=== PATIENT | female | born 1945 | race Caucasian/White ===

== ENCOUNTER 2019-07-20 12:18 | Outpatient (CLI) | payer MEDICARE, SELFPAY ==
--- NOTE | ~2019-07-20 | CT_ITS ---
EXAMINATION:CT lung screening DATE: 07/20/2019 12:49 INDICATION: Personal history of tobacco dependence. Smoker who quit 6 months ago with 45 pack year hi story. TECHNIQUE: Computed tomography (CT) of the chest was performed without intravenous contrast. Automate d exposure control and iterative reconstruction technique were employed. The dose-length product (DLP ) was 57.59 mGy-cm. COMPARISON: Chest CT 07/09/2018, 03/20/2018 FINDINGS: There is severe emphysema. There is mild scarring at the lung apices. There is mild atelect asis and scarring bilaterally. There is a 4 mm nodule in right upper lobe that is new. Again seen is a 3 mm nodule in right upper lobe. No pleural effusion. The heart size is normal. There are coronary artery calcifications. No pericardial effusion. There is a mildly enlarged right paratracheal lymph n ode, likely reactive. Partially visualized is a 2.2 cm cyst in left kidney. There is severe thoracic spondylosis. IMPRESSION: 1. Lung-RADS category 3: Probably benign. Further evaluation is recommended with noncontrast low-dose chest CT in 6 months. Reviewed, dictated and finalized at location A. ORATE LAW SPECIALIST IMPRESSION: 1. Lung-RADS category 3: Probably benign. Further evaluation is recommended wit h noncontrast low-dose chest CT in 6 months.
== END 2019-07-20 12:19 | disposition home or self-care (01) ==
LOC: ANHIMG 12:26
PROVIDERS: PCP Internal Medicine; Visit Provider Nurse Practitioner Family
DX: Z12.2 Encounter for screening for malignant neoplasm of respiratory organs (principal); Z87.891 Personal history of nicotine dependence; R91.8 Other nonspecific abnormal finding of lung field
CPT/HCPCS: G0297

== ENCOUNTER 2019-11-19 10:15 | Outpatient (CLI) | payer MEDICARE, SELFPAY ==
[2019-11-19 10:50] LABS: Blood Urea Nitrogen 22 mg/dL (7-17); Calcium 9.5 mg/dL (8.4-10.2); Carbon Dioxide 29 mmol/L (22-30); Chloride 105 mmol/L (98-107); Cholesterol 175 mg/dL (0-200); Estimated Glomerular Filt Rate 54; Glucose 104 mg/dL (65-105); HDL Direct 73 mg/dL; Potassium 4.1 mmol/L (3.4-5.0); Sodium 140 mmol/L (137-145); Triglycerides 102 mg/dL (<150)
[2019-11-19 11:01] LABS: LDL Cholesterol Direct 73 mg/dL
[2019-11-19 11:46] LABS: Free T4 Free Thyroxine 1.03 ng/mL (0.78-2.19)
== END 2019-11-19 10:16 | disposition home or self-care (01) ==
LOC: ANHLAB 10:18
PROVIDERS: PCP Internal Medicine; Visit Provider Internal Medicine
DX: E03.9 Hypothyroidism, unspecified (principal); E55.9 Vitamin D deficiency, unspecified; I10 Essential (primary) hypertension; Z79.899 Other long term (current) drug therapy
CPT/HCPCS: 36415; 80048; 80061; 84439; 84443

== ENCOUNTER 2020-01-20 13:34 | Outpatient (CLI) | payer MEDICARE, SELFPAY ==
--- NOTE | ~2020-01-20 | CT_ITS ---
EXAMINATION: CT chest wo con DATE: 01/20/2020 13:56 INDICATION: Follow-up pulmonary nodules TECHNIQUE: Computed tomography (CT) of the chest was performed without intravenous contrast. The dose -length product was 123.71 mGy-cm. Automated exposure control and iterative reconstruction technique were employed. COMPARISON: CT dated 07/20/2019 and 07/09/2019 FINDINGS: There is severe emphysema. No significant pleural or pericardial effusion. Enlarged precari nal lymph node measures 1 cm short axis, unchanged, likely reactive. No pleural or pericardial effusi on. There is atherosclerosis of the aorta and coronary arteries. Exophytic left renal cyst reidentifi ed without significant change. There is apical pleural thickening/scarring. 3.5 mm right upper lobe n odule slightly decreased in size compared with prior examination. 3 mm right upper lobe nodule unchan ged. Curvilinear 5 mm right upper lobe nodule, coronal image 38, unchanged. There is a new 1.3 x 0.9 cm mass left upper lobe, image 39. IMPRESSION: 1. New 1.3 cm left upper lobe nodule. Consider further evaluation with pet/CT and/or tissue sampling. Lung RADS 4B, very suspicious. Reviewed, dictated and finalized at location A. IMPRESSION: 1. New 1.3 cm left upper lobe nodule. Consider further evaluation with pet/CT a nd/or tissue sampling. Lung RADS 4B, very suspicious.
== END 2020-01-20 13:35 | disposition home or self-care (01) ==
PROVIDERS: PCP Internal Medicine; Visit Provider Nurse Practitioner Family
DX: R91.1 Solitary pulmonary nodule (principal)
CPT/HCPCS: 71250

== ENCOUNTER 2020-02-08 13:27 | Outpatient (CLI) | payer MEDICARE, SELFPAY ==
--- NOTE | ~2020-02-08 | PE_ITS ---
EXAMINATION: PET skull to mid thigh DATE: 02/08/2020 15:49 INDICATION: Solitary pulmonary nodule. TECHNIQUE: Blood glucose level was 101 mg/dL. 10.49 mCi of 18-fluorodeoxyglucose (18-FDG) was adminis tered i.v. Low dose computed tomography (CT) images were acquired from the base of the brain to the p roximal thighs for attenuation correction and anatomic localization. Automated exposure control was e mployed. Dose-length product (DLP) was 306 mGy-cm. Positron emission tomography (PET) images were acq uired in the same distribution. COMPARISON: Chest CT 01/20/2020, 07/20/2019, 07/09/2018 FINDINGS: Head/neck: There is increased activity in the oropharynx without CT correlate, likely physiologic. Th ere are no pathologically enlarged lymph nodes. Chest: There is severe emphysema. There are scattered areas of mild atelectasis and scarring in the l ungs. There is a 1.4 cm nodule in left lower lobe abutting the pleura with maximum SUV of 3.1, new fr om 01/20/20, likely infection. There is a 1.3 cm nodule in left upper lobe abutting the pleura with ma ximum SUV of 2.7, stable from 01/20/20 and new from 07/20/19. No pleural effusion. The heart size is no rmal. There are coronary artery calcifications. No pericardial effusion. There is a 12 x 11 mm right paratracheal lymph node without increased activity, stable from 07/09/18, likely benign. 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 There is kyphosis of thoracic spine with mild chronic anterior wed ging of multiple vertebral bodies and severe spondylosis. Abdomen/pelvis/proximal thighs: The liver, gallbladder, spleen, pancreas, adrenal glands, and right k idney are normal. There is a 2.2 cm cyst in left kidney. There is a calcified fibroid uterus. There a re no dilated loops of bowel. There is diverticulosis of the colon without evidence of diverticulitis . There are no pathologically enlarged lymph nodes. There is no free intraperitoneal fluid. There is moderate spondylosis of lumbar spine. IMPRESSION: 1. 1.3 cm left upper lobe pulmonary nodule with increased activity, new from 07/20/19, suspicious for primary bronchogenic carcinoma. CT-guided biopsy is recommended. 2. 1.4 cm left lower lobe nodule with increased activity, new from 01/20/2020, likely infection. 3. Severe emphysema. Reviewed, dictated and finalized at location A. IMPRESSION: 1. 1.3 cm left upper lobe pulmonary nodule with increased activity, new from , suspicious for primary bronchogenic carcinoma. CT-guided biopsy is jolie mmended. 2. 1.4 cm left lower lobe nodule with increased activity, new from 01/20/2020, l ikely infection. 3. Severe emphysema.
[2020-02-08 13:56] LABS: Glucose Point of Care 101 (65-105)
== END 2020-02-08 13:28 | disposition home or self-care (01) ==
PROVIDERS: PCP Internal Medicine; Visit Provider Nurse Practitioner Family
DX: R91.1 Solitary pulmonary nodule (principal); J43.9 Emphysema, unspecified
CPT/HCPCS: 78815; A9552

== ENCOUNTER 2020-03-20 11:29 | Outpatient (CLI) | payer MEDICARE, SELFPAY ==
[2020-03-20 11:57] LABS: Basophils Absolute Auto 0.1 K/mm3 (0.0-0.1); Eosinophils Absolute Auto 0.5 K/mm3 (0-0.3); Hematocrit 40.3 % (37.0-47.0); Hemoglobin 12.3 g/dL (12.0-15.0); Immature Granulocyte Absolute 0.04 K/mm3 (0.00-0.031); Immature Granulocyte Percent A 0.4 % (0-0.5); Lymphocytes Absolute Auto 1.62 K/mm3 (0.9-3.2); Lymphocytes Percent Auto 17.1 % (18.3-44.2); Mean Corpuscular HGB Conc 30.5 g/dl (32-36); Mean Corpuscular Hemoglobin 26.9 pg (26-34); Mean Platelet Volume 9.5 fl (7.4-10.4); Monocytes Percent Auto 10.1 % (2.6-8.5); Neutrophils Absolute Auto 6.3 K/mm3 (1.3-6.7); Neutrophils Percent Auto 66.4 % (45.5-73.1); Platelet Count Result 331 k/mm3 (150-375); Red Blood Count 4.58 M/mm3 (4.2-5.4); Red Cell Distribution Width 16.6 % (11.5-14.5); White Blood Count 9.5 K/mm3 (4.5-10.0)
[2020-03-20 12:20] LABS: Alanine Aminotransferase 18 U/L (4-35); Albumin Level 4.4 g/dL (3.5-5.1); Alkaline Phosphatase 67 U/L (38-126); Anion Gap 6 mmol/L (8-16); Aspartate Amino Transferase 28 U/L (14-36); Bilirubin,Total 0.3 mg/dL (0.2-1.3); Blood Urea Nitrogen 22 mg/dL (7-17); Calcium 9.7 mg/dL (8.4-10.2); Carbon Dioxide 32 mmol/L (22-30); Chloride 103 mmol/L (98-107); Estimated Glomerular Filt Rate 48; Glucose 111 mg/dL (65-105); Potassium 4.4 mmol/L (3.4-5.0); Sodium 141 mmol/L (137-145)
[2020-03-20 13:38] LABS: Folic Acid > 20.0 ng/mL (2.76->20); Vitamin B12 > 1000.0 pg/mL (239-931)
[2020-03-20 14:16] LABS: Hemoglobin A1C 5.7 % (<5.7)
[2020-03-23 09:55] LABS: Vitamin D 1,25 (OH)2 Total 50 pg/mL (18-72); Vitamin D2 1,25 (OH)2 <8 pg/mL; Vitamin D3 1,25 (OH)2 50 pg/mL
== END 2020-03-20 11:30 | disposition home or self-care (01) ==
PROVIDERS: PCP Internal Medicine; Visit Provider Internal Medicine
DX: E55.9 Vitamin D deficiency, unspecified (principal); Z79.899 Other long term (current) drug therapy; I10 Essential (primary) hypertension; D51.8 Other vitamin B12 deficiency anemias
CPT/HCPCS: 36415; 80053; 82607; 82652; 82746; 83036; 85025

== ENCOUNTER 2020-05-26 09:31 | Outpatient (CLI) | payer MEDICARE, SELFPAY ==
--- NOTE | ~2020-05-26 | CT_ITS ---
EXAMINATION: CT chest wo con DATE: 05/26/2020 10:00 INDICATION: Pulmonary nodule TECHNIQUE: Computed tomography (CT) of the chest was performed without intravenous contrast. The dose -length product was 54.06 mGy-cm. Automated exposure control and iterative reconstruction technique w ere employed. COMPARISON: Pet/CT dated 02/08/2020 FINDINGS: No significant pleural or pericardial effusion. No thoracic lymphadenopathy. Heart size nor mal. There is atherosclerosis of the aorta and coronary arteries. There is a 2.4 cm left renal cyst. Severe emphysema. Decreased size of left upper lobe nodule now measuring 6 x 6 mm compared with 13 x 9 mm on prior examination. Interval resolution of pleural-based soft tissue nodule in the left lower lobe. There is a new irregular shaped right lower lobe there is a an additional irregular shaped nodu le in the right lower lobe, image 52 measuring 11 mm. Moderate thoracic spondylosis. Subsolid nodule measuring 1.6 x 9 mm, image 66. IMPRESSION: 1. Significant interval decrease in size of left upper lobe nodule now measuring 6 x 6 mm axially, jim webster interval response to therapy. Interval resolution of left lower lobe pleural-based/inflammatory. 2: New spiculated subsolid nodules in the right lower lobe, most likely infectious/inflammatory, alth ough neoplasm is not excluded. 3: Severe emphysema. Reviewed, dictated and finalized at location B. NDER SUPERVISOR IMPRESSION: 1. Significant interval decrease in size of left upper lobe nodule now measurin g 6 x 6 mm axially, likely interval response to therapy. Interval resolution of left lower lobe pleural-based/inflammatory. 2: New spiculated subsolid nodules in the right lower lobe, most likely infecti ous/inflammatory, although neoplasm is not excluded. 3: Severe emphysema.
== END 2020-05-26 09:32 | disposition home or self-care (01) ==
PROVIDERS: PCP Internal Medicine; Visit Provider Nurse Practitioner Family
DX: R91.8 Other nonspecific abnormal finding of lung field (principal); I25.10 Atherosclerotic heart disease of native coronary artery without angina pectoris; J43.9 Emphysema, unspecified; N28.1 Cyst of kidney, acquired; M47.814 Spondylosis without myelopathy or radiculopathy, thoracic region
CPT/HCPCS: 71250

== ENCOUNTER 2020-06-13 15:09 | Outpatient (CLI) | payer MEDICARE, SELFPAY ==
[2020-06-13 16:19] LABS: Basophils Absolute Auto 0.1 K/mm3 (0.0-0.1); Basophils Percent Auto 0.7 % (0.2-1.2); Eosinophils Absolute Auto 0.6 K/mm3 (0-0.3); Eosinophils Percent Auto 8.1 % (0-4.4); Hematocrit 37.6 % (37.0-47.0); Hemoglobin 11.4 g/dL (12.0-15.0); Immature Granulocyte Absolute 0.01 K/mm3 (0.00-0.031); Immature Granulocyte Percent A 0.1 % (0-0.5); Lymphocytes Absolute Auto 1.87 K/mm3 (0.9-3.2); Lymphocytes Percent Auto 26.2 % (18.3-44.2); Mean Corpuscular HGB Conc 30.3 g/dl (32-36); Mean Corpuscular Hemoglobin 27.1 pg (26-34); Mean Corpuscular Volume 89.5 fl (80-100); Mean Platelet Volume 9.7 fl (7.4-10.4); Monocytes Absolute Auto 0.8 K/mm3 (0.1-0.6); Monocytes Percent Auto 11.2 % (2.6-8.5); Neutrophils Absolute Auto 3.8 K/mm3 (1.3-6.7); Neutrophils Percent Auto 53.7 % (45.5-73.1); Platelet Count Result 260 k/mm3 (150-375); Red Cell Distribution Width 14.8 % (11.5-14.5); White Blood Count 7.1 K/mm3 (4.5-10.0)
== END 2020-06-13 15:10 | disposition home or self-care (01) ==
LOC: ANHLAB 15:11
PROVIDERS: PCP Internal Medicine; Visit Provider Internal Medicine
DX: K92.1 Melena (principal)
CPT/HCPCS: 36415; 85025

== ENCOUNTER 2020-06-13 17:11 | Emergency (ER) | payer MEDICARE, SELFPAY ==
[2020-06-13 17:16] VITALS: BP 162/80; PULSE 95; RESP 24; TEMP 36.9; O2SAT 100
[2020-06-13 17:30] LABS: Basophils Absolute Auto 0.1 K/mm3 (0.0-0.1); Basophils Percent Auto 0.7 % (0.2-1.2); Eosinophils Absolute Auto 0.7 K/mm3 (0-0.3); Eosinophils Percent Auto 7.2 % (0-4.4); Hematocrit 39.2 % (37.0-47.0); Hemoglobin 11.6 g/dL (12.0-15.0); Immature Granulocyte Absolute 0.02 K/mm3 (0.00-0.031); Immature Granulocyte Percent A 0.2 % (0-0.5); Lymphocytes Absolute Auto 2.56 K/mm3 (0.9-3.2); Mean Corpuscular HGB Conc 29.6 g/dl (32-36); Mean Corpuscular Hemoglobin 26.9 pg (26-34); Mean Corpuscular Volume 90.7 fl (80-100); Mean Platelet Volume 9.5 fl (7.4-10.4); Monocytes Absolute Auto 1.1 K/mm3 (0.1-0.6); Monocytes Percent Auto 11.3 % (2.6-8.5); Neutrophils Absolute Auto 5.1 K/mm3 (1.3-6.7); Neutrophils Percent Auto 53.6 % (45.5-73.1); Platelet Count Result 279 k/mm3 (150-375); Red Blood Count 4.32 M/mm3 (4.2-5.4); Red Cell Distribution Width 14.7 % (11.5-14.5); White Blood Count 9.5 K/mm3 (4.5-10.0)
[2020-06-13 17:41] LABS: INR 1.1; Partial Thromboplastin Time 25.8 SECONDS (22.3-36.8); Prothrombin Time 15.1 Seconds (11.1-14.7)
[2020-06-13 17:43] LABS: Alanine Aminotransferase 24 U/L (4-35); Albumin Level 4.5 g/dL (3.5-5.1); Alkaline Phosphatase 77 U/L (38-126); Anion Gap 8 mmol/L (8-16); Aspartate Amino Transferase 39 U/L (14-36); Bilirubin,Total 0.3 mg/dL (0.2-1.3); Blood Urea Nitrogen 17 mg/dL (7-17); Calcium 9.4 mg/dL (8.4-10.2); Carbon Dioxide 30 mmol/L (22-30); Chloride 102 mmol/L (98-107); Estimated CRCL calculation 34 ml/min; Estimated Glomerular Filt Rate > 60; Glucose 112 mg/dL (65-105); Potassium 4.1 mmol/L (3.4-5.0); Sodium 140 mmol/L (137-145)
[2020-06-13 17:55] LABS: Hypochromasia 2+ (NORMAL); Ovalocytes 1+ (NORMAL); Platelet Estimate Adequate (Adequate)
[2020-06-13 18:01] VITALS: BP 139/106; PULSE 95; RESP 27; O2SAT 83
[2020-06-13 18:31] VITALS: BP 151/73; PULSE 88; RESP 18
[2020-06-13 19:01] VITALS: BP 170/94; PULSE 90; RESP 19; O2SAT 92
--- NOTE | 2020-06-13 19:04 | ED.GENADULT ---
HPI - General Adult General Chief complaint: GI Bleed Stated complaint: Abnormal Lab/Dark stools Time Seen by Provider: 06/13/20 17:18 Source: patient Mode of arrival: ambulatory Limitations: no limitations Related Data Allergies Allergy/AdvReac Type Severity Reaction Status Date / Time levalbuterol Allergy Unknown n/a Verified 06/13/20 17:22 methylprednisolone Allergy Unknown Jittery Verified 06/13/20 17:22 Review of Systems Review of Systems: Narrative: CONSTITUTIONAL: Denies fever, chills, or sweats. EYES: Denies visual changes, redness, or discharge. ENT: Denies rhinorrhea, congestion, sore throat, or otalgia. CARDIOVASCULAR: Denies chest pain, palpitations, or edema. RESPIRATORY: Denies cough or dyspnea. GASTROINTESTINAL: Reports dark stool Denies abdominal pain, nausea, vomiting, or diarrhea. GENITOURINARY: Denies dysuria or hematuria. SKIN: Denies rash or itching. MUSCULOSKELETAL: Denies back pain, joint pain, or myalgia. NEUROLOGIC: Denies headache, numbness, dizziness, or weakness. PSYCHIATRIC: Denies anxiety or depression. 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 HEAD: Normocephalic, atraumatic. EYES: PERRLA and EOMI. NECK: Supple. No adenopathy or masses. CHEST: Clear to auscultation. No respiratory distress. No wheezes rales or rhonchi HEART: Regular rate and rhythm. No murmur heard. Normal peripheral pulses. ABDOMEN: Soft, nontender in any quadrant, nondistended, normal active bowel sounds. RECTAL EXAM: No outward signs of trauma or hemmorhoids. No bloody output to rectum. No bloody discharge in underwear. digital exam not grossly bloody. minimal stool in rectal vault. Hemoccult was not positive. EXTREMITIES: Normal range of motion. No edema. SKIN: Warm, dry, no rash. NEURO: No focal deficits. Alert and oriented x3. PSYCH: Normal mood and affect. Course Vital Signs Vital signs: Vital Signs Temperature 98.5 F 06/13/20 17:16 Pulse Rate 95 06/13/20 17:16 Respiratory Rate 24 H 06/13/20 17:16 Blood Pressure 162/80 H 06/13/20 17:16 Pulse Oximetry 100 06/13/20 17:16 Temperature 98.5 F 06/13/20 17:16 Pulse Rate 95 06/13/20 17:16 Respiratory Rate 24 H 06/13/20 17:16 Blood Pressure 162/80 H 06/13/20 17:16 Pulse Oximetry 100 06/13/20 17:16 Medical Decision Making MDM Narrative Medical decision making narrative: Patient's hemoglobin hematocrit and white blood cell count are appropriate. Patient does not have dizziness, weakness, nausea, vomiting she has not had any stools while in the emergency department. She does not have any appreciated bleeding from her rectum. Patient does not have dizziness, weakness, abdominal pain, chest pain, shortness of breath from her baseline. Patient cannot pass any stools while in emergency department. Collection. Patient has instructed to follow-up with her primary care or GI specialist for further investigation into her stools. Patient states Dr Bowers already mentioned referral for colonoscopy. Patient not on any blood thinners. She still feels well and is ready to go home. Patient is to return to emergency department if any of the aforementioned concerning symptoms present. Vital Signs Vital Signs: Vital Signs
== END 2020-06-13 19:35 | disposition home or self-care (01) ==
PROVIDERS: Emergency Medicine; Emergency Provider Emergency Medicine; PCP Internal Medicine
DX: R19.5 Other fecal abnormalities (principal); J44.9 Chronic obstructive pulmonary disease, unspecified; N18.9 Chronic kidney disease, unspecified; R91.1 Solitary pulmonary nodule; Z87.891 Personal history of nicotine dependence
CPT/HCPCS: 36415; 80053; 85025; 85610; 85730; 86850; 86900; 86901; 99283

== ENCOUNTER 2020-06-19 16:59 | Outpatient (CLI) | payer MEDICARE, SELFPAY ==
--- NOTE | ~2020-06-19 | XR_ITS ---
EXAMINATION: XR abdomen/kub 1V INDICATION: Hematuria, history of kidney stones TECHNIQUE: Supine views of the abdomen were obtained on 2 radiographs. COMPARISON: 09/02/2018 FINDINGS: No urolithiasis is identified. A calcified uterine fibroid is noted. The bowel gas pattern is normal. The visualized lung bases are clear. There is mild osteoarthritis of the hips. Calcified a therosclerosis is noted. IMPRESSION: 1. No urolithiasis identified. Reviewed, dictated and finalized at location A. LE END SEWER
== END 2020-06-19 17:00 | disposition home or self-care (01) ==
PROVIDERS: PCP Internal Medicine; Visit Provider Internal Medicine
DX: R31.9 Hematuria, unspecified (principal); Z87.442 Personal history of urinary calculi; M16.0 Bilateral primary osteoarthritis of hip
CPT/HCPCS: 74018

== ENCOUNTER 2020-06-30 14:32 | Outpatient (CLI) | payer MEDICARE, SELFPAY ==
--- NOTE | ~2020-06-30 | XR_ITS ---
XR abdomen/kub 1V DATE: 06/30/2020 14:58 INDICATION: Gross hematuria TECHNIQUE: Supine AP view COMPARISON: 06/30/2020 CT abdomen and pelvis 06/19/2020 KUB 07/28/[address] abdomen pelvis FINDINGS: A calcified small uterine fibroid is again noted overlying the lower mid pelvis. No apparent urinary tract calcification is noted. The psoas shadows are intact. No visceromegaly is evident. No evidence of bowel obstruction. Degenerative changes of the thoracic and lumbar spine. Diffuse osteopenia. The lung bases are clear. Heart size appears normal. IMPRESSION: No apparent urinary tract calcification is noted Reviewed, dictated and finalized at Location A. Reviewed, dictated and finalized at location B. OPHTHALMOLOGIST
--- NOTE | ~2020-06-30 | CT_ITS ---
EXAMINATION: CT abdomen pelvis wo/w con DATE: 06/30/2020 15:48 INDICATION: Gross hematuria TECHNIQUE: Computed tomography (CT) of the abdomen and pelvis was performed without and subsequently with 130 cc Omnipaque 350 intravenous contrast. Automated exposure control and iterative reconstructi on technique were employed. Exam dose: 710.11 mGy-cm total exam DLP. COMPARISON: 06/30/2020 KUB 06/19/2020 KUB 07/28/[address] abdomen pelvis FINDINGS: Emphysematous changes are noted in the included lower lung zones. Normal heart size. No pericardial or pleural effusion. Right fat-containing foramen of Bochdalek hernia. Interval resolution of previous 5 mm nonobstructing calculus of the lower pole of right kidney since 07/28/2018. No urinary tract calculus or hydroureteronephrosis is evident on the current examination. T here are no bladder stones. No bladder wall thickening. Bilateral ureteral jets are demonstrated on t he postcontrast study. Bilateral renal cysts are again noted, the largest on the left measuring up to approximately 2.2 cm m aximal dimension. The liver, gallbladder, bile ducts, pancreas, pancreatic duct and spleen are unremarkable. Normal morphology of the adrenal glands. There is extensive calcification of the abdominal aorta and calcifications at the origins of the umesh ac and superior mesenteric and renal arteries. No abdominal aortic aneurysm. Prominent calcifications of the iliac and femoral arteries. No intraperitoneal or retroperitoneal or pelvic mass lesion or ad enopathy or ascites. Calcified uterine fibroid. No evidence of mass lesion of the urinary bladder or bladder wall thickeni ng. There are numerous diverticula of the sigmoid colon; no CT evidence of diverticulitis. No bowel obstr uction, bowel wall thickening, pneumatosis or intraperitoneal free air is evident. Degenerative changes of the thoracic and lumbar spine. Grade 1 anterolisthesis at L4-5 due to degener ative disks change at the apophyseal joints. No suspicious osteolytic or osteoblastic lesions are noted. IMPRESSION: No urinary tract calculus or hydroureteronephrosis or urinary tract solid mass lesion is detected Bilateral renal cysts Calcified uterine fibroid Diverticulosis of the colon; no CT evidence of diverticulitis Emphysema Reviewed, dictated and finalized at Location A. Reviewed, dictated and finalized at location B. AN TEACHER IMPRESSION: No urinary tract calculus or hydroureteronephrosis or urinary trac t solid mass lesion is detected Bilateral renal cysts Calcified uterine fibroid Diverticulosis of the colon; no CT evidence of diverticulitis Emphysema
== END 2020-06-30 14:33 | disposition home or self-care (01) ==
PROVIDERS: PCP Internal Medicine; Visit Provider Nurse Practitioner Adult Health
DX: R31.0 Gross hematuria (principal); N28.1 Cyst of kidney, acquired; D25.9 Leiomyoma of uterus, unspecified; J43.9 Emphysema, unspecified
CPT/HCPCS: 74018; 74178; Q9967

== ENCOUNTER 2020-07-18 02:32 | Outpatient (CLI) | payer MEDICARE, SELFPAY ==
[2020-07-18 18:12] LABS: SARS-CoV-2 RNA PCR Negative
== END 2020-07-18 02:33 | disposition home or self-care (01) ==
LOC: ANHCOVIDDT 02:33
PROVIDERS: PCP Internal Medicine; Visit Provider Internal Medicine Gastroenterology
DX: Z01.812 Encounter for preprocedural laboratory examination (principal); Z20.822 Contact with and (suspected) exposure to COVID-19
CPT/HCPCS: C9803; U0003; U0005

== ENCOUNTER → 2020-07-29 00:54 | Outpatient (CLI) | payer MEDICARE, SELFPAY ==
[2020-07-29 20:39] LABS: SARS-CoV-2 RNA PCR Negative
== END ==
PROVIDERS: PCP Internal Medicine; Visit Provider Internal Medicine Gastroenterology
DX: Z01.812 Encounter for preprocedural laboratory examination (principal); Z20.822 Contact with and (suspected) exposure to COVID-19
CPT/HCPCS: C9803; U0003; U0005

== ENCOUNTER 2020-08-02 00:37 | Day surgery (SDC) | payer MEDICARE, SELFPAY ==
[2020-07-14 13:43] VITALS: BMI 23.2
--- NOTE | 2020-07-19 13:36 | WPDANESEPPF ---
Anes - Initial Pre Proc Eval Procedure: Operation Date: 07/21/20 11:00 Proposed Procedures p Colonoscopy - Lev Gorman MD Date/Time: 07/19/20 13:36 Surgeon: Lev Gorman MD Pre Op Diagnosis: Blood in stool, Hx of Rectal Polyps Patient Data Age: 75 Gender: F Height: 1.52 m Weight: 54 kg Allergies Allergy/AdvReac Type Severity Reaction Status Date / Time levalbuterol Allergy Unknown n/a Verified 07/14/20 13:43 methylprednisolone Allergy Unknown Jittery Verified 07/14/20 13:43 Home Medications Medication Instructions Recorded Confirmed Type mecobalamin (vitamin B12) 1,000 1,000 mcg SUBLINGUAL DAILY #60 07/06/19 07/14/20 Rx mcg disintegrating tablet tablet,sublingual amlodipine 5 mg tablet 5 mg PO DAILY #90 tablet 08/27/19 07/14/20 Rx donepezil 10 mg tablet 10 mg PO ONCE #90 tablet 08/27/19 07/14/20 Rx levothyroxine 25 mcg tablet 25 mcg PO DAILY #90 tablet 08/27/19 07/14/20 Rx olmesartan 20 mg tablet 20 mg PO DAILY #90 tablet 08/27/19 07/14/20 Rx memantine 5 mg tablet See Rx Instructions .ROUTE 02/21/20 07/14/20 Rx .COMPLEX #60 tablet folic acid 1 mg tablet 1 mg PO DAILY #90 tablet 04/06/20 07/14/20 Rx lorazepam 1 mg tablet 1 mg PO BID #60 tablet 07/03/20 07/14/20 Rx sodium,potassium,mag sulfates See Rx Instructions .ROUTE 07/13/20 Rx [Suprep Bowel Prep Kit] .COMPLEX #1 ml albuterol sulfate 2.5 mg INHALATION BID 07/14/20 07/14/20 History oobtqlhefz-uartldui-khyhwnbvvm 2 inh INHALATION BID 07/14/20 07/14/20 History [Breztri Aerosphere] cyclobenzaprine 10 mg PO BID PRN 07/14/20 07/14/20 History fexofenadine [Marley Allergy] 180 mg PO DAILY PRN 07/14/20 History ipratropium bromide See Rx Instructions .ROUTE 07/14/20 History .COMPLEX PRN ycvtoytgepui-xcbkznsh-mfjssq 1 tablet PO DAILY 07/14/20 07/14/20 History [Centrum Silver] PMF Past Medical History Medical History (Updated 07/17/20 @ 16:55 by Jina Ferrell) Adult BMI 19-24 kg/sq m Black stools BMI (body mass index) 20.0-29.9 CKD (chronic kidney disease) COPD (chronic obstructive pulmonary disease) COPD exacerbation Cough Encounter for routine adult health examination without abnormal findings Follow up GERD (gastroesophageal reflux disease) Gingivitis Hematuria History of kidney stones Hx of colonic polyps Lung nodule 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 Sore mouth Tobacco abuse Trigger finger of all digits of right hand Social History Social History Years smoked: 50 Smoking status: Former smoker Tobacco type: cigarettes Second hand tobacco smoke exposure: No Alcohol intake: current Substance use type: does not use Anes - Eval Final PreProcedure Day of Procedure 07/19/20 13:36 Patient weight: normal Heart: regular rate and rhythm Lungs: clear to auscultation and normal air movement Airway: Mallampati scale class II Neurological: alert and oriented Last oral intake: >/= 8 hours ASA classification: III Emergent: no Anesthetic plan: proceed Anesthesia type and monitoring: general GIVS and standard monitoring Informed Consent: The patient's anesthetic plan and its attendant risks and benefits were discussed with the patient/family/POA. Questions were solicited and answers provided to the satisfaction of the patient/family/POA.
--- NOTE | 2020-07-20 08:36 | PC.NURSE ---
Patient states she has lung infection and had to reschedule her colonoscopy. New instructions given with COVID and procedure times. Denies any questions at this time.
[2020-08-02 11:26] VITALS: BP 136/93; PULSE 99; RESP 18; TEMP 36.2; O2SAT 95; BMI 22.1
[2020-08-02] MEDS: LACTATED RINGERS 1,000 ML 150 ML IV CONT (11:35)
--- NOTE | 2020-08-02 12:15 | WPDANESEPPF ---
Anes - Initial Pre Proc Eval Procedure: Operation Date: 08/02/20 12:00 Proposed Procedures p Colonoscopy - Lei Cano MD Date/Time: 08/02/20 12:15 Surgeon: Lei Cano MD Pre Op Diagnosis: Blood in stool, Hx of Rectal Polyps Patient Data Age: 75 Gender: F Height: 5 ft Weight: 51.4 kg Last Vital Signs Temp 36.2 C L 08/02/20 11:26 Pulse 99 08/02/20 11:26 Resp 18 08/02/20 11:26 BP 136/93 H 08/02/20 11:26 Pulse Ox 95 08/02/20 11:26 Allergies Allergy/AdvReac Type Severity Reaction Status Date / Time levalbuterol Allergy Unknown n/a Verified 08/02/20 11:23 methylprednisolone Allergy Unknown Jittery Verified 08/02/20 11:23 Home Medications Medication Instructions Recorded Confirmed Type mecobalamin (vitamin B12) 1,000 1,000 mcg SUBLINGUAL DAILY #60 07/06/19 07/14/20 Rx mcg disintegrating tablet tablet,sublingual amlodipine 5 mg tablet 5 mg PO DAILY #90 tablet 08/27/19 07/14/20 Rx donepezil 10 mg tablet 10 mg PO ONCE #90 tablet 08/27/19 07/14/20 Rx levothyroxine 25 mcg tablet 25 mcg PO DAILY #90 tablet 08/27/19 07/14/20 Rx memantine 5 mg tablet See Rx Instructions .ROUTE 02/21/20 07/14/20 Rx .COMPLEX #60 tablet folic acid 1 mg tablet 1 mg PO DAILY #90 tablet 04/06/20 07/14/20 Rx sodium,potassium,mag sulfates See Rx Instructions .ROUTE 07/13/20 Rx [Suprep Bowel Prep Kit] .COMPLEX #1 ml albuterol sulfate 2.5 mg INHALATION BID 07/14/20 07/14/20 History ckinhacpco-swxqxhhz-lnszuopzga 2 inh INHALATION BID 07/14/20 07/14/20 History [Breztri Aerosphere] cyclobenzaprine 10 mg PO BID PRN 07/14/20 07/14/20 History fexofenadine [Marley Allergy] 180 mg PO DAILY PRN 07/14/20 07/20/20 History ipratropium bromide See Rx Instructions .ROUTE 07/14/20 07/20/20 History .COMPLEX PRN iniyjjguzugi-ofdxkbci-ijrsjn 1 tablet PO DAILY 07/14/20 07/14/20 History [Centrum Silver] amoxicillin 500 mg-potassium 1 tablet PO Q12H #14 tablet 07/19/20 07/20/20 Rx clavulanate 125 mg tablet lorazepam 1 mg tablet 1 mg PO BID #60 tablet 08/01/20 Rx olmesartan 20 mg tablet 20 mg PO DAILY #90 tablet 08/01/20 Rx Patient hx anesthesia problems: none Family hx anesthesia problems: none PMFSH Past Medical History Medical History Adult BMI 19-24 kg/sq m Black stools BMI (body mass index) 20.0-29.9 CKD (chronic kidney disease) COPD (chronic obstructive pulmonary disease) COPD exacerbation Cough Encounter for routine adult health examination without abnormal findings Follow up GERD (gastroesophageal reflux disease) Gingivitis Hematuria History of kidney stones Hx of colonic polyps Lung nodule 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 Sore mouth Tobacco abuse Trigger finger of all digits of right hand Social History Social History Years smoked: 50 Smoking status: Former smoker Tobacco type: cigarettes Second hand tobacco smoke exposure: No Alcohol intake: current Substance use type: does not use Anes - Eval Final PreProcedure Day of Procedure 08/02/20 12:15 Patient weight: normal Heart: regular rate and rhythm Lungs: clear to auscultation Airway: Mallampati scale class II Neurological: alert and oriented Last oral intake: >/= 8 hours ASA classification: IV Emergent: no Anesthetic plan: proceed Anesthesia type and monitoring: general GIVS and standard monitoring Informed Consent: The patient's anesthetic plan and its attendant risks and benefits were discussed with the patient/family/POA. Questions were solicited and answers provided to the satisfaction of the patient/family/POA.
--- NOTE | 2020-08-02 12:58 | PM.HPGS ---
History of Present Illness History of Present Illness Consent: Risks, benefits, and alternatives have been discussed and questions answered. Patient agrees to proceed with procedure. Chief complaint: Blood in stool, Hx of Rectal Polyps Narrative: Jenny Lucas is a 75 year old female here for screening colonoscopy with last one about 10 years ago but also diarrhea using OTC anti-diarrheals. Also COPD and GERD. Review of Systems Constitutional: Constitutional: Denies headache(s) and Denies weakness Eyes: Eyes: Denies blurry vision ENT: Reports Normal hearing present, Denies headache(s) and Denies neck pain Cardiovascular: Cardiovascular: Denies chest pain and Denies dyspnea Respiratory: Respiratory: Denies dyspnea Gastrointestinal: Gastrointestinal: Reports no additional gastrointestinal complaints Genitourinary: Genitourinary: Denies dysuria Musculoskeletal: Musculoskeletal: Denies neck pain Integumentary/Breasts: Skin/Breast: Denies dry skin Neurologic: Reports Normal hearing present, Denies headache(s) and Denies weakness Psychiatric: Psychiatric: Denies anxiety Endocrine: Endocrine: Denies change in body appearance Hematologic/Lymphatic: Hematologic/Lymphatic: Denies easy bleeding Allergic/Immunologic: Allergic/Immunologic: Denies urticaria PMFSH Past Medical History Medical History Adult BMI 19-24 kg/sq m Black stools BMI (body mass index) 20.0-29.9 CKD (chronic kidney disease) COPD (chronic obstructive pulmonary disease) COPD exacerbation Cough Encounter for routine adult health examination without abnormal findings Follow up GERD (gastroesophageal reflux disease) Gingivitis Hematuria History of kidney stones Hx of colonic polyps Lung nodule On terminologist drug therapy Sore mouth Tobacco abuse Trigger finger of all digits of right hand Social History Social History Years smoked: 50 Smoking status: Former smoker Tobacco type: cigarettes Second hand tobacco smoke exposure: No Alcohol intake: current Substance use type: does not use Meds Home Medications and Allergies Home Medications Medication Instructions Recorded Confirmed Type mecobalamin (vitamin B12) 1,000 1,000 mcg SUBLINGUAL DAILY #60 07/06/19 07/14/20 Rx mcg disintegrating tablet tablet,sublingual amlodipine 5 mg tablet 5 mg PO DAILY #90 tablet 08/27/19 07/14/20 Rx donepezil 10 mg tablet 10 mg PO ONCE #90 tablet 08/27/19 07/14/20 Rx levothyroxine 25 mcg tablet 25 mcg PO DAILY #90 tablet 08/27/19 07/14/20 Rx memantine 5 mg tablet See Rx Instructions .ROUTE 02/21/20 07/14/20 Rx .COMPLEX #60 tablet folic acid 1 mg tablet 1 mg PO DAILY #90 tablet 04/06/20 07/14/20 Rx sodium,potassium,mag sulfates See Rx Instructions .ROUTE 07/13/20 Rx [Suprep Bowel Prep Kit] .COMPLEX #1 ml albuterol sulfate 2.5 mg INHALATION BID 07/14/20 07/14/20 History auxubrbdqq-aigqsdwy-zmaggczksx 2 inh INHALATION BID 07/14/20 07/14/20 History [Breztri Aerosphere] cyclobenzaprine 10 mg PO BID PRN 07/14/20 07/14/20 History fexofenadine [Marley Allergy] 180 mg PO DAILY PRN 07/14/20 07/20/20 History ipratropium bromide See Rx Instructions .ROUTE 07/14/20 07/20/20 History .COMPLEX PRN xufnmlizgkub-qjtevtkv-pxmnez 1 tablet PO DAILY 07/14/20 07/14/20 History [Centrum Silver] amoxicillin 500 mg-potassium 1 tablet PO Q12H #14 tablet 07/19/20 07/20/20 Rx clavulanate 125 mg tablet lorazepam 1 mg tablet 1 mg PO BID #60 tablet 08/01/20 Rx olmesartan 20 mg tablet 20 mg PO DAILY #90 tablet 08/01/20 Rx Allergies Allergy/AdvReac Type Severity Reaction Status Date / Time levalbuterol Allergy Unknown n/a Verified 08/02/20 11:23 methylprednisolone Allergy Unknown Jittery Verified 08/02/20 11:23 Vital Signs Vital Signs - 24 hr 08/02/20 11:26 Temperature 97.2 F L Pulse Rate 99 Respiratory Rate 18 Blood Pressure 136/93 H
[2020-08-02 13:27] VITALS: BP 107/51; PULSE 76; RESP 22; O2SAT 100
[2020-08-02 13:37] VITALS: BP 138/74; PULSE 84; RESP 23; O2SAT 100
[2020-08-02 13:47] VITALS: BP 139/66; PULSE 75; RESP 25; O2SAT 98
== END 2020-08-02 14:07 | disposition home or self-care (01) ==
PROVIDERS: PCP Internal Medicine; Visit Provider Internal Medicine Gastroenterology
PROC: 0DJD8ZZ Inspection of Lower Intestinal Tract, Via Natural or Artificial Opening Endoscopic (ICD-10-PCS; CPT 45378; principal; 2020-08-02 12:00)
DX: Z12.11 Encounter for screening for malignant neoplasm of colon (principal); D12.3 Benign neoplasm of transverse colon; D12.4 Benign neoplasm of descending colon; K57.30 Diverticulosis of large intestine without perforation or abscess without bleeding; R19.7 Diarrhea, unspecified; J44.9 Chronic obstructive pulmonary disease, unspecified; K21.9 Gastro-esophageal reflux disease without esophagitis; N18.9 Chronic kidney disease, unspecified; Z87.891 Personal history of nicotine dependence
CPT/HCPCS: 45385; 45380; 88305; C9803; J2704; J7120; U0003; U0005

== ENCOUNTER 2020-08-04 11:10 | Outpatient (CLI) | payer MEDICARE, SELFPAY ==
[2020-08-04 11:45] LABS: Add Urine Microscopic? NO; Appearance Urine Clear (Clear); Bilirubin Urine Negative (Negative); Blood Urine Negative (Negative); Color Urine Yellow (Yellow); Glucose Urine UA Negative (Negative); Ketones Urine Negative (Negative); Leukocyte Esterase Ur Negative LEU/UL (NEGATIVE); Nitrate Urine Negative (Negative); Protein Urine Negative (Negative); Specific Grav Ur 1.015 (1.001-1.035); Urobilinogen Urine Negative mg/dL (<2.0)
[2020-08-04 11:54] LABS: Anion Gap 7 mmol/L (8-16); Blood Urea Nitrogen 13 mg/dL (7-17); Calcium 9.2 mg/dL (8.4-10.2); Carbon Dioxide 32 mmol/L (22-30); Chloride 102 mmol/L (98-107); Cholesterol 173 mg/dL (0-200); Estimated Glomerular Filt Rate > 60; Glucose 93 mg/dL (65-105); HDL Direct 79 mg/dL; Potassium 3.8 mmol/L (3.4-5.0); Sodium 141 mmol/L (137-145); Triglycerides 106 mg/dL (<150)
[2020-08-04 12:04] LABS: LDL Cholesterol Direct 65 mg/dL
[2020-08-04 12:07] LABS: Hemoglobin A1C 5.4 % (<5.7)
[2020-08-04 12:35] LABS: Free T4 Free Thyroxine 1.28 ng/mL (0.78-2.19)
== END 2020-08-04 11:11 | disposition home or self-care (01) ==
PROVIDERS: PCP Internal Medicine; Visit Provider Internal Medicine
DX: E03.9 Hypothyroidism, unspecified (principal); Z51.81 Encounter for therapeutic drug level monitoring; Z79.899 Other long term (current) drug therapy
CPT/HCPCS: 36415; 80048; 80061; 81003; 83036; 84439; 84443

== ENCOUNTER → 2020-08-28 00:16 | Outpatient (CLI) | payer MEDICARE, SELFPAY ==
[2020-08-28 18:02] LABS: SARS-CoV-2 RNA PCR Negative
== END ==
PROVIDERS: PCP Internal Medicine; Visit Provider Internal Medicine Gastroenterology
DX: Z01.812 Encounter for preprocedural laboratory examination (principal); Z20.822 Contact with and (suspected) exposure to COVID-19
CPT/HCPCS: C9803; U0003; U0005

== ENCOUNTER 2020-08-30 14:48 | Outpatient (CLI) | payer MEDICARE, SELFPAY ==
--- NOTE | ~2020-08-30 | CT_ITS ---
EXAMINATION: CT diagnostic chest wo con DATE: 08/30/2020 15:26 INDICATION: Follow-up pulmonary nodule TECHNIQUE: Computed tomography (CT) of the chest was performed without intravenous contrast. The dose -length product was 55.26 mGy-cm. Automated exposure control and iterative reconstruction technique w ere employed. COMPARISON: CT dated 05/26/2020 FINDINGS: There is mildly enlarged left axillary lymph nodes, largest measuring 1.6 cm. There is athe rosclerosis of the aorta and coronary arteries. There is an enlarged precarinal lymph node measuring 12 mm, image 44. No significant pleural or pericardial effusion. There is emphysema. Stable irregular shaped nodule left upper lobe measuring 6 mm maximum dimension, image 41. The irregular shaped spicu lated density in the right lower lobe is less apparent with current study, most likely postinfectious /inflammatory. There are new right lower lobe subsolid nodules measuring up to 5 mm, image 88. There is decreased size of pleural-based left lower lobe soft tissue, image 83, likely infectious/inflammat ory. There is a new pleural-based soft tissue nodule right lower lobe, image 99, measures 1.4 x 0.7 c m. Cyst was not definitely seen on prior examination. There is moderate thoracic spondylosis. No foca l osteolytic or osteoblastic lesions. IMPRESSION: 1. New right lower lobe nodules, largest at the posterior costophrenic sulcus measuring 1.4 x 0.7 cm. Although these may be infectious/inflammatory, metastatic disease is not excluded. Recommend correla tion with pet/CT scan. 2: Mildly enlarged axillary and mediastinal lymph nodes. 3: Emphysema. Reviewed, dictated and finalized at location A. 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 New right lower lobe nodules, largest at the posterior costophrenic sulcus m easuring 1.4 x 0.7 cm. Although these may be infectious/inflammatory, metastati c disease is not excluded. Recommend correlation with pet/CT scan. 2: Mildly enlarged axillary and mediastinal lymph nodes. 3: Emphysema.
== END 2020-08-30 14:49 | disposition home or self-care (01) ==
PROVIDERS: PCP Internal Medicine; Visit Provider Nurse Practitioner Family
DX: R91.1 Solitary pulmonary nodule (principal); J43.9 Emphysema, unspecified; M47.814 Spondylosis without myelopathy or radiculopathy, thoracic region; R59.0 Localized enlarged lymph nodes
CPT/HCPCS: 71250

== ENCOUNTER 2020-08-31 00:33 | Day surgery (SDC) | payer MEDICARE, SELFPAY ==
[2020-08-18 13:36] VITALS: BMI 21.2
[2020-08-31 12:00] VITALS: BP 143/67; PULSE 95; RESP 16; TEMP 37.4; O2SAT 96
[2020-08-31] MEDS: LACTATED RINGERS 1,000 ML 150 ML IV CONT (12:08)
--- NOTE | 2020-08-31 12:18 | WPDANESEPPF ---
Anes - Initial Pre Proc Eval Procedure: Operation Date: 08/31/20 13:30 Proposed Procedures p Esophagogastroduodenoscopy - Lei Cano MD Date/Time: 08/31/20 12:18 Surgeon: Lei Cano MD Pre Op Diagnosis: GERD Patient Data Age: 75 Gender: F Height: 5 ft 1 in Weight: 51 kg Last Vital Signs Temp 99.3 F 08/31/20 12:00 Pulse 95 08/31/20 12:00 Resp 16 08/31/20 12:00 BP 143/67 H 08/31/20 12:00 Pulse Ox 96 08/31/20 12:00 Allergies Allergy/AdvReac Type Severity Reaction Status Date / Time levalbuterol Allergy Unknown n/a Verified 08/31/20 11:58 methylprednisolone Allergy Unknown Jittery Verified 08/31/20 11:58 Home Medications Medication Instructions Recorded Confirmed Type mecobalamin (vitamin B12) 1,000 1,000 mcg SUBLINGUAL DAILY #60 07/06/19 08/31/20 Rx mcg disintegrating tablet tablet,sublingual levothyroxine 25 mcg tablet 25 mcg PO DAILY #90 tablet 08/27/19 08/31/20 Rx memantine 5 mg tablet See Rx Instructions .ROUTE 02/21/20 08/31/20 Rx .COMPLEX #60 tablet folic acid 1 mg tablet 1 mg PO DAILY #90 tablet 04/06/20 08/31/20 Rx albuterol sulfate 2.5 mg INHALATION BID 07/14/20 08/31/20 History fexofenadine [Marley Allergy] 180 mg PO DAILY PRN 07/14/20 08/18/20 History ipratropium bromide See Rx Instructions .ROUTE 07/14/20 08/31/20 History .COMPLEX PRN drukzhowgkfl-wrdebxmk-giegsx 1 tablet PO DAILY 07/14/20 08/31/20 History [Centrum Silver] olmesartan 20 mg tablet 20 mg PO DAILY #90 tablet 08/01/20 08/31/20 Rx budesonide 160 mcg-glycopyr 9 2 inh INHALATION BID #10.7 g 08/09/20 08/31/20 Rx mcg-formot 4.8 mcg/actuation HFA inhaler amlodipine 5 mg tablet See Rx Instructions .ROUTE 03/08/21 Rx .COMPLEX #90 tablet cyclobenzaprine 10 mg tablet See Rx Instructions .ROUTE 08/28/20 Rx .COMPLEX #50 tablet lorazepam 1 mg tablet 1 mg PO BID #60 tablet 08/28/20 Rx donepezil 10 mg PO DAILY 08/31/20 08/31/20 History Patient hx anesthesia problems: none Family hx anesthesia problems: none PMFSH Past Medical History Medical History (Updated 08/02/20 @ 12:59 by Lei Cano MD) Adult BMI 19-24 kg/sq m Black stools BMI (body mass index) 20.0-29.9 CKD (chronic kidney disease) Colon cancer screening COPD (chronic obstructive pulmonary disease) COPD exacerbation Cough Diarrhea Encounter for routine adult health examination without abnormal findings Follow up GERD (gastroesophageal reflux disease) Gingivitis Hematuria History of kidney stones Hx of colonic polyps Lung nodule On residential drug therapy Sore mouth Tobacco abuse Trigger finger of all digits of right hand Social History Social History Years smoked: 50 Smoking status: Former smoker Tobacco type: cigarettes Second hand tobacco smoke exposure: No Alcohol intake: current Substance use type: does not use Gender identity (if verbalized by the patient): Female Anes - Eval Final PreProcedure Day of Procedure 08/31/20 12:18 Patient weight: normal Heart: regular rate and rhythm Lungs: clear to auscultation Airway: Mallampati scale class II Neurological: alert and oriented Last oral intake: >/= 8 hours ASA classification: III Emergent: no Anesthetic plan: proceed Anesthesia type and monitoring: general GIVS and standard monitoring Informed Consent: The patient's anesthetic plan and its attendant risks and benefits were discussed with the patient/family/POA. Questions were solicited and answers provided to the satisfaction of the patient/family/POA.
--- NOTE | 2020-08-31 13:55 | PM.HPGS ---
History of Present Illness History of Present Illness Consent: Risks, benefits, and alternatives have been discussed and questions answered. Patient agrees to proceed with procedure. Chief complaint: GERD Narrative: Jenny Lucas is a 75 year old female with symptomatic gerd on pepcid, prn. No recent egd. Colonoscopy last month with TA polyps, diverticulosis and normal random colon bx. Review of Systems Constitutional: Constitutional: Denies headache(s) and Denies weakness Eyes: Eyes: Denies blurry vision ENT: Reports Normal hearing present, Denies headache(s) and Denies neck pain Cardiovascular: Cardiovascular: Denies chest pain and Denies dyspnea Respiratory: Respiratory: Denies dyspnea Gastrointestinal: Gastrointestinal: Reports no additional gastrointestinal complaints Genitourinary: Genitourinary: Denies dysuria Musculoskeletal: Musculoskeletal: Denies neck pain Integumentary/Breasts: Skin/Breast: Denies dry skin Neurologic: Reports Normal hearing present, Denies headache(s) and Denies weakness Psychiatric: Psychiatric: Denies anxiety Endocrine: Endocrine: Denies change in body appearance Hematologic/Lymphatic: Hematologic/Lymphatic: Denies easy bleeding Allergic/Immunologic: Allergic/Immunologic: Denies urticaria PMFSH Past Medical History Medical History (Updated 08/02/20 @ 12:59 by Lei Cano MD) Adult BMI 19-24 kg/sq m Black stools BMI (body mass index) 20.0-29.9 CKD (chronic kidney disease) Colon cancer screening COPD (chronic obstructive pulmonary disease) COPD exacerbation Cough Diarrhea Encounter for routine adult health examination without abnormal findings Follow up GERD (gastroesophageal reflux disease) Gingivitis Hematuria History of kidney stones Hx of colonic polyps Lung nodule On mcc drug therapy Sore mouth Tobacco abuse Trigger finger of all digits of right hand Social History Social History Years smoked: 50 Smoking status: Former smoker Tobacco type: cigarettes Second hand tobacco smoke exposure: No Alcohol intake: current Substance use type: does not use Gender identity (if verbalized by the patient): Female Meds Home Medications and Allergies Home Medications Medication Instructions Recorded Confirmed Type mecobalamin (vitamin B12) 1,000 1,000 mcg SUBLINGUAL DAILY #60 07/06/19 08/31/20 Rx mcg disintegrating tablet tablet,sublingual levothyroxine 25 mcg tablet 25 mcg PO DAILY #90 tablet 08/27/19 08/31/20 Rx memantine 5 mg tablet See Rx Instructions .ROUTE 02/21/20 08/31/20 Rx .COMPLEX #60 tablet folic acid 1 mg tablet 1 mg PO DAILY #90 tablet 04/06/20 08/31/20 Rx albuterol sulfate 2.5 mg INHALATION BID 07/14/20 08/31/20 History fexofenadine [Marley Allergy] 180 mg PO DAILY PRN 07/14/20 08/18/20 History ipratropium bromide See Rx Instructions .ROUTE 07/14/20 08/31/20 History .COMPLEX PRN uqqfagfcigex-ptmumzsr-rmvzjy 1 tablet PO DAILY 07/14/20 08/31/20 History [Centrum Silver] olmesartan 20 mg tablet 20 mg PO DAILY #90 tablet 08/01/20 08/31/20 Rx budesonide 160 mcg-glycopyr 9 2 inh INHALATION BID #10.7 g 08/09/20 08/31/20 Rx mcg-formot 4.8 mcg/actuation HFA inhaler amlodipine 5 mg tablet See Rx Instructions .ROUTE 08/28/20 Rx .COMPLEX #90 tablet cyclobenzaprine 10 mg tablet See Rx Instructions .ROUTE 08/28/20 Rx .COMPLEX #50 tablet lorazepam 1 mg tablet 1 mg PO BID #60 tablet 08/28/20 Rx donepezil 10 mg PO DAILY 08/31/20 08/31/20 History Allergies Allergy/AdvReac Type Severity Reaction Status Date / Time levalbuterol Allergy Unknown n/a Verified 08/31/20 11:58 methylprednisolone Allergy Unknown Jittery Verified 08/31/20 11:58 Vital Signs Vital Signs - 24 hr 08/31/20 12:00 Temperature 99.3 F Pulse Rate 95 Respiratory Rate 16 Blood Pressure 143/67 H Pulse Oximetry 96 Exam Const: General: comfortable and no acute di
[2020-08-31 14:09] VITALS: BP 131/71; PULSE 89; RESP 27; O2SAT 100
[2020-08-31 14:19] VITALS: BP 132/68; PULSE 91; RESP 26; O2SAT 98
[2020-08-31 14:29] VITALS: BP 146/82; PULSE 90; RESP 24; O2SAT 96
== END 2020-08-31 14:35 | disposition home or self-care (01) ==
PROVIDERS: PCP Internal Medicine; Visit Provider Internal Medicine Gastroenterology
PROC: 0DJ08ZZ Inspection of Upper Intestinal Tract, Via Natural or Artificial Opening Endoscopic (ICD-10-PCS; CPT 43235; principal; 2020-08-31 13:30)
DX: K21.9 Gastro-esophageal reflux disease without esophagitis (principal); K29.50 Unspecified chronic gastritis without bleeding; E03.9 Hypothyroidism, unspecified; Z79.51 Long term (current) use of inhaled steroids; J44.9 Chronic obstructive pulmonary disease, unspecified; N18.9 Chronic kidney disease, unspecified; Z87.891 Personal history of nicotine dependence; Z86.010 Personal history of colon polyps; K57.30 Diverticulosis of large intestine without perforation or abscess without bleeding; Z87.442 Personal history of urinary calculi
CPT/HCPCS: 43239; 88305; C9803; J2704; J7120; U0003; U0005

== ENCOUNTER 2020-10-20 11:23 | Outpatient (CLI) | payer MEDICARE, SELFPAY ==
--- NOTE | ~2020-10-20 | XR_ITS ---
EXAMINATION: XR hip BI 2V w AP pelvis EXAM DATE: 10/20/2020 11:42 INDICATION: No known recent injury provided at this time. Pain of the hips. TECHNIQUE: Each hip imaged independently (separate right and also left hip) 'frog leg' and frontal p rojections for interpretation. Frontal projection pelvis. Comparison is made to left examination FINDINGS: No radiographic evidence of hip avascular necrosis. There is mild to moderate symmetric bi lateral hip primary osteoarthritis. Stool is obscuring the sacrum. There are no acute fractures or d islocations identified. There is no subcutaneous gas. Probable small calcified fibroid. Mild to mod erate scattered arteriosclerotic disease. There are no radiopaque foreign bodies. IMPRESSION: Mild to moderate symmetric bilateral hip osteoarthritis. Reviewed, dictated and finalized at location A.
== END 2020-10-20 11:24 | disposition home or self-care (01) ==
LOC: ANHIMG 11:26
PROVIDERS: PCP Internal Medicine; Visit Provider Internal Medicine
DX: M25.559 Pain in unspecified hip (principal); M16.0 Bilateral primary osteoarthritis of hip
CPT/HCPCS: 73521

== ENCOUNTER 2020-11-29 10:05 | Outpatient (CLI) | payer MEDICARE, SELFPAY ==
--- NOTE | ~2020-11-29 | CT_ITS ---
EXAMINATION:CT diagnostic chest wo con DATE: 11/29/2020 10:36 INDICATION: Solitary pulmonary nodule. TECHNIQUE: Computed tomography (CT) of the chest was performed without intravenous contrast. Automate d exposure control and iterative reconstruction technique were employed. The dose-length product (DLP ) was 67.16 mGy-cm. COMPARISON: Chest CT 08/30/2020, 01/20/2020 FINDINGS: There is severe emphysema. There is mild atelectasis bilaterally. There is a 6 mm nodule in left upper lobe, decreased from 11 mm on 01/20/2020, likely benign. The previously described right lo wer lobe nodules have resolved. No pleural effusion. The heart size is normal. There are coronary art khadijah calcifications. No pericardial effusion. There is a stable mildly enlarged right paratracheal lym ph node, likely reactive. Partially visualized is a cyst in left kidney. There is thoracic kyphosis a nd severe spondylosis. IMPRESSION: 1. Improved lung nodules, likely benign. 2. Severe emphysema. Reviewed, dictated and finalized at location A.
== END 2020-11-29 10:06 | disposition home or self-care (01) ==
PROVIDERS: PCP Internal Medicine; Visit Provider Nurse Practitioner Family
DX: R91.1 Solitary pulmonary nodule (principal); J43.9 Emphysema, unspecified
CPT/HCPCS: 71250

== ENCOUNTER 2021-01-03 09:22 | Outpatient (CLI) | payer MEDICARE, SELFPAY ==
[2021-01-03 09:50] LABS: Basophils Absolute Auto 0.1 K/mm3 (0.0-0.1); Basophils Percent Auto 0.6 % (0.2-1.2); Eosinophils Absolute Auto 0.1 K/mm3 (0-0.3); Eosinophils Percent Auto 0.9 % (0-4.4); Hematocrit 33.3 % (37.0-47.0); Hemoglobin 9.7 g/dL (12.0-15.0); Immature Granulocyte Absolute 0.08 K/mm3 (0.00-0.031); Immature Granulocyte Percent A 0.5 % (0-0.5); Lymphocytes Absolute Auto 1.56 K/mm3 (0.9-3.2); Lymphocytes Percent Auto 10.7 % (18.3-44.2); Mean Corpuscular HGB Conc 29.1 g/dl (32-36); Mean Corpuscular Hemoglobin 25.5 pg (26-34); Mean Corpuscular Volume 87.6 fl (80-100); Mean Platelet Volume 8.9 fl (7.4-10.4); Monocytes Absolute Auto 1.2 K/mm3 (0.1-0.6); Monocytes Percent Auto 8.4 % (2.6-8.5); Neutrophils Absolute Auto 11.5 K/mm3 (1.3-6.7); Neutrophils Percent Auto 78.9 % (45.5-73.1); Platelet Count Result 290 k/mm3 (150-375); Red Cell Distribution Width 15.9 % (11.5-14.5); White Blood Count 14.6 K/mm3 (4.5-10.0)
[2021-01-03 09:59] LABS: Hemoglobin A1C 5.5 % (<5.7)
[2021-01-03 10:01] LABS: Anion Gap 8 mmol/L (8-16); Blood Urea Nitrogen 16 mg/dL (7-17); Calcium 9.4 mg/dL (8.4-10.2); Carbon Dioxide 31 mmol/L (22-30); Chloride 101 mmol/L (98-107); Cholesterol 169 mg/dL (0-200); Estimated Glomerular Filt Rate 48; Glucose 87 mg/dL (65-105); HDL Direct 79 mg/dL; Potassium 3.3 mmol/L (3.4-5.0); Sodium 140 mmol/L (137-145); Triglycerides 104 mg/dL (<150)
[2021-01-03 10:11] LABS: LDL Cholesterol Direct 55 mg/dL
[2021-01-03 10:50] LABS: Free T4 Free Thyroxine 1.19 ng/mL (0.78-2.19)
[2021-01-03 18:29] LABS: Iron 39 ug/dL (37-170)
[2021-01-03 18:39] LABS: Percent Iron Saturation 9 % (20-50)
[2021-01-03 19:05] LABS: Ferritin 5.54 ng/mL (11.1-264)
[2021-01-07 10:13] LABS: Vitamin D 1,25 (OH)2 Total 65 pg/mL (18-72); Vitamin D2 1,25 (OH)2 <8 pg/mL; Vitamin D3 1,25 (OH)2 65 pg/mL
== END 2021-01-03 09:23 | disposition home or self-care (01) ==
LOC: ANHLAB 09:24
PROVIDERS: PCP Internal Medicine; Visit Provider Internal Medicine
DX: E55.9 Vitamin D deficiency, unspecified (principal); E03.9 Hypothyroidism, unspecified; D64.9 Anemia, unspecified; Z79.899 Other long term (current) drug therapy
CPT/HCPCS: 36415; 80048; 80061; 82652; 82728; 83036; 83540; 83550; 84439; 84443; 85025

== ENCOUNTER 2021-01-19 09:36 | Outpatient (CLI) | payer MEDICARE, SELFPAY ==
--- NOTE | ~2021-01-19 | XR_ITS ---
EXAMINATION: XR chest 2V DATE: 01/19/2021 09:55 INDICATION: Cough and shortness of breath TECHNIQUE: frontal and lateral views of the chest were obtained. COMPARISON: Chest radiograph dated 12/26/[address] dated 12/09/2020 FINDINGS: Emphysema with mild biapical pleural-parenchymal scarring. No focal airspace opacities, pulmonary niles ma, pleural effusion or pneumothorax. The cardiomediastinal silhouette is normal. Mild S-shaped curva ture of the thoracic spine with severe spondylosis. IMPRESSION: 1. Emphysema with mild biapical pleural-parenchymal scarring. Reviewed, dictated and finalized at location A.
== END 2021-01-19 09:37 | disposition home or self-care (01) ==
PROVIDERS: PCP Internal Medicine; Visit Provider Internal Medicine
DX: R05 Cough (principal); J43.9 Emphysema, unspecified
CPT/HCPCS: 71046

== ENCOUNTER → 2021-02-06 03:33 | Outpatient (CLI) | payer MEDICARE, SELFPAY ==
[2021-02-06 21:10] LABS: SARS-CoV-2 RNA PCR Positive
== END ==
PROVIDERS: PCP Internal Medicine; Visit Provider Internal Medicine
DX: U07.1 COVID-19 (principal); R05 Cough
CPT/HCPCS: C9803; U0003; U0005

== ENCOUNTER 2021-03-22 14:31 | Outpatient (CLI) | payer MEDICARE, SELFPAY ==
--- NOTE | ~2021-03-22 | XR_ITS ---
XR chest 2V DATE: 03/22/2021 15:12 INDICATION: Cough, shortness of breath for one week. History of COPD. TECHNIQUE: AP and lateral views COMPARISON: 01/19/2021 AP and lateral chest FINDINGS: Bilateral hyperinflation, consistent with COPD clinical diagnosis. Normal heart size. There is aortic calcification and mild unfolding. No hilar or mediastinal enlargem ent is evident. No pulmonary consolidation, pleural effusion, pulmonary vascular congestion or pneumothorax. Diffuse osteopenia. IMPRESSION: COPD; no active cardiopulmonary disease Reviewed, dictated and finalized at location B.
[2021-03-22 15:11] LABS: Basophils Absolute Auto 0.1 K/mm3 (0.0-0.1); Basophils Percent Auto 0.8 % (0.2-1.2); Eosinophils Absolute Auto 0.4 K/mm3 (0-0.3); Eosinophils Percent Auto 3.7 % (0-4.4); Hematocrit 34.5 % (37.0-47.0); Hemoglobin 9.9 g/dL (12.0-15.0); Immature Granulocyte Absolute 0.05 K/mm3 (0.00-0.031); Immature Granulocyte Percent A 0.5 % (0-0.5); Lymphocytes Absolute Auto 1.42 K/mm3 (0.9-3.2); Lymphocytes Percent Auto 13.7 % (18.3-44.2); Mean Corpuscular HGB Conc 28.7 g/dl (32-36); Mean Corpuscular Hemoglobin 24.6 pg (26-34); Mean Corpuscular Volume 85.6 fl (80-100); Mean Platelet Volume 9.3 fl (7.4-10.4); Monocytes Absolute Auto 0.9 K/mm3 (0.1-0.6); Monocytes Percent Auto 8.9 % (2.6-8.5); Neutrophils Absolute Auto 7.5 K/mm3 (1.3-6.7); Neutrophils Percent Auto 72.4 % (45.5-73.1); Platelet Count Result 272 k/mm3 (150-375); Red Blood Count 4.03 M/mm3 (4.2-5.4); Red Cell Distribution Width 16.7 % (11.5-14.5); White Blood Count 10.4 K/mm3 (4.5-10.0)
[2021-03-22 15:23] LABS: Anion Gap 11 mmol/L (8-16); Blood Urea Nitrogen 16 mg/dL (7-17); Calcium 9.2 mg/dL (8.4-10.2); Carbon Dioxide 29 mmol/L (22-30); Chloride 101 mmol/L (98-107); Estimated Glomerular Filt Rate > 60; Glucose 101 mg/dL (65-110); Sodium 141 mmol/L (137-145)
[2021-03-22 15:25] LABS: Hypochromasia 1+ (NORMAL); Ovalocytes 1+ (NORMAL); Platelet Estimate Adequate (Adequate)
== END 2021-03-22 14:32 | disposition home or self-care (01) ==
LOC: ANHLAB 14:35
PROVIDERS: PCP Internal Medicine; Visit Provider Internal Medicine
DX: J44.9 Chronic obstructive pulmonary disease, unspecified (principal); R05 Cough; R06.02 Shortness of breath; Z86.16 Personal history of COVID-19; Z79.899 Other long term (current) drug therapy
CPT/HCPCS: 36415; 71046; 80048; 85025

== ENCOUNTER 2021-05-10 09:08 | Outpatient (CLI) | payer MEDICARE, SELFPAY ==
--- NOTE | ~2021-05-10 | XR_ITS ---
EXAMINATION: XR chest 2V EXAM DATE: 05/10/2021 10:13 INDICATION: Shortness of breath on exertion. TECHNIQUE: Frontal and lateral projections of the chest obtained and reviewed. Comparison is made to prior examination from 03/22/2021. FINDINGS: The lungs are hyperinflated which can be seen with chronic obstructive pulmonary disease ( a clinical diagnosis of functional impairment), but is not diagnostic of it. Scattered linear regions of scarring, postinfectious residua. No confluent consolidation, pneumothorax or pleural effusion ruiz spected. Cardiomediastinal silhouette is normal. There is aortic arteriosclerosis. There are mild bon y degenerative changes. There is no significant interval change. IMPRESSION: 1. Hyperinflation. 2. Postinfectious residua. Reviewed, dictated and finalized at location B. 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
[2021-05-10 09:31] LABS: Basophils Absolute Auto 0.1 K/mm3 (0.0-0.1); Basophils Percent Auto 1.7 % (0.2-1.2); Eosinophils Absolute Auto 0.4 K/mm3 (0-0.3); Eosinophils Percent Auto 6.5 % (0-4.4); Hemoglobin 10.1 g/dL (12.0-15.0); Immature Granulocyte Absolute 0.02 K/mm3 (0.00-0.031); Immature Granulocyte Percent A 0.3 % (0-0.5); Lymphocytes Absolute Auto 1.23 K/mm3 (0.9-3.2); Lymphocytes Percent Auto 21.1 % (18.3-44.2); Mean Corpuscular HGB Conc 30.6 g/dl (32-36); Mean Corpuscular Hemoglobin 25.4 pg (26-34); Mean Corpuscular Volume 83.1 fl (80-100); Mean Platelet Volume 9.4 fl (7.4-10.4); Monocytes Absolute Auto 0.5 K/mm3 (0.1-0.6); Monocytes Percent Auto 8.7 % (2.6-8.5); Neutrophils Absolute Auto 3.6 K/mm3 (1.3-6.7); Neutrophils Percent Auto 61.7 % (45.5-73.1); Platelet Count Result 234 k/mm3 (150-375); Red Blood Count 3.97 M/mm3 (4.2-5.4); Red Cell Distribution Width 17.9 % (11.5-14.5); White Blood Count 5.8 K/mm3 (4.5-10.0)
[2021-05-10 09:42] LABS: CRP < 0.5 mg/dL (<1.0)
[2021-05-10 14:10] LABS: Erythrocyte Sedimentation Rate 17 mm/hr (0-20)
== END 2021-05-10 09:09 | disposition home or self-care (01) ==
PROVIDERS: PCP Internal Medicine; Visit Provider Internal Medicine
DX: R06.02 Shortness of breath (principal); R06.09 Other forms of dyspnea; R91.8 Other nonspecific abnormal finding of lung field
CPT/HCPCS: 36415; 71046; 85025; 85652; 86140

== ENCOUNTER 2021-05-22 07:53 | Outpatient (CLI) | payer MEDICARE, SELFPAY ==
[2021-05-22 08:17] LABS: Cholesterol 195 mg/dL (0-200); HDL Direct 88 mg/dL; Triglycerides 111 mg/dL (<150)
[2021-05-22 08:18] LABS: Alanine Aminotransferase 21 U/L (4-35); Albumin Level 4.5 g/dL (3.5-5.1); Alkaline Phosphatase 60 U/L (38-126); Anion Gap 12 mmol/L (8-16); Aspartate Amino Transferase 29 U/L (14-36); Bilirubin,Total 0.3 mg/dL (0.2-1.3); Blood Urea Nitrogen 21 mg/dL (7-17); Calcium 9.6 mg/dL (8.4-10.2); Carbon Dioxide 27 mmol/L (22-30); Chloride 103 mmol/L (98-107); Estimated Glomerular Filt Rate 54; Glucose 114 mg/dL (65-110); Potassium 3.9 mmol/L (3.4-5.0); Sodium 142 mmol/L (137-145)
[2021-05-22 08:18] LABS: Hemoglobin A1C 5.3 % (<5.7)
[2021-05-22 08:28] LABS: LDL Cholesterol Direct 71 mg/dL
[2021-05-22 08:51] LABS: Free T4 Free Thyroxine 0.91 ng/mL (0.78-2.19)
== END 2021-05-22 07:54 | disposition home or self-care (01) ==
PROVIDERS: PCP Internal Medicine; Visit Provider Internal Medicine
DX: Z13.1 Encounter for screening for diabetes mellitus (principal); Z79.899 Other long term (current) drug therapy; D51.8 Other vitamin B12 deficiency anemias; E55.9 Vitamin D deficiency, unspecified; F09 Unspecified mental disorder due to known physiological condition; J44.9 Chronic obstructive pulmonary disease, unspecified; N18.1 Chronic kidney disease, stage 1; Z86.16 Personal history of COVID-19; Z13.220 Encounter for screening for lipoid disorders; E03.9 Hypothyroidism, unspecified
CPT/HCPCS: 36415; 80053; 80061; 83036; 84439; 84443

== ENCOUNTER 2021-10-12 12:33 | Outpatient (CLI) | payer MEDICARE, SELFPAY ==
[2021-10-12 13:06] LABS: Basophils Absolute Auto 0.1 K/mm3 (0.0-0.1); Basophils Percent Auto 0.8 % (0.2-1.2); Eosinophils Absolute Auto 0.2 K/mm3 (0-0.3); Eosinophils Percent Auto 2.5 % (0-4.4); Hemoglobin 10.3 g/dL (12.0-15.0); Immature Granulocyte Absolute 0.04 K/mm3 (0.00-0.031); Immature Granulocyte Percent A 0.4 % (0-0.5); Lymphocytes Absolute Auto 1.25 K/mm3 (0.9-3.2); Lymphocytes Percent Auto 13.2 % (18.3-44.2); Mean Corpuscular HGB Conc 30.3 g/dl (32-36); Mean Corpuscular Hemoglobin 27.2 pg (26-34); Mean Corpuscular Volume 89.7 fl (80-100); Mean Platelet Volume 8.8 fl (7.4-10.4); Monocytes Absolute Auto 0.8 K/mm3 (0.1-0.6); Monocytes Percent Auto 8.8 % (2.6-8.5); Neutrophils Percent Auto 74.3 % (45.5-73.1); Platelet Count Result 236 k/mm3 (150-375); Red Blood Count 3.79 M/mm3 (4.2-5.4); Red Cell Distribution Width 16.6 % (11.5-14.5); White Blood Count 9.4 K/mm3 (4.5-10.0)
[2021-10-12 13:07] LABS: Alanine Aminotransferase 23 U/L (4-35); Albumin Level 4.5 g/dL (3.5-5.1); Alkaline Phosphatase 64 U/L (38-126); Anion Gap 6 mmol/L (8-16); Aspartate Amino Transferase 29 U/L (14-36); Bilirubin,Total 0.2 mg/dL (0.2-1.3); Blood Urea Nitrogen 26 mg/dL (7-17); Calcium 8.7 mg/dL (8.4-10.2); Carbon Dioxide 28 mmol/L (22-30); Chloride 104 mmol/L (98-107); Cholesterol 197 mg/dL (0-200); Estimated Glomerular Filt Rate 48; Glucose 101 mg/dL (65-110); HDL Direct 80 mg/dL; Potassium 4.3 mmol/L (3.4-5.0); Sodium 138 mmol/L (137-145); Triglycerides 120 mg/dL (<150)
[2021-10-12 13:08] LABS: Hemoglobin A1C 5.8 % (<5.7)
[2021-10-12 13:18] LABS: LDL Cholesterol Direct 65 mg/dL
[2021-10-12 13:40] LABS: Iron 73 ug/dL (37-170)
[2021-10-12 13:50] LABS: Percent Iron Saturation 15 % (20-50)
[2021-10-12 13:58] LABS: Free T4 Free Thyroxine 0.94 ng/mL (0.78-2.19)
[2021-10-12 14:16] LABS: Ferritin 6.62 ng/mL (11.1-264)
== END 2021-10-12 12:34 | disposition home or self-care (01) ==
LOC: ANHLAB 12:36
PROVIDERS: PCP Internal Medicine; Visit Provider Internal Medicine
DX: E03.9 Hypothyroidism, unspecified (principal); D50.9 Iron deficiency anemia, unspecified; R73.03 Prediabetes; Z79.899 Other long term (current) drug therapy
CPT/HCPCS: 36415; 80053; 80061; 82728; 83036; 83540; 83550; 84439; 84443; 85025

== ENCOUNTER 2021-10-29 05:56 | Outpatient (CLI) | payer MEDICARE, SELFPAY ==
[2021-10-29] MEDS: SIMETHICONE ORAL SUSPENSION 20 MG/0.3 ML 30 ML BOTTLE 0.6 ML IRRIGATION (06:45)
--- NOTE | 2021-10-29 06:45 | SUR.OPER ---
Patient accompanied by her son. Patient short of breath on arrival and wearing portable oxygen. Patient and son denied need for additional care relative to patient's breathing status and explained that the patient was frequently short of breath. Patient swallowed capsule camera with no problems. Patient expressed understanding of procedure instructions and post procedure instructions. Patient sent home with written instructions relative to liquid and food intake. All questions were answered with patient acknowledging understanding. Patient and son will return to the hospital at 3:00 p.m. today for equipment retrieval.
--- NOTE | 2021-10-29 15:11 | SUR.OPER ---
Patient returned to the GI Lab at 1500 for recorder box removal. Patient voiced no complaints. States they have understanding of instructions. Patient left ambulatory.
== END 2021-10-29 05:57 | disposition home or self-care (01) ==
PROVIDERS: PCP Internal Medicine; Visit Provider Internal Medicine Gastroenterology
PROC: 0DJ07ZZ Inspection of Upper Intestinal Tract, Via Natural or Artificial Opening (ICD-10-PCS; CPT 91110; principal; 2021-10-29 07:00)
DX: D50.9 Iron deficiency anemia, unspecified (principal)
CPT/HCPCS: 91110

== ENCOUNTER 2021-11-30 09:17 | Outpatient (CLI) | payer MEDICARE, SELFPAY ==
--- NOTE | ~2021-11-30 | CT_ITS ---
EXAMINATION: CT diagnostic chest wo con DATE: 11/30/2021 09:49 INDICATION: TECHNIQUE: Computed tomography (CT) of the chest was performed without intravenous contrast. Automate d exposure control and iterative reconstruction technique were employed. Exam dose: 64.27 mGy-cm tot al exam DLP. COMPARISON: None FINDINGS: There is some aortic valve calcification. There is prominent coronary artery calcification. Normal heart size. No pericardial effusion. There is extensive calcification of the thoracic and abdominal aorta. No thoracic aortic aneurysm. Gr eat vessel calcification is noted as well. No hilar or mediastinal mass lesion or lymphadenopathy. There are severe emphysematous changes of the lungs. Prominent band of discoid atelectasis or scarring at the posterior right lung base. No pulmonary infiltrate or consolidation or pulmonary mass lesion is evident. Normal morphology of the adrenal glands. 2 cm exophytic posterior left renal probable cyst. Osteopenia. Degenerative change of the thoracic spine. No suspicious osteolytic or osteoblastic lesio ns are noted. IMPRESSION: Severe emphysema Prominent atherosclerotic calcification of the thoracic and abdominal aorta, coronary arteries and gr eat vessels Reviewed, dictated and finalized at Location A. Reviewed, dictated and finalized at location A. IMPRESSION: Severe emphysema Prominent atherosclerotic calcification of the thoracic and abdominal aorta, co ronary arteries and great vessels
== END 2021-11-30 09:18 | disposition home or self-care (01) ==
PROVIDERS: PCP Internal Medicine; Visit Provider Nurse Practitioner Family
DX: R91.1 Solitary pulmonary nodule (principal); J43.9 Emphysema, unspecified; I70.0 Atherosclerosis of aorta; I25.10 Atherosclerotic heart disease of native coronary artery without angina pectoris
CPT/HCPCS: 71250

== ENCOUNTER 2022-02-26 10:47 | Outpatient (CLI) | payer MEDICARE, SELFPAY ==
[2022-02-26 11:24] LABS: Basophils Absolute Auto 0.1 K/mm3 (0.0-0.1); Basophils Percent Auto 0.7 % (0.2-1.2); Eosinophils Absolute Auto 0.2 K/mm3 (0-0.3); Eosinophils Percent Auto 2.6 % (0-4.4); Hematocrit 44.2 % (37.0-47.0); Immature Granulocyte Absolute 0.03 K/mm3 (0.00-0.031); Immature Granulocyte Percent A 0.4 % (0-0.5); Lymphocytes Absolute Auto 0.99 K/mm3 (0.9-3.2); Lymphocytes Percent Auto 12.3 % (18.3-44.2); Mean Corpuscular HGB Conc 31.7 g/dl (32-36); Mean Corpuscular Hemoglobin 32.9 pg (26-34); Mean Platelet Volume 9.4 fl (7.4-10.4); Monocytes Absolute Auto 0.6 K/mm3 (0.1-0.6); Monocytes Percent Auto 7.1 % (2.6-8.5); Neutrophils Absolute Auto 6.2 K/mm3 (1.3-6.7); Neutrophils Percent Auto 76.9 % (45.5-73.1); Platelet Count Result 162 k/mm3 (150-375); Red Blood Count 4.25 M/mm3 (4.2-5.4); Red Cell Distribution Width 13.2 % (11.5-14.5)
[2022-02-26 11:33] LABS: Cholesterol 194 mg/dL (0-200); HDL Direct 78 mg/dL; Triglycerides 98 mg/dL (<150)
[2022-02-26 11:44] LABS: LDL Cholesterol Direct 64 mg/dL
[2022-02-26 12:01] LABS: Iron 129 ug/dL (37-170); Percent Iron Saturation 42 % (20-50)
[2022-02-26 12:06] LABS: Free T4 Free Thyroxine 1.07 ng/mL (0.78-2.19); Vitamin D 25 Hydroxy 29.4 ng/mL
== END 2022-02-26 10:48 | disposition home or self-care (01) ==
PROVIDERS: PCP Internal Medicine; Visit Provider Internal Medicine
DX: N18.1 Chronic kidney disease, stage 1 (principal); J44.9 Chronic obstructive pulmonary disease, unspecified; E55.9 Vitamin D deficiency, unspecified; E03.9 Hypothyroidism, unspecified; D50.9 Iron deficiency anemia, unspecified; Z79.899 Other long term (current) drug therapy
CPT/HCPCS: 36415; 80061; 82306; 83540; 83550; 84439; 84443; 85025

== ENCOUNTER 2022-05-13 17:11 | Emergency (ER) | payer MEDICARE, SELFPAY ==
--- NOTE | ~2022-05-13 | XR_ITS ---
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 RESULT: Lines, tubes, and devices: None. Lungs and pleura: Senescent and emphysematous change. No focal consolidation. Cardiomediastinal silhouette: Stable. Other: No acute osseous or upper abdominal finding. IMPRESSION: No acute cardiopulmonary process. Reviewed, dictated and finalized at location K. ER ROOM WORKER
--- NOTE | 2022-05-13 17:31 | ECG_ITS ---
Measurements Intervals [place] Rate: 83 P: 65 MI: 156 QRS: 23 QRSD: 80 T: 52 QT: 369 QTc: 435 Interpretive Statements SINUS RHYTHM WITH SINUS ARRHYTHMIA DELAYED PRECORDIAL R/S TRANSITION BASELINE ARTIFACT- I, II, AVR BORDERLINE ECG COMPARED TO ECG 08/17/2018 12:17:42 SINUS ARRHYTHMIA NOW PRESENT Electronically Signed On 05-13-2022 20:11:49 BEEF TRIMMER by Kendrick Paula D.O.
[2022-05-13 17:44] VITALS: BP 141/51; PULSE 85; RESP 18; TEMP 36.4; O2SAT 93
[2022-05-13 17:58] LABS: Basophils Absolute Auto 0.1 K/mm3 (0.0-0.1); Basophils Percent Auto 0.9 % (0.2-1.2); Eosinophils Absolute Auto 0.3 K/mm3 (0-0.3); Eosinophils Percent Auto 4.9 % (0-4.4); Hematocrit 39.6 % (37.0-47.0); Hemoglobin 12.6 g/dL (12.0-15.0); Immature Granulocyte Absolute 0.01 K/mm3 (0.00-0.031); Immature Granulocyte Percent A 0.2 % (0-0.5); Lymphocytes Absolute Auto 1.39 K/mm3 (0.9-3.2); Lymphocytes Percent Auto 21.4 % (18.3-44.2); Mean Corpuscular HGB Conc 31.8 g/dl (32-36); Mean Corpuscular Hemoglobin 33.2 pg (26-34); Mean Corpuscular Volume 104.5 fl (80-100); Mean Platelet Volume 9.5 fl (7.4-10.4); Monocytes Absolute Auto 0.7 K/mm3 (0.1-0.6); Monocytes Percent Auto 10.4 % (2.6-8.5); Neutrophils Absolute Auto 4.1 K/mm3 (1.3-6.7); Neutrophils Percent Auto 62.2 % (45.5-73.1); Platelet Count Result 189 k/mm3 (150-375); Red Blood Count 3.79 M/mm3 (4.2-5.4); Red Cell Distribution Width 12.5 % (11.5-14.5); White Blood Count 6.5 K/mm3 (4.5-10.0)
[2022-05-13 18:11] LABS: Alanine Aminotransferase 27 U/L (6-35); Albumin Level 4.5 g/dL (3.5-5.1); Alkaline Phosphatase 57 U/L (38-126); Anion Gap 9 mmol/L (8-16); Aspartate Amino Transferase 35 U/L (14-36); Bilirubin,Total 0.2 mg/dL (0.2-1.3); Blood Urea Nitrogen 23 mg/dL (7-17); Carbon Dioxide 29 mmol/L (22-30); Chloride 101 mmol/L (98-107); Estimated CRCL calculation 37 ml/min; Estimated Glomerular Filt Rate > 60; Glucose 99 mg/dL (65-110); Potassium 3.9 mmol/L (3.4-5.0); Sodium 139 mmol/L (137-145)
[2022-05-13 20:15] VITALS: O2SAT 93
--- NOTE | 2022-05-13 21:02 | ED.SOB ---
HPI - SOB/Dyspnea General Chief Complaint: Shortness of Breath/Dyspnea Stated Complaint: SOB Time Seen by Provider: 05/13/22 19:55 History of Present Illness HPI Narrative: 77-year-old female presenting with shortness of breath, she has been having for shortness of breath steadily over the last few years, but this episode with increased shortness of breath and cough productive started about 2 weeks ago, she had already completed a Dosepak of steroids and she is currently on a few days of antibiotics prescribed by her primary care doctor. While at rest she has no issues on her home 2 L of oxygen, she just feels worse when she is walking from living room to the bathroom. Related Data Home Medications Medication Instructions Recorded Confirmed fexofenadine 180 mg tablet 180 mg PO DAILY PRN Allergies 07/14/20 02/28/22 (Marley Allergy) afbmklaceriz-usgvqhdd-bwsebr tablet 1 tablet PO DAILY 07/14/20 02/28/22 Lactobacills gasseri-Bifidobac cap PO 08/10/21 02/28/22 bifidum,longum 1.5 billion cell capsule ([place]) cholecalciferol (vitamin D3) 50 50 mcg PO DAILY 02/27/22 02/28/22 mcg (2,000 unit) capsule Allergies Allergy/AdvReac Type Severity Reaction Status Date / Time levalbuterol Allergy Unknown n/a Verified 05/13/22 20:21 methylprednisolone Allergy Unknown Jittery Verified 05/13/22 20:21 roflumilast [From Daliresp] AdvReac Severe Difficulty Verified 05/13/22 20:21 Swallowing albuterol [From ProAir HFA] AdvReac Mild Mouth and Verified 05/13/22 20:21 cheek irritation Review of Systems Review of Systems: CONST: No fever. HEENT: No sore throat C/V: No chest pain RESP: Cough, dyspnea on exertion GI: No nausea or vomiting : No dysuria. M/S: No joint pain. SKIN: No rash. NEURO: [No headache or focal numbness or weakness] PSYCH: [No depression] [facility] Past Medical History Medical History Adenomatous colon polyp Adult BMI 19-24 kg/sq m Black stools BMI (body mass index) 20.0-29.9 BMI 23.0-23.9, adult Bronchitis CKD (chronic kidney disease) Cognitive dysfunction Colon cancer screening COPD (chronic obstructive pulmonary disease) COPD exacerbation COPD exacerbation Cough Cough Diarrhea Encounter for routine adult health examination with abnormal findings Encounter for routine adult health examination without abnormal findings Follow up GERD (gastroesophageal reflux disease) Gingivitis Hematuria History of kidney stones Hx of colonic polyps Iron deficiency anemia Lung nodule On director long term care 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 therapy Pain and swelling of left wrist Personal history of COVID-19 Pre-diabetes SOB (shortness of breath) Sore mouth Tobacco abuse Trigger finger of all digits of right hand Weakness Social History Social History Smoking packs per day: 1 Smoking cigarettes per day: 20.0 Years smoked: 50 Smoking pack-years: 50.00 Smoking status: Former smoker Tobacco type: cigarettes Second hand tobacco smoke exposure: No Alcohol intake: never Substance use: never Substance use type: does not use Gender identity (if verbalized by the patient): Female Exam Narrative: EXAMINATION OF ORGAN SYSTEMS/BODY AREAS: Constitutional: Vital signs per nursing GENERAL:[No acute distress, non-toxic appearing.] HEAD: Normal with no signs of head trauma. EYES: EOMI, conjunctiva normal ENT: Hearing grossly intact LUNGS: Nonlabored breathing. Wheezing audibly all lung [place] HEART: [Regular rate and rhythm] ABD: [Soft], [nontender to palpation] EXT: Normal range of motion SKIN: [No rashes or lesions.] NEURO: [Alert and oriented x 3. No gross focal sensory or strength deficits.] PSYCH: Normal affect Course Vital Signs Vital signs: Vital Signs Temperature 97.5 F L 05/13/22 17:44 Pulse Rate 85 05/13/22 17:44 Respiratory Rate 18 05/13/22 17:44 Blood Pressure 141/5
[2022-05-13] MEDS: ALBUTEROL SULFATE NEB 2.5 MG/3 ML INH 15 MG INHALATION (21:26)
[2022-05-13 21:27] VITALS: PULSE 70; RESP 15
[2022-05-13] MEDS: IPRATROPIUM BR 0.02% INH SOLN 0.5 MG/2.5 ML VIAL 1 MG INHALATION (21:27)
[2022-05-13 21:28] VITALS: PULSE 75; RESP 15
[2022-05-13 21:31] VITALS: O2SAT 100
[2022-05-13 22:40] VITALS: BP 131/56; PULSE 90; RESP 16; O2SAT 97
== END 2022-05-13 22:40 | disposition home or self-care (01) ==
PROVIDERS: Emergency Medicine; Emergency Provider Emergency Medicine; PCP Internal Medicine
DX: J44.1 Chronic obstructive pulmonary disease with (acute) exacerbation (principal); N18.9 Chronic kidney disease, unspecified; K21.9 Gastro-esophageal reflux disease without esophagitis; R73.03 Prediabetes; Z86.16 Personal history of COVID-19; Z87.442 Personal history of urinary calculi; Z86.010 Personal history of colon polyps; Z87.891 Personal history of nicotine dependence; Z99.81 Dependence on supplemental oxygen; R94.31 Abnormal electrocardiogram [ECG] [EKG]
CPT/HCPCS: 36415; 71046; 80053; 85025; 93005; 94640; 99284

== ENCOUNTER 2022-05-22 10:36 | Outpatient (CLI) | payer MEDICARE, SELFPAY ==
--- NOTE | ~2022-05-22 | XR_ITS ---
XR chest 2V 05/22/2022 11:08 Indication: COPD. Dyspnea. Procedure: PA and lateral views of the chest Comparison: Comparison to multiple prior studies sequentially, with oldest reviewed study dated 01/19. Findings: Heart size normal. There is atherosclerosis of the aorta. There are emphysematous changes. No acute focal pneumonia, edema, effusion or pneumothorax. No acute osseous abnormality. Impression: 1: No acute cardiopulmonary disease. Reviewed, dictated and finalized at location A. COOKING OPERATOR Impression: 1: No acute cardiopulmonary disease.
== END 2022-05-22 10:37 | disposition home or self-care (01) ==
PROVIDERS: PCP Internal Medicine; Visit Provider Physician Assistant
DX: J44.1 Chronic obstructive pulmonary disease with (acute) exacerbation (principal)
CPT/HCPCS: 71046

== ENCOUNTER 2022-06-25 09:31 | Inpatient (IN) | payer MEDICARE, SELFPAY ==
[2022-06-25] VITALS (40 sets, daily range): BP systolic 93–149; BP diastolic 62–114; PULSE 112–154; RESP 16–33; TEMP 36.1–36.9; O2SAT 91–100; BMI 25.8
--- NOTE | ~2022-06-25 | XR_ITS ---
Portable chest x-ray Comparison: 05/22/2022 Clinical History: COPD, pneumonia Findings: There is mild diffuse interstitial prominence, especially at the lung bases. No pleural ef fusion or pneumothorax. Cardiomediastinal silhouette is stable. Bones and soft tissues are unremarka ble. Impression: Stable interstitial disease, which could reflect COPD or other chronic interstitial disease. Correlat e for any possibility of atypical infection or interstitial edema. Reviewed, dictated and finalized at location M. D SAW RUNNER Impression: Stable interstitial disease, which could reflect COPD or other chronic intersti tial disease. Correlate for any possibility of atypical infection or interstiti al edema.
--- NOTE | ~2022-06-25 | CT_ITS ---
Clinical Indication: Shortness of breath tachycardia CT Scan of the Chest with Contrast: Technique: Contiguous sections were acquired throughout the chest after intravenous administration of 100 cc of Omnipaque 350. Dose reduction technique was used on this scan by utilizing automated expos ure control and iterative reconstruction technique. The dose-length product (DLP) was 253.22 mGy-cm. COMPARISON: 11/30/2021 Findings: There is no evidence of any significant mediastinal, hilar or axillary lymphadenopathy. There is no f illing defect in the pulmonary arterial tree to suggest pulmonary embolus. There is no aortic aneurys m. There is no evidence of pleural or pericardial effusion. Severe emphysema is present. There is an increased focal opacity in the anteroinferior left lower lob e (axial image 84), nonspecific. There is minimal dependent atelectatic change. Images through the upper abdomen reveal no abnormalities. Impression: No pulmonary embolus. Severe emphysema. New focal airspace opacity left lower lobe, as detailed above. Diagnostic considerations include foca l atelectasis or pneumonia. Soft tissue nodule not completely excluded, though felt to be less likely . Short-term follow-up exam in 1-3 months recommended to reassess. Reviewed, dictated and finalized at location M. ICULUM ADVISORY TEACHER Impression: No pulmonary embolus. Severe emphysema. New focal airspace opacity left lower lobe, as detailed above. Diagnostic consi derations include focal atelectasis or pneumonia. Soft tissue nodule not comple tely excluded, though felt to be less likely. Short-term follow-up exam in 1-3 months recommended to reassess.
--- NOTE | 2022-06-25 09:49 | ECG_ITS ---
Measurements Intervals [place] Rate: 150 P: RI: 0 QRS: 49 QRSD: 87 T: 71 QT: 298 QTc: 471 Interpretive Statements ATRIAL FLUTTER/TACHYCARDIA WITH RAPID VENTRICULAR RESPONSE BORDERLINE R WAVE PROGRESSION, ANTERIOR LEADS BORDERLINE ST-T WAVE ABNORMALITY- INF/HIGH LAT LEADS BASELINE ARTIFACT- I, II, III, AVR, AVL, AVF, V1-V6 ABNORMAL ECG COMPARED TO ECG 05/13/2022 17:38:56 A[address] NOW PRESENT ST (T WAVE) DEVIATION NOW PRESENT Electronically Signed On 06-25-2022 10:18:48 WIPING CLOTH CUTTER by Kendrick Paula D.O.
--- NOTE | 2022-06-25 09:52 | ED.SOB ---
HPI - SOB/Dyspnea General Chief Complaint: Shortness of Breath/Dyspnea <Maggie Yancey PA-C - Last Filed: 06/25/22 16:52> Stated Complaint: SOB <Maggie Yancey PA-C - Last Filed: 06/25/22 16:52> Time Seen by Provider: 06/25/22 09:34 <Maggie Yancey PA-C - Last Filed: 06/25/22 16:52> History of Present Illness HPI Narrative: Patient is a 77-year-old female with a history of COPD, on 2L NC, here for evaluation of dyspnea for the past month and a half. Patient states that she has been seen in the ED and by her filler leaf cutter long for this and has been treated for COPD exacerbation with steroids, vibratory vest, antibiotics and duo nebs. Patient states that this is improved her symptoms transiently but they have always returned after completing steroid treatment. 3 days ago she began to have a cough productive of green sputum, shortness of breath, chest discomfort. Noted that her heart rate was in the 150s yesterday. She is increased her home O2 to 4 L. <Maggie Yancey PA-C - Last Filed: 06/25/22 16:52> Related Data Home Medications: Home Medications Medication Instructions Recorded Confirmed lcxrhlibegen-[id number]-[id number] tablet 1 tablet PO DAILY 07/14/20 06/25/22 cholecalciferol (vitamin D3) 50 100 mcg PO DAILY 02/27/22 06/25/22 mcg (2,000 unit) capsule amlodipine 5 mg tablet 5 mg PO DAILY 06/25/22 06/25/22 cyclobenzaprine 10 mg tablet 10 mg PO 4XW PRN Muscle Spasm 06/25/22 06/25/22 donepezil 10 mg tablet 10 mg PO DAILY 06/25/22 06/25/22 doxycycline hyclate 100 mg capsule 100 mg PO 3XW 06/25/22 06/25/22 folic acid 1 mg tablet 1 mg PO DAILY 06/25/22 06/25/22 levothyroxine 25 mcg tablet 25 mcg PO DAILY 06/25/22 06/25/22 memantine 5 mg tablet 5 mg PO BID 06/25/22 06/25/22 olmesartan 20 mg tablet 20 mg PO DAILY 06/25/22 06/25/22 omeprazole 40 mg capsule,delayed 40 mg PO BID 06/25/22 06/25/22 release paroxetine HCl 20 mg tablet 20 mg PO BID 06/25/22 06/25/22 <Maggie Yancey PA-C - Last Filed: 06/25/22 16:52> Allergies/Adverse Reactions: Allergies Allergy/AdvReac Type Severity Reaction Status Date / Time methylprednisolone Allergy Unknown Jittery Verified 06/25/22 09:44 roflumilast [From Dalires] AdvReac Severe Difficulty Verified 06/25/22 09:44 Swallowing <BRUCE Segovia Last Filed: 06/25/22 16:52> Review of Systems Review of Systems: Gen: Denies fevers or chills Eyes: Denies eye pain or visual change ENT: Denies congestion Respiratory: Denies shortness of breath or cough CV: Denies chest pain or palpitations GI: Denies abdominal pain nausea, emesis or diarrhea : denies burning, urgency, frequency or hematuria Musculoskeletal: Denies back pain or muscle pain Neuro: Denies numbness, tingling, weakness or focal weakness Skin: Denies rash Except as documented, all other systems reviewed and negative <Maggie Yancey PA-C - Last Filed: 06/25/22 16:52> [facility] Past Medical History Medical History: Medical History Adenomatous colon polyp Anxiety and depression Arthritis Chronic anemia Chronic kidney disease Chronic obstructive pulmonary disease Chronic respiratory failure with hypoxia, on home oxygen therapy 2 liters nasal cannula at night. Cognitive dysfunction Dyslipidemia Gastroesophageal reflux disease Hearing loss Hypertension Hypothyroidism Iron deficiency anemia Kidney stones Lung nodule Personal history of COVID-19 Pre-diabetes Tobacco abuse <Maggie Yancey PA-C - Last Filed: 06/25/22 16:52> Surgical History Surgical History: Surgical History History of bilateral cataract extraction History of cardiac catheterization History of colonoscopy with polypectomy History of cystoscopy History of lithotripsy History of lung biopsy (02/2020) Left lung nodule-fibrous tissue with commercial management accountant
[2022-06-25 10:06] LABS: Basophils Absolute Auto 0.1 K/mm3 (0.0-0.1); Basophils Percent Auto 0.6 % (0.2-1.2); Eosinophils Absolute Auto 0.2 K/mm3 (0-0.3); Eosinophils Percent Auto 1.8 % (0-4.4); Hematocrit 41.7 % (37.0-47.0); Hemoglobin 12.9 g/dL (12.0-15.0); Immature Granulocyte Absolute 0.05 K/mm3 (0.00-0.031); Immature Granulocyte Percent A 0.4 % (0-0.5); Lymphocytes Absolute Auto 1.68 K/mm3 (0.9-3.2); Lymphocytes Percent Auto 12.3 % (18.3-44.2); Mean Corpuscular HGB Conc 30.9 g/dl (32-36); Mean Corpuscular Hemoglobin 32.3 pg (26-34); Mean Corpuscular Volume 104.5 fl (80-100); Mean Platelet Volume 9.9 fl (7.4-10.4); Monocytes Absolute Auto 1.2 K/mm3 (0.1-0.6); Monocytes Percent Auto 8.5 % (2.6-8.5); Neutrophils Absolute Auto 10.5 K/mm3 (1.3-6.7); Neutrophils Percent Auto 76.4 % (45.5-73.1); Platelet Count Result 228 k/mm3 (150-375); Red Blood Count 3.99 M/mm3 (4.2-5.4); Red Cell Distribution Width 12.9 % (11.5-14.5); White Blood Count 13.7 K/mm3 (4.5-10.0)
[2022-06-25] MEDS: SODIUM CHLORIDE 0.9% IV 1,000 ML 999 ML IV CONT ×2 (10:06→11:33)
[2022-06-25] MEDS: METOPROLOL TARTRATE INJ 5 MG/5 ML VIAL IV PUSH (10:07)
[2022-06-25] MEDS: ALBUTEROL SULFATE NEB 2.5 MG/3 ML INH 5 MG INHALATION (10:09)
[2022-06-25 10:10] LABS: Alanine Aminotransferase 27 U/L (6-35); Albumin Level 4.8 g/dL (3.5-5.1); Alkaline Phosphatase 73 U/L (38-126); Anion Gap 8 mmol/L (8-16); Aspartate Amino Transferase 31 U/L (14-36); Bilirubin,Total 0.7 mg/dL (0.2-1.3); Blood Urea Nitrogen 18 mg/dL (7-17); Calcium 8.9 mg/dL (8.4-10.2); Carbon Dioxide 29 mmol/L (22-30); Chloride 103 mmol/L (98-107); Estimated CRCL calculation 33 ml/min; Estimated Glomerular Filt Rate > 60; Glucose 130 mg/dL (65-110); Potassium 4.5 mmol/L (3.4-5.0); Sodium 140 mmol/L (137-145)
[2022-06-25 10:13] LABS: Alveolar/Arterial O2 Gradient 111.6 mmHg; Base Excess ABG 3.6 mEq/l (+/-2.0); Fractional Inspired Oxygen 28 %; Oxygen Content ABG 6.6 %vol (16.0-22.0); PO2 FiO2 Ratio Arterial Blood 0.87 %; Total Hemoglobin 11.7 g/dL (12.0-18.0); pH ABG 7.363 (7.350-7.450)
[2022-06-25 10:15] LABS: PO2 ABG < 27.0 mmHg (80.0-100.0)
[2022-06-25 10:16] LABS: Oxygen Saturation ABG 40.3 % (95.0-100.0)
[2022-06-25 10:17] LABS: Device NASAL CANNULA; Modified Allen's Test Pass; Oxyhemoglobin 39.9 % THb (90.0-100.0); Site Drawn RIGHT RADIAL
[2022-06-25 10:22] LABS: Troponin I < 0.012 ng/mL (0.000-0.034)
[2022-06-25 10:25] LABS: INR 1.1; Prothrombin Time 13.7 Seconds (11.1-14.7)
[2022-06-25 10:26] LABS: Partial Thromboplastin Time 27.2 SECONDS (22.3-36.8)
[2022-06-25 10:39] LABS: NT Pro B Type Natriuretic Pept 3120 pg/mL (5-100)
[2022-06-25] MEDS: LEVALBUTEROL NEB 1.25 MG/3 ML 0.63 MG INHALATION ×2 (11:08→15:27)
[2022-06-25] MEDS: IPRATROPIUM BR 0.02% INH SOLN 0.5 MG/2.5 ML VIAL INHALATION ×3 (11:09→20:08)
[2022-06-25 11:14] LABS: Influenza A QL RT-PCR Negative (Negative); Influenza B QL RT-PCR Negative (Negative); SARS-CoV-2 RNA PCR Negative
[2022-06-25] MEDS: methylPREDNISolone SOD SUCC 125 MG VIAL IV PUSH (11:25)
[2022-06-25] MEDS: levoFLOXacin 500 MG/D5W 100 ML 500 MG/100 ML BAG 100 MG IVPB (11:26)
[2022-06-25 11:31] LABS: Lactic Acid Reflex 1.4 mmol/L (0.7-2.0)
[2022-06-25] MEDS: dilTIAZem HCl INJ 25 MG/5 ML VIAL 10 MG IV PUSH ×2 (12:00→12:34)
[2022-06-25] MEDS: dilTIAZem 100 MG/100 ML 100 MG/100 ML BAG IV CONT (12:35)
--- NOTE | 2022-06-25 12:45 | PM.IMHP ---
H&P: HPI History of Present Illness Date/Time: 06/25/22 12:45 Chief Complaint: Shortness of breath. Narrative: This is a 77-year-old female with severe emphysema and COPD by PFTs in 2017, chronic respiratory failure on 2 liters nasal cannula, hypertension, hypothyroidism, anemia, and other comorbidities who presented to the emergency department from home for evaluation of shortness of breath. She has not been feeling well for upwards of 1.5 months with cough and increasing shortness of breath from baseline (can get around the house and do light cooking with breaks). She has been under the care of her route driver and has thus far been treated with a combination of antibiotics, bronchodilators, steroids, and vibratory vest. Her symptoms seem to improve temporarily but worsen shortly after completion of steroids. The last 3 to 5 days she has once again started to feel worse with cough productive of green phlegm, increasing dyspnea on lesser and lesser exertion, wheezing, and chest discomfort due to coughing. She also has occasional barking cough which seems to occur with acute respiratory distress to the point where she becomes diaphoretic and is using accessory muscles. She has not had fever, chills, exertional chest pain, syncope, presyncope, nausea, or vomiting. She was tachycardic and tachypneic on arrival to the ED. EKG showed atrial flutter/tachycardia with rapid ventricular response of which she has no prior history and she has no sensations of racing heart or palpitations. CT of the chest showed no evidence of PE but did note an new focal airspace opacity in the left lower lobe with a differential diagnosis to include focal atelectasis, pneumonia, and less likely soft tissue nodule. ED provider discussed the patient's case with the excavating contractor and route driver on-call and they recommend continuing diltiazem drip and scheduled bronchodilators, steroids, and empiric antibiotics respectively pending official consultation. At the time my evaluation she was anxious, diaphoretic, visibly short of breath, and using accessory muscles. She was given a stat nebulizer treatment, magnesium, and lorazepam IV with improvement in all symptoms. Review of Systems Review of Systems: 12 systems were reviewed. No fever or chills. She has sweats when she is feeling exceptionally short of breath and using accessory muscles to breathe. No issues swallowing or concerns for dysphagia though on occasion after eating a meal and then taking a drink she feels as though she may vomit the food back up. She denies sore throat has not noticed any swelling in the throat or neck. No headache or neck ache. She has not had any chest pain or sensations of racing heart. Appetite has been pretty good. No nausea or vomiting. Weight has remained stable. Not unusual for her to have loose stools a couple of times a day but not always. Except as documented, all other systems were reviewed and are negative. [facility] Past Medical History Medical History (Updated 06/25/22 @ 21:00 by Katherine Alvarez PA-C) Adenomatous colon polyp Anxiety and depression Arthritis Chronic anemia Chronic kidney disease Chronic obstructive pulmonary disease 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 Chronic respiratory failure with hypoxia, on home oxygen therapy On 2 liters nasal cannula. Cognitive dysfunction Dyslipidemia Gastroesophageal reflux disease Hearing loss Hypertension Hypothyroidism Iron deficiency anemia Kidney stones Lung nodule Personal history of COVID-19 Pre-diabetes Tobacco abuse Surgical History Surgical History History of bilateral cataract extraction History of cardiac catheterization History of colonoscopy with polypectomy History of cystoscopy History of lithotripsy History of lung biopsy (02/2020) Left lung nodule-fibrous tissue with chronic inflammation and granulomatous. History of tubal ligation Family History
--- NOTE | 2022-06-25 14:20 | ADMGEN ---
This patient, Jenny Lucas, was admitted to IMU Room 207-01. Patient/family oriented to hospital policies and general routines including ID bracelet, bed and alarms, visiting hours, pain management, procedures, bathroom and other care routines, personal items, smoking policy, room service/diet, and visiting hours. Information on how to activate the Rapid Response Team has been discussed. Patient/Family are encouraged to report perceived risks to care and to ask questions if they do not understand what they are told or what they should do.
--- NOTE | 2022-06-25 14:36 | ECG_ITS ---
Measurements Intervals [place] Rate: 126 P: 257 TX: 181 QRS: 35 QRSD: 77 T: 120 QT: 218 QTc: 315 Interpretive Statements ATRIAL FLUTTER/TACHYCARDIA WITH RAPID VENTRICULAR RESPONSE DELAYED PRECORDIAL R/S TRANSITION NONSPECIFIC ST & T-WAVE ABNORMALITY- LAT/HIGH LAT LEADS BASELINE ARTIFACT- I, II, III, AVR, AVL, AVF ABNORMAL ECG COMPARED TO ECG 06/25/2022 09:37:49 NO SIGNIFICANT CHANGES Electronically Signed On 06-25-2022 16:22:21 SPA CONSULTANT by Kendrick Paula D.O.
--- NOTE | 2022-06-25 14:57 | PM.CNCAR ---
Assessment and Plan Assessment and plan (1) Atrial flutter with rapid ventricular response: Code(s): I48.92 - Unspecified atrial flutter Status: Acute Assessment and Plan: No history of atrial arrhythmias per patient. Probably secondary to her severe lung disease/acute respiratory failure. No clear symptomatology to determine when this arrhythmia may have started. She is currently on a diltiazem drip and has received multiple diltiazem boluses as well as lopressor and is maintaining a heart rate in the 130's-140's. I am going to stop her diltiazem and shift her to amiodarone. I discussed the potential side effects of amiodarone with her as well as the risk of thromboembolic stroke with atrial flutter and with chemical cardioversion. She verbalizes understanding of all this and accepts possible risks. Will initiate rivaroxaban for systemic anticoagulation. If she does not convert to sinus rhythm or achieve adequate rate control, we will have to consider PAVAN/DCCV tomorrow. (2) Chronic respiratory failure with hypoxia, on home oxygen therapy: Code(s): J96.11 - Chronic respiratory failure with hypoxia; Z99.81 - Dependence on supplemental oxygen Status: Acute Assessment and Plan: Severe COPD followed by Dr. Rush. Presented with hypercapnic and hypoxic respiratory failure secondary to COPD. On abx, steroids, and brochodilators. Management per pulmonoogy. (3) Hypertension: Code(s): I10 - Essential (primary) hypertension Status: Acute Assessment and Plan: At goal. History of Present Illness History of Present Illness Consult date/time: 06/25/22 14:57 Requesting physician: Maggie Yancey PA-C Consult reason: Other (atrial flutter ) Reason For Visit: ATRIAL FLUTTER WITH RAPID VENTRICULAR RESPONSE Narrative: Ms. Lucas is a 77-year-old female with history of severe COPD on home oxygen. She comes into the hospital with worsening shortness of breath. She has been experiencing a variety of respiratory symptoms for about a month and has been treated by her hand box coverer with antibiotics and steroids. She began to feel worse over the past couple of days which prompted presentation to the ED. When she entered the hospital her EKG demonstrated rapid atrial flutter with a rate of 150. She was given diltiazem boluses and started on a diltiazem drip but her rate remains rapid, typically in the 130's-140's. She is diaphoretic and looks uncomfortable when I am interviewing her but her blood pressure is stable and she denies feeling any palpitations or chest pain. Review of Systems Constitutional: Constitutional: Denies chills, Denies fever(s), Denies headache(s) and Denies malaise Eyes: Eyes: Denies change in vision ENT: Reports Normal hearing present, Denies dizziness, Denies headache(s) and Denies hearing loss Cardiovascular: Cardiovascular: Denies chest pain, Denies chest pain at rest, Denies syncope, Denies leg edema, Denies palpitations, Reports dyspnea and Reports dyspnea on exertion Respiratory: Respiratory: Reports cough, Reports dyspnea, Reports dyspnea on exertion and Reports wheezing Gastrointestinal: Gastrointestinal: Denies abdominal pain, Denies constipation and Denies diarrhea Genitourinary: Genitourinary: Denies hematuria and Denies dysuria Musculoskeletal: Musculoskeletal: Denies myalgias, Denies arthralgias and Denies muscle cramps Integumentary/Breasts: Skin/Breast: Denies wounds Neurologic: Reports Normal hearing present, Denies confusion, Denies dizziness, Denies syncope and Denies headache(s) Psychiatric: Psychiatric: Denies anxiety, Denies confusion and Denies depression Endocrine: Endocrine: Denies cold intolerance, Denies flushing, Denies heat intolerance and Denies palpitations Hematologic/Lymphatic: Hematologic/Lymphatic: Denies easy bleeding and Denies easy bruising Allergic/Immunologic: Allergic/Immunologic: Reports wheezing PMFSH
[2022-06-25] MEDS: AMIODARONE 150 MG/D5W 100 ML 150 MG/100 ML BAG 600 MG IV CONT (15:10)
[2022-06-25 15:13] LABS: Alveolar/Arterial O2 Gradient 140.3 mmHg; Base Excess ABG -5.2 mEq/l (+/-2.0); Carboxyhemoglobin 0.3 % THb (0-2.0); HCO3 ABG 19.6 mEq/l (22.0-26.0); Methemoglobin ABG 0.1 %THb (0-1.5); Oxygen Content ABG 16.8 %vol (16.0-22.0); Oxygen Saturation ABG 97.6 % (95.0-100.0); Oxyhemoglobin 96.3 % THb (90.0-100.0); PCO2 ABG 35.5 mmHg (35.0-45.0); PO2 ABG 104.1 mmHg (80.0-100.0); Reduced Hemoglobin 3.3 %THb (0-5.0); Total Hemoglobin 12.3 g/dL (12.0-18.0); pH ABG 7.359 (7.350-7.450)
[2022-06-25 15:14] LABS: Device NASAL CANNULA; Fractional Inspired Oxygen 36 %; Modified Allen's Test Pass; Site Drawn RIGHT RADIAL
[2022-06-25] MEDS: MAGNESIUM SULF 2 GM/WATER 50ML 2 GM/50 ML BAG IVPB (15:17)
[2022-06-25] MEDS: AMIODARONE 360 MG/D5W 200 ML 360 MG/200 ML BAG 33.33 MG IV CONT (15:20)
[2022-06-25 15:25] LABS: Troponin I < 0.012 ng/mL (0.000-0.034)
[2022-06-25] MEDS: LORazepam INJ (*CRX) 2 MG/ML VIAL 0.5 MG IV PUSH (15:39)
[2022-06-25 15:53] LABS: CRP 2.4 mg/dL (<1.0)
--- NOTE | 2022-06-25 17:27 | PM.CNPUL ---
Assessment and Plan Assessment and plan (1) COPD with acute exacerbation: Code(s): J44.1 - Chronic obstructive pulmonary disease with (acute) exacerbation Status: Acute Assessment and Plan: GOLD grade 3 group D COPD, (57 PY quit 2019), last PFTs on 11/15/2016 with an FEV1 of 37% predicted, chronic hypoxemic respiratory failure on 2 L nasal cannula with rest, ambulation and sleep, dyspnea on exertion at 20 ft, CAT score 24 on 06/18/2022. patient now with acute worsening shortness of breath, wheezing, cough, increased phlegm production and phlegm color changed from clear to medium green starting on 06/21/2022. Patient has a COPD exacerbation. Patient is COVID and influenza swab are negative. Her CT angiogram is negative for pulmonary embolism. Patient does have a focal infiltrate in the left lower lobe and may have pneumonia. At this time will continue Solu-Medrol 60 mg IV q.6 hours, levalbuterol 1.25 mg nebulized q.6 hours, ipratropium bromide 0.5 mg nebulized Q 6 hours, cefepime and levofloxacin. Patient's 1st mixed venous blood gas was 7.36/54/ less than 27 on 2 L nasal cannula and her admission serum bicarb was 29. patient had a repeat blood gas on 4 L nasal cannula the pH of 7.36/36/104. Patient had increased work of breathing when I saw her and I placed her on BiPAP but she could not tolerate the pressures and I placed her on noninvasive ventilator with an APAP mode and adjusted the settings to comfort which resulted in a rate of 20, tidal volume 500, EPAP 4, minimal inspiratory pressure 5, maximal inspiratory pressure 25, inspiratory time 1.0 seconds, rise of 1 which is the fastest and 35% FiO2. patient tolerated the settings and said that she may be able to wear this overnight. I spoke with the patient and her son and the patient does not wish to be intubated in the future. I spoke with the son regarding CPR, defibrillation and at this time he wants to check the previous living will to see if they have discussed this in the past. I spoke with Katherine Alvarez and she will change the code status. Will follow with you. (2) Atrial flutter with rapid ventricular response: Code(s): I48.92 - Unspecified atrial flutter Status: Acute Assessment and Plan: Patient with new onset atrial flutter treated with diltiazem and metoprolol but she remained on controlled with a rate 130 to 140s and now IV amiodarone. Given the patient's lung disease amiodarone may not be an optimal drug for her. Hopefully once we treat her COPD exacerbation and pneumonia her heart rate will be more easily controlled with diltiazem and or metoprolol. Rivaroxaban started. If she does not convert to sinus consideration for PAVAN-DCCV per Cardiology. History of Present Illness History of Present Illness Consult date: 06/25/22 Chief complaint: ATRIAL FLUTTER WITH RAPID VENTRICULAR RESPONSE Narrative: 06/25/2022: This is a new pulmonary consult for COPD exacerbation. 77-year-old woman with a history of GOLD grade 3 group D COPD, (57 PY quit 2018), last PFTs on 11/15/2016 with an FEV1 of 37% predicted, chronic hypoxemic respiratory failure on 2 L nasal cannula with rest, ambulation and sleep, dyspnea on exertion at 20 ft, hypertension, hypothyroidism, and anemia. Patient is followed in the pulmonary clinic and was last seen on 06/18/2022. At that time she was on 2 L nasal cannula 24-7, she was maintained on trilogy inhaler, had failed Daliresp in the past, was using nebulized albuterol 3 times a day, was using a vibratory vest and echo [place] flutter valve for mucus clearing and was taking doxycycline Friday and Friday prescribed by her PCP in December of 2021. Patient has had multiple exacerbations over the last year approximately every 6 weeks requiring prednisone and antibiotics. Last prednisone burst was approximately 2 weeks ago. When patient has difficulty breathing she also notices that she makes by grunting
[2022-06-25] MEDS: RIVAROXABAN 20 MG TABLET PO (17:31)
[2022-06-25] MEDS: methylPREDNISolone SOD SUCC 125 MG VIAL 60 MG IV PUSH (17:32)
[2022-06-25] MEDS: ACETAMINOPHEN 325 MG TABLET 650 MG PO (19:19)
[2022-06-25] MEDS: LEVALBUTEROL NEB 1.25 MG/3 ML INHALATION (20:08)
[2022-06-25] MEDS: AMIODARONE 360 MG/D5W 200 ML 360 MG/200 ML BAG 16.67 MG IV CONT (21:35)
[2022-06-25] MEDS: MEMANTINE 5 MG TABLET PO (21:50)
[2022-06-25] MEDS: LORazepam (*CRX) 1 MG TABLET PO (21:50)
[2022-06-25] MEDS: PANTOPRAZOLE 40 MG TABLET PO (21:50)
[2022-06-26] VITALS (27 sets, daily range): BP systolic 116–159; BP diastolic 54–114; PULSE 87–133; RESP 18–28; TEMP 36–36.8; O2SAT 92–98
[2022-06-26] MEDS: methylPREDNISolone SOD SUCC 125 MG VIAL 60 MG IV PUSH ×3 (00:54→11:47)
[2022-06-26] MEDS: LEVALBUTEROL NEB 1.25 MG/3 ML INHALATION ×4 (02:20→20:41)
[2022-06-26] MEDS: IPRATROPIUM BR 0.02% INH SOLN 0.5 MG/2.5 ML VIAL INHALATION ×4 (02:20→20:40)
[2022-06-26] MEDS: ACETAMINOPHEN 325 MG TABLET 650 MG PO ×3 (04:42→18:13)
[2022-06-26] MEDS: METOPROLOL TARTRATE INJ 5 MG/5 ML VIAL IV PUSH (05:57)
[2022-06-26] MEDS: LEVOTHYROXINE SODIUM 25 MCG TABLET PO (06:00)
[2022-06-26] MEDS: AMIODARONE 360 MG/D5W 200 ML 360 MG/200 ML BAG 33.33 MG IV CONT ×2 (06:00→07:28)
--- NOTE | 2022-06-26 08:00 | ECHO_ITS ---
Patient Info Name: Jenny Lucas Age: 77 years : 1945 Gender: Female Ht: 60 in Wt: 132 lbs BSA: 1.61 m2 HR: 115 bpm BP: 142 / 65 mmHg Heart Rhythm: Sinus Rhythm, Tachycardia Exam Date: 06/26/2022 12:26 PM Exam Location: [facility]monary Patient Status: Inpatient Admit Date: 06/25/2022 Staff Ordering Physician: Katherine Alvarez PA-C Family Services Assistant: Quinn Albarado RDCS, RT Attending Provider: Lola Landry PA-C Referring Physician: Kim CHRISTENSEN; Exam Type: CA echo doppler color flow Study Info Indications J96.91 - Respiratory failure, unspecified with hypoxia R06.02 - Shortness of breath Complete two-dimensional, color flow and Doppler transthoracic echocardiogram is performed. Strain analysis performed. Summary 1. Complete two-dimensional, color flow and Doppler transthoracic echocardiogram is performed. 2. Left ventricular systolic function is normal, estimated at 60-65%. 3. There is mildly increased left ventricular wall thickness. 4. Right ventricular chamber dimension is normal. 5. Right ventricular systolic function is normal. 6. There is moderate aortic valve calcification. 7. There is mild aortic valve stenosis with a peak velocity of 185 cm/s, mean gradient of 7 mmHg, and aortic valve area of 1.5 cm2. 8. There is moderate aortic valve regurgitation. 9. The mitral valve has thickened leaflets. 10. There is moderate mitral valve regurgitation. 11. There is moderate tricuspid valve regurgitation. 12. Dilated inferior vena cava with <50% collapse upon inspiration consistent with elevated right atrial pressure, 15 mmHg. Left Ventricle Left ventricular chamber dimension is normal. Left ventricular systolic function is normal, estimated at 60-65%. There is mildly increased left ventricular wall thickness. Global longitudinal strain is abnormal at -14 %. Right Ventricle Right ventricular chamber dimension is normal. Right ventricular systolic function is normal. Left Atria Left atrial chamber dimension is normal. Right Atria Right atrial chamber dimension is normal. Atrial Septum Intact interatrial septum visualized by color flow imaging. Aortic Valve The aortic valve is probable trileaflet. There is mild aortic valve stenosis with a peak velocity of 185 cm/s, mean gradient of 7 mmHg, and aortic valve area of 1.5 cm2. There is moderate aortic valve regurgitation. There is moderate aortic valve calcification. Pulmonic Valve The pulmonic valve is not well visualized. Mitral Valve The mitral valve has thickened leaflets. There is moderate mitral valve regurgitation. Tricuspid Valve There is moderate tricuspid valve regurgitation. Pericardium/Pleural There is no pericardial effusion. Inferior Vena Cava Dilated inferior vena cava with <50% collapse upon inspiration consistent with elevated right atrial pressure, 15 mmHg. Aorta The aortic root size at the sinus of Valsalva is normal. Left Ventricular Outflow Tract Name Value Normal LVOT 2D LVOT Diameter 2.0 cm LVOT Doppler LVOT Peak Gradient 3 mmHg LVOT Mean Gradient
--- NOTE | 2022-06-26 09:51 | PM.PNCARD ---
Progress Note: A&P Assessment and Plan (1) Atrial flutter with rapid ventricular response: Code(s): I48.92 - Unspecified atrial flutter Status: Acute (2) Chronic respiratory failure with hypoxia: Code(s): J96.11 - Chronic respiratory failure with hypoxia Status: Acute Plan No history of atrial arrhythmias per patient.? Probably secondary to her severe lung disease/acute respiratory failure. As patient remains in atrial flutter with RVR, will plan for TTE-guided DCCV today. Given her severe COPD and chronic hypoxic respiratory failure, will schedule procedure with Anesthesia team. Continue Amiodarone drip. Will plan to transition to oral after the cardioversion. Given her severe COPD, it would be ideal to not keep her on Amio for long-term management. Continue Xarelto for anticoagulation. Of note, patient is listed to have modified code status with no intubation. Discussed code status with patient regarding procedure. She is okay for intubation if needed during the procedure. Patient is FULL CODE for the procedure. Subjective Date/time seen: 06/26/22 09:51 Interval history: Reason for visit: Atrial flutter with RVR HPI: Ms. Lucas is a 77-year-old female with history of severe COPD on home oxygen.? She comes into the hospital with worsening shortness of breath.? She has been experiencing a variety of respiratory symptoms for about a month and has been treated by her cooker loader with antibiotics and steroids.? She began to feel worse over the past couple of days which prompted presentation to the ED.? When she entered the hospital her EKG demonstrated rapid atrial flutter with a rate of 150.? She was given diltiazem boluses and started on a diltiazem drip but her rate remains rapid, typically in the 130's-140's.? She is diaphoretic and looks uncomfortable when I am interviewing her but her blood pressure is stable and she denies feeling any palpitations or chest pain.? Date of service 06/26/2021: No acute events overnight. On Amiodarone drip. Remains in atrial flutter with RVR. Review of Systems Review of Systems: 8-point ROS obtained. Negative, unless stated in HPI. Exam Const: General: no acute distress HENMT: Mouth: Yes moist mucous membranes Eyes: General: appearance normal, both eyes and all related structures Sclera: sclerae normal Neck: Neck: supple Resp: Auscultation: diminished lung sounds Other: On supplemental oxygen via nasal cannula Cardio: Rate: regular rate and tachycardic Other: Atrial flutter Skin: General skin exam: normal color Neuro: Speech: normal speech Extrem: General: no edema Psych: Mental Status: mental status grossly normal Affect: normal affect Objective Data Vital Signs Vital Signs: Vital Signs - 24 hr 06/25/22 10:07 06/25/22 10:05 06/25/22 10:22 Temperature Pulse Rate 152 H 152 H 144 H Respiratory Rate 25 H 21 H Blood Pressure Pulse Oximetry Oxygen Delivery Oxygen Flow Rate Fraction of Inspired Oxygen 06/25/22 11:05 06/25/22 10:01 06/25/22 10:16 Temperature Pulse Rate 144 H 154 H 146 H Respiratory Rate 22 H 23 H 21 H Blood Pressure 120/81 104/77 Pulse Oximetry 100 Oxygen Delivery Oxygen Flow Rate Fraction of Inspired Oxygen 06/25/22 10:53 06/25/22 11:21 06/25/22 11:31 Temperature Pulse Rate 145 H 144 H 141 H Respiratory Rate 23 H 16 18 Blood Pressure 114/85 114/82 138/80 Pulse Oximetry 91 100 100 Oxygen Delivery Oxygen Flow Rate Fraction of Inspired Oxygen 06/25/22 12:09 06/25/22 12:35 06/25/22 11:46 Temperature Pulse Rate 118 H 143 H 143 H Respiratory Rate 21 H 20 Blood Pressure 107/94 H 117/94 H Pulse Oximetry 100 Oxygen Delivery Oxygen Flow Rate Fraction of Inspired Oxygen 06/25/22 12:01 06/25/22 12:33 06/25/22 12:46 Temperature Pulse Rate 133 H 142 H 123 H Respiratory Rate 33 H 22 H 18 Blood Pressure 135/114 H 107/94 H 93/62 L Puls
--- NOTE | 2022-06-26 09:54 | WPDANESEPPF ---
Anes - Initial Pre Proc Eval Procedure: Operation Date: 06/26/22 13:00 Proposed Procedures p Trans Esophageal Echo - Tamanna Adames MD s Possible Electrical Cardioversion - Tamanna Adames MD Date/Time: 06/26/22 09:54 Surgeon: Lola Landry PA-C Pre Op Diagnosis: ATRIAL FLUTTER WITH RAPID VENTRICULAR RESPONSE Patient Data Age: 77 Gender: F Height: 1.52 m Weight: 60.1 kg Last Vital Signs Temp 36.1 C L 06/26/22 08:00 Pulse 114 H 06/26/22 08:30 Resp 28 H 06/26/22 08:30 BP 159/59 H 06/26/22 08:00 Pulse Ox 95 06/26/22 08:30 O2 Del Method Nasal Cannula 06/26/22 08:30 O2 Flow Rate 5 06/26/22 08:30 FiO2 35 06/26/22 04:00 Allergies Allergy/AdvReac Type Severity Reaction Status Date / Time methylprednisolone Allergy Unknown Jittery Verified 06/25/22 09:44 roflumilast [From [facility]] AdvReac Severe Difficulty Verified 06/25/22 09:44 Swallowing Home Medications Medication Instructions Recorded Confirmed Type [id number]-lfnmoyhs-wxucdh tablet 1 tablet PO DAILY 07/14/20 06/25/22 History nebulizer accessories #1 ea 11/30/20 06/25/22 Rx cholecalciferol (vitamin D3) 50 100 mcg PO DAILY 02/27/22 06/25/22 History mcg (2,000 unit) capsule albuterol sulfate 2.5 mg/3 mL See Rx Instructions .Route 05/13/22 06/25/22 Rx (0.083 %) solution for nebulization .COMPLEX #180 mL lorazepam 1 mg tablet 1 mg PO BID #60 tabs 05/13/22 06/25/22 Rx albuterol sulfate 90 mcg/actuation 1 - 2 inh inhalation Q4-6H PRN 05/28/22 06/25/22 Rx aerosol inhaler shortness of breath or wheezing #8.5 grams fluticasone fur. 100 mcg-umeclid 1 inh inhalation Q24H #60 ea 06/04/22 06/25/22 Rx 62.5 mcg-vilant 25 mcg inhalat.powder (Trelegy Ellipta) amlodipine 5 mg tablet 5 mg PO DAILY 06/25/22 06/25/22 History cyclobenzaprine 10 mg tablet 10 mg PO 4XW PRN Muscle Spasm 06/25/22 06/25/22 History donepezil 10 mg tablet 10 mg PO DAILY 06/25/22 06/25/22 History doxycycline hyclate 100 mg capsule 100 mg PO 3XW 06/25/22 06/25/22 History folic acid 1 mg tablet 1 mg PO DAILY 06/25/22 06/25/22 History levothyroxine 25 mcg tablet 25 mcg PO DAILY 06/25/22 06/25/22 History memantine 5 mg tablet 5 mg PO BID 06/25/22 06/25/22 History olmesartan 20 mg tablet 20 mg PO DAILY 06/25/22 06/25/22 History omeprazole 40 mg capsule,delayed 40 mg PO BID 06/25/22 06/25/22 History release paroxetine HCl 20 mg tablet 20 mg PO BID 06/25/22 06/25/22 History Laboratory Tests 06/25/22 06/25/22 06/25/22 09:55 09:55 09:55 WBC 13.7 K/mm3 H K/mm3 (4.5-10.0) RBC 3.99 M/mm3 L M/mm3 (4.2-5.4) Hgb 12.9 g/dL g/dL (12.0-15.0) Hct 41.7 % % (37.0-47.0) MCV 104.5 fl H fl (80-100) MCH 32.3 pg pg (26-34) MCHC 30.9 g/dl L g/dl (32-36) RDW 12.9 % % (11.5-14.5) Plt Count 228 k/mm3 k/mm3 (150-375) MPV 9.9 fl fl (7.4-10.4) Immature Gran % (Auto) 0.4 % % (0-0.5) Neut % (Auto) 76.4 % H % (45.5-73.1) Lymph % (Auto) 12.3 % L % (18.3-44.2) [place] % (Auto) 8.5 % % (2.6-8.5) Eos % (Auto) 1.8 % % (0-4.4) Baso % (Auto) 0.6 % % (0.2-1.2) Lymph # (Auto) 1.68 K/mm3 K/mm3 (0.9-3.2) [place] # (Auto) 1.2 K/mm3 H K/mm3 (0.1-0.6) Eos # (Auto) 0.2 K/mm3 K/mm3 (0-0.3) Baso # (Auto) 0.1 K/mm3 K/mm3 (0.0-0.1) Abs Immat Gran (auto) 0.05 K/mm3 H K/mm3 (0.00-0.031) Absolute Neuts (auto) 10.5 K/mm3 H K/mm3 (1.3-6.7) Absolute Nucleated RBC 0.0 K/mm3 K/mm3 (0.0-0.012) Nucleated RBC % 0.0 % % (0.0-0.2) PT 13.7 Seconds Seconds (11.1-14.7) INR 1.1 APTT 27.2 SECONDS SECONDS (22.3-36.8) Puncture Site ABG pH ABG pCO2 ABG pO2 ABG PO2/FiO2 Ratio ABG HCO3 ABG O2 Saturation ABG O2 Co
[2022-06-26 10:05] LABS: Anion Gap 9 mmol/L (8-16); Blood Urea Nitrogen 23 mg/dL (7-17); Carbon Dioxide 27 mmol/L (22-30); Chloride 101 mmol/L (98-107); Estimated CRCL calculation 31 ml/min; Estimated Glomerular Filt Rate 48; Glucose 153 mg/dL (65-110); Potassium 5.2 mmol/L (3.4-5.0); Sodium 137 mmol/L (137-145)
--- NOTE | 2022-06-26 10:13 | WPDANESEPPF ---
Anes - Initial Pre Proc Eval Procedure: Operation Date: 06/26/22 10:15 Proposed Procedures p Trans Esophageal Echo - Tamanna Adames MD s Possible Electrical Cardioversion - Tamanna Adames MD Date/Time: 06/26/22 10:13 Surgeon: Lola Landry PA-C Pre Op Diagnosis: ATRIAL FLUTTER WITH RAPID VENTRICULAR RESPONSE Patient Data Age: 77 Gender: F Height: 1.52 m Weight: 60.1 kg Last Vital Signs Temp 97 F L 06/26/22 08:00 Pulse 114 H 06/26/22 08:30 Resp 28 H 06/26/22 08:30 BP 159/59 H 06/26/22 08:00 Pulse Ox 95 06/26/22 08:30 O2 Del Method Nasal Cannula 06/26/22 08:30 O2 Flow Rate 5 06/26/22 08:30 FiO2 35 06/26/22 04:00 Allergies Allergy/AdvReac Type Severity Reaction Status Date / Time methylprednisolone Allergy Unknown Jittery Verified 06/25/22 09:44 roflumilast [From [facility]] AdvReac Severe Difficulty Verified 06/25/22 09:44 Swallowing Home Medications Medication Instructions Recorded Confirmed Type [id number]-xqsbiiyi-kunlqs tablet 1 tablet PO DAILY 07/14/20 06/25/22 History nebulizer accessories #1 ea 11/30/20 06/25/22 Rx cholecalciferol (vitamin D3) 50 100 mcg PO DAILY 02/27/22 06/25/22 History mcg (2,000 unit) capsule albuterol sulfate 2.5 mg/3 mL See Rx Instructions .Route 05/13/22 06/25/22 Rx (0.083 %) solution for nebulization .COMPLEX #180 mL lorazepam 1 mg tablet 1 mg PO BID #60 tabs 05/13/22 06/25/22 Rx albuterol sulfate 90 mcg/actuation 1 - 2 inh inhalation Q4-6H PRN 05/28/22 06/25/22 Rx aerosol inhaler shortness of breath or wheezing #8.5 grams fluticasone fur. 100 mcg-umeclid 1 inh inhalation Q24H #60 ea 06/04/22 06/25/22 Rx 62.5 mcg-vilant 25 mcg inhalat.powder (Trelegy Ellipta) amlodipine 5 mg tablet 5 mg PO DAILY 06/25/22 06/25/22 History cyclobenzaprine 10 mg tablet 10 mg PO 4XW PRN Muscle Spasm 06/25/22 06/25/22 History donepezil 10 mg tablet 10 mg PO DAILY 06/25/22 06/25/22 History doxycycline hyclate 100 mg capsule 100 mg PO 3XW 06/25/22 06/25/22 History folic acid 1 mg tablet 1 mg PO DAILY 06/25/22 06/25/22 History levothyroxine 25 mcg tablet 25 mcg PO DAILY 06/25/22 06/25/22 History memantine 5 mg tablet 5 mg PO BID 06/25/22 06/25/22 History olmesartan 20 mg tablet 20 mg PO DAILY 06/25/22 06/25/22 History omeprazole 40 mg capsule,delayed 40 mg PO BID 06/25/22 06/25/22 History release paroxetine HCl 20 mg tablet 20 mg PO BID 06/25/22 06/25/22 History Laboratory Tests 06/25/22 06/25/22 06/25/22 09:55 09:55 10:10 WBC RBC Hgb Hct MCV MCH MCHC RDW Plt Count MPV Immature Gran % (Auto) Neut % (Auto) Lymph % (Auto) [place] % (Auto) Eos % (Auto) Baso % (Auto) Lymph # (Auto) [place] # (Auto) Eos # (Auto) Baso # (Auto) Abs Immat Gran (auto) Absolute Neuts (auto) Absolute Nucleated RBC Nucleated RBC % PT 13.7 Seconds Seconds (11.1-14.7) INR 1.1 APTT 27.2 SECONDS SECONDS (22.3-36.8) Puncture Site Right radial ABG pH 7.363 (7.350-7.450) ABG pCO2 54.0 mmHg H mmHg (35.0-45.0) ABG pO2 < 27.0 mmHg L* mmHg (80.0-100.0) ABG PO2/FiO2 Ratio 0.87 % % ABG HCO3 30.0 mEq/l H mEq/l (22.0-26.0) ABG O2 Saturation 40.3 % L* % (95.0-100.0) ABG O2 Content 6.6 %vol L %vol (16.0-22.0) ABG Base Excess 3.6 mEq/l mEq/l (+/-2.0) A-a Gradient 111.6 mmHg mmHg Oxyhemoglobin 39.9 % THb L* % THb (90.0-100.0) Carboxyhemoglobin Methemoglobin Reduced Hemoglobin Total Hemoglobin 11.7 g/dL L g/dL (12.0-18.0) O2 Delivery Device Nasal cannula O2 Liters/Min
[2022-06-26 10:15] LABS: Basophils Percent Auto 0.1 % (0.2-1.2); Hematocrit 37.2 % (37.0-47.0); Hemoglobin 11.9 g/dL (12.0-15.0); Immature Granulocyte Absolute 0.18 K/mm3 (0.00-0.031); Immature Granulocyte Percent A 0.9 % (0-0.5); Lymphocytes Absolute Auto 0.48 K/mm3 (0.9-3.2); Lymphocytes Percent Auto 2.5 % (18.3-44.2); Mean Corpuscular Hemoglobin 32.7 pg (26-34); Mean Corpuscular Volume 102.2 fl (80-100); Mean Platelet Volume 9.9 fl (7.4-10.4); Monocytes Absolute Auto 0.4 K/mm3 (0.1-0.6); Monocytes Percent Auto 2.2 % (2.6-8.5); Neutrophils Absolute Auto 18.2 K/mm3 (1.3-6.7); Neutrophils Percent Auto 94.3 % (45.5-73.1); Platelet Count Result 237 k/mm3 (150-375); Red Blood Count 3.64 M/mm3 (4.2-5.4); White Blood Count 19.3 K/mm3 (4.5-10.0)
--- NOTE | 2022-06-26 10:46 | WPDTECDV ---
PAVAN with Cardioversion Date of procedure: 06/26/22 Procedure Type: Date of Procedure: 06/26/2022 Brief History Of Present Illness: Patient is a 77-year-old female who is referred for PAVAN-guided DCCV for atrial flutter with RVR. Procedure In Detail: After verbal and written informed consent was obtained, the patient risks, benefits, and alternatives explained in detail. The patient agreed to proceed with the plan of care as outlined above.?The patient was evaluated at bedside.?The posterior oropharynx, neck, and jaw angle all within normal limits on examination. Sedation was done by the Anesthesia team. The patient was then placed in the appropriate 30 to 45 degree angle supine position at a slight left lateral decubitus position.?Patient was monitored throughout the study with telemetry, oxygen saturation, end-tidal CO2 monitoring, blood pressure, heart rate, and respirations.? After local anesthetic of the posterior hypopharynx was achieved and the oral bite block placed, sedation was administered by the Anesthesia team.? After confirmation of adequate moderate sedation, the transesophageal echocardiogram probe was advanced through the oral bite block into the posterior hypopharynx and into the esophagus easily and without complication.? Multiple, multiplanar echocardiographic images were obtained in multiple standard re- projections.? Pulsed wave, continuous-wave, and color-flow Doppler were utilized in conjunction with this study.? At the conclusion of the study, the transesophageal echocardiogram probe was removed easily and without complication.? The patient tolerated the procedure well without difficulty. Patient was in atrial flutter with RVR during the study. After the PAVAN probe was removed, patient was again checked to make sure she was adequately sedation. After confirmation, DCCV was peformed with 1 shock at 200 joules with alevism of sinus rhythm. Post-cardioversion EKG was obtained which confirmed sinus rhythm. Moderate Sedation/Anesthesia administration: Sedation was administered by the Anesthesia team. Dr. Velasco was the anesthesiologist present during the procedure. Case start time: 10:32 Case end time: 10:42 FINDINGS: LEFT VENTRICLE: LV size normal. EF was not well assessed during this study. RIGHT VENTRICLE:? The RV was not well assessed during this study. LEFT ATRIUM: Mildly enlarged. No left atrial thrombus. RIGHT ATRIUM: Normal size. INTERATRIAL SEPTUM: ? Interatrial septum is anatomically normal. MITRAL VALVE: ? Mitral valve is anatomically normal with preserved leaflet excursion. AORTIC VALVE: The aortic valve was an anatomically normal 3 leaflet structure. TRICUSPID VALVE: The tricuspid valve is anatomically normal. PULMONIC VALVE: Pulmonic valve was not well visualized. LEFT ATRIAL APPENDAGE: Anatomically normal structure with prominent pectinate muscles without thrombus or vegetation identified. PERICARDIUM: The pericardium was anatomically normal without significant pericardial effusion. ? AORTA: Deep transgastric views were not obtained. Mid esophageal views of the aorta showed mild atherosclerotic plaque. CARDIOVERSION: Patient was in atrial flutter with RVR during the study. After PAVAN probe removed, DCCV was performed with the pads in the anterior-posterior position. 1 shock was administered at 200 joules with successful alevism of sinus rhythm. Complications: None This dictation may have been done utilizing a voice recognition system.? Attempts have been made to correct errors. However, there may be uncorrected grammatical, spelling, and recognition errors present.
[2022-06-26] MEDS: amLODIPine BESYLATE 5 MG TABLET PO (11:42)
[2022-06-26] MEDS: MEMANTINE 5 MG TABLET PO ×2 (11:42→17:44)
[2022-06-26] MEDS: PARoxetine 20 MG TABLET 40 MG PO (11:42)
[2022-06-26] MEDS: FOLIC ACID 1 MG TABLET PO (11:43)
[2022-06-26] MEDS: OLMESARTAN MEDOXOMIL 20 MG TABLET PO (11:43)
[2022-06-26] MEDS: CHOLECALCIFEROL 1,000 UNITS TABLET 4000 UNITS PO (11:44)
[2022-06-26] MEDS: OPTI-GEN TAB 1 TABLET PO (11:44)
[2022-06-26] MEDS: PANTOPRAZOLE 40 MG TABLET PO ×2 (11:44→17:44)
[2022-06-26] MEDS: LORazepam (*CRX) 1 MG TABLET PO ×2 (11:44→17:43)
[2022-06-26] MEDS: AMIODARONE HCL 200 MG TABLET PO (11:46)
--- NOTE | 2022-06-26 11:50 | PM.PNPUL ---
Progress Note: A&P Assessment and Plan (1) COPD with acute exacerbation: Code(s): J44.1 - Chronic obstructive pulmonary disease with (acute) exacerbation Status: Acute Assessment and Plan: GOLD grade 3 group D COPD, (57 PY quit 2019), last PFTs on 11/15/2016 with an FEV1 of 37% predicted, chronic hypoxemic respiratory failure on 2 L nasal cannula with rest, ambulation and sleep, dyspnea on exertion at 20 ft, CAT score 24 on 06/18/2022. patient now with acute worsening shortness of breath, wheezing, cough, increased phlegm production and phlegm color changed from clear to medium green starting on 06/21/2022. Patient has a COPD exacerbation. Patient is COVID and influenza swab are negative. Her CT angiogram is negative for pulmonary embolism. Patient does have a focal infiltrate in the left lower lobe and may have pneumonia. At this time will continue Solu-Medrol 60 mg IV q.6 hours, levalbuterol 1.25 mg nebulized q.6 hours, ipratropium bromide 0.5 mg nebulized Q 6 hours, cefepime and levofloxacin. Patient's 1st mixed venous blood gas was 7.36/54/ less than 27 on 2 L nasal cannula and her admission serum bicarb was 29. patient had a repeat blood gas on 4 L nasal cannula the pH of 7.36/36/104. Patient had increased work of breathing when I saw her and I placed her on BiPAP but she could not tolerate the pressures and I placed her on noninvasive ventilator with an APAP mode and adjusted the settings to comfort which resulted in a rate of 20, tidal volume 500, EPAP 4, minimal inspiratory pressure 5, maximal inspiratory pressure 25, inspiratory time 1.0 seconds, rise of 1 which is the fastest and 35% FiO2. patient tolerated the settings and said that she may be able to wear this overnight. I spoke with the patient and her son and the patient does not wish to be intubated in the future. I spoke with the son regarding CPR, defibrillation and at this time he wants to check the previous living will to see if they have discussed this in the past. I spoke with Katherine Alvarez and she will change the code status. 06/26/2022 patient wore the hospital noninvasive ventilator with the AVAPS mode last night and did well. She was able to sleep with the machine on. Overall she says she is breathing better, she has less cough and is no longer producing phlegm. She has less upper airway squeaking and less difficulty with her voice. She still has dyspnea on exertion when she moves around her bed. Currently she is on 6 L nasal cannula saturations 100% and I decreased her to 4 L nasal cannula her saturations were 96%. Continue cefepime and levofloxacin, both started 06/25/2022, I would decrease her Solu-Medrol from 60 Q 6 to 20 Q 6 (day 2 steroids). Continue leave albuterol and ipratropium nebulizers Q 6 hours. Continue noninvasive ventilator with the AVAPS mode at night. goal saturation 90-94%. Will follow with you. (2) Atrial flutter with rapid ventricular response: Code(s): I48.92 - Unspecified atrial flutter Status: Acute Assessment and Plan: 06/25/22 Patient with new onset atrial flutter treated with diltiazem and metoprolol but she remained on controlled with a rate 130 to 140s and now IV amiodarone. Given the patient's lung disease amiodarone may not be an optimal drug for her. Hopefully once we treat her COPD exacerbation and pneumonia her heart rate will be more easily controlled with diltiazem and or metoprolol. Rivaroxaban started. If she does not convert to sinus consideration for PAVAN-DCCV per Cardiology. 06/26/22 remained in a flutter at a rate of 130 despite amiodarone drip and underwent successful PAVAN guided cardioversion with by Cardiology. Subjective Date/time seen: 06/26/22 11:50 Interval history: ?06/25/2022:? This is a new pulmonary consult for COPD exacerbation.? 77-year-old woman with a history of GOLD grade 3 group D COPD, (57 PY quit 2019),? last PFTs on 11/15/2016 with an FEV1 o
--- NOTE | 2022-06-26 14:00 | ECG_ITS ---
Measurements Intervals [place] Rate: 85 P: 65 AK: 167 QRS: 45 QRSD: 88 T: 60 QT: 372 QTc: 444 Interpretive Statements SINUS RHYTHM WITH SINUS ARRHYTHMIA BORDERLINE ST-T WAVE ABNORMALITY- ANT/HIGH LAT LEADS BORDERLINE ECG COMPARED TO ECG 06/25/2022 14:40:57 SINUS RHYTHM NOW PRESENT Electronically Signed On 06-26-2022 11:06:34 GROUP PROGRAM MANAGER by Kendrick Paula D.O.
--- NOTE | 2022-06-26 16:04 | PM.IMPN ---
Progress Note: A&P Assessment and Plan (1) Shortness of breath: Code(s): R06.02 - Shortness of breath Status: Acute Assessment and Plan: She has severe emphysema/COPD by PFTs in 2017 and she has been dependent on 2 liters nasal cannula for the last year or so. At baseline she can get around the home and prepare light meals though she frequently has to rest. More recently she can only walk 5 to 6 feet without getting winded. No PE or significant or large infiltrates noted on CT of the chest. May be progression of her emphysema in addition to acute exacerbation of COPD. She has a barking cough and a lot of upper airway noise near the base of the neck however she has no sore throat or difficulty swallowing. Oropharynx is unremarkable on exam though epiglottis could be a possibility though seems less likely as this is expiratory and not during inspiratory phase. Her anxiety seems to be playing a part as well as her breathing improved tremendously with 0.5 mg of IV Ativan. Currently on 5 liters nasal cannula, wean as tolerated. Empiric steroids and antibiotics ordered as detailed below. Direct laryngoscopy or possible bronchoscopy may shed some light on the expiratory wheezing and barking. Check respiratory panel. Will monitor for improvement now that she has converted to sinus rhythm as noted below (2) COPD exacerbation: Code(s): J44.1 - Chronic obstructive pulmonary disease with (acute) exacerbation Status: Acute Assessment and Plan: Under the care for manufacturers agent she has been on antibiotics, steroids, nebs, and vibratory vest off and on the last 1.5 months with temporary improvement. Symptoms worse again the last 3 days following completion of steroids with cough, shortness of breath, chest discomfort. Pulmonology consulted Continue scheduled bronchodilators, methylprednisolone, and antibiotics. Sputum to be attempted for culture. (3) Atrial flutter with rapid ventricular response: Code(s): I48.92 - Unspecified atrial flutter Status: Acute Assessment and Plan: A new diagnosis for the patient. May very well be precipitated by lung disease. It is possible that her shortness of breath is related to atrial flutter with RVR and hopefully her symptoms will improve with rate control/pentecostal of sinus rhythm. Cardiology consulted Failed to convert to sinus rhythm with amio, underwent successful PAVAN cardioversion today Continue amiodarone and xaralto upon discharge per cardiology (4) Opacity of lung on imaging study: Code(s): R91.8 - Other nonspecific abnormal finding of lung field Status: Acute Assessment and Plan: Focal opacity in the anteroinferior left lower lobe on C. Differential includes focal atelectasis, pneumonia, nodule not excluded. Empiric antibiotics for possible pneumonia given elevated WBC. Attempt sputum for culture, check urinary antigens procalcitonin negative Short-term follow-up exam in 1 to 3 months recommended to reassess. Further recommendations per pulm (5) Chronic respiratory failure with hypoxia, on home oxygen therapy: Code(s): J96.11 - Chronic respiratory failure with hypoxia; Z99.81 - Dependence on supplemental oxygen Status: Acute Assessment and Plan: She has been on 2 liters nasal cannula for the past year or so. Currently requiring 5 liters to maintain SpO2 in the low to mid 90s, wean as tolerated. Pulmonology consulted for recommendations. (6) Hypertension: Code(s): I10 - Essential (primary) hypertension Status: Acute Assessment and Plan: Blood pressures were reviewed and they have been stable. Antihypertensives will be reviewed and resumed as appropriate. (7) Hypothyroidism: Qualifiers: Hypothyroidism type: unspecified Qualified Code(s): E03.9 - Hypothyroidism, unspecified Code(s): E03.9 - Hypothyroidism, unspecified Status: Acute
[2022-06-26] MEDS: methylPREDNISolone SOD SUCC 40 MG VIAL 20 MG IV PUSH (17:44)
[2022-06-26] MEDS: RIVAROXABAN 20 MG TABLET PO (17:45)
[2022-06-27] VITALS (26 sets, daily range): BP systolic 116–178; BP diastolic 80–108; PULSE 87–116; RESP 20–28; TEMP 36.2–36.7; O2SAT 91–99
[2022-06-27] MEDS: methylPREDNISolone SOD SUCC 40 MG VIAL 20 MG IV PUSH ×5 (00:35→23:38)
[2022-06-27] MEDS: IPRATROPIUM BR 0.02% INH SOLN 0.5 MG/2.5 ML VIAL INHALATION ×4 (01:51→20:46)
[2022-06-27] MEDS: LEVALBUTEROL NEB 1.25 MG/3 ML INHALATION ×4 (01:52→20:46)
[2022-06-27] MEDS: ACETAMINOPHEN 325 MG TABLET 650 MG PO ×3 (04:31→17:54)
[2022-06-27 05:10] LABS: Basophils Percent Auto 0.2 % (0.2-1.2); Hematocrit 34.7 % (37.0-47.0); Hemoglobin 10.9 g/dL (12.0-15.0); Immature Granulocyte Absolute 0.28 K/mm3 (0.00-0.031); Immature Granulocyte Percent A 1.3 % (0-0.5); Lymphocytes Percent Auto 1.8 % (18.3-44.2); Mean Corpuscular HGB Conc 31.4 g/dl (32-36); Mean Corpuscular Hemoglobin 32.9 pg (26-34); Mean Corpuscular Volume 104.8 fl (80-100); Mean Platelet Volume 9.7 fl (7.4-10.4); Monocytes Percent Auto 4.3 % (2.6-8.5); Neutrophils Absolute Auto 20.7 K/mm3 (1.3-6.7); Neutrophils Percent Auto 92.4 % (45.5-73.1); Platelet Count Result 196 k/mm3 (150-375); Red Blood Count 3.31 M/mm3 (4.2-5.4); Red Cell Distribution Width 13.1 % (11.5-14.5); White Blood Count 22.3 K/mm3 (4.5-10.0)
[2022-06-27 05:19] LABS: Anion Gap 5 mmol/L (8-16); Blood Urea Nitrogen 30 mg/dL (7-17); Calcium 8.7 mg/dL (8.4-10.2); Carbon Dioxide 29 mmol/L (22-30); Chloride 103 mmol/L (98-107); Estimated CRCL calculation 31 ml/min; Estimated Glomerular Filt Rate 48; Glucose 124 mg/dL (65-110); Potassium 5.1 mmol/L (3.4-5.0); Sodium 137 mmol/L (137-145)
[2022-06-27] MEDS: LEVOTHYROXINE SODIUM 25 MCG TABLET PO (06:24)
--- NOTE | 2022-06-27 07:55 | PCOTNOTE ---
Attempted to see patient for OT evaluation this AM. Per nursing, patient was just cleaned up in bed and desaturated into the 70s-80s and took a long time for her to return to 90s. She recommends that therapy attempt to get her up later.
--- NOTE | 2022-06-27 08:25 | PM.IMPN ---
Progress Note: A&P Assessment and Plan (1) Shortness of breath: Code(s): R06.02 - Shortness of breath Status: Acute Assessment and Plan: She has severe emphysema/COPD by PFTs in 2017 and she has been dependent on 2 liters nasal cannula for the last year or so. At baseline she can get around the home and prepare light meals though she frequently has to rest. More recently she can only walk 5 to 6 feet without getting winded. No PE or significant or large infiltrates noted on CT of the chest. May be progression of her emphysema in addition to acute exacerbation of COPD. She has a barking cough and a lot of upper airway noise near the base of the neck however she has no sore throat or difficulty swallowing. Oropharynx is unremarkable on exam though epiglottis could be a possibility though seems less likely as this is expiratory and not during inspiratory phase. Her anxiety seems to be playing a part as well as her breathing improved tremendously with 0.5 mg of IV Ativan. Currently on 5 liters nasal cannula, wean as tolerated. Empiric steroids and antibiotics ordered as detailed below.oncefpime and levofloxain. Direct laryngoscopy or possible bronchoscopy may shed some light on the expiratory wheezing and barking. Check respiratory panel. Will monitor for improvement now that she has converted to sinus rhythm as noted below mild hemoptysis noted, will continue to monitor. if worsnes, need to hold xarelto. (2) COPD exacerbation: Code(s): J44.1 - Chronic obstructive pulmonary disease with (acute) exacerbation Status: Acute Assessment and Plan: Under the care for shot tube machine tender she has been on antibiotics, steroids, nebs, and vibratory vest off and on the last 1.5 months with temporary improvement. Symptoms worse again the last 3 days following completion of steroids with cough, shortness of breath, chest discomfort. Pulmonology consulted Continue scheduled bronchodilators, methylprednisolone, and antibiotics. Sputum to be attempted for culture. (3) Atrial flutter with rapid ventricular response: Code(s): I48.92 - Unspecified atrial flutter Status: Acute Assessment and Plan: A new diagnosis for the patient. May very well be precipitated by lung disease. It is possible that her shortness of breath is related to atrial flutter with RVR and hopefully her symptoms will improve with rate control/christian of sinus rhythm. Cardiology consulted Failed to convert to sinus rhythm with amio, underwent successful PAVAN cardioversion 06/26/2022 Continue amiodarone and xaralto upon discharge per cardiology (4) Opacity of lung on imaging study: Code(s): R91.8 - Other nonspecific abnormal finding of lung field Status: Acute Assessment and Plan: Focal opacity in the anteroinferior left lower lobe on C. Differential includes focal atelectasis, pneumonia, nodule not excluded. Empiric antibiotics for possible pneumonia given elevated WBC. Attempt sputum for culture, check urinary antigens procalcitonin negative Short-term follow-up exam in 1 to 3 months recommended to reassess. Further recommendations per pulm (5) Chronic respiratory failure with hypoxia, on home oxygen therapy: Code(s): J96.11 - Chronic respiratory failure with hypoxia; Z99.81 - Dependence on supplemental oxygen Status: Acute Assessment and Plan: She has been on 2 liters nasal cannula for the past year or so. Currently requiring 5 liters to maintain SpO2 in the low to mid 90s, wean as tolerated. Pulmonology consulted for recommendations. (6) Hypertension: Code(s): I10 - Essential (primary) hypertension Status: Acute Assessment and Plan: Blood pressures were reviewed and they have been stable. Antihypertensives will be reviewed and resumed as appropriate. (7) Hypothyroidism: Qualifiers: Hypothyroidism type: unspecified Qualified Code(s):
--- NOTE | 2022-06-27 09:18 | PCPTNOTE ---
Attempted to see patient for PT evaluation this AM. Per nursing, She recommends that therapy attempt to get her up later. Will Follow.
[2022-06-27] MEDS: PARoxetine 20 MG TABLET 40 MG PO (10:02)
[2022-06-27] MEDS: OLMESARTAN MEDOXOMIL 20 MG TABLET PO (10:02)
[2022-06-27] MEDS: CHOLECALCIFEROL 1,000 UNITS TABLET 4000 UNITS PO (10:02)
[2022-06-27] MEDS: MEMANTINE 5 MG TABLET PO ×2 (10:03→17:56)
[2022-06-27] MEDS: PANTOPRAZOLE 40 MG TABLET PO ×2 (10:03→17:55)
[2022-06-27] MEDS: FOLIC ACID 1 MG TABLET PO (10:03)
[2022-06-27] MEDS: AMIODARONE HCL 200 MG TABLET PO (10:03)
[2022-06-27] MEDS: LORazepam (*CRX) 1 MG TABLET PO ×2 (10:04→17:54)
[2022-06-27] MEDS: OPTI-GEN TAB 1 TABLET PO (10:04)
[2022-06-27] MEDS: amLODIPine BESYLATE 5 MG TABLET PO ×2 (10:04→17:54)
--- NOTE | 2022-06-27 10:23 | P.PNPL_ITS ---
Progress Note: A&P Assessment and Plan (1) COPD with acute exacerbation: Code(s): J44.1 - Chronic obstructive pulmonary disease with (acute) exacerbation Status: Acute Assessment and Plan: GOLD grade 3 group D COPD, (57 PY quit 2019), last PFTs on 11/15/2016 with an FEV1 of 37% predicted, chronic hypoxemic respiratory failure on 2 L nasal cannula with rest, ambulation and sleep, dyspnea on exertion at 20 ft, CAT score 24 on 06/18/2022. patient now with acute worsening shortness of breath, wheezing, cough, increased phlegm production and phlegm color changed from clear to medium green starting on 06/21/2022. Patient has a COPD exacerbation. Patient is COVID and influenza swab are negative. Her CT angiogram is negative for pulmonary embolism. Patient does have a focal infiltrate in the left lower lobe and may have pneumonia. At this time will continue Solu-Medrol 60 mg IV q.6 hours, levalbuterol 1.25 mg nebulized q.6 hours, ipratropium bromide 0.5 mg nebulized Q 6 hours, cefepime and levofloxacin. Patient's 1st mixed venous blood gas was 7.36/54/ less than 27 on 2 L nasal cannula and her admission serum bicarb was 29. patient had a repeat blood gas on 4 L nasal cannula the pH of 7.36/36/104. Patient had increased work of breathing when I saw her and I placed her on BiPAP but she could not tolerate the pressures and I placed her on noninvasive ventilator with an APAP mode and adjusted the settings to comfort which resulted in a rate of 20, tidal volume 500, EPAP 4, minimal inspiratory pressure 5, maximal inspiratory pressure 25, inspiratory time 1.0 seconds, rise of 1 which is the fastest and 35% FiO2. patient tolerated the settings and said that she may be able to wear this overnight. I spoke with the patient and her son and the patient does not wish to be intub ated in the future. I spoke with the son regarding CPR, defibrillation and at this time he wants to check the previous living will to see if they have discussed this in the past. I spoke with Katherine Alvarez and she will change the code status. 06/26/2022 patient wore the hospital noninvasive ventilator with the AVAPS mode last night and did well. She was able to sleep with the machine on. Overall she says she is breathing better, she has less cough and is no longer producing phlegm. She has less upper airway squeaking and less difficulty with her voice. She still has dyspnea on exertion when she moves around her bed. Currently she is on 6 L nasal cannula saturations 100% and I decreased her to 4 L nasal cannula her saturations were 96%. Continue cefepime and levofloxacin, both started 06/25/2022, I would decrease her Solu-Medrol from 60 Q 6 to 20 Q 6 (day 2 steroids). Continue levalbuterol and ipratropium nebulizers Q 6 hours. Continue noninvasive ventilator with the AVAPS mode at night. goal saturation 90-94%. 06/27/2022 The patient states that her shortness of breath did not remarkably improve after she was cardioverted. Patient had difficulty wearing the BiPAP last night and was only able to wear it for 2-3 hours and had very hard time trying to rest or sleep with it on. Currently the patient states she has continued shortness of breath. She has a dry cough with no 1 episode of blood- tinged and streaked phlegm. This was not a blood clot. She has wheezes right greater than left. Her white blood cell count is 22.3, creatinine is 1.10. Heart rate is 98-106 and sinus it appears the BiPAP is making the patient more uncomfortable and I have told her to try to not wear the BiPAP tonight and see how she does. Continue cefepime and levofloxacin, both started 06/25/2022, day 3. I would continue her Solu- Medrol at 20 Q 6 (day 3 steroids
[2022-06-27] MEDS: RIVAROXABAN 20 MG TABLET PO (17:56)
[2022-06-28] VITALS (23 sets, daily range): BP systolic 120–185; BP diastolic 68–84; PULSE 89–116; RESP 18–30; TEMP 36.1–36.6; O2SAT 94–99
[2022-06-28] MEDS: IPRATROPIUM BR 0.02% INH SOLN 0.5 MG/2.5 ML VIAL INHALATION ×4 (02:36→20:29)
[2022-06-28] MEDS: LEVALBUTEROL NEB 1.25 MG/3 ML INHALATION ×4 (02:36→20:29)
[2022-06-28 05:14] LABS: Basophils Percent Auto 0.1 % (0.2-1.2); Hemoglobin 11.2 g/dL (12.0-15.0); Immature Granulocyte Absolute 0.26 K/mm3 (0.00-0.031); Immature Granulocyte Percent A 1.3 % (0-0.5); Lymphocytes Absolute Auto 0.33 K/mm3 (0.9-3.2); Lymphocytes Percent Auto 1.6 % (18.3-44.2); Mean Corpuscular Volume 103.2 fl (80-100); Mean Platelet Volume 9.6 fl (7.4-10.4); Monocytes Absolute Auto 0.6 K/mm3 (0.1-0.6); Neutrophils Absolute Auto 19.1 K/mm3 (1.3-6.7); Platelet Count Result 201 k/mm3 (150-375); Red Blood Count 3.39 M/mm3 (4.2-5.4); Red Cell Distribution Width 13.3 % (11.5-14.5); White Blood Count 20.4 K/mm3 (4.5-10.0)
[2022-06-28 05:32] LABS: Alanine Aminotransferase 65 U/L (6-35); Albumin Level 3.9 g/dL (3.5-5.1); Alkaline Phosphatase 64 U/L (38-126); Anion Gap 3 mmol/L (8-16); Aspartate Amino Transferase 55 U/L (14-36); Bilirubin,Total 0.6 mg/dL (0.2-1.3); Blood Urea Nitrogen 27 mg/dL (7-17); Calcium 8.8 mg/dL (8.4-10.2); Carbon Dioxide 32 mmol/L (22-30); Chloride 103 mmol/L (98-107); Estimated CRCL calculation 34 ml/min; Estimated Glomerular Filt Rate 54; Glucose 116 mg/dL (65-110); Magnesium 2.5 mg/dL (1.6-2.3); Potassium 4.5 mmol/L (3.4-5.0); Sodium 138 mmol/L (137-145)
[2022-06-28] MEDS: LEVOTHYROXINE SODIUM 25 MCG TABLET PO (05:34)
[2022-06-28] MEDS: methylPREDNISolone SOD SUCC 40 MG VIAL 20 MG IV PUSH ×4 (05:34→23:58)
[2022-06-28] MEDS: ACETAMINOPHEN 325 MG TABLET 650 MG PO ×3 (05:52→20:11)
[2022-06-28] MEDS: OPTI-GEN TAB 1 TABLET PO (08:53)
[2022-06-28] MEDS: AMIODARONE HCL 200 MG TABLET PO (08:53)
[2022-06-28] MEDS: MEMANTINE 5 MG TABLET PO ×2 (08:53→17:28)
[2022-06-28] MEDS: PANTOPRAZOLE 40 MG TABLET PO ×2 (08:53→17:29)
[2022-06-28] MEDS: FOLIC ACID 1 MG TABLET PO (08:53)
[2022-06-28] MEDS: OLMESARTAN MEDOXOMIL 20 MG TABLET PO (08:53)
[2022-06-28] MEDS: CHOLECALCIFEROL 1,000 UNITS TABLET 4000 UNITS PO (08:54)
[2022-06-28] MEDS: PARoxetine 20 MG TABLET 40 MG PO (08:54)
[2022-06-28] MEDS: amLODIPine BESYLATE 5 MG TABLET PO ×2 (08:55→17:28)
[2022-06-28] MEDS: LORazepam (*CRX) 1 MG TABLET PO ×2 (09:04→17:27)
--- NOTE | 2022-06-28 09:50 | PM.IMPN ---
Progress Note: A&P Assessment and Plan (1) Shortness of breath: Code(s): R06.02 - Shortness of breath Status: Acute Assessment and Plan: She has severe emphysema/COPD by PFTs in 2017 and she has been dependent on 2 liters nasal cannula for the last year or so. At baseline she can get around the home and prepare light meals though she frequently has to rest. More recently she can only walk 5 to 6 feet without getting winded. No PE or significant or large infiltrates noted on CT of the chest. May be progression of her emphysema in addition to acute exacerbation of COPD. She has a barking cough and a lot of upper airway noise near the base of the neck however she has no sore throat or difficulty swallowing. Oropharynx is unremarkable on exam though epiglottis could be a possibility though seems less likely as this is expiratory and not during inspiratory phase. Her anxiety seems to be playing a part as well as her breathing improved tremendously with 0.5 mg of IV Ativan. Currently on 5 liters nasal cannula, wean as tolerated. Empiric steroids and antibiotics ordered as detailed below.oncefpime and levofloxain. Direct laryngoscopy or possible bronchoscopy may shed some light on the expiratory wheezing and barking. Check respiratory panel. Will monitor for improvement now that she has converted to sinus rhythm as noted below mild hemoptysis noted, will continue to monitor. if worsnes, need to hold xarelto. (2) COPD exacerbation: Code(s): J44.1 - Chronic obstructive pulmonary disease with (acute) exacerbation Status: Acute Assessment and Plan: Appreciate input of deputy clerk of superior court she has been on antibiotics, steroids, nebs, and vibratory vest off and on the last 1.5 months with temporary improvement. Symptoms are not improving following completion of steroids with cough, shortness of breath, chest discomfort. Pulmonology consulted Continue scheduled bronchodilators, methylprednisolone, and antibiotics. Sputum to be attempted for culture. Follow pulmonary's recommendation (3) Atrial flutter with rapid ventricular response: Code(s): I48.92 - Unspecified atrial flutter Status: Acute Assessment and Plan: A new diagnosis for the patient. May very well be precipitated by lung disease. It is possible that her shortness of breath is related to atrial flutter with RVR and hopefully her symptoms will improve with rate control/mormon of sinus rhythm. Cardiology consulted Failed to convert to sinus rhythm with amio, underwent successful PAVAN cardioversion 06/26/2022 Continue amiodarone and xaralto upon discharge per cardiology patient still has AFib (4) Opacity of lung on imaging study: Code(s): R91.8 - Other nonspecific abnormal finding of lung field Status: Acute Assessment and Plan: Focal opacity in the anteroinferior left lower lobe on C. Differential includes focal atelectasis, pneumonia, nodule not excluded. Empiric antibiotics for possible pneumonia given elevated WBC. Attempt sputum for culture, check urinary antigens procalcitonin negative Short-term follow-up exam in 1 to 3 months recommended to reassess. Further recommendations per pulm (5) Chronic respiratory failure with hypoxia, on home oxygen therapy: Code(s): J96.11 - Chronic respiratory failure with hypoxia; Z99.81 - Dependence on supplemental oxygen Status: Acute Assessment and Plan: She has been on 2 liters nasal cannula for the past year or so. Currently requiring 5 liters to maintain SpO2 in the low to mid 90s, wean as tolerated. Pulmonology consulted for recommendations. BiPAP during the night (6) Hypertension: Code(s): I10 - Essential (primary) hypertension Status: Acute Assessment and Plan: Blood pressures were reviewed and they have been stable. Antihypertensives will be reviewed and resumed as appropriate. (7) Hypothyroidism: Qu
--- NOTE | 2022-06-28 15:23 | PM.PNPUL ---
Progress Note: A&P Assessment and Plan (1) COPD with acute exacerbation: Code(s): J44.1 - Chronic obstructive pulmonary disease with (acute) exacerbation Status: Acute Assessment and Plan: GOLD grade 3 group D COPD, (57 PY quit 2019), last PFTs on 11/15/2016 with an FEV1 of 37% predicted, chronic hypoxemic respiratory failure on 2 L nasal cannula with rest, ambulation and sleep, dyspnea on exertion at 20 ft, CAT score 24 on 06/18/2022. patient now with acute worsening shortness of breath, wheezing, cough, increased phlegm production and phlegm color changed from clear to medium green starting on 06/21/2022. Patient has a COPD exacerbation. Patient is COVID and influenza swab are negative. Her CT angiogram is negative for pulmonary embolism. Patient does have a focal infiltrate in the left lower lobe and may have pneumonia. At this time will continue Solu-Medrol 60 mg IV q.6 hours, levalbuterol 1.25 mg nebulized q.6 hours, ipratropium bromide 0.5 mg nebulized Q 6 hours, cefepime and levofloxacin. Patient's 1st mixed venous blood gas was 7.36/54/ less than 27 on 2 L nasal cannula and her admission serum bicarb was 29. patient had a repeat blood gas on 4 L nasal cannula the pH of 7.36/36/104. Patient had increased work of breathing when I saw her and I placed her on BiPAP but she could not tolerate the pressures and I placed her on noninvasive ventilator with an APAP mode and adjusted the settings to comfort which resulted in a rate of 20, tidal volume 500, EPAP 4, minimal inspiratory pressure 5, maximal inspiratory pressure 25, inspiratory time 1.0 seconds, rise of 1 which is the fastest and 35% FiO2. patient tolerated the settings and said that she may be able to wear this overnight. I spoke with the patient and her son and the patient does not wish to be intubated in the future. I spoke with the son regarding CPR, defibrillation and at this time he wants to check the previous living will to see if they have discussed this in the past. I spoke with Katherine Alvarez and she will change the code status. 06/26/2022 patient wore the hospital noninvasive ventilator with the AVAPS mode last night and did well. She was able to sleep with the machine on. Overall she says she is breathing better, she has less cough and is no longer producing phlegm. She has less upper airway squeaking and less difficulty with her voice. She still has dyspnea on exertion when she moves around her bed. Currently she is on 6 L nasal cannula saturations 100% and I decreased her to 4 L nasal cannula her saturations were 96%. Continue cefepime and levofloxacin, both started 06/25/2022, I would decrease her Solu-Medrol from 60 Q 6 to 20 Q 6 (day 2 steroids). Continue levalbuterol and ipratropium nebulizers Q 6 hours. Continue noninvasive ventilator with the AVAPS mode at night. goal saturation 90-94%. 06/27/2022 The patient states that her shortness of breath did not remarkably improve after she was cardioverted. Patient had difficulty wearing the BiPAP last night and was only able to wear it for 2-3 hours and had very hard time trying to rest or sleep with it on. Currently the patient states she has continued shortness of breath. She has a dry cough with no 1 episode of blood-tinged and streaked phlegm. This was not a blood clot. She has wheezes right greater than left. Her white blood cell count is 22.3, creatinine is 1.10. Heart rate is 98-106 and sinus it appears the BiPAP is making the patient more uncomfortable and I have told her to try to not wear the BiPAP tonight and see how she does. Continue cefepime and levofloxacin, both started 06/25/2022, day 3. I would continue her Solu-Medrol at 20 Q 6 (day 3 steroids). Continue levalbuterol and ipratropium nebulizers Q 6 hours. goal saturation 90-94%. 06/28/2022 Last night the patient tried to sleep without her noninvasive ventilation and she lasted 3-4 hours but then had desaturations
[2022-06-28] MEDS: CYCLOBENZAPRINE HCL 10 MG TABLET PO (20:20)
[2022-06-28] MEDS: hydrALAZINE HCL 20 MG/ML VIAL 10 MG IV PUSH (21:22)
[2022-06-29] VITALS (21 sets, daily range): BP systolic 120–150; BP diastolic 58–71; PULSE 77–116; RESP 17–20; TEMP 36–37.7; O2SAT 93–100
[2022-06-29] MEDS: IPRATROPIUM BR 0.02% INH SOLN 0.5 MG/2.5 ML VIAL INHALATION ×4 (02:18→22:04)
[2022-06-29] MEDS: LEVALBUTEROL NEB 1.25 MG/3 ML INHALATION ×4 (02:18→22:04)
[2022-06-29] MEDS: ACETAMINOPHEN 325 MG TABLET 650 MG PO ×2 (03:44→13:13)
[2022-06-29] MEDS: LEVOTHYROXINE SODIUM 25 MCG TABLET PO (06:33)
--- NOTE | 2022-06-29 09:05 | PM.IMPN ---
Progress Note: A&P Assessment and Plan (1) Shortness of breath: Code(s): R06.02 - Shortness of breath Status: Acute Assessment and Plan: She has severe emphysema/COPD by PFTs in 2017 and she has been dependent on 2 liters nasal cannula for the last year or so. At baseline she can get around the home and prepare light meals though she frequently has to rest. More recently she can only walk 5 to 6 feet without getting winded. No PE or significant or large infiltrates noted on CT of the chest. May be progression of her emphysema in addition to acute exacerbation of COPD. She has a barking cough and a lot of upper airway noise near the base of the neck however she has no sore throat or difficulty swallowing. Oropharynx is unremarkable on exam though epiglottis could be a possibility though seems less likely as this is expiratory and not during inspiratory phase. Her anxiety seems to be playing a part as well as her breathing improved tremendously with 0.5 mg of IV Ativan. Currently on 5 liters nasal cannula, wean as tolerated. Empiric steroids and antibiotics ordered as detailed below.on cefpime and levofloxain. Direct laryngoscopy or possible bronchoscopy may shed some light on the expiratory wheezing and barking. Check respiratory panel. Will monitor for improvement now that she has converted to sinus rhythm as noted below mild hemoptysis noted, hold xarelto. (2) COPD exacerbation: Code(s): J44.1 - Chronic obstructive pulmonary disease with (acute) exacerbation Status: Acute Assessment and Plan: Appreciate input of food preparer she has been on antibiotics, steroids, nebs, and vibratory vest off and on the last 1.5 months with temporary improvement. Symptoms are not improving following completion of steroids with cough, shortness of breath, chest discomfort. Pulmonology consulted Continue scheduled bronchodilators, methylprednisolone, and antibiotics. Sputum to be attempted for culture. Follow pulmonary's recommendation (3) Atrial flutter with rapid ventricular response: Code(s): I48.92 - Unspecified atrial flutter Status: Acute Assessment and Plan: A new diagnosis for the patient. May very well be precipitated by lung disease. It is possible that her shortness of breath is related to atrial flutter with RVR and hopefully her symptoms will improve with rate control/episcopalian of sinus rhythm. Cardiology consulted Failed to convert to sinus rhythm with amio, underwent successful PAVAN cardioversion 06/26/2022 Continue amiodarone patient still has AFib Patient with continued hemoptysis discontinue the rivaroxaban per food preparer (4) Opacity of lung on imaging study: Code(s): R91.8 - Other nonspecific abnormal finding of lung field Status: Acute Assessment and Plan: Focal opacity in the anteroinferior left lower lobe on C. Differential includes focal atelectasis, pneumonia, nodule not excluded. Empiric antibiotics for possible pneumonia given elevated WBC. Attempt sputum for culture, check urinary antigens procalcitonin negative Short-term follow-up exam in 1 to 3 months recommended to reassess. Further recommendations per pulm (5) Chronic respiratory failure with hypoxia, on home oxygen therapy: Code(s): J96.11 - Chronic respiratory failure with hypoxia; Z99.81 - Dependence on supplemental oxygen Status: Acute Assessment and Plan: She has been on 2 liters nasal cannula for the past year or so. Currently requiring 5 liters to maintain SpO2 in the low to mid 90s, wean as tolerated. Pulmonology consulted for recommendations. BiPAP during the night (6) Hypertension: Code(s): I10 - Essential (primary) hypertension Status: Acute Assessment and Plan: Blood pressures were reviewed and they have been stable. Antihypertensives will be reviewed and resumed as appropriate. (7) Hypothyroidism:
[2022-06-29] MEDS: FOLIC ACID 1 MG TABLET PO (10:06)
[2022-06-29] MEDS: AMIODARONE HCL 200 MG TABLET PO (10:06)
[2022-06-29] MEDS: PARoxetine 20 MG TABLET 40 MG PO (10:06)
[2022-06-29] MEDS: MEMANTINE 5 MG TABLET PO ×2 (10:06→16:24)
[2022-06-29] MEDS: predniSONE 20 MG TABLET 40 MG PO (10:07)
[2022-06-29] MEDS: OPTI-GEN TAB 1 TABLET PO (10:07)
[2022-06-29] MEDS: PANTOPRAZOLE 40 MG TABLET PO ×2 (10:07→16:24)
[2022-06-29] MEDS: OLMESARTAN MEDOXOMIL 20 MG TABLET PO (10:07)
[2022-06-29] MEDS: amLODIPine BESYLATE 5 MG TABLET PO ×2 (10:07→16:24)
[2022-06-29] MEDS: LORazepam (*CRX) 1 MG TABLET PO ×2 (10:15→16:24)
[2022-06-29] MEDS: CHOLECALCIFEROL 1,000 UNITS TABLET 4000 UNITS PO (13:57)
--- NOTE | 2022-06-29 15:40 | PC.NURSE ---
This patient, Jenny Lucas, was transferred to [facility] on 06/29/22 at 1540. Personal belongings sent with patient. Report given to Radha RIVERA. Appropriate documentation sent with patient.
--- NOTE | 2022-06-29 16:16 | PC.NURSE ---
This patient, Jenny Lucas, was received from [[facility] ] on 06/29/22 at 1610. Patient/family oriented to unit policies and routines
[2022-06-30] VITALS (18 sets, daily range): BP systolic 127–148; BP diastolic 63–72; PULSE 82–101; RESP 16–20; TEMP 36.2–36.6; O2SAT 94–100
[2022-06-30] MEDS: LEVALBUTEROL NEB 1.25 MG/3 ML INHALATION ×4 (03:12→20:31)
[2022-06-30] MEDS: IPRATROPIUM BR 0.02% INH SOLN 0.5 MG/2.5 ML VIAL INHALATION ×4 (03:12→20:31)
[2022-06-30] MEDS: LEVOTHYROXINE SODIUM 25 MCG TABLET PO (06:04)
--- NOTE | 2022-06-30 08:20 | PM.IMPN ---
Progress Note: A&P Assessment and Plan (1) Shortness of breath: Code(s): R06.02 - Shortness of breath Status: Acute Assessment and Plan: Acute on chronic respiratory failure History of severe emphysema/COPD by PFTs in 2017 and she has been dependent on 2 liters nasal cannula for the last year or so. At baseline she can get around the home and prepare light meals though she frequently has to rest. More recently she can only walk 5 to 6 feet without getting winded. No PE or significant or large infiltrates noted on CT of the chest. May be progression of her emphysema in addition to acute exacerbation of COPD. Currently on 4 liters nasal cannula, Empiric steroids and antibiotics ordered as detailed below.on cefpime and levofloxain. mild hemoptysis noted, hold xarelto. (2) COPD exacerbation: Code(s): J44.1 - Chronic obstructive pulmonary disease with (acute) exacerbation Status: Acute Assessment and Plan: Appreciate input of robotic welder she has been on antibiotics, steroids, nebs, and vibratory vest off and on the last 1.5 months with temporary improvement. Symptoms are not improving following completion of steroids with cough, shortness of breath, chest discomfort. Pulmonology consulted Continue scheduled bronchodilators, methylprednisolone, and antibiotics. Sputum to be attempted for culture. Follow pulmonary's recommendation (3) Atrial flutter with rapid ventricular response: Code(s): I48.92 - Unspecified atrial flutter Status: Acute Assessment and Plan: A new diagnosis for the patient. May very well be precipitated by lung disease. It is possible that her shortness of breath is related to atrial flutter with RVR and hopefully her symptoms will improve with rate control/samaritan of sinus rhythm. Cardiology consulted Failed to convert to sinus rhythm with amio, underwent successful PAVAN cardioversion 06/26/2022 Continue amiodarone patient still has AFib Patient with continued hemoptysis discontinue the rivaroxaban per robotic welder (4) Opacity of lung on imaging study: Code(s): R91.8 - Other nonspecific abnormal finding of lung field Status: Acute Assessment and Plan: Focal opacity in the anteroinferior left lower lobe on C. Differential includes focal atelectasis, pneumonia, nodule not excluded. Empiric antibiotics for possible pneumonia given elevated WBC. Attempt sputum for culture, check urinary antigens procalcitonin negative Short-term follow-up exam in 1 to 3 months recommended to reassess. Further recommendations per pulm (5) Chronic respiratory failure with hypoxia, on home oxygen therapy: Code(s): J96.11 - Chronic respiratory failure with hypoxia; Z99.81 - Dependence on supplemental oxygen Status: Acute Assessment and Plan: She has been on 2 liters nasal cannula for the past year or so. Currently requiring 5 liters to maintain SpO2 in the low to mid 90s, wean as tolerated. Pulmonology consulted for recommendations. BiPAP during the night (6) Hypertension: Code(s): I10 - Essential (primary) hypertension Status: Acute Assessment and Plan: Blood pressures were reviewed and they have been stable. Antihypertensives will be reviewed and resumed as appropriate. (7) Hypothyroidism: Qualifiers: Hypothyroidism type: unspecified Qualified Code(s): E03.9 - Hypothyroidism, unspecified Code(s): E03.9 - Hypothyroidism, unspecified Status: Acute Assessment and Plan: -Continue levothyroxine -TSH WNL (8) Gastroesophageal reflux disease: Code(s): K21.9 - Gastro-esophageal reflux disease without esophagitis Status: Acute Assessment and Plan: -No acute issues. -Continue PPI. (9) Cognitive dysfunction: Code(s): F09 - Unspecified mental disorder due to known physiological condition Status: Acute As
[2022-06-30] MEDS: AMIODARONE HCL 200 MG TABLET PO (09:08)
[2022-06-30] MEDS: predniSONE 20 MG TABLET 40 MG PO (09:08)
[2022-06-30] MEDS: amLODIPine BESYLATE 5 MG TABLET PO ×2 (09:08→17:59)
[2022-06-30] MEDS: LORazepam (*CRX) 1 MG TABLET PO ×2 (09:09→17:59)
[2022-06-30] MEDS: CHOLECALCIFEROL 1,000 UNITS TABLET 4000 UNITS PO (09:09)
[2022-06-30] MEDS: MEMANTINE 5 MG TABLET PO ×2 (09:09→17:59)
[2022-06-30] MEDS: OLMESARTAN MEDOXOMIL 20 MG TABLET PO (09:09)
[2022-06-30] MEDS: OPTI-GEN TAB 1 TABLET PO (09:09)
[2022-06-30] MEDS: PARoxetine 20 MG TABLET 40 MG PO (09:09)
[2022-06-30] MEDS: FOLIC ACID 1 MG TABLET PO (09:09)
[2022-06-30] MEDS: PANTOPRAZOLE 40 MG TABLET PO ×2 (09:09→17:59)
[2022-06-30] MEDS: ACETAMINOPHEN 325 MG TABLET 650 MG PO ×2 (09:28→20:34)
[2022-07-01] VITALS (14 sets, daily range): BP systolic 136–152; BP diastolic 66–78; PULSE 85–112; RESP 18–20; TEMP 36.2–36.8; O2SAT 90–96
[2022-07-01] MEDS: IPRATROPIUM BR 0.02% INH SOLN 0.5 MG/2.5 ML VIAL INHALATION ×2 (02:10→10:26)
[2022-07-01] MEDS: LEVALBUTEROL NEB 1.25 MG/3 ML INHALATION ×2 (02:10→10:26)
[2022-07-01] MEDS: LEVOTHYROXINE SODIUM 25 MCG TABLET PO (06:35)
[2022-07-01] MEDS: ACETAMINOPHEN 325 MG TABLET 650 MG PO ×2 (09:00→14:34)
[2022-07-01] MEDS: PARoxetine 20 MG TABLET 40 MG PO (09:01)
[2022-07-01] MEDS: OPTI-GEN TAB 1 TABLET PO (09:01)
[2022-07-01] MEDS: PANTOPRAZOLE 40 MG TABLET PO (09:01)
[2022-07-01] MEDS: LORazepam (*CRX) 1 MG TABLET PO (09:01)
[2022-07-01] MEDS: FOLIC ACID 1 MG TABLET PO (09:01)
[2022-07-01] MEDS: CHOLECALCIFEROL 1,000 UNITS TABLET 4000 UNITS PO (09:01)
[2022-07-01] MEDS: MEMANTINE 5 MG TABLET PO (09:01)
[2022-07-01] MEDS: amLODIPine BESYLATE 5 MG TABLET PO (09:01)
[2022-07-01] MEDS: predniSONE 20 MG TABLET 40 MG PO (09:01)
[2022-07-01] MEDS: OLMESARTAN MEDOXOMIL 20 MG TABLET PO (09:02)
[2022-07-01] MEDS: AMIODARONE HCL 200 MG TABLET PO (09:02)
--- NOTE | 2022-07-01 11:41 | PCRCNOTE ---
Home O2 2 L rest and with activity, no change from current home o2 settings. Son with bring in her O2 upon discharge
--- NOTE | 2022-07-01 11:58 | PCOTNOTE ---
Attempted to see patient this pm. Pt reported taking shower this date with assist from nursing. Pt reported being on bedpan at this time stating, I should have gone while I was in there, but I was so flustered. Pt reported going home with home health this date.
--- NOTE | 2022-07-01 12:44 | PM.DS ---
DS: Admitting Diagnosis Discharge Date 07/01/22 Admitting Diagnosis sob DS: Discharge Diagnosis Discharge Diagnosis (1) Shortness of breath: Code(s): R06.02 - Shortness of breath Status: Acute Assessment and Plan: Acute on chronic respiratory failure History of severe emphysema/COPD by PFTs in 2017 and she has been dependent on 2 liters nasal cannula for the last year or so. At baseline she can get around the home and prepare light meals though she frequently has to rest. More recently she can only walk 5 to 6 feet without getting winded. No PE or significant or large infiltrates noted on CT of the chest. May be progression of her emphysema in addition to acute exacerbation of COPD. Currently on 4 liters nasal cannula, Empiric steroids and antibiotics ordered as detailed below.on cefpime and levofloxain. mild hemoptysis noted, hold xarelto. (2) COPD exacerbation: Code(s): J44.1 - Chronic obstructive pulmonary disease with (acute) exacerbation Status: Acute Assessment and Plan: Appreciate input of chemist physical she has been on antibiotics, steroids, nebs, and vibratory vest off and on the last 1.5 months with temporary improvement. Symptoms are not improving following completion of steroids with cough, shortness of breath, chest discomfort. Pulmonology consulted Continue scheduled bronchodilators, methylprednisolone, and antibiotics. Sputum to be attempted for culture. Follow pulmonary's recommendation (3) Atrial flutter with rapid ventricular response: Code(s): I48.92 - Unspecified atrial flutter Status: Acute Assessment and Plan: A new diagnosis for the patient. May very well be precipitated by lung disease. It is possible that her shortness of breath is related to atrial flutter with RVR and hopefully her symptoms will improve with rate control/episcopalian of sinus rhythm. Cardiology consulted Failed to convert to sinus rhythm with amio, underwent successful PAVAN cardioversion 06/26/2022 Continue amiodarone patient still has AFib Patient with continued hemoptysis discontinue the rivaroxaban per chemist physical (4) Opacity of lung on imaging study: Code(s): R91.8 - Other nonspecific abnormal finding of lung field Status: Acute Assessment and Plan: Focal opacity in the anteroinferior left lower lobe on C. Differential includes focal atelectasis, pneumonia, nodule not excluded. Empiric antibiotics for possible pneumonia given elevated WBC. Attempt sputum for culture, check urinary antigens procalcitonin negative Short-term follow-up exam in 1 to 3 months recommended to reassess. Further recommendations per pulm (5) Chronic respiratory failure with hypoxia, on home oxygen therapy: Code(s): J96.11 - Chronic respiratory failure with hypoxia; Z99.81 - Dependence on supplemental oxygen Status: Acute Assessment and Plan: She has been on 2 liters nasal cannula for the past year or so. Currently requiring 5 liters to maintain SpO2 in the low to mid 90s, wean as tolerated. Pulmonology consulted for recommendations. BiPAP during the night (6) Hypertension: Code(s): I10 - Essential (primary) hypertension Status: Acute Assessment and Plan: Blood pressures were reviewed and they have been stable. Antihypertensives will be reviewed and resumed as appropriate. (7) Hypothyroidism: Qualifiers: Hypothyroidism type: unspecified Qualified Code(s): E03.9 - Hypothyroidism, unspecified Code(s): E03.9 - Hypothyroidism, unspecified Status: Acute Assessment and Plan: -Continue levothyroxine -TSH WNL (8) Gastroesophageal reflux disease: Code(s): K21.9 - Gastro-esophageal reflux disease without esophagitis Status: Acute Assessment and Plan: -No acute issues. -Continue PPI. (9) Cognitive dysfunction: Code(s): F09 - Unspecified m
--- NOTE | 2022-07-01 14:30 | PCPTNOTE ---
Attempted to see patient for PT, however patient declined due to anticipated discharge.
== END 2022-07-01 15:03 | disposition home health service (06) | DRG 194 ==
LOC: ANHED 12:20 → ANHIMU 14:16 → ANH2MED 06-29 16:14
PROVIDERS: Internal Medicine; Nurse Practitioner; Physician Assistant; Admitting Provider Student in an Organized Health Care Education/Training Program; Emergency Provider Emergency Medicine; PCP Internal Medicine; Visit Provider Physician Assistant
PROC: 5A2204Z Restoration of Cardiac Rhythm, Single (ICD-10-PCS; CPT 93312; principal; 2022-06-26 10:15)
PROC: 5A2204Z Restoration of Cardiac Rhythm, Single (ICD-10-PCS; 2022-06-26 10:15)
DX: J18.9 Pneumonia, unspecified organism (principal); I48.92 Unspecified atrial flutter; J96.11 Chronic respiratory failure with hypoxia; J43.9 Emphysema, unspecified; Z99.81 Dependence on supplemental oxygen; D50.9 Iron deficiency anemia, unspecified; N18.9 Chronic kidney disease, unspecified; Z86.16 Personal history of COVID-19; K21.9 Gastro-esophageal reflux disease without esophagitis; F41.9 Anxiety disorder, unspecified; F32.A Depression, unspecified; E03.9 Hypothyroidism, unspecified; Z87.891 Personal history of nicotine dependence; Z20.822 Contact with and (suspected) exposure to COVID-19; Z79.51 Long term (current) use of inhaled steroids; Z79.899 Other long term (current) drug therapy
CPT/HCPCS: 36415; 36600; 71045; 71275; 80048; 80053; 82375; 82805; 83050; 83605; 83735; 83880; 84145; 84443; 84484; 85025; 85610; 85730; 86140; 87040; 87070; 87106; 87205; 87254; 87636; 92960; 93005; 93306; 93312; 93320; 93325; 94002; 94618; 94640; 96361; 96365; 96367; 96375; 97161; 97165; 99285; A9270; J0282; J0360; J0692; J1956; J2060; J2704; J2920; J2930; J3475; J7030; J7040; J7512; Q9967

== ENCOUNTER 2022-07-04 11:43 | Observation (INO) | payer MEDICARE, SELFPAY ==
[2022-07-04] VITALS (28 sets, daily range): BP systolic 102–143; BP diastolic 60–93; PULSE 68–142; RESP 16–24; TEMP 36.1–36.9; O2SAT 89–100; BMI 23.5
--- NOTE | ~2022-07-04 | XR_ITS ---
EXAMINATION: XR chest 2V DATE: 07/04/2022 12:22 INDICATION: Palpitations. Tachycardia. TECHNIQUE: Frontal and lateral views of the chest were obtained. COMPARISON: Chest single view 06/28/2022, chest CT 06/25/2022 FINDINGS: There are lucencies and coarse interstitial opacities in the lungs, consistent with severe emphysema. There are mild airspace opacities in the lower lung zones. No pleural effusion or pneumoth orax. The heart size is normal. IMPRESSION: 1. Mild airspace opacities in the lower lung zones, consistent with atelectasis/scarring versus pneum onia. 2. Severe emphysema. Reviewed, dictated and finalized at location A. ER SELECTOR IMPRESSION: 1. Mild airspace opacities in the lower lung zones, consistent with atelectasis /scarring versus pneumonia. 2. Severe emphysema.
--- NOTE | 2022-07-04 11:58 | ECG_ITS ---
Measurements Intervals Ethel Rate: 142 P: MD: 0 QRS: -1 QRSD: 86 T: 26 QT: 207 QTc: 318 Interpretive Statements ATRIAL FLUTTER/TACHYCARDIA WITH RAPID VENTRICULAR RESPONSE DELAYED PRECORDIAL R/S TRANSITION NONSPECIFIC ST & T-WAVE ABNORMALITY- DIFFUSE LEADS ABNORMAL ECG COMPARED TO ECG 06/26/2022 10:46:21 ATRIAL FLUTTER NOW PRESENT Electronically Signed On 07-04-2022 12:54:16 WIDE AREA NETWORK ENGINEER by Kendrick Paula D.O.
--- NOTE | 2022-07-04 12:09 | ED.ARRPALP ---
HPI - Arrhythmia/Palpitations General Chief Complaint: Arrhythmia/Palpitations Stated Complaint: rapid HR Time Seen by Provider: 07/04/22 11:59 History of Present Illness HPI narrative: Pt presents with rapid irregular heart beat again this morning. Pt denies CP or SOB. Pt had recent week long hospital stay for new onset afib with RVR and old charts reviewed show she had a PAVAN cardioversion on 06/26. Per son pt has been in NSR since until this morning. Pt was discharged on amiodarone and asa. Pt took these and all her meds this morning. Related Data Home Medications Medication Instructions Recorded Confirmed [id number]-[id number] tablet 1 tablet PO DAILY 07/14/20 06/25/22 cholecalciferol (vitamin D3) 50 100 mcg PO DAILY 02/27/22 06/25/22 mcg (2,000 unit) capsule amlodipine 5 mg tablet 5 mg PO DAILY 06/25/22 06/25/22 cyclobenzaprine 10 mg tablet 10 mg PO 4XW PRN Muscle Spasm 06/25/22 06/25/22 donepezil 10 mg tablet 10 mg PO DAILY 06/25/22 06/25/22 doxycycline hyclate 100 mg capsule 100 mg PO 3XW 06/25/22 06/25/22 folic acid 1 mg tablet 1 mg PO DAILY 06/25/22 06/25/22 levothyroxine 25 mcg tablet 25 mcg PO DAILY 06/25/22 06/25/22 memantine 5 mg tablet 5 mg PO BID 06/25/22 06/25/22 olmesartan 20 mg tablet 20 mg PO DAILY 06/25/22 06/25/22 omeprazole 40 mg capsule,delayed 40 mg PO BID 06/25/22 06/25/22 release paroxetine HCl 20 mg tablet 20 mg PO BID 06/25/22 06/25/22 Allergies Allergy/AdvReac Type Severity Reaction Status Date / Time methylprednisolone Allergy Unknown Jittery Verified 07/04/22 12:49 roflumilast [From Daliresp] AdvReac Severe Difficulty Verified 07/04/22 12:49 Swallowing Review of Systems Review of Systems: All systems reviewed & are unremarkable except as noted in HPI and below PMFSH Past Medical History Medical History (Updated 07/04/22 @ 14:01 by Holly Reynoso III, ) Adenomatous colon polyp Anxiety and depression Arthritis Atrial flutter with rapid ventricular response Chronic anemia Chronic kidney disease Chronic obstructive pulmonary disease 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 Chronic respiratory failure with hypoxia Chronic respiratory failure with hypoxia, on home oxygen therapy On 2 liters nasal cannula. CKD (chronic kidney disease) Cognitive dysfunction COPD (chronic obstructive pulmonary disease) Dyslipidemia Gastroesophageal reflux disease Hearing loss Hypertension Hypothyroidism Iron deficiency anemia Kidney stones Lung nodule Multiple pulmonary nodules determined by computed tomography of lung Personal history of COVID-19 Pre-diabetes Tobacco abuse Surgical History Surgical History History of bilateral cataract extraction History of cardiac catheterization History of colonoscopy with polypectomy History of cystoscopy History of lithotripsy History of lung biopsy (02/2020) Left lung nodule-fibrous tissue with chronic inflammation and granulomatous. History of tubal ligation Family History Family History Other Breast cancer Social History Social History (Updated 06/25/22 @ 21:01 by Katherine Alvarez PA-C) Social History: Surrogate medical decision maker: Jevon Lucas, son. Code status: Modified code, do not intubate. Okay with meds and CPR for now. Smoking packs per day: 1 Smoking cigarettes per day: 20.0 Years smoked: 50 Smoking pack-years: 50.00 Smoking status: Former smoker Tobacco type: cigarettes Second hand tobacco smoke exposure: No Alcohol intake: never Substance use: never Substance use type: does not use Lack of Transportation: No Lack of Food: Never True Current Housing: I Have Housing Concerned About Future Housing: No Difficulty Paying Gas/Electric Bills: No Difficulty Paying for Meds: No Currently Unemployed: No Education: Decline to Answer Difficulty w/ Childcare
[2022-07-04 12:12] LABS: Basophils Absolute Auto 0.1 K/mm3 (0.0-0.1); Basophils Percent Auto 0.4 % (0.2-1.2); Eosinophils Absolute Auto 0.4 K/mm3 (0-0.3); Eosinophils Percent Auto 2.8 % (0-4.4); Hematocrit 46.2 % (37.0-47.0); Hemoglobin 14.6 g/dL (12.0-15.0); Immature Granulocyte Absolute 0.28 K/mm3 (0.00-0.031); Immature Granulocyte Percent A 2.2 % (0-0.5); Lymphocytes Absolute Auto 1.74 K/mm3 (0.9-3.2); Lymphocytes Percent Auto 13.7 % (18.3-44.2); Mean Corpuscular HGB Conc 31.6 g/dl (32-36); Mean Corpuscular Hemoglobin 32.7 pg (26-34); Mean Corpuscular Volume 103.4 fl (80-100); Mean Platelet Volume 9.3 fl (7.4-10.4); Monocytes Absolute Auto 1.3 K/mm3 (0.1-0.6); Monocytes Percent Auto 10.6 % (2.6-8.5); Neutrophils Absolute Auto 8.9 K/mm3 (1.3-6.7); Neutrophils Percent Auto 70.3 % (45.5-73.1); Platelet Count Result 281 k/mm3 (150-375); Red Blood Count 4.47 M/mm3 (4.2-5.4); Red Cell Distribution Width 13.1 % (11.5-14.5); White Blood Count 12.7 K/mm3 (4.5-10.0)
[2022-07-04 12:23] LABS: INR 1.1; Prothrombin Time 13.7 Seconds (11.1-14.7)
[2022-07-04 12:24] LABS: Alanine Aminotransferase 55 U/L (6-35); Albumin Level 4.2 g/dL (3.5-5.1); Alkaline Phosphatase 55 U/L (38-126); Anion Gap 4 mmol/L (8-16); Aspartate Amino Transferase 29 U/L (14-36); Bilirubin,Total 0.6 mg/dL (0.2-1.3); Blood Urea Nitrogen 23 mg/dL (7-17); Calcium 9.1 mg/dL (8.4-10.2); Carbon Dioxide 37 mmol/L (22-30); Chloride 97 mmol/L (98-107); Estimated Glomerular Filt Rate 54; Glucose 118 mg/dL (65-110); Lipase 99 U/L (23-300); Partial Thromboplastin Time 24.1 SECONDS (22.3-36.8); Potassium 3.6 mmol/L (3.4-5.0); Sodium 138 mmol/L (137-145)
[2022-07-04 12:36] LABS: Troponin I < 0.012 ng/mL (0.000-0.034)
[2022-07-04] MEDS: dilTIAZem HCl INJ 25 MG/5 ML VIAL 20 MG IV PUSH (12:40)
[2022-07-04] MEDS: dilTIAZem 100 MG/100 ML 100 MG/100 ML BAG IV CONT (12:42)
[2022-07-04 13:09] LABS: NT Pro B Type Natriuretic Pept 1990 pg/mL (19.9-100)
[2022-07-04 13:59] LABS: Influenza A QL RT-PCR Negative (Negative); Influenza B QL RT-PCR Negative (Negative); SARS-CoV-2 RNA PCR Negative
--- NOTE | 2022-07-04 15:00 | PM.IMHP ---
H&P: HPI History of Present Illness Date/Time: 07/04/22 15:00 Chief Complaint: Rapid heart rate. Narrative: This is a pleasant 77-year-old female with a severe emphysema and COPD by PFTs in 2017, chronic respiratory failure on 2 liters nasal cannula, hypertension, hypothyroidism, anemia, and other comorbidities who presented to the emergency department from home for evaluation of a rapid heart rate. She is known to myself and the hospitalist service from a recent admission in which she was treated for new onset atrial flutter with rapid ventricular response (successful PAVAN cardioversion on 06/26/2022 maintained on amiodarone of which she reports compliance) and COPD exacerbation. She was discharged a few days ago and she has been doing okay, seems to be back at her baseline. She monitors her pulse oximeter several times a day and reports that everything seems normal this morning however not long after eating some breakfast she developed an anxious feeling in her chest and her heart rate was reportedly 147 on her pulse oximeter. The rapid heart rate persisted and she was once again found to be in atrial flutter with rapid ventricular response on arrival to the ED. She was started on a diltiazem drip in the ED and she has subsequently converted back into a normal sinus rhythm. She is being admitted in this setting for closer observation overnight. She has no current complaints and she specifically denies fever, chills, sweats, cold and flu symptoms, chest pain, pleuritic pain, nausea, vomiting, and sweats. Review of Systems Review of Systems: Twelve systems were reviewed and are negative except for as per HPI. [facility] Past Medical History Medical History (Updated 07/04/22 @ 19:56 by Katherine Alvarez PA-C) Adenomatous colon polyp Anxiety and depression Arthritis Atrial flutter with rapid ventricular response Chronic anemia Chronic kidney disease Chronic obstructive pulmonary disease 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 Chronic respiratory failure with hypoxia, on home oxygen therapy On 2 liters nasal cannula. Cognitive dysfunction Dyslipidemia Gastroesophageal reflux disease Hearing loss Hypertension Hypothyroidism Iron deficiency anemia Kidney stones Lung nodule Multiple pulmonary nodules determined by computed tomography of lung Paroxysmal atrial flutter Personal history of COVID-19 Pre-diabetes Tobacco abuse Surgical History Surgical History History of bilateral cataract extraction History of cardiac catheterization History of colonoscopy with polypectomy History of cystoscopy History of lithotripsy History of lung biopsy (02/2020) Left lung nodule-fibrous tissue with chronic inflammation and granulomatous. History of tubal ligation Family History Family History Other Breast cancer Social History Social History Social History: Surrogate medical decision maker: Jevon Lucas, son. Code status: Modified code, do not intubate. Okay with meds and CPR for now. Smoking packs per day: 1 Smoking cigarettes per day: 20.0 Years smoked: 50 Smoking pack-years: 50.00 Smoking status: Former smoker Tobacco type: cigarettes Second hand tobacco smoke exposure: No Alcohol intake: former Drinks per week: 3 Substance use: never Substance use type: does not use Lack of Transportation: No Lack of Food: Never True Current Housing: I Have Housing Concerned About Future Housing: No Difficulty Paying Gas/Electric Bills: No Difficulty Paying for Meds: No Currently Unemployed: No Education: High School Diploma/GED Difficulty w/ Childcare or Family Care: No Spiritual care concerns: No Meds Home Medications and Allergies Home Medications Medication Instructions Recorded Confirmed Type multivitamin-mine
[2022-07-04 16:01] LABS: Troponin I < 0.012 ng/mL (0.000-0.034)
--- NOTE | 2022-07-04 17:14 | ECG_ITS ---
Measurements Intervals [place] Rate: 68 P: 63 NV: 150 QRS: -3 QRSD: 81 T: 7 QT: 395 QTc: 420 Interpretive Statements SINUS RHYTHM POSSIBLE LEFT ATRIAL ENLARGEMENT T WAVE ABNORMALITY IN ANTERIOR LEADS- CONSIDER ISCHEMIA BASELINE ARTIFACT- I, II III ,AVR, AVL, AVF ABNORMAL ECG COMPARED TO ECG 07/04/2022 11:54:01 SINUS RHYTHM NOW PRESENT T WAVE ABNORMALITY NOW PRESENT Electronically Signed On 07-05-2022 8:31:27 CONGRESSIONAL ASSISTANT by Kendrick Paula D.O.
--- NOTE | 2022-07-04 18:47 | ADMGEN ---
This patient, Jenny Lucas, was admitted to IMU Room 206-02 at 1840. Patient/family oriented to hospital policies and general routines including ID bracelet, bed and alarms, visiting hours, pain management, procedures, bathroom and other care routines, personal items, smoking policy, room service/diet, and visiting hours. Information on how to activate the Rapid Response Team has been discussed. Patient/Family are encouraged to report perceived risks to care and to ask questions if they do not understand what they are told or what they should do.
[2022-07-04 19:59] LABS: Troponin I < 0.012 ng/mL (0.000-0.034)
[2022-07-04] MEDS: MEMANTINE 5 MG TABLET PO (20:38)
[2022-07-04] MEDS: PARoxetine 20 MG TABLET PO (20:39)
[2022-07-04] MEDS: PANTOPRAZOLE 40 MG TABLET PO (20:39)
[2022-07-04] MEDS: MONTELUKAST SODIUM 10 MG TABLET PO (20:40)
[2022-07-04] MEDS: DONEPEZIL HCL 10 MG TABLET PO (20:40)
[2022-07-04] MEDS: guaiFENesin 12 HR 600 MG TABCR 1200 MG PO (20:40)
[2022-07-04] MEDS: LORazepam (*CRX) 1 MG TABLET PO (20:43)
[2022-07-04] MEDS: LEVALBUTEROL NEB 1.25 MG/3 ML INHALATION (21:39)
[2022-07-05] VITALS (24 sets, daily range): BP systolic 121–147; BP diastolic 51–69; PULSE 69–90; RESP 18–24; TEMP 36.2–36.6; O2SAT 96–100
[2022-07-05] MEDS: LEVOTHYROXINE SODIUM 25 MCG TABLET PO (06:17)
--- NOTE | 2022-07-05 06:22 | PCRCNOTE ---
Window of time for administration has passed. See next scheduled administration.
--- NOTE | 2022-07-05 08:59 | PM.IMPN ---
Progress Note: A&P Assessment and Plan (1) Atrial flutter with rapid ventricular response: Code(s): I48.92 - Unspecified atrial flutter Status: Acute Assessment and Plan: Converted on diltiazem drip, restarted on home amiodarone, rate controlled, added metoprolol 6.25 mg q12h [id number] = 4, would recommend anticoagulation at this point, started on eliquis Consult cardio (2) Chronic respiratory failure with hypoxia, on home oxygen therapy: Code(s): J96.11 - Chronic respiratory failure with hypoxia; Z99.81 - Dependence on supplemental oxygen Status: Acute Assessment and Plan: 97% on 2 L nasal cannula (3) Chronic obstructive pulmonary disease: Code(s): J44.9 - Chronic obstructive pulmonary disease, unspecified Status: Acute Assessment and Plan: No evidence of acute exacerbation. Continue current respiratory regimen. Continue Trelegy (4) Hypertension: Code(s): I10 - Essential (primary) hypertension Status: Acute Assessment and Plan: Blood pressures were reviewed and they are stable. Continue antihypertensives and monitor. Norvasc 5 mg daily, olmesartan 20 mg daily (5) Hypothyroidism: Qualifiers: Hypothyroidism type: unspecified Qualified Code(s): E03.9 - Hypothyroidism, unspecified Code(s): E03.9 - Hypothyroidism, unspecified Status: Acute Assessment and Plan: Continue levothyroxine 25 mcg daily. TSH within normal limits Plan DVT prophylaxis with eliquis GI prophylaxis not indicated Code status full code Subjective Date/time seen: 07/05/22 08:59 Interval history: No overnight events noted. No chest pain or shortness of breath. No nausea, vomiting or diarrhea. No fevers or chills. Review of Systems Review of Systems: 12 point review of systems was assessed and was negative except as noted in the HPI Exam Narrative: General: No acute distress, alert and oriented per baseline HEENT: Atraumatic, normocephalic, mucous membranes moist CV: Irregularly irregular, S1, S2 Lungs: Clear to auscultation bilaterally, no rales or crackles noted, no wheezes, good air entry Abdomen: Soft, nontender, nondistended Extremities: Normal to inspection Skin: No rashes noted, no lesions or wounds seen Psych: Euthymic, normal affect Objective Data Vital Signs Vital Signs: Vital Signs - 24 hr 01/12/23 11:46 07/04/22 12:04 07/04/22 12:42 Temperature 98.4 F Pulse Rate 139 H 141 H Respiratory Rate 20 Blood Pressure 102/60 121/81 Pulse Oximetry 89 L 97 Oxygen Delivery Nasal Cannula Nasal Cannula Oxygen Flow Rate 2 2 07/04/22 12:45 07/04/22 13:14 07/04/22 12:05 Temperature Pulse Rate 103 H 84 142 H Respiratory Rate 18 17 24 H Blood Pressure 121/81 127/93 H 133/79 Pulse Oximetry 96 97 97 Oxygen Delivery Oxygen Flow Rate 07/04/22 12:27 07/04/22 12:30 07/04/22 12:31 Temperature Pulse Rate 141 H 141 H 141 H Respiratory Rate 22 H 20 20 Blood Pressure 121/81 Pulse Oximetry 100 98 98 Oxygen Delivery Oxygen Flow Rate 07/04/22 12:46 07/04/22 13:00 07/04/22 13:01 Temperature Pulse Rate 112 H 86 103 H Respiratory Rate 17 20 19 Blood Pressure 127/93 H Pulse Oximetry 97 96 98 Oxygen Delivery Oxygen Flow Rate 07/04/22 13:15 07/04/22 13:30 07/04/22 13:33 Temperature Pulse Rate 80 106 H 101 H Respiratory Rate 19 20 Blood Pressure 143/73 H Pulse Oximetry 97 96 Oxygen Delivery Oxygen Flow Rate 07/04/22 16:44 07/04/22 16:48 07/04/22 16:49 Temperature Pulse Rate 73 110 H 115 H Respiratory Rate 16 18 Blood Pressure 137/69 137/69 137/69 Pulse Oximetry 97 95 Oxygen Delivery Oxygen Flow Rate 07/04/22 17:20 07/04/22 17:21 07/04/22 18:42 Temperature 96.9 F L Pulse Rate 68 68 72 Respiratory Rate 18 18 Blood Pressure 134/68 132/62 Pulse Oximetry 98 98 Oxygen Delivery Oxygen Flow Rate
[2022-07-05] MEDS: AMIODARONE HCL 200 MG TABLET PO (09:27)
[2022-07-05] MEDS: ACIDOPHILUS/BULGARICUS CHEWABLE TABLET 1 TABLET PO (09:28)
[2022-07-05] MEDS: amLODIPine BESYLATE 5 MG TABLET PO (09:28)
[2022-07-05] MEDS: ASPIRIN 325 MG TABLET PO (09:28)
[2022-07-05] MEDS: FOLIC ACID 1 MG TABLET PO (09:29)
[2022-07-05] MEDS: DOXYCYCLINE HYCLATE 100 MG TABLET PO (09:29)
[2022-07-05] MEDS: guaiFENesin 12 HR 600 MG TABCR 1200 MG PO ×2 (09:29→20:50)
[2022-07-05] MEDS: CHOLECALCIFEROL 1,000 UNITS TABLET 4000 UNITS PO (09:29)
[2022-07-05] MEDS: MEMANTINE 5 MG TABLET PO ×2 (09:29→17:28)
[2022-07-05] MEDS: LORazepam (*CRX) 1 MG TABLET PO ×2 (09:29→17:27)
[2022-07-05] MEDS: OLMESARTAN MEDOXOMIL 20 MG TABLET PO (09:30)
[2022-07-05] MEDS: PANTOPRAZOLE 40 MG TABLET PO ×2 (09:30→17:28)
[2022-07-05] MEDS: OPTI-GEN TAB 1 TABLET PO (09:30)
[2022-07-05] MEDS: PARoxetine 20 MG TABLET PO ×2 (09:30→17:29)
[2022-07-05] MEDS: LEVALBUTEROL NEB 1.25 MG/3 ML INHALATION ×3 (09:43→21:31)
[2022-07-05] MEDS: METOPROLOL TARTRATE 6.25 MG TABLET PO (10:19)
[2022-07-05] MEDS: APIXABAN 5 MG TABLET PO ×2 (10:22→20:51)
--- NOTE | 2022-07-05 15:39 | PM.CNCAR ---
Assessment and Plan Assessment and plan (1) Atrial flutter with rapid ventricular response: Code(s): I48.92 - Unspecified atrial flutter Status: Acute Plan This is a 77-year-old lady who has problematic atrial flutter with rapid ventricular response. Her arrhythmia appears to be atypical/left atrial flutter rather than typical right atrial flutter. She is currently in sinus rhythm and is asymptomatic. Last time she was here she was discharged on a modest dose of amiodarone and obviously had a recurrence despite this. One option would be to increase the dose of amiodarone in hopes of more effective maintenance of sinus rhythm the 2nd option would be to transition to alternative antiarrhythmic agent and the 3rd option would be to have her see an column precaster to consider ablation. I would not like to raise the dose of amiodarone given her severe COPD. Electrophysiology is not available here at [facility]. I am going to therefore start her on flecainide which many times will be a very effective drug for atrial flutter which is driven by COPD. She does not have any history of coronary disease or ischemic wall motion abnormalities so she should tolerate the flecainide relatively well. Manuelito Watson MD [facility] History of Present Illness History of Present Illness Consult date/time: 07/05/22 15:39 Reason For Visit: weakness,yessy Narrative: This is a 77-year-old woman who is apparently known to my partner, Dr. Adames who I am seeing at the request of the hospitalist this evening because of an episode of atrial flutter with which she was symptomatic and admitted to the hospital yesterday afternoon. She came to the emergency room when she was at home and suddenly noticed the sense of tachycardia. She measured her pulse and it was over 140 beats per minute and so she came to the hospital. She describes being in no other distress such as having chest pain shortness of breath diaphoresis or any other distress. She did not feel lightheaded or presyncopal. Her electrocardiogram showed atypical atrial flutter with 2-1 conduction. She was put on some IV diltiazem in a short time later converted back to sinus rhythm. She is in sinus rhythm now is talking with her family on the phone when I came in to see her he does not have any other complaints. The patient was here very recently with the same arrhythmia and was seen in consultation by my partner. She was started on a low dose of amiodarone and anticoagulated with apixaban and underwent PAVAN cardioversion restoring sinus rhythm. She was found to have left ventricular hypertrophy with vigorous systolic function ejection fraction of over 70% mild aortic valve stenosis and mild mitral regurgitation. She is not known to have coronary artery disease and has not had a previous myocardial infarction a. There were no ischemic wall motion abnormalities noted on her echo. Review of Systems Constitutional: Constitutional: Reports no additional constitutional complaints Eyes: Eyes: Reports no additional eye complaints ENT: Reports system reviewed and no additional complaints, except as documented Cardiovascular: Cardiovascular: Reports palpitations Respiratory: Respiratory: Reports dyspnea Gastrointestinal: Gastrointestinal: Reports no additional gastrointestinal complaints Musculoskeletal: Musculoskeletal: Reports no additional musculoskeletal complaints Integumentary/Breasts: Skin/Breast: Reports system reviewed and no additional complaints, except as docu Neurologic: Reports system reviewed and no additional complaints, except as documented Endocrine: Endocrine: Reports no additional endocrine complaints Hematologic/Lymphatic: Hematologic/Lymphatic: Reports no additional hematologic/lymphatic complaints Allergic/Immunologic: Allergic/Immunologic: Reports no additional allergic/immunologic complaints [facility] Past Medical History Medical History (Updated 07/04/22 @ 19:5
[2022-07-05] MEDS: ACETAMINOPHEN 325 MG TABLET 650 MG PO ×2 (17:26→22:08)
[2022-07-05] MEDS: FLECAINIDE ACETATE 100 MG TABLET PO (20:50)
[2022-07-05] MEDS: MONTELUKAST SODIUM 10 MG TABLET PO (20:51)
[2022-07-05] MEDS: DONEPEZIL HCL 10 MG TABLET PO (20:51)
[2022-07-06] VITALS (12 sets, daily range): BP systolic 106–162; BP diastolic 71–88; PULSE 64–84; RESP 16–20; TEMP 36.4–36.8; O2SAT 98–100
[2022-07-06] MEDS: LEVALBUTEROL NEB 1.25 MG/3 ML INHALATION ×2 (02:17→08:19)
[2022-07-06] MEDS: LEVOTHYROXINE SODIUM 25 MCG TABLET PO (06:40)
[2022-07-06] MEDS: ACETAMINOPHEN 325 MG TABLET 650 MG PO (06:40)
--- NOTE | 2022-07-06 08:25 | PM.DS ---
DS: Admitting Diagnosis Discharge Date 07/06/22 Admitting Diagnosis palpitations DS: Discharge Diagnosis Discharge Diagnosis (1) Atrial flutter with rapid ventricular response: Code(s): I48.92 - Unspecified atrial flutter Status: Acute Assessment and Plan: Converted on diltiazem drip, restarted on home amiodarone, rate controlled, added metoprolol 6.25 mg q12h [id number] = 4, would recommend anticoagulation at this point, started on eliquis Consult cardio Cardio started flecainide, amio + metoprolol d/c (2) Chronic respiratory failure with hypoxia, on home oxygen therapy: Code(s): J96.11 - Chronic respiratory failure with hypoxia; Z99.81 - Dependence on supplemental oxygen Status: Acute Assessment and Plan: 97% on 2 L nasal cannula (3) Chronic obstructive pulmonary disease: Code(s): J44.9 - Chronic obstructive pulmonary disease, unspecified Status: Acute Assessment and Plan: No evidence of acute exacerbation. Continue current respiratory regimen. Continue Trelegy (4) Hypertension: Code(s): I10 - Essential (primary) hypertension Status: Acute Assessment and Plan: Blood pressures were reviewed and they are stable. Continue antihypertensives and monitor. Norvasc 5 mg daily, olmesartan 20 mg daily (5) Hypothyroidism: Qualifiers: Hypothyroidism type: unspecified Qualified Code(s): E03.9 - Hypothyroidism, unspecified Code(s): E03.9 - Hypothyroidism, unspecified Status: Acute Assessment and Plan: Continue levothyroxine 25 mcg daily. TSH within normal limits Plan DVT prophylaxis with eliquis GI prophylaxis not indicated Code status full code DS: Summary Hospital Course Hospital Course: 77-year-old female with past medical history significant for severe COPD with chronic respiratory failure on 2 L oxygen at baseline, hypothyroidism and anemia is presenting with AFib with RVR after recently diagnosed with atrial flutter status post successful PAVAN cardioversion on June 26 and then discharged on amiodarone. At this time, she states she feels the way she did before her cardioversion and has been compliant with her amiodarone. She was placed on a diltiazem drip and converted to normal sinus rhythm. Cardiology was consulted and recommended starting flecainide instead of continuing the amiodarone. She was also started on Eliquis. She will be discharged in stable condition with close outpatient follow-up by Cardiology and referral to electrophysiology. Time Spent with Patient Time attestation: Total time spent providing and/or coordinating discharge services: Exam Narrative: General: No acute distress, alert and oriented per baseline HEENT: Atraumatic, normocephalic, mucous membranes moist CV: Irregularly irregular, S1, S2 Lungs: Clear to auscultation bilaterally, no rales or crackles noted, no wheezes, good air entry Abdomen: Soft, nontender, nondistended Extremities: Normal to inspection Skin: No rashes noted, no lesions or wounds seen Psych: Euthymic, normal affect Discharge Plan Discharge Attending physician on discharge: Liss Jones Consulting providers: Marci Glover Discharging Clinician: Liss Jones Patient Disposition: Home Health Service Activity: as tolerated Diet: as tolerated and heart healthy Discharge Instructions: Per Care Coordination Patient to have [facility] at discharge for RN, PT, [phone] RN please fax completed discharge instructions to [phone] Patient Instructions: Antibiotic Form Stand Alone Forms: General Discharge Information Follow-up/Referrals: Jf Wade MD [Primary Care Provider] - Tamanna Adames MD [Physician] - Discharge Medications: New Eliquis 5 mg Tablet 5 mg PO Q12HR 30 Days Qty: 60 0RF aspirin 81 mg capsule 81 mg PO DAILY 30 Days Qty: 30 0RF flecainide 100 mg Tab
--- NOTE | 2022-07-06 08:58 | PM.PNCARD ---
Progress Note: A&P Assessment and Plan (1) Atrial flutter with rapid ventricular response: Code(s): I48.92 - Unspecified atrial flutter Status: Acute Plan Started on Flecainide yesterday by Dr. Watson. Remains in sinus rhythm overnight. Will stop Amiodarone as patient is now on Flecainide. Patient on Eliquis 5mg BID. I will decrease her ASA dose from 325mg to 81mg daily. No further cardiac needs at this time. Will have patient follow-up with us in clinic. Cardiology will sign off at this time. Subjective Date/time seen: 07/06/22 08:58 Interval history: Reason for visit: Atrial flutter No acute events overnight. Patient remains in sinus rhythm. No chest pain, palpitations. Review of Systems Review of Systems: 8-point ROS obtained. Negative, unless stated in HPI. Exam Const: General: comfortable Other: Pleasant thin elderly lady appears to be somewhat chronically ill who cooperative no distress of any kind at this time HENMT: Mouth: Yes moist mucous membranes Eyes: Sclera: sclerae normal Neck: Neck: supple and no JVD Resp: Effort & Inspection: normal respiratory effort Other: Breath sounds are diminished symmetrically in both lung whitehead no active wheezing rales or rhonchi Cardio: Rate: regular rate Rhythm: regular rhythm Other: Patient has grade 2/6 crescendo decrescendo murmur audible at the base without radiation Skin: General skin exam: normal color Neuro: Other: Alert and oriented x3, normal cognition Extrem: Other: Adequate perfusion, no edema Psych: Mental Status: mental status grossly normal Affect: normal affect Objective Data Vital Signs Vital Signs: Vital Signs - 24 hr 07/05/22 09:27 07/05/22 09:45 07/05/22 09:45 Temperature Pulse Rate 84 80 80 Respiratory Rate 18 Blood Pressure Pulse Oximetry 97 Oxygen Delivery Nasal Cannula Oxygen Flow Rate 2 07/05/22 10:19 07/05/22 10:04 07/05/22 10:00 Temperature Pulse Rate 84 80 77 Respiratory Rate 18 Blood Pressure Pulse Oximetry Oxygen Delivery Oxygen Flow Rate 07/05/22 12:00 07/05/22 12:00 07/05/22 14:00 Temperature 36.5 C Pulse Rate 76 82 77 Respiratory Rate 20 Blood Pressure 126/64 Pulse Oximetry 98 Oxygen Delivery Oxygen Flow Rate 07/05/22 12:00 07/05/22 14:45 07/05/22 15:01 Temperature Pulse Rate 77 79 Respiratory Rate 18 18 Blood Pressure Pulse Oximetry 98 Oxygen Delivery Nasal Cannula Oxygen Flow Rate 2 07/05/22 16:00 07/05/22 16:00 07/05/22 16:00 Temperature 36.4 C L Pulse Rate 79 79 Respiratory Rate 18 Blood Pressure 121/51 L Pulse Oximetry 98 97 Oxygen Delivery Nasal Cannula Oxygen Flow Rate 2 07/05/22 18:00 07/05/22 20:00 07/05/22 20:50 Temperature 36.2 C L Pulse Rate 75 73 71 Respiratory Rate 18 Blood Pressure 141/65 H Pulse Oximetry 98 Oxygen Delivery Oxygen Flow Rate 07/05/22 21:32 07/05/22 21:32 07/05/22 21:42 Temperature Pulse Rate 77 79 Respiratory Rate 18 18 Blood Pressure Pulse Oximetry 96 Oxygen Delivery Nasal Cannula Oxygen Flow Rate 2 07/05/22 20:00 07/05/22 20:00 07/05/22 22:00 Temperature Pulse Rate 75 70 Respiratory Rate Blood Pressure Pulse Oximetry 98 Oxygen Delivery Nasal Cannula Oxygen Flow Rate 2 07/05/22 23:43 07/05/22 23:45 07/06/22 00:00 Temperature 36.4 C Pulse Rate 69 64 Respiratory Rate 20 Blood Pressure 135/62 Pulse Oximetry 98 98 Oxygen Delivery Nasal Cannula Oxygen Flow Rate 2 07/06/22 02:00 07/06/22 02:17 07/06/22 02:25 Temperature Pulse Rate 67 73 77 Respiratory Rate 18 18 Blood Pressure Pulse Oximetry Oxygen Delivery Oxygen Flow Rate 07/06/22 04:00 07/06/22 04:00 07/06/22 04:00 Temperature 36.4 C Pulse Rate 77 72 Respiratory Rate 18 Blood Pressure 106/88 Pulse Oximetry 98 98 Oxygen Delivery Nasal Cannula Oxygen Flow Rate 2
[2022-07-06] MEDS: FOLIC ACID 1 MG TABLET PO (09:47)
[2022-07-06] MEDS: OLMESARTAN MEDOXOMIL 20 MG TABLET PO (09:47)
[2022-07-06] MEDS: OPTI-GEN TAB 1 TABLET PO (09:47)
[2022-07-06] MEDS: MEMANTINE 5 MG TABLET PO (09:47)
[2022-07-06] MEDS: LORazepam (*CRX) 1 MG TABLET PO (09:48)
[2022-07-06] MEDS: PARoxetine 20 MG TABLET PO (09:48)
[2022-07-06] MEDS: guaiFENesin 12 HR 600 MG TABCR 1200 MG PO (09:48)
[2022-07-06] MEDS: PANTOPRAZOLE 40 MG TABLET PO (09:49)
[2022-07-06] MEDS: ACIDOPHILUS/BULGARICUS CHEWABLE TABLET 1 TABLET PO (09:49)
[2022-07-06] MEDS: amLODIPine BESYLATE 5 MG TABLET PO (09:49)
[2022-07-06] MEDS: APIXABAN 5 MG TABLET PO (09:49)
[2022-07-06] MEDS: CHOLECALCIFEROL 1,000 UNITS TABLET 4000 UNITS PO (09:49)
[2022-07-06] MEDS: FLECAINIDE ACETATE 100 MG TABLET PO (09:51)
--- NOTE | 2022-07-06 11:08 | PC.NURSE ---
Patient returned to OR with pacu staff. Oriented x3, room air, no pain at this time. Patient temperature noted to be 95 degrees rectally, patient placed on justin hugger. Will continue to monitor closely.
== END 2022-07-06 13:57 | disposition home health service (06) ==
LOC: ANHED 14:01 → ANHIMU 16:45
PROVIDERS: Emergency Medicine; Admitting Provider Student in an Organized Health Care Education/Training Program; Emergency Provider Emergency Medicine; PCP Internal Medicine; Visit Provider Student in an Organized Health Care Education/Training Program
DX: I48.92 Unspecified atrial flutter (principal); J96.11 Chronic respiratory failure with hypoxia; J44.9 Chronic obstructive pulmonary disease, unspecified; I12.9 Hypertensive chronic kidney disease with stage 1 through stage 4 chronic kidney disease, or unspecified chronic kidney disease; N18.9 Chronic kidney disease, unspecified; E03.9 Hypothyroidism, unspecified; R94.31 Abnormal electrocardiogram [ECG] [EKG]; Z98.890 Other specified postprocedural states; R00.0 Tachycardia, unspecified; F41.9 Anxiety disorder, unspecified; F32.A Depression, unspecified; D64.9 Anemia, unspecified; Z20.822 Contact with and (suspected) exposure to COVID-19; R91.8 Other nonspecific abnormal finding of lung field; R41.89 Other symptoms and signs involving cognitive functions and awareness; Z99.81 Dependence on supplemental oxygen; E78.5 Hyperlipidemia, unspecified; K21.9 Gastro-esophageal reflux disease without esophagitis; D50.0 Iron deficiency anemia secondary to blood loss (chronic); Z86.16 Personal history of COVID-19; R73.03 Prediabetes; Z87.891 Personal history of nicotine dependence; Z79.51 Long term (current) use of inhaled steroids; Z79.82 Long term (current) use of aspirin; Z79.899 Other long term (current) drug therapy
CPT/HCPCS: 36415; 71046; 80053; 83690; 83880; 84484; 85025; 85610; 85730; 87636; 93005; 94640; 96365; 96366; 97163; 97165; 99285; A9270; G0378

== ENCOUNTER 2022-07-10 11:27 | Inpatient (IN) | payer MEDICARE, SELFPAY ==
[2022-07-10] VITALS (51 sets, daily range): BP systolic 91–157; BP diastolic 45–105; PULSE 79–98; RESP 14–30; TEMP 36.1–36.2; O2SAT 69–100; BMI 24.0; BMI 24.5
--- NOTE | ~2022-07-10 | XR_ITS ---
Portable chest x-ray Comparison: 07/04/2022 Clinical History: Shortness of breath Findings: COPD and/or chronic interstitial disease is probably present. No focal consolidation or pl eural effusion. Cardiomediastinal silhouette is stable. Bones and soft tissues are unremarkable. Impression: COPD and/or chronic interstitial disease. Reviewed, dictated and finalized at location . PS OR COINS SALESPERSON Impression: COPD and/or chronic interstitial disease.
--- NOTE | ~2022-07-10 | US_ITS ---
EXAMINATION: US venous doppler [facility] DATE: 07/15/2022 16:08 INDICATION: Worsening hypoxia TECHNIQUE: Grayscale ultrasound images without and with compression and Doppler ultrasound images of the bilateral lower extremity veins were obtained. COMPARISON: None. FINDINGS: The visualized portions of right common femoral vein, profunda (deep) femoral vein, femoral vein, pop liteal vein, posterior tibial veins, peroneal veins, gastrocnemius vein and greater saphenous vein ou tflow are patent. The visualized portions of left common femoral vein, profunda femoral vein, femoral vein, popliteal v ein, posterior tibial veins, peroneal veins, gastrocnemius vein and greater saphenous vein outflow ar e patent. IMPRESSION: 1. No deep venous thrombosis in either lower limb. Reviewed, dictated and finalized at location B. [facility] CENTER DIRECTOR
--- NOTE | ~2022-07-10 | XR_ITS ---
EXAMINATION: XR chest 1V portable DATE: 07/13/2022 10:25 INDICATION: Pneumonia. TECHNIQUE: A single frontal view of the chest was obtained. COMPARISON: Chest single view 07/10/2022, chest CT 06/25/2022 FINDINGS: There are lucencies and interstitial opacities in the lungs, consistent with emphysema. The re are mild airspace opacities in right mid and lower lung zone and the lower lung zones. No pleural effusion or pneumothorax. The heart size is normal. IMPRESSION: 1. Severe emphysema. 2. Stable mild airspace opacities in right mid and lower lung zones and left lower lung zone, consist ent with atelectasis/scarring versus pneumonia. Reviewed, dictated and finalized at location A. DRILLER IMPRESSION: 1. Severe emphysema. 2. Stable mild airspace opacities in right mid and lower lung zones and left lo wer lung zone, consistent with atelectasis/scarring versus pneumonia.
--- NOTE | ~2022-07-10 | XR_ITS ---
Portable chest x-ray Comparison: 07/13/2022 Clinical History: Pneumonia Findings: Extensive interstitial disease is similar to prior exam. No acute consolidation or pleural effusion evident. Cardiomediastinal silhouette is stable. Bones and soft tissues are unremarkable. Impression: Stable diffuse chronic interstitial disease. Reviewed, dictated and finalized at [facility]. OGLYCERIN SUPERVISOR Impression: Stable diffuse chronic interstitial disease.
--- NOTE | ~2022-07-10 | CT_ITS ---
EXAMINATION:CT diagnostic chest wo con DATE: 07/14/2022 11:23 INDICATION: Cough and shortness of breath. TECHNIQUE: Computed tomography (CT) of the chest was performed without intravenous contrast. Automate d exposure control and iterative reconstruction technique were employed. The dose-length product (DLP ) was 178.23 mGy-cm. COMPARISON: Chest CT 06/25/2022 FINDINGS: There is severe emphysema. There are scattered groundglass and airspace opacities in the elijah ngs with a peripheral and lower lung predominance. There is septal thickening in the lungs. No pleura l effusion. The heart size is normal. There are coronary artery calcifications. No pericardial effusi on. There is mild mediastinal lymphadenopathy, likely reactive. There is a lipoma in left subscapular is muscle. There is a 2.2 cm cyst in left kidney. There is severe thoracic spondylosis. IMPRESSION: 1. Diffuse lung disease, consistent with pulmonary edema versus pneumonia superimposed on severe emph ysema. Reviewed, dictated and finalized at location A. SOAKER IMPRESSION: 1. Diffuse lung disease, consistent with pulmonary edema versus pneumonia super imposed on severe emphysema.
--- NOTE | 2022-07-10 11:39 | ECG_ITS ---
Measurements Intervals Alexander Rate: 96 P: 57 AK: 154 QRS: 16 QRSD: 122 T: 62 QT: 363 QTc: 460 Interpretive Statements SINUS RHYTHM POSSIBLE LEFT ATRIAL ENLARGEMENT INTRAVENTRICULAR CONDUCTION DELAY CANNOT RULE OUT SEPTAL INFARCT, AGE INDETERMINATE BORDERLINE ST-T WAVE ABNORMALITY- INF/HIGH LAT LEADS BASELINE ARTIFACT- I, II, III, AVR, AVL, AVF, V3 ABNORMAL ECG COMPARED TO ECG 07/04/2022 17:14:16 NO SIGNIFICANT CHANGES Electronically Signed On 07-10-2022 11:46:03 RIG SITE ENGINEER by Kendrick Paula D.O.
[2022-07-10] MEDS: methylPREDNISolone SOD SUCC 125 MG VIAL IV PUSH (11:53)
[2022-07-10 11:57] LABS: Basophils Absolute Auto 0.1 K/mm3 (0.0-0.1); Basophils Percent Auto 0.6 % (0.2-1.2); Eosinophils Absolute Auto 0.4 K/mm3 (0-0.3); Eosinophils Percent Auto 2.1 % (0-4.4); Hematocrit 36.4 % (37.0-47.0); Hemoglobin 11.3 g/dL (12.0-15.0); Immature Granulocyte Absolute 0.13 K/mm3 (0.00-0.031); Immature Granulocyte Percent A 0.7 % (0-0.5); Lymphocytes Absolute Auto 1.48 K/mm3 (0.9-3.2); Lymphocytes Percent Auto 8.3 % (18.3-44.2); Mean Corpuscular Hemoglobin 32.1 pg (26-34); Mean Corpuscular Volume 103.4 fl (80-100); Mean Platelet Volume 9.8 fl (7.4-10.4); Monocytes Absolute Auto 1.5 K/mm3 (0.1-0.6); Monocytes Percent Auto 8.3 % (2.6-8.5); Neutrophils Absolute Auto 14.3 K/mm3 (1.3-6.7); Platelet Count Result 243 k/mm3 (150-375); Red Blood Count 3.52 M/mm3 (4.2-5.4); Red Cell Distribution Width 13.2 % (11.5-14.5); White Blood Count 17.9 K/mm3 (4.5-10.0)
[2022-07-10 12:07] LABS: INR 1.8; Prothrombin Time 20.4 Seconds (11.1-14.7)
[2022-07-10 12:09] LABS: Alveolar/Arterial O2 Gradient 526.2 mmHg; Base Excess ABG 2.8 mEq/l (+/-2.0); Fractional Inspired Oxygen 100 %; HCO3 ABG 28.9 mEq/l (22.0-26.0); Oxygen Content ABG 16.2 %vol (16.0-22.0); Oxygen Saturation ABG 98.6 % (95.0-100.0); Oxyhemoglobin 96.7 % THb (90.0-100.0); PCO2 ABG 51.5 mmHg (35.0-45.0); PO2 ABG 135.3 mmHg (80.0-100.0); PO2 FiO2 Ratio Arterial Blood 1.35 %; Total Hemoglobin 11.7 g/dL (12.0-18.0); pH ABG 7.367 (7.350-7.450)
[2022-07-10 12:10] LABS: Device NON-REBREATHER MASK; Site Drawn LEFT BRACHIAL
[2022-07-10 12:13] LABS: Alanine Aminotransferase 30 U/L (6-35); Albumin Level 4.7 g/dL (3.5-5.1); Alkaline Phosphatase 57 U/L (38-126); Anion Gap 7 mmol/L (8-16); Aspartate Amino Transferase 38 U/L (14-36); Bilirubin,Total 0.7 mg/dL (0.2-1.3); Blood Urea Nitrogen 17 mg/dL (7-17); Calcium 8.9 mg/dL (8.4-10.2); Carbon Dioxide 30 mmol/L (22-30); Chloride 98 mmol/L (98-107); Estimated CRCL calculation 37 ml/min; Estimated Glomerular Filt Rate > 60; Glucose 126 mg/dL (65-110); Potassium 4.2 mmol/L (3.4-5.0); Sodium 135 mmol/L (137-145)
--- NOTE | 2022-07-10 12:15 | PC.NURSE ---
pt states is feeling much better. is able to converse in full sentences. son at bedside. respiratory speaking with pt about getting home concentrator.
[2022-07-10 12:19] LABS: NT Pro B Type Natriuretic Pept 611 pg/mL (19.9-100); Troponin I < 0.012 ng/mL (0.000-0.034)
[2022-07-10 13:03] LABS: Influenza A QL RT-PCR Negative (Negative); Influenza B QL RT-PCR Negative (Negative); SARS-CoV-2 RNA PCR Negative
--- NOTE | 2022-07-10 14:55 | ED.SOB ---
HPI - SOB/Dyspnea General Chief Complaint: Shortness of Breath/Dyspnea Stated Complaint: low O2 Time Seen by Provider: 07/10/22 11:39 Source: family Mode of arrival: wheelchair Limitations: clinical condition History of Present Illness HPI Narrative: 77-year-old with a history of COPD on home oxygen was brought in by son with complaints of severe shortness of breath since this morning. Son states that she is been on home oxygen for past 40 years she has a 40 feet oxygen tubing at home which he switched over to 25 feet last night and this morning she woke up with a low SPO2, her symptoms progressively got worse and brought in with severe shortness of breath upon arrival patient was a grayish in color tachycardic and tachypneic. Patient however denies any chest pain, fever or unusual cough. MD elicited complaint: shortness of breath Pertinent past history: COPD Onset (ago): day(s) (1) Timing: constant Severity: severe Exacerbating factors: nothing Relieving factors: oxygen and bronchodilators Known history of: COPD Associated symptoms: denies other symptoms Related Data Home Medications Medication Instructions Recorded Confirmed [id number]-kqmkhroi-mvymyn tablet 1 tablet PO DAILY 07/14/20 07/04/22 cholecalciferol (vitamin D3) 50 100 mcg PO DAILY 02/27/22 07/04/22 mcg (2,000 unit) capsule amlodipine 5 mg tablet 5 mg PO DAILY 06/25/22 07/04/22 cyclobenzaprine 10 mg tablet 10 mg PO 4XW PRN Muscle Spasm 06/25/22 07/04/22 donepezil 10 mg tablet 10 mg PO DAILY 06/25/22 07/04/22 doxycycline hyclate 100 mg capsule 100 mg PO 3XW 06/25/22 07/04/22 folic acid 1 mg tablet 1 mg PO DAILY 06/25/22 07/04/22 levothyroxine 25 mcg tablet 25 mcg PO DAILY 06/25/22 07/04/22 memantine 5 mg tablet 5 mg PO BID 06/25/22 07/04/22 olmesartan 20 mg tablet 20 mg PO DAILY 06/25/22 07/04/22 paroxetine HCl 20 mg tablet 20 mg PO BID 06/25/22 07/04/22 acidophilus 100 million 1 cap PO DAILY 07/04/22 07/04/22 cell-pectin, citrus 10 mg capsule guaifenesin 1,200 mg tablet, 1,200 mg PO BID 07/04/22 07/04/22 extended release 12 hr (Mucinex) Allergies Allergy/AdvReac Type Severity Reaction Status Date / Time methylprednisolone Allergy Unknown Jittery Verified 07/04/22 12:49 roflumilast [From Daliresp] AdvReac Severe Difficulty Verified 07/04/22 12:49 Swallowing Review of Systems Review of Systems: All systems reviewed & are unremarkable except as noted in HPI and below Constitutional: Constitutional: Reports no additional constitutional complaints Eyes: Eyes: Reports no additional eye complaints ENT: Reports system reviewed and no additional complaints, except as documented Cardiovascular: Cardiovascular: Reports no additional cardiovascular complaints Respiratory: Respiratory: Reports as per HPI Gastrointestinal: Gastrointestinal: Reports no additional gastrointestinal complaints Musculoskeletal: Musculoskeletal: Reports no additional musculoskeletal complaints Neurologic: Reports system reviewed and no additional complaints, except as documented PMF Past Medical History Medical History Adenomatous colon polyp Anxiety and depression Arthritis Atrial flutter with rapid ventricular response Chronic anemia Chronic kidney disease Chronic obstructive pulmonary disease 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 Chronic respiratory failure with hypoxia, on home oxygen therapy On 2 liters nasal cannula. Cognitive dysfunction Dyslipidemia Gastroesophageal reflux disease Hearing loss Hypertension Hypothyroidism Iron deficiency anemia Kidney stones Lung nodule Multiple pulmonary nodules determined by computed tomography of lung Paroxysmal atrial flutter Personal history of COVID-19 Pre-diabetes Tobacco abuse Surgical History Surgical History History of bilateral cataract extraction History of cardiac catheterization History
--- NOTE | 2022-07-10 17:36 | ADMGEN ---
This patient, Jenny Lucas, was admitted to 3 [facility] Surg Room 309-01. Patient/family oriented to hospital policies and general routines including ID bracelet, bed and alarms, visiting hours, pain management, procedures, bathroom and other care routines, personal items, smoking policy, room service/diet, and visiting hours. Information on how to activate the Rapid Response Team has been discussed. Patient/Family are encouraged to report perceived risks to care and to ask questions if they do not understand what they are told or what they should do.
[2022-07-10] MEDS: SODIUM CHLORIDE 0.9% IV 1,000 ML 75 ML IV CONT (18:06)
--- NOTE | 2022-07-10 19:07 | PM.IMHP ---
H&P: HPI History of Present Illness Date/Time: 07/10/22 19:07 Chief Complaint: Shortness of breath Narrative: This is a 77-year-old female patient who has a history of COPD. Her son lives with her. The patient stated that her son extended her O2 tubing. The patient stated that she extended her tubing so she could go all over the house. The patient was on her way to see her primary care doctor and her son decided to drive her to the emergency room instead. Upon arrival to the emergency room the patient was a grayish color and her O2 saturation was low. When she woke up this morning her O2 saturation was low. Progressively got worse until she came to the emergency room. Her white count is 17.9. Her H&H is 11.3 and 36.4. Influenza A/B and COVID are all negative. ABGs pH 7.367 and CO2 was 51.5. Chest x-ray was read as COPD or chronic interstitial lung disease. The patient was given Solu-Medrol the emergency room. The patient's current currently on for 4.5 L. her H&H is 11.3 and 36.4 the patient is being admitted to observation status on the date of service of 07/10/2022. Review of Systems Review of Systems: See HPI All systems reviewed & are unremarkable except as noted in HPI and below Constitutional: Constitutional: Reports as per HPI and Reports no additional constitutional complaints Eyes: Eyes: Reports as per HPI and Reports no additional eye complaints ENT: Reports system reviewed and no additional complaints, except as documented and Reports Normal hearing present Cardiovascular: Cardiovascular: Reports no additional cardiovascular complaints Respiratory: Respiratory: Reports no additional respiratory complaints and Reports no additional respiratory complaints Gastrointestinal: Gastrointestinal: Reports as per HPI and Reports no additional gastrointestinal complaints Musculoskeletal: Musculoskeletal: Reports no additional musculoskeletal complaints Integumentary/Breasts: Skin/Breast: Reports system reviewed and no additional complaints, except as docu and Reports as per HPI Neurologic: Reports system reviewed and no additional complaints, except as documented, Reports as per HPI and Reports Normal hearing present Psychiatric: Psychiatric: Reports no additional psychiatric complaints and Reports as per HPI Endocrine: Endocrine: Reports no additional endocrine complaints Hematologic/Lymphatic: Hematologic/Lymphatic: Reports no additional hematologic/lymphatic complaints Allergic/Immunologic: Allergic/Immunologic: Reports no additional allergic/immunologic complaints [facility] Past Medical History Medical History (Updated 07/10/22 @ 21:28 by Sherri Cardona NP) Adenomatous colon polyp Anxiety and depression Arthritis Atrial flutter Atrial flutter with rapid ventricular response Chronic anemia Chronic kidney disease Chronic obstructive pulmonary disease 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 Chronic respiratory failure with hypoxia, on home oxygen therapy On 2 liters nasal cannula. Cognitive dysfunction Dyslipidemia Gastroesophageal reflux disease Hearing loss Hypertension Hypothyroidism Iron deficiency anemia Kidney stones Lung nodule Memory deficit Multiple pulmonary nodules determined by computed tomography of lung Paroxysmal atrial flutter Personal history of COVID-19 Pre-diabetes Tobacco abuse Surgical History Surgical History History of bilateral cataract extraction History of cardiac catheterization History of colonoscopy with polypectomy History of cystoscopy History of lithotripsy History of lung biopsy (02/2020) Left lung nodule-fibrous tissue with chronic inflammation and granulomatous. History of tubal ligation Family History Family History Other Breast cancer Social History Social History (Updated 07/10/22 @ 21:08 by Sherri Cardona NP) Social History: The p
[2022-07-10] MEDS: ALBUTEROL SULFATE NEB 2.5 MG/3 ML INH 5 MG INHALATION (21:00)
[2022-07-10] MEDS: IPRATROPIUM BR 0.02% INH SOLN 0.5 MG/2.5 ML VIAL INHALATION (21:00)
[2022-07-10] MEDS: APIXABAN 5 MG TABLET PO (23:03)
[2022-07-10] MEDS: CEFDINIR 300 MG CAPSULE PO (23:03)
[2022-07-10] MEDS: FLECAINIDE ACETATE 100 MG TABLET PO (23:03)
[2022-07-10] MEDS: PARoxetine 20 MG TABLET PO (23:04)
[2022-07-10] MEDS: MEMANTINE 5 MG TABLET PO (23:04)
[2022-07-10] MEDS: MONTELUKAST SODIUM 10 MG TABLET PO (23:04)
[2022-07-10] MEDS: guaiFENesin 12 HR 600 MG TABCR 1200 MG PO (23:04)
[2022-07-10] MEDS: LORazepam (*CRX) 1 MG TABLET PO (23:05)
[2022-07-10] MEDS: methylPREDNISolone SOD SUCC 125 MG VIAL 60 MG IV PUSH (23:05)
[2022-07-11] VITALS (18 sets, daily range): BP systolic 137–152; BP diastolic 64–79; PULSE 80–109; RESP 14–24; TEMP 36.2–37; O2SAT 90–96
[2022-07-11] MEDS: IPRATROPIUM BR 0.02% INH SOLN 0.5 MG/2.5 ML VIAL INHALATION ×4 (02:23→19:43)
[2022-07-11] MEDS: LEVALBUTEROL NEB 1.25 MG/3 ML INHALATION ×4 (02:24→19:44)
[2022-07-11] MEDS: methylPREDNISolone SOD SUCC 125 MG VIAL 60 MG IV PUSH ×3 (05:47→17:23)
[2022-07-11] MEDS: LEVOTHYROXINE SODIUM 25 MCG TABLET PO (05:47)
[2022-07-11] MEDS: SODIUM CHLORIDE 0.9% IV 1,000 ML 75 ML IV CONT (05:52)
[2022-07-11 06:15] LABS: Basophils Percent Auto 0.1 % (0.2-1.2); Hematocrit 34.6 % (37.0-47.0); Hemoglobin 10.7 g/dL (12.0-15.0); Immature Granulocyte Absolute 0.17 K/mm3 (0.00-0.031); Immature Granulocyte Percent A 1.2 % (0-0.5); Lymphocytes Absolute Auto 0.37 K/mm3 (0.9-3.2); Lymphocytes Percent Auto 2.6 % (18.3-44.2); Mean Corpuscular HGB Conc 30.9 g/dl (32-36); Mean Corpuscular Volume 103.6 fl (80-100); Mean Platelet Volume 9.8 fl (7.4-10.4); Monocytes Absolute Auto 0.2 K/mm3 (0.1-0.6); Monocytes Percent Auto 1.5 % (2.6-8.5); Neutrophils Absolute Auto 13.6 K/mm3 (1.3-6.7); Neutrophils Percent Auto 94.6 % (45.5-73.1); Platelet Count Result 213 k/mm3 (150-375); Red Blood Count 3.34 M/mm3 (4.2-5.4); Red Cell Distribution Width 13.2 % (11.5-14.5); White Blood Count 14.4 K/mm3 (4.5-10.0)
[2022-07-11 06:35] LABS: Lactic Acid Reflex 2.5 mmol/L (0.7-2.0)
[2022-07-11 06:46] LABS: Anion Gap 7 mmol/L (8-16); Blood Urea Nitrogen 18 mg/dL (7-17); Calcium 8.6 mg/dL (8.4-10.2); Carbon Dioxide 30 mmol/L (22-30); Chloride 102 mmol/L (98-107); Estimated CRCL calculation 37 ml/min; Estimated Glomerular Filt Rate > 60; Glucose 119 mg/dL (65-110); Magnesium 2.2 mg/dL (1.6-2.3); Sodium 139 mmol/L (137-145)
[2022-07-11] MEDS: LORazepam (*CRX) 1 MG TABLET PO ×2 (08:03→17:23)
[2022-07-11] MEDS: ASPIRIN 81 MG CHEWABLE TABLET PO (08:03)
[2022-07-11] MEDS: guaiFENesin 12 HR 600 MG TABCR 1200 MG PO ×2 (08:03→20:03)
[2022-07-11] MEDS: MEMANTINE 5 MG TABLET PO ×2 (08:03→17:23)
[2022-07-11] MEDS: OPTI-GEN TAB 1 TABLET PO (08:03)
[2022-07-11] MEDS: FLECAINIDE ACETATE 100 MG TABLET PO ×2 (08:03→20:03)
[2022-07-11] MEDS: DONEPEZIL HCL 10 MG TABLET PO (08:03)
[2022-07-11] MEDS: PARoxetine 20 MG TABLET PO ×2 (08:03→17:23)
[2022-07-11] MEDS: OLMESARTAN MEDOXOMIL 20 MG TABLET PO (08:03)
[2022-07-11] MEDS: CHOLECALCIFEROL 1,000 UNITS TABLET 2000 UNITS PO (08:03)
[2022-07-11] MEDS: FOLIC ACID 1 MG TABLET PO (08:04)
[2022-07-11] MEDS: CEFDINIR 300 MG CAPSULE PO ×2 (08:04→20:03)
[2022-07-11] MEDS: APIXABAN 5 MG TABLET PO ×2 (08:04→20:03)
[2022-07-11] MEDS: amLODIPine BESYLATE 5 MG TABLET PO (08:04)
[2022-07-11] MEDS: ACETAMINOPHEN 325 MG TABLET 650 MG PO ×2 (08:07→20:02)
[2022-07-11] MEDS: FLUTICASONE/UMECLIDIN/VILANTER 100-62.5-25 MCG ELLIPTA 1 PUFF INHALATION (09:00)
[2022-07-11 09:10] LABS: Reflex Lactic Acid Yes or No Add Lactic
[2022-07-11 09:46] LABS: Lactic Acid 1.8 mmol/L (0.7-2.0)
--- NOTE | 2022-07-11 10:31 | PM.IMPN ---
Progress Note: A&P Assessment and Plan (1) Acute exacerbation of chronic obstructive pulmonary disease: Code(s): J44.1 - Chronic obstructive pulmonary disease with (acute) exacerbation <Lola Landry PA-C - Last Filed: 07/11/22 10:43> Status: Acute <Lola Landry PA-C - Last Filed: 07/11/22 10:43> Assessment and Plan: -continue Solu-Medrol 60 q 6 hrs -continue neb treatments -I believe that the patient was having some problems with her concentrator at home. The patient tells me that she has had the same concentrator for over 5 years. Her son went and purchased her a new oxygen concentrator. May need portable oxygen tank at home or multiple tanks in different rooms to avoid extending her tubing. -continue Omnicef -continue Singulair -continue guaifenesin -pulmonology consulted due to her severe COPD, appreciate any additional recommendations <Lola Landry PA-C - Last Filed: 07/11/22 10:43> -continue Solu-Medrol 60 q 6 hrs -continue neb treatments -I believe that the patient was having some problems with her concentrator at home. The patient tells me that she has had the same concentrator for over 5 years. Her son went and purchased her a new oxygen concentrator. May need portable oxygen tank at home or multiple tanks in different rooms to avoid extending her tubing. 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 <Soto Cruz MD - Last Filed: 07/12/22 17:25> (2) Anemia: Qualifiers: Anemia type: iron deficiency Iron deficiency anemia type: unspecified iron deficiency Qualified Code(s): D50.9 - Iron deficiency anemia, unspecified <Lola Landry PA-C - Last Filed: 07/11/22 10:43> Code(s): D64.9 - Anemia, unspecified <Lola L. BRUCE Landry - Last Filed: 07/11/22 10:43> Status: Acute <Lola L. EN LandryC - Last Filed: 07/11/22 10:43> Assessment and Plan: -appears to be at her baseline -continue to monitor <Lola L. BRUCE Landry - Last Filed: 07/11/22 10:43> (3) Anxiety and depression: Code(s): F41.9 - Anxiety disorder, unspecified; F32.A - Depression, unspecified <Lola L. BRUCE Landry - Last Filed: 07/11/22 10:43> Status: Acute <Lola L. EN LandryC - Last Filed: 07/11/22 10:43> Assessment and Plan: -continue Paxil and Ativan <Lola L. EN LandryC - Last Filed: 07/11/22 10:43> (4) Chronic kidney disease: Code(s): N18.9 - Chronic kidney disease, unspecified <Lola L. BRUCE Landry - Last Filed: 07/11/22 10:43> Status: Acute <Lola L. EN LandryC - Last Filed: 07/11/22 10:43> Assessment and Plan: -stable <Lola L. BRUCE Landry - Last Filed: 07/11/22 10:43> (5) Dyslipidemia: Code(s): E78.5 - Hyperlipidemia, unspecified <Lola L. EN LandryC - Last Filed: 07/11/22 10:43> Status: Acute <Lola L. EN LandryC - Last Filed: 07/11/22 10:43> Assessment and Plan: -heart healthy diet <Lola L. EN LandryC - Last Filed: 07/11/22 10:43> (6) Hypertension: Code(s): I10 - Essential (primary) hypertension <Lola L. EN LandryC - Last Filed: 07/11/22 10:43> Status: Acute <Lola Landry PA-C - Last Filed: 07/11/22 10:43> Assessment and Plan: -continue Benicar and Norvasc <Lola Landry PA-C - Last Filed: 07/11/22 10:43> (7) Hypot
[2022-07-11 11:59] LABS: Appearance Urine Cloudy (Clear); Bilirubin Urine Negative (Negative); Blood Urine 3+ (Negative); Color Urine Yellow (Yellow); Glucose Urine UA Negative (Negative); Ketones Urine Negative (Negative); Leukocyte Esterase Ur 1+ LEU/UL (NEGATIVE); Nitrate Urine Negative (Negative); Protein Urine Negative (Negative); Specific Grav Ur <= 1.005 (1.001-1.035); Urobilinogen Urine 0.2 mg/dL (<2.0)
[2022-07-11 12:06] LABS: Bacteria Urine 1+ /hpf; Mucus Urine Rare /lpf; RBC Urine 21-50 /hpf (0-2); Squamous Epithelial Cell Urine Many /hpf (Few); Transitional Epi Cells Urine Rare /hpf (None Seen); WBC Urine 31-50 /hpf (0-3)
[2022-07-11 12:08] LABS: Add Urine Microscopic? YES
--- NOTE | 2022-07-11 18:22 | PM.CNPUL ---
Assessment and Plan Assessment and plan (1) Acute exacerbation of chronic obstructive pulmonary disease: Code(s): J44.1 - Chronic obstructive pulmonary disease with (acute) exacerbation Status: Acute Assessment and Plan: this 77-year-old female has severe COPD with FEV1 in the range of 0.7 L or 35% predicted on PFTs done approximately 4 years ago has had multiple hospitalizations for COPD exacerbations. Prior to hospitalization the patient had had increased sputum production of a dark color. She has been on IV steroids and nebulized short-acting bronchodilators with her shortness of breath slowly improving. She was recently treated for atrial flutter/ atrial fibrillation and has been on a direct anticoagulant. On chest x-ray there is no evidence of new infiltrates. Plan: Continue with current regimen of IV Solu-Medrol; have decreased the dose to 60 BID. Continue with nebulized short-acting bronchodilators. Screening for MRSA, given history of frequent hospitalizations over the last month. Continue with current antibiotic for now while waiting sputum culture. (2) Chronic obstructive pulmonary disease: Code(s): J44.9 - Chronic obstructive pulmonary disease, unspecified Status: Acute (3) Chronic respiratory failure with hypoxia: Code(s): J96.11 - Chronic respiratory failure with hypoxia Status: Acute (4) Anxiety and depression: Code(s): F41.9 - Anxiety disorder, unspecified; F32.A - Depression, unspecified Status: Acute History of Present Illness History of Present Illness Consult date: 07/11/22 Chief complaint: copd exacerbation Narrative: this 77-year-old female with history of COPD pre presented with 1 day history of worsening shortness of breath. The patient has severe centrilobular emphysema with large air spaces on chest CT, FEV1 in the range of 37% predicted, history of frequent COPD exacerbations, with 3 hospitalizations for COPD exacerbation over the last month. The patient was discharged from the hospital approximately 5 days prior to this admission. Few days prior to this admission she noticed increased sputum production and call her primary care provider for antibiotic. While she was in route to see her primary care provider she developed shortness of breath and was brought to the emergency room. The patient has been treated with IV steroids and antibiotics for another COPD exacerbation. She continues to have sputum production of dark color. She thinks her shortness of breath is back at baseline. During recent hospitalization she was treated cardioversion for atrial fibrillation and has been on it direct anticoagulant. Patient has history of anxiety for which she has been on tranquilizers. She is claustrophobic not tolerating BiPAP support. Chest imaging studies during this hospitalization showed COPD changes but no new infiltrates. On ABGs she had hypercapnic respiratory failure well compensated. BNP was moderately elevated. Lactic acid was elevated. Currently she is doing better but not at baseline yet. Review of Systems Review of Systems: All systems reviewed & are unremarkable except as noted in HPI and below ( in HPI and below) [facility] Past Medical History Medical History (Updated 07/11/22 @ 10:42 by Lola Landry PA-C) Adenomatous colon polyp Anxiety and depression Arthritis Atrial flutter Atrial flutter with rapid ventricular response Chronic anemia Chronic kidney disease Chronic obstructive pulmonary disease 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 Chronic respiratory failure with hypoxia, on home oxygen therapy On 2 liters nasal cannula. Cognitive dysfunction Dyslipidemia Gastroesophageal reflux disease Hearing loss Hypertension Hypothyroidism Iron deficiency anemia Kidney stones Lung nodule Memory deficit Multiple pulmonary nodules determined by computed tomography of lung Paroxysmal atrial flutter Personal history of COVID-19 Pre-d
[2022-07-11] MEDS: MONTELUKAST SODIUM 10 MG TABLET PO (20:03)
[2022-07-12] VITALS (24 sets, daily range): BP systolic 138–149; BP diastolic 57–84; PULSE 60–101; RESP 14–22; TEMP 36.1–36.8; O2SAT 90–100
[2022-07-12] MEDS: LEVALBUTEROL NEB 1.25 MG/3 ML INHALATION ×4 (01:29→20:23)
[2022-07-12] MEDS: IPRATROPIUM BR 0.02% INH SOLN 0.5 MG/2.5 ML VIAL INHALATION ×5 (01:29→20:23)
[2022-07-12] MEDS: ACETAMINOPHEN 325 MG TABLET 650 MG PO ×2 (03:04→11:39)
--- NOTE | 2022-07-12 04:28 | PC.NURSE ---
she desats with any type of slight activity into the 70's, but rebounds quickly
[2022-07-12] MEDS: LEVOTHYROXINE SODIUM 25 MCG TABLET PO (05:59)
[2022-07-12 06:45] LABS: Basophils Percent Auto 0.1 % (0.2-1.2); Hematocrit 33.5 % (37.0-47.0); Hemoglobin 10.1 g/dL (12.0-15.0); Immature Granulocyte Absolute 0.33 K/mm3 (0.00-0.031); Immature Granulocyte Percent A 1.3 % (0-0.5); Lymphocytes Absolute Auto 0.53 K/mm3 (0.9-3.2); Lymphocytes Percent Auto 2.1 % (18.3-44.2); Mean Corpuscular HGB Conc 30.1 g/dl (32-36); Mean Corpuscular Hemoglobin 33.4 pg (26-34); Mean Corpuscular Volume 110.9 fl (80-100); Mean Platelet Volume 9.6 fl (7.4-10.4); Monocytes Percent Auto 4.2 % (2.6-8.5); Neutrophils Absolute Auto 22.9 K/mm3 (1.3-6.7); Neutrophils Percent Auto 92.3 % (45.5-73.1); Platelet Count Result 206 k/mm3 (150-375); Red Blood Count 3.02 M/mm3 (4.2-5.4); Red Cell Distribution Width 13.7 % (11.5-14.5); White Blood Count 24.8 K/mm3 (4.5-10.0)
[2022-07-12 06:58] LABS: Anion Gap 3 mmol/L (8-16); Blood Urea Nitrogen 23 mg/dL (7-17); Calcium 8.9 mg/dL (8.4-10.2); Carbon Dioxide 31 mmol/L (22-30); Chloride 102 mmol/L (98-107); Estimated CRCL calculation 37 ml/min; Estimated Glomerular Filt Rate > 60; Glucose 107 mg/dL (65-110); Potassium 4.6 mmol/L (3.4-5.0); Sodium 136 mmol/L (137-145)
[2022-07-12] MEDS: FOLIC ACID 1 MG TABLET PO (08:55)
[2022-07-12] MEDS: CHOLECALCIFEROL 1,000 UNITS TABLET 2000 UNITS PO (08:55)
[2022-07-12] MEDS: CEFDINIR 300 MG CAPSULE PO ×2 (08:55→20:15)
[2022-07-12] MEDS: amLODIPine BESYLATE 5 MG TABLET PO (08:55)
[2022-07-12] MEDS: DONEPEZIL HCL 10 MG TABLET PO (08:55)
[2022-07-12] MEDS: FLECAINIDE ACETATE 100 MG TABLET PO ×2 (08:55→20:15)
[2022-07-12] MEDS: ASPIRIN 81 MG CHEWABLE TABLET PO (08:55)
[2022-07-12] MEDS: APIXABAN 5 MG TABLET PO ×2 (08:55→20:16)
[2022-07-12] MEDS: guaiFENesin 12 HR 600 MG TABCR 1200 MG PO ×2 (08:56→20:14)
[2022-07-12] MEDS: PARoxetine 20 MG TABLET PO ×2 (08:56→16:55)
[2022-07-12] MEDS: OLMESARTAN MEDOXOMIL 20 MG TABLET PO (08:56)
[2022-07-12] MEDS: LORazepam (*CRX) 1 MG TABLET PO ×2 (08:56→16:54)
[2022-07-12] MEDS: methylPREDNISolone SOD SUCC 125 MG VIAL 60 MG IV PUSH (08:56)
[2022-07-12] MEDS: OPTI-GEN TAB 1 TABLET PO (08:56)
[2022-07-12] MEDS: MEMANTINE 5 MG TABLET PO ×2 (08:56→16:54)
--- NOTE | 2022-07-12 09:00 | PM.PNPUL ---
Progress Note: A&P Assessment and Plan (1) Acute exacerbation of chronic obstructive pulmonary disease: Code(s): J44.1 - Chronic obstructive pulmonary disease with (acute) exacerbation Status: Acute Assessment and Plan: 77-year-old female with advanced emphysema, frequent hospitalizations for COPD exacerbation presented with increasing shortness of breath. The patient has been treated for another COPD exacerbation with IV steroids, or antibiotics and nebulized short-acting bronchodilators. Respiratory status seems to be improving slowly. Plan: Continue with oral prednisone 40 mg p.o. daily nebulized short-acting bronchodilators. Out of bed to chair. MRSA screening pending. (2) Chronic obstructive pulmonary disease: Code(s): J44.9 - Chronic obstructive pulmonary disease, unspecified Status: Acute (3) Chronic respiratory failure with hypoxia: Code(s): J96.11 - Chronic respiratory failure with hypoxia Status: Acute (4) Anxiety and depression: Code(s): F41.9 - Anxiety disorder, unspecified; F32.A - Depression, unspecified Status: Acute Subjective Date/time seen: 07/12/22 09:00 Interval history: Patient doing better. She has less cough and less sputum production. Shortness of breath also less than yesterday. She slept well last night. Review of Systems Review of Systems: All systems reviewed & are unremarkable except as noted in HPI and below ( In HPI and below) Exam Narrative: GENERAL APPEARANCE: Well developed, well nourished, alert and cooperative, and appears to be in moderate respiratory distress while sitting up in bed and breathing supplemental oxygen via nasal cannula SKIN: Inspection of the skin reveals no rashes, ulcerations or petechiae. HEENT: Sclerae anicteric and conjunctivae pink and moist. Extraocular movements were intact and pupils were equal, round. The oral mucosa, hard and soft palate, tongue and posterior pharynx were normal. NECK: Supple. There was no thyroid enlargement, and no tenderness, or masses were felt. CHEST: Normal AP diameter and normal contour without any kyphoscoliosis. LUNGS: distant breath sounds bilaterally, minimal expiratory wheezing CARDIAC: tachycardia regular rhythm normal heart sounds no murmurs ABDOMEN: Soft and nontender with normal bowel sounds. There was no organomegaly. LYMPH NODES: No lymphadenopathy was appreciated in the neck. EXTREMITIES: No cyanosis, clubbing or edema. NEUROLOGIC: Alert and oriented x 3. Normal affect. Objective Data Vital Signs Vital Signs: Vital Signs - 24 hr 07/11/22 12:00 07/11/22 14:45 07/11/22 14:00 Temperature 37.0 C Pulse Rate 99 103 H 109 H Respiratory Rate 24 H 24 H Blood Pressure 138/79 Pulse Oximetry 90 Oxygen Delivery Oxygen Flow Rate 07/11/22 16:00 07/11/22 19:44 07/11/22 19:58 Temperature Pulse Rate 97 99 103 H Respiratory Rate 22 H 22 H Blood Pressure Pulse Oximetry Oxygen Delivery Oxygen Flow Rate 07/11/22 20:03 07/11/22 20:03 07/11/22 20:00 Temperature Pulse Rate 96 Respiratory Rate Blood Pressure Pulse Oximetry 95 96 Oxygen Delivery Nasal Cannula Nasal Cannula Oxygen Flow Rate 4 4 07/11/22 21:42 07/12/22 01:30 07/12/22 01:44 Temperature 36.2 C L Pulse Rate 95 96 99 Respiratory Rate 14 22 H 22 H Blood Pressure 152/64 H Pulse Oximetry 96 Oxygen Delivery Oxygen Flow Rate 07/11/22 20:00 07/12/22 00:00 07/12/22 03:15 Temperature Pulse Rate 95 76 96 Respiratory Rate 22 H Blood Pressure Pulse Oximetry Oxygen Delivery Oxygen Flow Rate 07/12/22 03:30 07/12/22 04:22 07/12/22 04:00 Temperature Pulse Rate 73 91 Respiratory Rate 22 H Blood Pressure Pulse Oximetry 93 Oxygen Delivery Nasal Cannula Oxygen Flow Rate 4 07/12/22 05:26 07/12/22 08:24 07/12/22 08:24 Temperature 36.8 C Pulse Rate 91 100 Respiratory Rate 14 20 Blood Pressure
[2022-07-12] MEDS: MONTELUKAST SODIUM 10 MG TABLET PO (20:16)
[2022-07-12] MEDS: FLUTICASONE/UMECLIDIN/VILANTER 100-62.5-25 MCG ELLIPTA 1 PUFF INHALATION (20:27)
[2022-07-13] VITALS (17 sets, daily range): BP systolic 144–151; BP diastolic 58–73; PULSE 76–97; RESP 16–18; TEMP 35.9–36.6; O2SAT 92–100
[2022-07-13] MEDS: LEVALBUTEROL NEB 1.25 MG/3 ML INHALATION ×4 (02:18→20:20)
[2022-07-13] MEDS: IPRATROPIUM BR 0.02% INH SOLN 0.5 MG/2.5 ML VIAL INHALATION ×4 (02:18→20:20)
[2022-07-13] MEDS: LEVOTHYROXINE SODIUM 25 MCG TABLET PO (06:16)
[2022-07-13] MEDS: ACETAMINOPHEN 325 MG TABLET 650 MG PO ×2 (06:51→17:03)
[2022-07-13 08:56] LABS: Hematocrit 32.8 % (37.0-47.0); Hemoglobin 10.2 g/dL (12.0-15.0); Mean Corpuscular HGB Conc 31.1 g/dl (32-36); Mean Corpuscular Hemoglobin 32.2 pg (26-34); Mean Corpuscular Volume 103.5 fl (80-100); Mean Platelet Volume 9.8 fl (7.4-10.4); Platelet Count Result 220 k/mm3 (150-375); Red Blood Count 3.17 M/mm3 (4.2-5.4); Red Cell Distribution Width 13.7 % (11.5-14.5); White Blood Count 19.9 K/mm3 (4.5-10.0)
[2022-07-13 09:12] LABS: Chloride 97 mmol/L (98-107)
[2022-07-13 09:18] LABS: Anion Gap 1 mmol/L (8-16); Blood Urea Nitrogen 24 mg/dL (7-17); Calcium 8.6 mg/dL (8.4-10.2); Carbon Dioxide 36 mmol/L (22-30); Estimated CRCL calculation 33 ml/min; Estimated Glomerular Filt Rate > 60; Glucose 76 mg/dL (65-110); Magnesium 2.4 mg/dL (1.6-2.3); Potassium 3.8 mmol/L (3.4-5.0); Sodium 134 mmol/L (137-145)
[2022-07-13] MEDS: FOLIC ACID 1 MG TABLET PO (09:26)
[2022-07-13] MEDS: amLODIPine BESYLATE 5 MG TABLET PO (09:26)
[2022-07-13] MEDS: LORazepam (*CRX) 1 MG TABLET PO ×2 (09:26→16:52)
[2022-07-13] MEDS: CEFDINIR 300 MG CAPSULE PO ×2 (09:26→20:48)
[2022-07-13] MEDS: DONEPEZIL HCL 10 MG TABLET PO (09:26)
[2022-07-13] MEDS: predniSONE 20 MG TABLET 40 MG PO (09:26)
[2022-07-13] MEDS: ASPIRIN 81 MG CHEWABLE TABLET PO (09:26)
[2022-07-13] MEDS: CHOLECALCIFEROL 1,000 UNITS TABLET 2000 UNITS PO (09:26)
[2022-07-13] MEDS: FLECAINIDE ACETATE 100 MG TABLET PO ×2 (09:26→20:49)
[2022-07-13] MEDS: APIXABAN 5 MG TABLET PO ×2 (09:26→20:49)
[2022-07-13] MEDS: guaiFENesin 12 HR 600 MG TABCR 1200 MG PO ×2 (09:26→20:49)
[2022-07-13] MEDS: OPTI-GEN TAB 1 TABLET PO (09:27)
[2022-07-13] MEDS: MEMANTINE 5 MG TABLET PO ×2 (09:27→16:52)
[2022-07-13] MEDS: OLMESARTAN MEDOXOMIL 20 MG TABLET PO (09:27)
[2022-07-13] MEDS: PARoxetine 20 MG TABLET PO ×2 (09:27→16:52)
--- NOTE | 2022-07-13 10:15 | PM.PNPUL ---
Progress Note: A&P Assessment and Plan (1) Acute exacerbation of chronic obstructive pulmonary disease: Code(s): J44.1 - Chronic obstructive pulmonary disease with (acute) exacerbation Status: Acute Assessment and Plan: 77-year-old female with advanced emphysema, frequent hospitalizations for COPD exacerbation presented with increasing shortness of breath. The patient has been treated for another COPD exacerbation with IV steroids, or antibiotics and nebulized short-acting bronchodilators. Respiratory status seems to be improving slowly. on physical exam today she clearly had less wheezing. She remains however on relatively high FiO2. Plan: Continue with oral prednisone 40 mg p.o. daily nebulized short-acting bronchodilators. repeat chest x-ray today. Out of bed to chair while monitoring for oxyhemoglobin desaturation. MRSA screening pending. (2) Chronic obstructive pulmonary disease: Code(s): J44.9 - Chronic obstructive pulmonary disease, unspecified Status: Acute (3) Chronic respiratory failure with hypoxia: Code(s): J96.11 - Chronic respiratory failure with hypoxia Status: Acute (4) Anxiety and depression: Code(s): F41.9 - Anxiety disorder, unspecified; F32.A - Depression, unspecified Status: Acute Subjective Date/time seen: 07/13/22 10:15 Interval history: Patient stated she is doing better. She has less shortness of breath, afebrile. Coughed up some dark looking phlegm yesterday question old blood. no coughing today. Remains on supplemental oxygen at 5 liters/minute which is higher than her baseline at home. Has not been out of bed yet. Reportedly she developed oxyhemoglobin desaturation when she tried to get out of bed couple days ago. Review of Systems Review of Systems: All systems reviewed & are unremarkable except as noted in HPI and below ( HPI and below) Exam Narrative: GENERAL APPEARANCE: Well developed, well nourished, alert and cooperative, and appears to be in moderate respiratory distress while sitting up in bed and breathing supplemental oxygen via nasal cannula SKIN: Inspection of the skin reveals no rashes, ulcerations or petechiae. HEENT: Sclerae anicteric and conjunctivae pink and moist. Extraocular movements were intact and pupils were equal, round. The oral mucosa, hard and soft palate, tongue and posterior pharynx were normal. NECK: Supple. There was no thyroid enlargement, and no tenderness, or masses were felt. CHEST: Normal AP diameter and normal contour without any kyphoscoliosis. LUNGS: distant breath sounds bilaterally, minimal expiratory wheezing CARDIAC: tachycardia regular rhythm normal heart sounds no murmurs ABDOMEN: Soft and nontender with normal bowel sounds. There was no organomegaly. LYMPH NODES: No lymphadenopathy was appreciated in the neck. EXTREMITIES: No cyanosis, clubbing or edema. NEUROLOGIC: Alert and oriented x 3. Normal affect. Objective Data Vital Signs Vital Signs: Vital Signs - 24 hr 07/12/22 12:00 07/12/22 13:26 07/12/22 13:27 Temperature Pulse Rate 94 100 Respiratory Rate 20 Blood Pressure Pulse Oximetry 90 Oxygen Delivery Nasal Cannula Oxygen Flow Rate 5 07/12/22 13:40 07/12/22 14:00 07/12/22 16:00 Temperature 36.6 C Pulse Rate 101 H 101 H 90 Respiratory Rate 20 22 H Blood Pressure 149/84 H Pulse Oximetry 91 Oxygen Delivery Oxygen Flow Rate 07/12/22 20:15 07/12/22 20:20 07/12/22 20:20 Temperature Pulse Rate 87 60 87 Respiratory Rate 20 Blood Pressure Pulse Oximetry 94 Oxygen Delivery Nasal Cannula Oxygen Flow Rate 07/12/22 20:33 07/12/22 20:10 07/12/22 20:10 Temperature Pulse Rate 86 82 84 Respiratory Rate 20 16 Blood Pressure Pulse Oximetry 97 Oxygen Delivery Nasal Cannula Oxygen Flow Rate 07/12/22 22:00 07/13/22 00:00 07/13/22 02:10 Temperature 36.1 C L Pulse Rate 86 77 85 Respiratory Rate 16 18
--- NOTE | 2022-07-13 11:50 | PM.IMPN ---
Progress Note: A&P Assessment and Plan (1) Acute exacerbation of chronic obstructive pulmonary disease: Code(s): J44.1 - Chronic obstructive pulmonary disease with (acute) exacerbation Status: Acute Assessment and Plan: -continue Solu-Medrol 60 q 6 hrs -continue neb treatments -I believe that the patient was having some problems with her concentrator at home. The patient tells me that she has had the same concentrator for over 5 years. Her son went and purchased her a new oxygen concentrator. May need portable oxygen tank at home or multiple tanks in different rooms to avoid extending her tubing. 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 (2) Anemia: Qualifiers: Anemia type: iron deficiency Iron deficiency anemia type: unspecified iron deficiency Qualified Code(s): D50.9 - Iron deficiency anemia, unspecified Code(s): D64.9 - Anemia, unspecified Status: Acute Assessment and Plan: -appears to be at her baseline -continue to monitor (3) Anxiety and depression: Code(s): F41.9 - Anxiety disorder, unspecified; F32.A - Depression, unspecified Status: Acute Assessment and Plan: -continue Paxil and Ativan (4) Chronic kidney disease: Code(s): N18.9 - Chronic kidney disease, unspecified Status: Acute Assessment and Plan: -stable (5) Dyslipidemia: Code(s): E78.5 - Hyperlipidemia, unspecified Status: Acute Assessment and Plan: -heart healthy diet (6) Hypertension: Code(s): I10 - Essential (primary) hypertension Status: Acute Assessment and Plan: -continue Benicar and Norvasc (7) Hypothyroidism: Qualifiers: Hypothyroidism type: unspecified Qualified Code(s): E03.9 - Hypothyroidism, unspecified Code(s): E03.9 - Hypothyroidism, unspecified Status: Acute Assessment and Plan: -continue levothyroxine -check TSH (8) Memory deficit: Code(s): R41.3 - Other amnesia Status: Acute Assessment and Plan: -Possible early dementia -continue Namenda and Aricept (9) Atrial flutter: Code(s): I48.92 - Unspecified atrial flutter Status: Acute Assessment and Plan: -Continue flecainide and Eliquis (10) Urinary frequency: Code(s): R35.0 - Frequency of micturition Status: Acute Assessment and Plan: -reported today, check UA Subjective Date/time seen: 07/13/22 11:50 07/13/2022 interval history: patient with severe advanced emphysema and recurrent exacerbation of COPD 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 Review of Systems Review of Systems: All systems reviewed & are unremarkable except as noted in HPI and below Exam Narrative: elderly frail chronically ill Patient is comfortable, NAD HEENT: eyes are clear and none icteric LUNGS: bilateral fair entry with rhonchi and wheezing HEART: RR S1S2 ABD: BS+, Soft and nontender Lower extremities: no edema
[2022-07-13] MEDS: FLUTICASONE/UMECLIDIN/VILANTER 100-62.5-25 MCG ELLIPTA 1 PUFF INHALATION (20:21)
[2022-07-13] MEDS: MONTELUKAST SODIUM 10 MG TABLET PO (20:49)
[2022-07-13] MEDS: BENZOCAINE/MENTHOL (*BKC) 18 EA LOZENGE 1 LOZENGE PO (22:40)
[2022-07-14] VITALS (20 sets, daily range): BP systolic 149–151; BP diastolic 63–74; PULSE 78–92; RESP 14–20; TEMP 35.7–36.4; O2SAT 87–96
[2022-07-14] MEDS: LEVOTHYROXINE SODIUM 25 MCG TABLET PO (06:07)
[2022-07-14 06:37] LABS: Hematocrit 32.5 % (37.0-47.0); Mean Corpuscular HGB Conc 30.8 g/dl (32-36); Mean Corpuscular Hemoglobin 31.9 pg (26-34); Mean Corpuscular Volume 103.8 fl (80-100); Mean Platelet Volume 9.6 fl (7.4-10.4); Platelet Count Result 209 k/mm3 (150-375); Red Blood Count 3.13 M/mm3 (4.2-5.4); Red Cell Distribution Width 13.5 % (11.5-14.5)
[2022-07-14 06:45] LABS: Anion Gap 3 mmol/L (8-16); Blood Urea Nitrogen 22 mg/dL (7-17); Calcium 8.2 mg/dL (8.4-10.2); Carbon Dioxide 38 mmol/L (22-30); Chloride 99 mmol/L (98-107); Estimated CRCL calculation 37 ml/min; Estimated Glomerular Filt Rate > 60; Glucose 81 mg/dL (65-110); Magnesium 2.2 mg/dL (1.6-2.3); Potassium 3.4 mmol/L (3.4-5.0); Sodium 140 mmol/L (137-145)
[2022-07-14] MEDS: IPRATROPIUM BR 0.02% INH SOLN 0.5 MG/2.5 ML VIAL INHALATION ×3 (08:04→22:09)
[2022-07-14] MEDS: LEVALBUTEROL NEB 1.25 MG/3 ML INHALATION ×3 (08:04→22:08)
[2022-07-14] MEDS: amLODIPine BESYLATE 5 MG TABLET PO (09:51)
[2022-07-14] MEDS: DONEPEZIL HCL 10 MG TABLET PO (09:51)
[2022-07-14] MEDS: CEFDINIR 300 MG CAPSULE PO ×2 (09:51→20:40)
[2022-07-14] MEDS: FLECAINIDE ACETATE 100 MG TABLET PO ×2 (09:51→20:40)
[2022-07-14] MEDS: APIXABAN 5 MG TABLET PO ×2 (09:51→20:40)
[2022-07-14] MEDS: POTASSIUM CHLORIDE 20 MEQ TABLET 40 MEQ PO (09:51)
[2022-07-14] MEDS: CHOLECALCIFEROL 1,000 UNITS TABLET 2000 UNITS PO (09:51)
[2022-07-14] MEDS: predniSONE 20 MG TABLET 40 MG PO (09:51)
[2022-07-14] MEDS: ASPIRIN 81 MG CHEWABLE TABLET PO (09:51)
[2022-07-14] MEDS: FOLIC ACID 1 MG TABLET PO (09:52)
[2022-07-14] MEDS: ACETAMINOPHEN 325 MG TABLET 650 MG PO (09:53)
[2022-07-14] MEDS: OPTI-GEN TAB 1 TABLET PO (09:53)
[2022-07-14] MEDS: guaiFENesin 12 HR 600 MG TABCR 1200 MG PO (09:53)
[2022-07-14] MEDS: OLMESARTAN MEDOXOMIL 20 MG TABLET PO (09:53)
[2022-07-14] MEDS: PARoxetine 20 MG TABLET PO ×2 (09:53→16:38)
[2022-07-14] MEDS: LORazepam (*CRX) 1 MG TABLET PO ×2 (09:53→16:38)
[2022-07-14] MEDS: MEMANTINE 5 MG TABLET PO ×2 (09:53→16:38)
--- NOTE | 2022-07-14 10:31 | PM.IMPN ---
Progress Note: A&P Assessment and Plan (1) Acute exacerbation of chronic obstructive pulmonary disease: Code(s): J44.1 - Chronic obstructive pulmonary disease with (acute) exacerbation Status: Acute Assessment and Plan: -continue Solu-Medrol 60 q 6 hrs -continue neb treatments -I believe that the patient was having some problems with her concentrator at home. The patient tells me that she has had the same concentrator for over 5 years. Her son went and purchased her a new oxygen concentrator. May need portable oxygen tank at home or multiple tanks in different rooms to avoid extending her tubing. 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 (2) Anemia: Qualifiers: Anemia type: iron deficiency Iron deficiency anemia type: unspecified iron deficiency Qualified Code(s): D50.9 - Iron deficiency anemia, unspecified Code(s): D64.9 - Anemia, unspecified Status: Acute Assessment and Plan: -appears to be at her baseline -continue to monitor (3) Anxiety and depression: Code(s): F41.9 - Anxiety disorder, unspecified; F32.A - Depression, unspecified Status: Acute Assessment and Plan: -continue Paxil and Ativan (4) Chronic kidney disease: Code(s): N18.9 - Chronic kidney disease, unspecified Status: Acute Assessment and Plan: -stable (5) Dyslipidemia: Code(s): E78.5 - Hyperlipidemia, unspecified Status: Acute Assessment and Plan: -heart healthy diet (6) Hypertension: Code(s): I10 - Essential (primary) hypertension Status: Acute Assessment and Plan: -continue Benicar and Norvasc (7) Hypothyroidism: Qualifiers: Hypothyroidism type: unspecified Qualified Code(s): E03.9 - Hypothyroidism, unspecified Code(s): E03.9 - Hypothyroidism, unspecified Status: Acute Assessment and Plan: -continue levothyroxine -check TSH (8) Memory deficit: Code(s): R41.3 - Other amnesia Status: Acute Assessment and Plan: -Possible early dementia -continue Namenda and Aricept (9) Atrial flutter: Code(s): I48.92 - Unspecified atrial flutter Status: Acute Assessment and Plan: -Continue flecainide and Eliquis (10) Urinary frequency: Code(s): R35.0 - Frequency of micturition Status: Acute Assessment and Plan: -reported today, check UA Subjective Date/time seen: 07/14/22 10:31 07/14/2022 interval history: patient with severe advanced emphysema and recurrent exacerbation of COPD 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 Review of Systems Review of Systems: All systems reviewed & are unremarkable except as noted in HP
--- NOTE | 2022-07-14 10:48 | PM.PNPUL ---
Progress Note: A&P Assessment and Plan (1) Acute exacerbation of chronic obstructive pulmonary disease: Code(s): J44.1 - Chronic obstructive pulmonary disease with (acute) exacerbation Status: Acute Assessment and Plan: 77-year-old female with advanced emphysema, frequent hospitalizations for COPD exacerbation presented with increasing shortness of breath. The patient has been treated for another COPD exacerbation with IV steroids, or antibiotics and nebulized short-acting bronchodilators. Respiratory status seems to be improving slowly. on physical exam there is less wheezing. She remains however on relatively high FiO2. she continues to have a blood tinged sputum. Plan: Continue with oral prednisone 40 mg p.o. daily nebulized short-acting bronchodilators. Chest CT today.\. Out of bed to chair while monitoring for oxyhemoglobin desaturation. MRSA screening negative. (2) Chronic obstructive pulmonary disease: Code(s): J44.9 - Chronic obstructive pulmonary disease, unspecified Status: Acute (3) Chronic respiratory failure with hypoxia: Code(s): J96.11 - Chronic respiratory failure with hypoxia Status: Acute (4) Anxiety and depression: Code(s): F41.9 - Anxiety disorder, unspecified; F32.A - Depression, unspecified Status: Acute Subjective Date/time seen: 07/14/22 10:48 Interval history: patient continues to have a blood tinged sputum. Shortness of breath unchanged over the last 24 hours. She did not sleep well last night. She is requesting antianxiety medication. Exam Narrative: GENERAL APPEARANCE: Well developed, well nourished, alert and cooperative, and appears to be in moderate respiratory distress while sitting up in bed and breathing supplemental oxygen via nasal cannula SKIN: Inspection of the skin reveals no rashes, ulcerations or petechiae. HEENT: Sclerae anicteric and conjunctivae pink and moist. Extraocular movements were intact and pupils were equal, round. The oral mucosa, hard and soft palate, tongue and posterior pharynx were normal. NECK: Supple. There was no thyroid enlargement, and no tenderness, or masses were felt. CHEST: Normal AP diameter and normal contour without any kyphoscoliosis. LUNGS: distant breath sounds bilaterally, minimal expiratory wheezing CARDIAC: tachycardia regular rhythm normal heart sounds no murmurs ABDOMEN: Soft and nontender with normal bowel sounds. There was no organomegaly. LYMPH NODES: No lymphadenopathy was appreciated in the neck. EXTREMITIES: No cyanosis, clubbing or edema. NEUROLOGIC: Alert and oriented x 3. Normal affect. Objective Data Vital Signs Vital Signs: Vital Signs - 24 hr 07/13/22 13:21 07/13/22 13:31 07/13/22 12:00 Temperature Pulse Rate 94 97 94 Respiratory Rate 18 18 Blood Pressure Pulse Oximetry Oxygen Delivery Oxygen Flow Rate 07/13/22 14:00 07/13/22 16:00 07/13/22 20:49 Temperature 36.3 C L Pulse Rate 92 93 85 Respiratory Rate 18 Blood Pressure 145/73 H Pulse Oximetry 96 Oxygen Delivery Oxygen Flow Rate 07/13/22 20:20 07/14/22 00:00 07/13/22 22:00 Temperature 36.6 C Pulse Rate 93 78 78 Respiratory Rate 16 16 Blood Pressure 144/58 H Pulse Oximetry 100 Oxygen Delivery Oxygen Flow Rate 07/14/22 04:00 07/14/22 08:04 07/14/22 08:04 Temperature Pulse Rate 78 86 Respiratory Rate 16 Blood Pressure Pulse Oximetry 96 Oxygen Delivery Nasal Cannula Oxygen Flow Rate 5 07/14/22 08:23 07/14/22 06:00 07/14/22 09:03 Temperature 36.4 C Pulse Rate 92 90 Respiratory Rate 18 20 Blood Pressure 151/63 H Pulse Oximetry 90 87 L Oxygen Delivery Nasal Cannula Oxygen Flow Rate 3 07/14/22 09:11 07/14/22 09:51 07/14/22 09:53 Temperature Pulse Rate 88 Respiratory Rate Blood Pressure Pulse Oximetry 91 91 Oxygen Delivery Nasal Cannula Nasal Cannula Oxygen Flow Rate 4 4 Intake/Output
--- NOTE | 2022-07-14 11:18 | PC.NURSE ---
Patient off of unit to CT scan.
--- NOTE | 2022-07-14 11:49 | PC.NURSE ---
Patient back on unit from CT.
[2022-07-14] MEDS: BENZOCAINE/MENTHOL (*BKC) 18 EA LOZENGE 1 LOZENGE PO (14:28)
[2022-07-14] MEDS: MONTELUKAST SODIUM 10 MG TABLET PO (20:40)
[2022-07-14] MEDS: guaiFENesin 200 MG/10 ML UDC PO (20:40)
[2022-07-15] VITALS (22 sets, daily range): BP systolic 113–168; BP diastolic 59–81; PULSE 75–91; RESP 14–20; TEMP 36–36.4; O2SAT 90–97
[2022-07-15] MEDS: LEVOTHYROXINE SODIUM 25 MCG TABLET PO (05:16)
[2022-07-15] MEDS: ACETAMINOPHEN 325 MG TABLET 650 MG PO ×2 (06:26→15:54)
[2022-07-15] MEDS: LORazepam (*CRX) 1 MG TABLET PO ×2 (06:27→16:59)
[2022-07-15 06:49] LABS: Hematocrit 36.8 % (37.0-47.0); Hemoglobin 11.5 g/dL (12.0-15.0); Mean Corpuscular HGB Conc 31.3 g/dl (32-36); Mean Corpuscular Hemoglobin 32.7 pg (26-34); Mean Corpuscular Volume 104.5 fl (80-100); Mean Platelet Volume 9.4 fl (7.4-10.4); Platelet Count Result 229 k/mm3 (150-375); Red Blood Count 3.52 M/mm3 (4.2-5.4); Red Cell Distribution Width 13.4 % (11.5-14.5); White Blood Count 15.7 K/mm3 (4.5-10.0)
[2022-07-15 06:59] LABS: Anion Gap 2 mmol/L (8-16); Blood Urea Nitrogen 20 mg/dL (7-17); Calcium 8.5 mg/dL (8.4-10.2); Carbon Dioxide 36 mmol/L (22-30); Chloride 96 mmol/L (98-107); Estimated CRCL calculation 42 ml/min; Estimated Glomerular Filt Rate > 60; Glucose 84 mg/dL (65-110); Magnesium 2.4 mg/dL (1.6-2.3); Potassium 3.9 mmol/L (3.4-5.0); Sodium 134 mmol/L (137-145)
[2022-07-15 07:07] LABS: NT Pro B Type Natriuretic Pept 609 pg/mL (19.9-100)
[2022-07-15] MEDS: IPRATROPIUM BR 0.02% INH SOLN 0.5 MG/2.5 ML VIAL INHALATION ×3 (07:58→20:51)
[2022-07-15] MEDS: LEVALBUTEROL NEB 1.25 MG/3 ML INHALATION ×3 (07:59→20:51)
[2022-07-15] MEDS: FLUTICASONE/UMECLIDIN/VILANTER 100-62.5-25 MCG ELLIPTA 1 PUFF INHALATION (07:59)
[2022-07-15] MEDS: FOLIC ACID 1 MG TABLET PO (08:08)
[2022-07-15] MEDS: APIXABAN 5 MG TABLET PO (08:08)
[2022-07-15] MEDS: DONEPEZIL HCL 10 MG TABLET PO (08:08)
[2022-07-15] MEDS: OPTI-GEN TAB 1 TABLET PO (08:09)
[2022-07-15] MEDS: CHOLECALCIFEROL 1,000 UNITS TABLET 2000 UNITS PO (08:09)
[2022-07-15] MEDS: ASPIRIN 81 MG CHEWABLE TABLET PO (08:09)
[2022-07-15] MEDS: CEFDINIR 300 MG CAPSULE PO (08:09)
[2022-07-15] MEDS: FLECAINIDE ACETATE 100 MG TABLET PO ×2 (08:09→21:06)
[2022-07-15] MEDS: amLODIPine BESYLATE 5 MG TABLET PO (08:09)
[2022-07-15] MEDS: OLMESARTAN MEDOXOMIL 20 MG TABLET PO (08:09)
[2022-07-15] MEDS: predniSONE 20 MG TABLET 40 MG PO (08:09)
[2022-07-15] MEDS: MEMANTINE 5 MG TABLET PO ×2 (08:09→16:59)
[2022-07-15] MEDS: PARoxetine 20 MG TABLET PO ×2 (08:09→16:59)
--- NOTE | 2022-07-15 10:13 | PM.PNPUL ---
Progress Note: A&P Assessment and Plan (1) Acute exacerbation of chronic obstructive pulmonary disease: Code(s): J44.1 - Chronic obstructive pulmonary disease with (acute) exacerbation Status: Acute Assessment and Plan: 77-year-old female with advanced emphysema, frequent hospitalizations for COPD exacerbation presented with increasing shortness of breath. The patient has been treated for another COPD exacerbation with IV steroids, or antibiotics and nebulized short-acting bronchodilators. there has been no further improvement of respiratory status over the last 48 hours. The patient continues to require high FiO2 for her COPD and the new chest CT showed new infiltrates in left upper lobe and right lower lobe which could be due to lower respiratory tract infection. She has severe emphysema but these infiltrates were not present during previous hospitalization in early June. The patient continues to have blood tinged sputum. BNP not too elevated. The patient has been on a direct anticoagulant for atrial fibrillation. Currently she is in normal sinus rhythm. In view of severe COPD, frequent hospitalizations with previous use of steroids and antibiotics the patient is at high risk for lung infections related to Gram-negative organisms like Pseudomonas. Sputum culture nondiagnostic. MRSA screening negative. Alternatively these infiltrates could be due to alveolar hemorrhage as patient is on direct anticoagulant. I doubt this is due to congestive heart failure. Plan: Will switch patient to another antibiotic to cover Pseudomonas; imipenem preferred over levofloxacin due to drug interactions with patient's other medications. Will check PT INR. If prolonged, will consider discontinuing direct anticoagulant. (2) Chronic obstructive pulmonary disease: Code(s): J44.9 - Chronic obstructive pulmonary disease, unspecified Status: Acute (3) Chronic respiratory failure with hypoxia: Code(s): J96.11 - Chronic respiratory failure with hypoxia Status: Acute (4) Anxiety and depression: Code(s): F41.9 - Anxiety disorder, unspecified; F32.A - Depression, unspecified Status: Acute Subjective Date/time seen: 07/15/22 10:13 Interval history: Has been no change in patient's respiratory status. She continues to have a blood tinged sputum but less than yesterday. Afebrile. Still on relatively high FiO2 via nasal cannula. She did not sleep well last night. She underwent chest CT that showed new infiltrates left upper lobe and right lower lobe. Review of Systems Review of Systems: All systems reviewed & are unremarkable except as noted in HPI and below ( In HPI and below) Exam Narrative: GENERAL APPEARANCE: Well developed, well nourished, alert and cooperative, and appears to be in moderate respiratory distress while sitting up in bed and breathing supplemental oxygen via nasal cannula SKIN: Inspection of the skin reveals no rashes, ulcerations or petechiae. HEENT: Sclerae anicteric and conjunctivae pink and moist. Extraocular movements were intact and pupils were equal, round. The oral mucosa, hard and soft palate, tongue and posterior pharynx were normal. NECK: Supple. There was no thyroid enlargement, and no tenderness, or masses were felt. CHEST: Normal AP diameter and normal contour without any kyphoscoliosis. LUNGS: distant breath sounds bilaterally, minimal expiratory wheezing CARDIAC: tachycardia regular rhythm normal heart sounds no murmurs ABDOMEN: Soft and nontender with normal bowel sounds. There was no organomegaly. LYMPH NODES: No lymphadenopathy was appreciated in the neck. EXTREMITIES: No cyanosis, clubbing or edema. NEUROLOGIC: Alert and oriented x 3. Normal affect. Objective Data Vital Signs Vital Signs: Vital Signs - 24 hr 07/14/22 13:45 07/14/22 14:00 07/14/22 14:00 Temperature 35.7 C L Pulse Rate 88 92 92 Respiratory Rate 16 16 16 Blood Pressure
--- NOTE | 2022-07-15 10:26 | ECG_ITS ---
Measurements Intervals [place] Rate: 88 P: 68 MI: 169 QRS: -7 QRSD: 114 T: 54 QT: 366 QTc: 443 Interpretive Statements SINUS RHYTHM INTRAVENTRICULAR CONDUCTION DELAY BORDERLINE R WAVE PROGRESSION, ANTERIOR LEADS BASELINE ARTIFACT- II, III, AVR, AVL, AVF BORDERLINE ECG COMPARED TO ECG 07/10/2022 11:36:16 NO SIGNIFICANT CHANGES Electronically Signed On 07-15-2022 11:05:10 RECREATION FACILITY ATTENDANT by Kendrick Paula D.O.
[2022-07-15 10:58] LABS: INR 1.5; Prothrombin Time 17.4 Seconds (11.1-14.7)
--- NOTE | 2022-07-15 14:00 | PM.IMPN ---
Progress Note: A&P Assessment and Plan (1) Acute exacerbation of chronic obstructive pulmonary disease: Code(s): J44.1 - Chronic obstructive pulmonary disease with (acute) exacerbation Status: Acute Assessment and Plan: -continue Solu-Medrol 60 q 6 hrs -continue neb treatments -I believe that the patient was having some problems with her concentrator at home. The patient tells me that she has had the same concentrator for over 5 years. Her son went and purchased her a new oxygen concentrator. May need portable oxygen tank at home or multiple tanks in different rooms to avoid extending her tubing. -continue Omnicef -continue Singulair -continue guaifenesin -pulmonology consulted due to her severe COPD, appreciate any additional recommendations 07/15/2022 interval history: patient with severe advanced emphysema and recurrent exacerbation of COPD on 07/13 seen rn spine and taper methylprednisone to prednisone 40 mg q.day, today taper it down to 30mg daily, and continue bronchodilator, sputum culture is growing mixed brayden, blood culture and MRSA are pending, patient clinical symptoms are stable at rest, patient gets hypoxic with any exertion, on 07/14 an attempted to reduce oxygen from 5L to 3L, patient was desaturating below 88% incrased to 4L, maintains, satruation above 88%, today again patient is requring 5L again seen by her rn spine stopped cefdinir and started her on Imipenem, will continue present management and monitor, will have a PT OT evaluate the patient. (2) Anemia: Qualifiers: Anemia type: iron deficiency Iron deficiency anemia type: unspecified iron deficiency Qualified Code(s): D50.9 - Iron deficiency anemia, unspecified Code(s): D64.9 - Anemia, unspecified Status: Acute Assessment and Plan: -appears to be at her baseline -continue to monitor (3) Anxiety and depression: Code(s): F41.9 - Anxiety disorder, unspecified; F32.A - Depression, unspecified Status: Acute Assessment and Plan: -continue Paxil and Ativan (4) Chronic kidney disease: Code(s): N18.9 - Chronic kidney disease, unspecified Status: Acute Assessment and Plan: -stable (5) Dyslipidemia: Code(s): E78.5 - Hyperlipidemia, unspecified Status: Acute Assessment and Plan: -heart healthy diet (6) Hypertension: Code(s): I10 - Essential (primary) hypertension Status: Acute Assessment and Plan: -continue Benicar and Norvasc (7) Hypothyroidism: Qualifiers: Hypothyroidism type: unspecified Qualified Code(s): E03.9 - Hypothyroidism, unspecified Code(s): E03.9 - Hypothyroidism, unspecified Status: Acute Assessment and Plan: -continue levothyroxine -check TSH (8) Memory deficit: Code(s): R41.3 - Other amnesia Status: Acute Assessment and Plan: -Possible early dementia -continue Namenda and Aricept (9) Atrial flutter: Code(s): I48.92 - Unspecified atrial flutter Status: Acute Assessment and Plan: -Continue flecainide and Eliquis (10) Urinary frequency: Code(s): R35.0 - Frequency of micturition Status: Acute Assessment and Plan: -reported today, check UA Subjective Date/time seen: 07/15/22 14:01 07/15/2022 interval history: patient with severe advanced emphysema and recurrent exacerbation of COPD on 07/13 seen rn spine and taper methylprednisone to prednisone 40 mg q.day, today taper it down to 30mg daily, and continue bronchodilator, sputum culture is growing mixed brayden, blood culture and MRSA are pending, patient clinical symptoms are stable at rest, patient gets hypoxic with any exertion, on 07/14 an attempted to reduce oxygen from 5L to 3L, patient was desaturating below 88% incrased to 4L, maintains, satruation above 88%, today again patient is requring 5L again seen
[2022-07-15] MEDS: guaiFENesin 200 MG/10 ML UDC PO (16:58)
[2022-07-15] MEDS: MONTELUKAST SODIUM 10 MG TABLET PO (21:07)
[2022-07-16] VITALS (19 sets, daily range): BP systolic 131–159; BP diastolic 54–63; PULSE 76–93; RESP 14–20; TEMP 36.1–36.3; O2SAT 93–96
[2022-07-16] MEDS: guaiFENesin 200 MG/10 ML UDC PO (00:19)
[2022-07-16] MEDS: IPRATROPIUM BR 0.02% INH SOLN 0.5 MG/2.5 ML VIAL INHALATION ×4 (02:48→20:36)
[2022-07-16] MEDS: LEVALBUTEROL NEB 1.25 MG/3 ML INHALATION ×4 (02:49→20:36)
[2022-07-16] MEDS: ACETAMINOPHEN 325 MG TABLET 650 MG PO ×2 (03:49→16:02)
[2022-07-16] MEDS: LEVOTHYROXINE SODIUM 25 MCG TABLET PO (05:38)
[2022-07-16 06:39] LABS: Hematocrit 32.4 % (37.0-47.0); Hemoglobin 10.3 g/dL (12.0-15.0); Mean Corpuscular HGB Conc 31.8 g/dl (32-36); Mean Corpuscular Hemoglobin 32.3 pg (26-34); Mean Corpuscular Volume 101.6 fl (80-100); Mean Platelet Volume 9.7 fl (7.4-10.4); Platelet Count Result 237 k/mm3 (150-375); Red Blood Count 3.19 M/mm3 (4.2-5.4); Red Cell Distribution Width 13.3 % (11.5-14.5); White Blood Count 13.4 K/mm3 (4.5-10.0)
[2022-07-16 06:46] LABS: Anion Gap 3 mmol/L (8-16); Blood Urea Nitrogen 21 mg/dL (7-17); Calcium 8.1 mg/dL (8.4-10.2); Carbon Dioxide 36 mmol/L (22-30); Chloride 99 mmol/L (98-107); Estimated CRCL calculation 37 ml/min; Estimated Glomerular Filt Rate > 60; Glucose 80 mg/dL (65-110); Magnesium 2.3 mg/dL (1.6-2.3); Potassium 3.9 mmol/L (3.4-5.0); Sodium 138 mmol/L (137-145)
[2022-07-16] MEDS: LORazepam (*CRX) 1 MG TABLET PO ×2 (08:43→17:02)
[2022-07-16] MEDS: CHOLECALCIFEROL 1,000 UNITS TABLET 2000 UNITS PO (08:43)
[2022-07-16] MEDS: amLODIPine BESYLATE 5 MG TABLET PO (08:44)
[2022-07-16] MEDS: PARoxetine 20 MG TABLET PO ×2 (08:44→17:03)
[2022-07-16] MEDS: FLECAINIDE ACETATE 100 MG TABLET PO ×2 (08:44→20:12)
[2022-07-16] MEDS: predniSONE 20 MG, predniSONE 10 MG 30 MG PO (08:44)
[2022-07-16] MEDS: OLMESARTAN MEDOXOMIL 20 MG TABLET PO (08:44)
[2022-07-16] MEDS: OPTI-GEN TAB 1 TABLET PO (08:44)
[2022-07-16] MEDS: FOLIC ACID 1 MG TABLET PO (08:44)
[2022-07-16] MEDS: MEMANTINE 5 MG TABLET PO ×2 (08:44→17:03)
[2022-07-16] MEDS: FLUTICASONE/UMECLIDIN/VILANTER 100-62.5-25 MCG ELLIPTA 1 PUFF INHALATION (09:43)
--- NOTE | 2022-07-16 09:43 | PM.PNPUL ---
Progress Note: A&P Assessment and Plan (1) Acute exacerbation of chronic obstructive pulmonary disease: Code(s): J44.1 - Chronic obstructive pulmonary disease with (acute) exacerbation Status: Acute Assessment and Plan: 77-year-old female with advanced emphysema, frequent hospitalizations for COPD exacerbation presented with increasing shortness of breath. The patient has been treated for another COPD exacerbation with IV steroids, or antibiotics and nebulized short-acting bronchodilators. there has been no further improvement of respiratory status over the last 48 hours. The patient continues to require high FiO2 for her COPD and the new chest CT showed new infiltrates in left upper lobe and right lower lobe which could be due to lower respiratory tract infection. She has severe emphysema but these infiltrates were not present during previous hospitalization in early June. The patient continues to have blood tinged sputum. BNP not too elevated. The patient has been on a direct anticoagulant for atrial fibrillation. Currently she is in normal sinus rhythm. In view of severe COPD, frequent hospitalizations with previous use of steroids and antibiotics the patient is at high risk for lung infections related to Gram-negative organisms like Pseudomonas. Sputum culture nondiagnostic. MRSA screening negative. Alternatively these infiltrates could be due to alveolar hemorrhage as patient is on direct anticoagulant. I doubt this is due to congestive heart failure. Plan: continue with current regimen IV antibiotics nebulized short-acting bronchodilators and oral steroids. (2) Chronic obstructive pulmonary disease: Code(s): J44.9 - Chronic obstructive pulmonary disease, unspecified Status: Acute (3) Chronic respiratory failure with hypoxia: Code(s): J96.11 - Chronic respiratory failure with hypoxia Status: Acute (4) Anxiety and depression: Code(s): F41.9 - Anxiety disorder, unspecified; F32.A - Depression, unspecified Status: Acute Subjective Date/time seen: 07/16/22 09:43 Interval history: patient doing little better today. No hemoptysis this a.m.. Less shortness of breath afebrile, out of bed in chair. Review of Systems Review of Systems: All systems reviewed & are unremarkable except as noted in HPI and below ( HPI and below) Exam Narrative: GENERAL APPEARANCE: Well developed, well nourished, alert and cooperative, and appears to be in moderate respiratory distress while breathing supplemental oxygen via nasal cannula SKIN: Inspection of the skin reveals no rashes, ulcerations or petechiae. HEENT: Sclerae anicteric and conjunctivae pink and moist. Extraocular movements were intact and pupils were equal, round. The oral mucosa, hard and soft palate, tongue and posterior pharynx were normal. NECK: Supple. There was no thyroid enlargement, and no tenderness, or masses were felt. CHEST: Normal AP diameter and normal contour without any kyphoscoliosis. LUNGS: distant breath sounds bilaterally. CARDIAC: tachycardia regular rhythm normal heart sounds no murmurs ABDOMEN: Soft and nontender with normal bowel sounds. There was no organomegaly. LYMPH NODES: No lymphadenopathy was appreciated in the neck. EXTREMITIES: No cyanosis, clubbing or edema. NEUROLOGIC: Alert and oriented x 3. Normal affect. Objective Data Vital Signs Vital Signs: Vital Signs - 24 hr 07/15/22 12:01 07/15/22 14:20 07/15/22 14:31 Temperature Pulse Rate 85 91 88 Respiratory Rate 18 18 Blood Pressure Pulse Oximetry Oxygen Delivery Oxygen Flow Rate 07/15/22 14:00 07/15/22 16:03 07/15/22 20:57 Temperature 36.0 C L Pulse Rate 86 89 83 Respiratory Rate 20 20 Blood Pressure 136/59 L Pulse Oximetry 94 Oxygen Delivery Oxygen Flow Rate 07/15/22 20:58 07/15/22 21:08 07/15/22 21:06 Temperature Pulse Rate 85 83 Respiratory Rate 20 Blood Pressure
--- NOTE | 2022-07-16 13:29 | PM.IMPN ---
Progress Note: A&P Assessment and Plan (1) Acute exacerbation of chronic obstructive pulmonary disease: Code(s): J44.1 - Chronic obstructive pulmonary disease with (acute) exacerbation Status: Acute Assessment and Plan: -continue Solu-Medrol 60 q 6 hrs -continue neb treatments -I believe that the patient was having some problems with her concentrator at home. The patient tells me that she has had the same concentrator for over 5 years. Her son went and purchased her a new oxygen concentrator. May need portable oxygen tank at home or multiple tanks in different rooms to avoid extending her tubing. -continue Omnicef -continue Singulair -continue guaifenesin -pulmonology consulted due to her severe COPD, appreciate any additional recommendations 07/16/2022 interval history: patient with severe advanced emphysema and recurrent exacerbation of COPD on 07/13 seen marketing development manager and taper methylprednisone to prednisone 40 mg q.day, today taper it down to 30mg daily, and continue bronchodilator, sputum culture is growing mixed brayden, blood culture no growth so far and MRSA is negative, marketing development manager started the patient on imipenem suspect patient may have Pseudomonas pneumonia due to severe COPD, patient clinical symptoms are stable at rest, patient gets hypoxic with any exertion, on 07/14 an attempted to reduce oxygen from 5L to 3L, patient was desaturating below 88% incrased to 4L, maintains, satruation above 88%, today again patient is requring 5L again seen by her marketing development manager, will continue present management and monitor, will have a PT OT evaluate the patient. (2) Anemia: Qualifiers: Anemia type: iron deficiency Iron deficiency anemia type: unspecified iron deficiency Qualified Code(s): D50.9 - Iron deficiency anemia, unspecified Code(s): D64.9 - Anemia, unspecified Status: Acute Assessment and Plan: -appears to be at her baseline -continue to monitor (3) Anxiety and depression: Code(s): F41.9 - Anxiety disorder, unspecified; F32.A - Depression, unspecified Status: Acute Assessment and Plan: -continue Paxil and Ativan (4) Chronic kidney disease: Code(s): N18.9 - Chronic kidney disease, unspecified Status: Acute Assessment and Plan: -stable (5) Dyslipidemia: Code(s): E78.5 - Hyperlipidemia, unspecified Status: Acute Assessment and Plan: -heart healthy diet (6) Hypertension: Code(s): I10 - Essential (primary) hypertension Status: Acute Assessment and Plan: -continue Benicar and Norvasc (7) Hypothyroidism: Qualifiers: Hypothyroidism type: unspecified Qualified Code(s): E03.9 - Hypothyroidism, unspecified Code(s): E03.9 - Hypothyroidism, unspecified Status: Acute Assessment and Plan: -continue levothyroxine -check TSH (8) Memory deficit: Code(s): R41.3 - Other amnesia Status: Acute Assessment and Plan: -Possible early dementia -continue Namenda and Aricept (9) Atrial flutter: Code(s): I48.92 - Unspecified atrial flutter Status: Acute Assessment and Plan: -Continue flecainide and Eliquis (10) Urinary frequency: Code(s): R35.0 - Frequency of micturition Status: Acute Assessment and Plan: -reported today, check UA Subjective Date/time seen: 07/16/22 13:29 07/16/2022 interval history: patient with severe advanced emphysema and recurrent exacerbation of COPD on 07/13 seen marketing development manager and taper methylprednisone to prednisone 40 mg q.day, today taper it down to 30mg daily, and continue bronchodilator, sputum culture is growing mixed brayden, blood culture no growth so far and MRSA is negative, marketing development manager started the patient on imipenem suspect patient may have Pseudomonas pneumonia due to severe COPD, patient clinical symptoms are stable at rest,
[2022-07-16] MEDS: MONTELUKAST SODIUM 10 MG TABLET PO (20:13)
[2022-07-17] VITALS (19 sets, daily range): BP systolic 118–178; BP diastolic 51–72; PULSE 2–91; RESP 14–22; TEMP 35.9–36.1; O2SAT 91–99
[2022-07-17] MEDS: LEVALBUTEROL NEB 1.25 MG/3 ML INHALATION ×3 (02:36→14:12)
[2022-07-17] MEDS: IPRATROPIUM BR 0.02% INH SOLN 0.5 MG/2.5 ML VIAL INHALATION ×3 (02:37→14:12)
[2022-07-17] MEDS: ACETAMINOPHEN 325 MG TABLET 650 MG PO ×2 (04:43→16:09)
[2022-07-17] MEDS: CYCLOBENZAPRINE HCL 10 MG TABLET PO (04:53)
[2022-07-17 06:26] LABS: Hemoglobin 9.8 g/dL (12.0-15.0); Mean Corpuscular HGB Conc 30.6 g/dl (32-36); Mean Corpuscular Hemoglobin 31.6 pg (26-34); Mean Corpuscular Volume 103.2 fl (80-100); Mean Platelet Volume 9.6 fl (7.4-10.4); Platelet Count Result 272 k/mm3 (150-375); Red Cell Distribution Width 13.5 % (11.5-14.5); White Blood Count 12.4 K/mm3 (4.5-10.0)
[2022-07-17 06:34] LABS: Anion Gap 5 mmol/L (8-16); Blood Urea Nitrogen 19 mg/dL (7-17); Calcium 8.3 mg/dL (8.4-10.2); Carbon Dioxide 36 mmol/L (22-30); Chloride 98 mmol/L (98-107); Estimated CRCL calculation 37 ml/min; Estimated Glomerular Filt Rate > 60; Glucose 81 mg/dL (65-110); Magnesium 2.3 mg/dL (1.6-2.3); Potassium 3.6 mmol/L (3.4-5.0); Sodium 139 mmol/L (137-145)
[2022-07-17] MEDS: CHOLECALCIFEROL 1,000 UNITS TABLET 2000 UNITS PO (09:15)
[2022-07-17] MEDS: LORazepam (*CRX) 1 MG TABLET PO ×2 (09:15→21:12)
[2022-07-17] MEDS: LEVOTHYROXINE SODIUM 25 MCG TABLET PO (09:15)
[2022-07-17] MEDS: OPTI-GEN TAB 1 TABLET PO (09:16)
[2022-07-17] MEDS: FLECAINIDE ACETATE 100 MG TABLET PO ×2 (09:16→21:09)
[2022-07-17] MEDS: amLODIPine BESYLATE 5 MG TABLET PO (09:16)
[2022-07-17] MEDS: FOLIC ACID 1 MG TABLET PO (09:16)
[2022-07-17] MEDS: MEMANTINE 5 MG TABLET PO ×2 (09:16→17:36)
[2022-07-17] MEDS: OLMESARTAN MEDOXOMIL 20 MG TABLET PO (09:16)
[2022-07-17] MEDS: predniSONE 20 MG, predniSONE 10 MG 30 MG PO (09:16)
[2022-07-17] MEDS: PARoxetine 20 MG TABLET PO ×2 (09:16→17:37)
--- NOTE | 2022-07-17 11:10 | PM.PNPUL ---
Progress Note: A&P Assessment and Plan (1) Acute exacerbation of chronic obstructive pulmonary disease: Code(s): J44.1 - Chronic obstructive pulmonary disease with (acute) exacerbation Status: Acute Assessment and Plan: 77-year-old female with advanced emphysema, frequent hospitalizations for COPD exacerbation presented with increasing shortness of breath. The patient has been treated for another COPD exacerbation with IV steroids, or antibiotics and nebulized short-acting bronchodilators. patient seems to be improving slowly. Sputum now of supervisor prep color, non bloody. patient has less shortness of breath. Plan: will decrease oral prednisone starting in a.m. otherwise continue with same treatment out of bed to chair. (2) Chronic obstructive pulmonary disease: Code(s): J44.9 - Chronic obstructive pulmonary disease, unspecified Status: Acute (3) Chronic respiratory failure with hypoxia: Code(s): J96.11 - Chronic respiratory failure with hypoxia Status: Acute (4) Anxiety and depression: Code(s): F41.9 - Anxiety disorder, unspecified; F32.A - Depression, unspecified Status: Acute Subjective Date/time seen: 07/17/22 11:10 Interval history: patient doing better. She has less coughing phlegm now becoming clear. Less shortness of breath. Still on 4 L per minute oxygen. Review of Systems Review of Systems: All systems reviewed & are unremarkable except as noted in HPI and below ( HPI and below) Exam Narrative: GENERAL APPEARANCE: Well developed, well nourished, alert and cooperative, and appears to be in moderate respiratory distress while breathing supplemental oxygen via nasal cannula SKIN: Inspection of the skin reveals no rashes, ulcerations or petechiae. HEENT: Sclerae anicteric and conjunctivae pink and moist. Extraocular movements were intact and pupils were equal, round. The oral mucosa, hard and soft palate, tongue and posterior pharynx were normal. NECK: Supple. There was no thyroid enlargement, and no tenderness, or masses were felt. CHEST: Normal AP diameter and normal contour without any kyphoscoliosis. LUNGS: distant breath sounds bilaterally. CARDIAC: tachycardia regular rhythm normal heart sounds no murmurs ABDOMEN: Soft and nontender with normal bowel sounds. There was no organomegaly. LYMPH NODES: No lymphadenopathy was appreciated in the neck. EXTREMITIES: No cyanosis, clubbing or edema. NEUROLOGIC: Alert and oriented x 3. Normal affect. Objective Data Vital Signs Vital Signs: Vital Signs - 24 hr 07/16/22 14:30 07/16/22 14:41 07/16/22 12:00 Temperature Pulse Rate 82 76 87 Respiratory Rate 18 18 Blood Pressure Pulse Oximetry Oxygen Delivery Oxygen Flow Rate 07/16/22 16:00 07/16/22 17:50 07/16/22 20:12 Temperature 36.3 C L Pulse Rate 92 87 80 Respiratory Rate 18 Blood Pressure 131/54 L Pulse Oximetry 96 Oxygen Delivery Oxygen Flow Rate 07/16/22 20:37 07/16/22 20:52 07/16/22 20:52 Temperature Pulse Rate 77 82 92 Respiratory Rate 18 18 Blood Pressure Pulse Oximetry 93 Oxygen Delivery Nasal Cannula Oxygen Flow Rate 4 07/16/22 23:14 07/16/22 22:00 07/17/22 02:30 Temperature 36.1 C L Pulse Rate 80 83 86 Respiratory Rate 16 18 Blood Pressure 153/56 H Pulse Oximetry 96 Oxygen Delivery Oxygen Flow Rate 07/17/22 02:45 07/17/22 04:00 07/16/22 20:00 Temperature Pulse Rate 88 75 82 Respiratory Rate 18 Blood Pressure Pulse Oximetry Oxygen Delivery Oxygen Flow Rate 07/17/22 06:37 07/17/22 08:44 07/17/22 04:15 Temperature 36.1 C L Pulse Rate 86 Respiratory Rate 20 Blood Pressure 145/54 H 178/72 H Pulse Oximetry 97 Oxygen Delivery Nasal Cannula Oxygen Flow Rate 4 07/17/22 05:15 07/17/22 09:03 07/17/22 09:03 Temperature Pulse Rate 83 Respiratory Rate 20 Blood Pressure 152/56 H Pulse Oximetry 91 Oxygen De
--- NOTE | 2022-07-17 11:26 | PM.IMPN ---
Progress Note: A&P Assessment and Plan (1) Acute exacerbation of chronic obstructive pulmonary disease: Code(s): J44.1 - Chronic obstructive pulmonary disease with (acute) exacerbation Status: Acute Assessment and Plan: -continue Solu-Medrol 60 q 6 hrs -continue neb treatments -I believe that the patient was having some problems with her concentrator at home. The patient tells me that she has had the same concentrator for over 5 years. Her son went and purchased her a new oxygen concentrator. May need portable oxygen tank at home or multiple tanks in different rooms to avoid extending her tubing. -continue Omnicef -continue Singulair -continue guaifenesin -pulmonology consulted due to her severe COPD, appreciate any additional recommendations 07/17/2022 interval history: patient with severe advanced emphysema and recurrent exacerbation of COPD on 07/13 seen paper wood cutter and taper methylprednisone to prednisone 40 mg q.day, today taper it down to 30mg daily, and continue bronchodilator, sputum culture is growing mixed brayden, blood culture no growth so far and MRSA is negative, paper wood cutter started the patient on imipenem suspect patient may have Pseudomonas pneumonia due to severe COPD, patient clinical symptoms are stable at rest, patient gets hypoxic with any exertion, on 07/14 an attempted to reduce oxygen from 5L to 3L, patient was desaturating below 88% incrased to 4L, maintains, satruation above 88%, today again patient is requring 5L again seen by her paper wood cutter, seem there is some improvement, patient is slowly improving, will continue present management and monitor, will have a PT OT evaluate the patient. (2) Anemia: Qualifiers: Anemia type: iron deficiency Iron deficiency anemia type: unspecified iron deficiency Qualified Code(s): D50.9 - Iron deficiency anemia, unspecified Code(s): D64.9 - Anemia, unspecified Status: Acute Assessment and Plan: -appears to be at her baseline -continue to monitor (3) Anxiety and depression: Code(s): F41.9 - Anxiety disorder, unspecified; F32.A - Depression, unspecified Status: Acute Assessment and Plan: -continue Paxil and Ativan (4) Chronic kidney disease: Code(s): N18.9 - Chronic kidney disease, unspecified Status: Acute Assessment and Plan: -stable (5) Dyslipidemia: Code(s): E78.5 - Hyperlipidemia, unspecified Status: Acute Assessment and Plan: -heart healthy diet (6) Hypertension: Code(s): I10 - Essential (primary) hypertension Status: Acute Assessment and Plan: -continue Benicar and Norvasc (7) Hypothyroidism: Qualifiers: Hypothyroidism type: unspecified Qualified Code(s): E03.9 - Hypothyroidism, unspecified Code(s): E03.9 - Hypothyroidism, unspecified Status: Acute Assessment and Plan: -continue levothyroxine -check TSH (8) Memory deficit: Code(s): R41.3 - Other amnesia Status: Acute Assessment and Plan: -Possible early dementia -continue Namenda and Aricept (9) Atrial flutter: Code(s): I48.92 - Unspecified atrial flutter Status: Acute Assessment and Plan: -Continue flecainide and Eliquis (10) Urinary frequency: Code(s): R35.0 - Frequency of micturition Status: Acute Assessment and Plan: -reported today, check UA Subjective Date/time seen: 07/17/22 11:26 07/17/2022 interval history: patient with severe advanced emphysema and recurrent exacerbation of COPD on 07/13 seen paper wood cutter and taper methylprednisone to prednisone 40 mg q.day, today taper it down to 30mg daily, and continue bronchodilator, sputum culture is growing mixed brayden, blood culture no growth so far and MRSA is negative, paper wood cutter started the patient on imipenem suspect patient may have Pseudomonas pneumonia due to
[2022-07-17] MEDS: FLUTICASONE/UMECLIDIN/VILANTER 100-62.5-25 MCG ELLIPTA 1 PUFF INHALATION (11:44)
[2022-07-17] MEDS: MONTELUKAST SODIUM 10 MG TABLET PO (21:09)
[2022-07-18] VITALS (20 sets, daily range): BP systolic 132–159; BP diastolic 56–62; PULSE 73–92; RESP 16–22; TEMP 35.9–36.9; O2SAT 90–99
[2022-07-18] MEDS: LEVALBUTEROL NEB 1.25 MG/3 ML INHALATION ×4 (02:05→22:18)
[2022-07-18] MEDS: IPRATROPIUM BR 0.02% INH SOLN 0.5 MG/2.5 ML VIAL INHALATION ×4 (02:06→22:17)
[2022-07-18] MEDS: ACETAMINOPHEN 325 MG TABLET 650 MG PO ×2 (04:49→17:53)
[2022-07-18] MEDS: LEVOTHYROXINE SODIUM 25 MCG TABLET PO (05:37)
[2022-07-18 06:11] LABS: Hematocrit 33.4 % (37.0-47.0); Hemoglobin 10.1 g/dL (12.0-15.0); Mean Corpuscular HGB Conc 30.2 g/dl (32-36); Mean Corpuscular Hemoglobin 31.9 pg (26-34); Mean Corpuscular Volume 105.4 fl (80-100); Mean Platelet Volume 9.3 fl (7.4-10.4); Platelet Count Result 294 k/mm3 (150-375); Red Blood Count 3.17 M/mm3 (4.2-5.4); Red Cell Distribution Width 13.2 % (11.5-14.5)
[2022-07-18 06:26] LABS: Anion Gap 2 mmol/L (8-16); Blood Urea Nitrogen 16 mg/dL (7-17); Calcium 8.2 mg/dL (8.4-10.2); Carbon Dioxide 36 mmol/L (22-30); Chloride 101 mmol/L (98-107); Estimated CRCL calculation 33 ml/min; Estimated Glomerular Filt Rate > 60; Glucose 81 mg/dL (65-110); Magnesium 2.3 mg/dL (1.6-2.3); Potassium 3.6 mmol/L (3.4-5.0); Sodium 139 mmol/L (137-145)
--- NOTE | 2022-07-18 07:35 | WPDURCON ---
Assessment and Plan Assessment and plan (1) Overactive bladder: Code(s): N32.81 - Overactive bladder Status: Acute Assessment and Plan: Clinical presentation c/w overactive bladder. Will empirically trial anticholinergic (ie. Oxybutynin). Urology Consult Note HPI Date Seen: 07/18/22 Requesting Physician: Lola Landry PA-C Primary Care Provider: Jf Wade MD Consult Narrative Narrative: Jenny Lucas is a 77 year old female who is known to me with prior kidney stones and intermittent hematuria. She has undergone cystoscopy and CT imaging in the past. Just recently she has developed urinary frequency and urgency with episodes of near urge incontinence and actual urge incontinence. She denies obstructive symptoms dysuria or hematuria. She is admitted with exacerbation of COPD. Review of Systems Cardiovascular: Cardiovascular: Denies chest pain, Denies lightheadedness, Denies palpitations and Denies dyspnea Respiratory: Respiratory: Denies dyspnea Gastrointestinal: Gastrointestinal: Denies diarrhea, Denies nausea and Denies vomiting Genitourinary: Genitourinary: Denies hematuria and Denies dysuria Endocrine: Endocrine: Denies palpitations [facility] Past Medical History Medical History (Updated 07/18/22 @ 07:36 by Karlo Edwards MD) Adenomatous colon polyp Anxiety and depression Arthritis Atrial flutter Atrial flutter with rapid ventricular response Chronic anemia Chronic kidney disease Chronic obstructive pulmonary disease 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 Chronic respiratory failure with hypoxia, on home oxygen therapy On 2 liters nasal cannula. Cognitive dysfunction Dyslipidemia Gastroesophageal reflux disease Hearing loss Hypertension Hypothyroidism Iron deficiency anemia Kidney stones Lung nodule Memory deficit Multiple pulmonary nodules determined by computed tomography of lung Paroxysmal atrial flutter Personal history of COVID-19 Pre-diabetes Tobacco abuse Surgical History Surgical History History of bilateral cataract extraction History of cardiac catheterization History of colonoscopy with polypectomy History of cystoscopy History of lithotripsy History of lung biopsy (02/2020) Left lung nodule-fibrous tissue with chronic inflammation and granulomatous. History of tubal ligation Family History Family History Other Breast cancer Social History Social History (Updated 07/10/22 @ 21:08 by Sherri Cardona NP) Social History: The patient is and has 1 son. She is a former smoker. She retired from [employer]. Her son Jevon lives with her. Surrogate medical decision maker: Jevon Lucas, son. Code status: Full code Smoking packs per day: 1 Smoking cigarettes per day: 20.0 Years smoked: 50 Smoking pack-years: 50.00 Smoking status: Former smoker Tobacco type: cigarettes Second hand tobacco smoke exposure: No Alcohol intake: former Drinks per week: 3 Substance use: never Substance use type: does not use Lack of Transportation: No Lack of Food: Never True Current Housing: I Have Housing Concerned About Future Housing: No Difficulty Paying Gas/Electric Bills: No Difficulty Paying for Meds: No Currently Unemployed: No Education: High School Diploma/GED Difficulty w/ Childcare or Family Care: No Living arrangements: with family Spiritual care concerns: No Meds Home Medications and Allergies Home Medications Medication Instructions Recorded Confirmed Type tlbnubxrbyoe-cuyhnexf-flhmkm tablet 1 tablet PO DAILY 07/14/20 07/10/22 History cholecalciferol (vitamin D3) 50 100 mcg PO DAILY 02/27/22 07/10/22 History mcg (2,000 unit) capsule lorazepam 1 mg tablet 1 mg PO BID #60 tabs 05/13/22 07/10/22 Rx fluticasone fur. 100 mcg-umeclid 1 inh inhalation Q24H #60 ea 06/04/22
[2022-07-18] MEDS: CHOLECALCIFEROL 1,000 UNITS TABLET 2000 UNITS PO (09:03)
[2022-07-18] MEDS: MEMANTINE 5 MG TABLET PO ×2 (09:03→17:42)
[2022-07-18] MEDS: OLMESARTAN MEDOXOMIL 20 MG TABLET PO (09:03)
[2022-07-18] MEDS: OPTI-GEN TAB 1 TABLET PO (09:03)
[2022-07-18] MEDS: amLODIPine BESYLATE 5 MG TABLET PO (09:04)
[2022-07-18] MEDS: FOLIC ACID 1 MG TABLET PO (09:04)
[2022-07-18] MEDS: predniSONE 20 MG TABLET PO (09:04)
[2022-07-18] MEDS: LORazepam (*CRX) 1 MG TABLET PO ×2 (09:15→17:41)
--- NOTE | 2022-07-18 09:31 | PC.NURSE ---
called pharmacy twice regarding missing medications. pharmacy still has not sent meds up to floor.
[2022-07-18] MEDS: PARoxetine 20 MG TABLET PO ×2 (09:43→17:42)
[2022-07-18] MEDS: FLECAINIDE ACETATE 100 MG TABLET PO ×2 (09:44→20:59)
[2022-07-18] MEDS: FLUTICASONE/UMECLIDIN/VILANTER 100-62.5-25 MCG ELLIPTA 1 PUFF INHALATION (10:12)
--- NOTE | 2022-07-18 10:46 | PM.PNPUL ---
Progress Note: A&P Assessment and Plan (1) Acute exacerbation of chronic obstructive pulmonary disease: Code(s): J44.1 - Chronic obstructive pulmonary disease with (acute) exacerbation Status: Acute Assessment and Plan: 77-year-old female with advanced emphysema, frequent hospitalizations for COPD exacerbation presented with increasing shortness of breath. The patient has been treated for another COPD exacerbation with IV steroids, or antibiotics and nebulized short-acting bronchodilators. patient seems to be improving slowly. Sputum now of wet end helper color, non bloody. patient has less shortness of breath. Plan: continue with same regimen for today. Will repeat chest x-ray in a.m.. Out of bed to chair. (2) Chronic obstructive pulmonary disease: Code(s): J44.9 - Chronic obstructive pulmonary disease, unspecified Status: Acute (3) Chronic respiratory failure with hypoxia: Code(s): J96.11 - Chronic respiratory failure with hypoxia Status: Acute (4) Anxiety and depression: Code(s): F41.9 - Anxiety disorder, unspecified; F32.A - Depression, unspecified Status: Acute Subjective Date/time seen: 07/18/22 10:46 Interval history: Patient doing better. No longer coughing up dark sputum. Shortness of breath less than before. Able to get out of bed with no worsening of shortness of breath. Review of Systems Review of Systems: All systems reviewed & are unremarkable except as noted in HPI and below ( HPI and below) Exam Narrative: GENERAL APPEARANCE: Well developed, well nourished, alert and cooperative, and appears to be in moderate respiratory distress while breathing supplemental oxygen via nasal cannula SKIN: Inspection of the skin reveals no rashes, ulcerations or petechiae. HEENT: Sclerae anicteric and conjunctivae pink and moist. Extraocular movements were intact and pupils were equal, round. The oral mucosa, hard and soft palate, tongue and posterior pharynx were normal. NECK: Supple. There was no thyroid enlargement, and no tenderness, or masses were felt. CHEST: Normal AP diameter and normal contour without any kyphoscoliosis. LUNGS: distant breath sounds bilaterally. CARDIAC: tachycardia regular rhythm normal heart sounds no murmurs ABDOMEN: Soft and nontender with normal bowel sounds. There was no organomegaly. LYMPH NODES: No lymphadenopathy was appreciated in the neck. EXTREMITIES: No cyanosis, clubbing or edema. NEUROLOGIC: Alert and oriented x 3. Normal affect. Objective Data Vital Signs Vital Signs: Vital Signs - 24 hr 07/17/22 12:00 07/17/22 14:12 07/17/22 14:24 Temperature Pulse Rate 87 87 91 Respiratory Rate 20 20 Blood Pressure Pulse Oximetry Oxygen Delivery Oxygen Flow Rate 07/17/22 14:00 07/17/22 16:00 07/17/22 19:37 Temperature 35.9 C L Pulse Rate 86 85 Respiratory Rate 14 Blood Pressure 118/51 L Pulse Oximetry 97 94 Oxygen Delivery Nasal Cannula Oxygen Flow Rate 4 07/17/22 21:09 07/17/22 20:00 07/17/22 22:12 Temperature 36.1 C L Pulse Rate 75 72 75 Respiratory Rate 22 H Blood Pressure 127/54 L Pulse Oximetry 99 Oxygen Delivery Oxygen Flow Rate 07/18/22 00:00 07/18/22 02:07 07/18/22 02:08 Temperature Pulse Rate 75 86 Respiratory Rate 20 Blood Pressure Pulse Oximetry 91 Oxygen Delivery Nasal Cannula Oxygen Flow Rate 4 07/18/22 04:00 07/18/22 02:20 07/18/22 06:15 Temperature 36.5 C Pulse Rate 88 89 85 Respiratory Rate 20 16 Blood Pressure 159/56 H Pulse Oximetry 96 Oxygen Delivery Oxygen Flow Rate 07/18/22 09:44 07/18/22 10:15 Temperature Pulse Rate 85 85 Respiratory Rate 20 Blood Pressure Pulse Oximetry Oxygen Delivery Oxygen Flow Rate Intake/Output Intake/Output: Intake & Output 07/15/22 07/16/22 07/17/22 07/18/22 23:59 23:59 23:59 23:59 Intake Total 2530 1865 1939 200 Output Total 9478 1999 850 B
[2022-07-18] MEDS: ENOXAPARIN 40 MG/0.4 ML SYRINGE SUB-Q (12:40)
--- NOTE | 2022-07-18 14:10 | PM.IMPN ---
Progress Note: A&P Assessment and Plan (1) Acute exacerbation of chronic obstructive pulmonary disease: Code(s): J44.1 - Chronic obstructive pulmonary disease with (acute) exacerbation Status: Acute Assessment and Plan: -continue Solu-Medrol 60 q 6 hrs -continue neb treatments -I believe that the patient was having some problems with her concentrator at home. The patient tells me that she has had the same concentrator for over 5 years. Her son went and purchased her a new oxygen concentrator. May need portable oxygen tank at home or multiple tanks in different rooms to avoid extending her tubing. -continue Omnicef -continue Singulair -continue guaifenesin -pulmonology consulted due to her severe COPD, appreciate any additional recommendations 07/18/2022 interval history: patient with severe advanced emphysema and recurrent exacerbation of COPD on 07/13 seen evp marketing and taper methylprednisone to prednisone 40 mg q.day, today taper it down to 30mg daily, and continue bronchodilator, sputum culture is growing mixed brayden, blood culture no growth so far and MRSA is negative, evp marketing started the patient on imipenem suspect patient may have Pseudomonas pneumonia due to severe COPD, patient clinical symptoms are stable at rest, patient gets hypoxic with any exertion, on 07/14 an attempted to reduce oxygen from 5L to 3L, patient was desaturating below 88% incrased to 4L, maintains, satruation above 88%, today patient is requring 4L again seen by her evp marketing, seem there is some improvement, her sputum is more clear now possibly after starting imipenem, patient is slowly improving, patient with a complaint of urinary incontinence seen by her urologist suspect patient over reactive bladder has started the patient on oxybutynin, today patient participating in PT, will continue present management and monitor. 0n 07/17 spoke with the patient's son and give updates. (2) Anemia: Qualifiers: Anemia type: iron deficiency Iron deficiency anemia type: unspecified iron deficiency Qualified Code(s): D50.9 - Iron deficiency anemia, unspecified Code(s): D64.9 - Anemia, unspecified Status: Acute Assessment and Plan: -appears to be at her baseline -continue to monitor (3) Anxiety and depression: Code(s): F41.9 - Anxiety disorder, unspecified; F32.A - Depression, unspecified Status: Acute Assessment and Plan: -continue Paxil and Ativan (4) Chronic kidney disease: Code(s): N18.9 - Chronic kidney disease, unspecified Status: Acute Assessment and Plan: -stable (5) Dyslipidemia: Code(s): E78.5 - Hyperlipidemia, unspecified Status: Acute Assessment and Plan: -heart healthy diet (6) Hypertension: Code(s): I10 - Essential (primary) hypertension Status: Acute Assessment and Plan: -continue Benicar and Norvasc (7) Hypothyroidism: Qualifiers: Hypothyroidism type: unspecified Qualified Code(s): E03.9 - Hypothyroidism, unspecified Code(s): E03.9 - Hypothyroidism, unspecified Status: Acute Assessment and Plan: -continue levothyroxine -check TSH (8) Memory deficit: Code(s): R41.3 - Other amnesia Status: Acute Assessment and Plan: -Possible early dementia -continue Namenda and Aricept (9) Atrial flutter: Code(s): I48.92 - Unspecified atrial flutter Status: Acute Assessment and Plan: -Continue flecainide and Eliquis (10) Urinary frequency: Code(s): R35.0 - Frequency of micturition Status: Acute Assessment and Plan: -reported today, check UA Subjective Date/time seen: 07/18/22 14:10 07/18/2022 interval history: patient with severe advanced emphysema and recurrent exacerbation of COPD on 07/13 seen evp marketing and taper methylprednisone to prednisone 40 mg q.day, to
[2022-07-18] MEDS: MONTELUKAST SODIUM 10 MG TABLET PO (20:59)
[2022-07-19] VITALS (20 sets, daily range): BP systolic 128–149; BP diastolic 45–60; PULSE 72–99; RESP 18–24; TEMP 35.6–36.2; O2SAT 90–98
[2022-07-19] MEDS: IPRATROPIUM BR 0.02% INH SOLN 0.5 MG/2.5 ML VIAL INHALATION ×4 (02:15→19:44)
[2022-07-19] MEDS: LEVALBUTEROL NEB 1.25 MG/3 ML INHALATION ×4 (02:15→19:44)
[2022-07-19] MEDS: LEVOTHYROXINE SODIUM 25 MCG TABLET PO (05:59)
[2022-07-19 06:42] LABS: Hemoglobin 10.3 g/dL (12.0-15.0); Mean Corpuscular HGB Conc 30.3 g/dl (32-36); Mean Corpuscular Hemoglobin 31.9 pg (26-34); Mean Corpuscular Volume 105.3 fl (80-100); Mean Platelet Volume 9.5 fl (7.4-10.4); Platelet Count Result 305 k/mm3 (150-375); Red Blood Count 3.23 M/mm3 (4.2-5.4); Red Cell Distribution Width 13.2 % (11.5-14.5); White Blood Count 10.9 K/mm3 (4.5-10.0)
[2022-07-19 06:55] LABS: Anion Gap 0 mmol/L (8-16); Blood Urea Nitrogen 14 mg/dL (7-17); Calcium 8.6 mg/dL (8.4-10.2); Carbon Dioxide 36 mmol/L (22-30); Chloride 98 mmol/L (98-107); Estimated CRCL calculation 37 ml/min; Estimated Glomerular Filt Rate > 60; Glucose 76 mg/dL (65-110); Magnesium 2.3 mg/dL (1.6-2.3); Potassium 3.6 mmol/L (3.4-5.0); Sodium 134 mmol/L (137-145)
[2022-07-19] MEDS: FLUTICASONE/UMECLIDIN/VILANTER 100-62.5-25 MCG ELLIPTA 1 PUFF INHALATION (07:33)
--- NOTE | 2022-07-19 07:57 | WPDUROPN2 ---
Progress Note: A&P Assessment and Plan (1) Urinary frequency: Code(s): R35.0 - Frequency of micturition Status: Acute (2) Overactive bladder: Code(s): N32.81 - Overactive bladder Status: Acute Assessment and Plan: Catheter placed for skin breakdown. Pt. willing to keep in place for a few days. Continue Oxybutynin with plans for voiding trial early next week. Subjective Subjective Date/Time Seen: 07/19/22 07:57 Unhappy about [place] catheter but willing to continue for a few days Review of Systems Cardiovascular: Cardiovascular: Denies chest pain, Denies lightheadedness, Denies palpitations and Denies dyspnea Respiratory: Respiratory: Denies dyspnea Gastrointestinal: Gastrointestinal: Denies diarrhea, Denies nausea and Denies vomiting Genitourinary: Genitourinary: Denies hematuria and Denies dysuria Endocrine: Endocrine: Denies palpitations Exam Const: General: no acute distress Resp: Effort & Inspection: normal respiratory effort GI: Inspection: non-distended GI Palp: No abdominal tenderness and No Guarding due to palpation present (GI) Auscultation: normal bowel sounds Objective Data Vital Signs Vital Signs: Vital Signs - 24 hr 07/18/22 09:44 07/18/22 10:15 07/18/22 08:19 Temperature Pulse Rate 85 85 Respiratory Rate 20 Blood Pressure Pulse Oximetry 96 Oxygen Delivery Nasal Cannula Oxygen Flow Rate 4 Fraction of Inspired Oxygen 07/18/22 08:00 07/18/22 12:49 07/18/22 10:25 Temperature Pulse Rate 83 85 88 Respiratory Rate 20 20 Blood Pressure Pulse Oximetry 95 Oxygen Delivery Nasal Cannula Oxygen Flow Rate 4 Fraction of Inspired Oxygen 36 07/18/22 14:00 07/18/22 14:06 07/18/22 12:02 Temperature 98.5 F Pulse Rate 92 91 90 Respiratory Rate 16 22 H Blood Pressure 132/57 L Pulse Oximetry 90 Oxygen Delivery Oxygen Flow Rate Fraction of Inspired Oxygen 07/18/22 16:00 07/18/22 20:59 07/18/22 22:00 Temperature 96.6 F L Pulse Rate 91 79 75 Respiratory Rate 20 Blood Pressure 143/62 H Pulse Oximetry 99 Oxygen Delivery Oxygen Flow Rate Fraction of Inspired Oxygen 07/18/22 23:01 07/18/22 20:00 07/19/22 02:15 Temperature Pulse Rate 73 94 Respiratory Rate 24 H Blood Pressure Pulse Oximetry 98 Oxygen Delivery Nasal Cannula Oxygen Flow Rate 4 Fraction of Inspired Oxygen 07/19/22 02:28 07/19/22 00:00 07/19/22 04:00 Temperature Pulse Rate 88 72 73 Respiratory Rate 24 H Blood Pressure Pulse Oximetry Oxygen Delivery Oxygen Flow Rate Fraction of Inspired Oxygen 07/19/22 06:00 07/19/22 07:33 07/19/22 07:33 Temperature 96.7 F L Pulse Rate 76 83 Respiratory Rate 20 Blood Pressure 141/60 H Pulse Oximetry 96 93 Oxygen Delivery Nasal Cannula Oxygen Flow Rate 3 Fraction of Inspired Oxygen 07/19/22 07:47 Temperature Pulse Rate 86 Respiratory Rate 22 H Blood Pressure Pulse Oximetry Oxygen Delivery Oxygen Flow Rate Fraction of Inspired Oxygen Intake/Output Intake/Output: Intake & Output 07/16/22 07/17/22 07/18/22 07/19/22 23:59 23:59 23:59 23:59 Intake Total 1865 1939 1660 100 Output Total 1999 850 800 Balance -135 1089 1660 -700 Meds/Results Medications: Active Medications Generic Name Dose Route Start Last Admin Trade Name Freq PRN Reason Stop Dose Admin Acetaminophen 650 mg 07/10/22 15:33 07/18/22 17:53 Acetaminophen 325 Mg Tablet PO 650 mg Q4H PRN Administration Mild Pain (1-3) or Fever Amlodipine Besylate 5 mg 07/11/22 09:00 07/18/22 09:04 Amlodipine Besylate 5 Mg Tablet PO 5 mg DAILY CHAUNCEY Administration Aspirin 81 mg 07/11/22 09:00 07/15/22 08:09 Aspirin 81 Mg Chewable Tablet PO 81 mg DAILY CHAUNCEY Administration Benzocaine 1 lozenge 07/13/22 22:21 07/14/22 14:28 Benzocaine/Menthol (*Bkc) 18 Ea Lozenge PO 1 lozenge PRN PRN Ad
[2022-07-19] MEDS: PARoxetine 20 MG TABLET PO ×2 (09:36→17:13)
[2022-07-19] MEDS: ENOXAPARIN 40 MG/0.4 ML SYRINGE SUB-Q (09:36)
[2022-07-19] MEDS: FLECAINIDE ACETATE 100 MG TABLET PO ×2 (09:36→21:22)
[2022-07-19] MEDS: MEMANTINE 5 MG TABLET PO ×2 (09:37→17:13)
[2022-07-19] MEDS: CHOLECALCIFEROL 1,000 UNITS TABLET 2000 UNITS PO (09:37)
[2022-07-19] MEDS: ACETAMINOPHEN 325 MG TABLET 650 MG PO ×2 (09:37→21:32)
[2022-07-19] MEDS: LORazepam (*CRX) 1 MG TABLET PO ×2 (09:37→17:14)
[2022-07-19] MEDS: OLMESARTAN MEDOXOMIL 20 MG TABLET PO (09:37)
[2022-07-19] MEDS: amLODIPine BESYLATE 5 MG TABLET PO (09:37)
[2022-07-19] MEDS: FOLIC ACID 1 MG TABLET PO (09:37)
[2022-07-19] MEDS: predniSONE 20 MG TABLET PO (09:37)
[2022-07-19] MEDS: OPTI-GEN TAB 1 TABLET PO (09:37)
--- NOTE | 2022-07-19 09:37 | PM.PNPUL ---
Progress Note: A&P Assessment and Plan (1) Acute exacerbation of chronic obstructive pulmonary disease: Code(s): J44.1 - Chronic obstructive pulmonary disease with (acute) exacerbation Status: Acute Assessment and Plan: 77-year-old female with advanced emphysema, frequent hospitalizations for COPD exacerbation presented with increasing shortness of breath. The patient has been treated for another COPD exacerbation with IV steroids, or antibiotics and nebulized short-acting bronchodilators. patient seems to be improving slowly. no longer coughing up dark bloody sputum, oxygen flow lower today. Chest x-ray done this a.m. essentially unchanged. Plan: Have discontinued IV imipenem. Okay to DC patient home in a.m. patient will continue with her maintenance bronchodilators, Trelegy inhaler and short-acting bronchodilators for p.r.n. use as before. Prednisone 15 mg for 3 days followed by prednisone 10 mg for 3 days, then stop. She will remain on home oxygen. She needs home oxygen evaluation prior to DC home. The patient will need to return to pulmonary clinic for follow-up in approximately 3 weeks. Will sign off. Please call with any questions. (2) Chronic obstructive pulmonary disease: Code(s): J44.9 - Chronic obstructive pulmonary disease, unspecified Status: Acute (3) Chronic respiratory failure with hypoxia: Code(s): J96.11 - Chronic respiratory failure with hypoxia Status: Acute (4) Anxiety and depression: Code(s): F41.9 - Anxiety disorder, unspecified; F32.A - Depression, unspecified Status: Acute Subjective Date/time seen: 07/19/22 09:37 Interval history: no new respiratory complaints. FiO2 lower today. She remains on antibiotics. Review of Systems Review of Systems: All systems reviewed & are unremarkable except as noted in HPI and below ( HPI and below) Exam Narrative: GENERAL APPEARANCE: Well developed, well nourished, alert and cooperative, and appears to be in moderate respiratory distress while breathing supplemental oxygen via nasal cannula SKIN: Inspection of the skin reveals no rashes, ulcerations or petechiae. HEENT: Sclerae anicteric and conjunctivae pink and moist. Extraocular movements were intact and pupils were equal, round. The oral mucosa, hard and soft palate, tongue and posterior pharynx were normal. NECK: Supple. There was no thyroid enlargement, and no tenderness, or masses were felt. CHEST: Normal AP diameter and normal contour without any kyphoscoliosis. LUNGS: distant breath sounds bilaterally. CARDIAC: tachycardia regular rhythm normal heart sounds no murmurs ABDOMEN: Soft and nontender with normal bowel sounds. There was no organomegaly. LYMPH NODES: No lymphadenopathy was appreciated in the neck. EXTREMITIES: No cyanosis, clubbing or edema. NEUROLOGIC: Alert and oriented x 3. Normal affect. Objective Data Vital Signs Vital Signs: Vital Signs - 24 hr 07/18/22 09:44 07/18/22 10:15 07/18/22 12:49 Temperature Pulse Rate 85 85 85 Respiratory Rate 20 20 Blood Pressure Pulse Oximetry 95 Oxygen Delivery Nasal Cannula Oxygen Flow Rate 4 Fraction of Inspired Oxygen 36 07/18/22 10:25 07/18/22 14:00 07/18/22 14:06 Temperature 36.9 C Pulse Rate 88 92 91 Respiratory Rate 20 16 22 H Blood Pressure 132/57 L Pulse Oximetry 90 Oxygen Delivery Oxygen Flow Rate Fraction of Inspired Oxygen 07/18/22 12:02 07/18/22 16:00 07/18/22 20:59 Temperature Pulse Rate 90 91 79 Respiratory Rate Blood Pressure Pulse Oximetry Oxygen Delivery Oxygen Flow Rate Fraction of Inspired Oxygen 07/18/22 22:00 07/18/22 23:01 07/18/22 20:00 Temperature 35.9 C L Pulse Rate 75 73 Respiratory Rate 20 Blood Pressure 143/62 H Pulse Oximetry 99 98 Oxygen Delivery Nasal Cannula Oxygen Flow Rate 4 Fraction of Inspired Oxygen 07/19/22 02:15 07/19/22 02:28 07/19/22 00:0
[2022-07-19] MEDS: BENZOCAINE/MENTHOL (*BKC) 18 EA LOZENGE 1 LOZENGE PO ×2 (10:15→17:14)
--- NOTE | 2022-07-19 11:30 | PM.IMPN ---
Progress Note: A&P Assessment and Plan (1) Acute exacerbation of chronic obstructive pulmonary disease: Code(s): J44.1 - Chronic obstructive pulmonary disease with (acute) exacerbation Status: Acute Assessment and Plan: -continue Solu-Medrol 60 q 6 hrs -continue neb treatments -I believe that the patient was having some problems with her concentrator at home. The patient tells me that she has had the same concentrator for over 5 years. Her son went and purchased her a new oxygen concentrator. May need portable oxygen tank at home or multiple tanks in different rooms to avoid extending her tubing. -continue Omnicef -continue Singulair -continue guaifenesin -pulmonology consulted due to her severe COPD, appreciate any additional recommendations (2) Anemia: Qualifiers: Anemia type: iron deficiency Iron deficiency anemia type: unspecified iron deficiency Qualified Code(s): D50.9 - Iron deficiency anemia, unspecified Code(s): D64.9 - Anemia, unspecified Status: Acute Assessment and Plan: -appears to be at her baseline -continue to monitor (3) Anxiety and depression: Code(s): F41.9 - Anxiety disorder, unspecified; F32.A - Depression, unspecified Status: Acute Assessment and Plan: -continue Paxil and Ativan (4) Chronic kidney disease: Code(s): N18.9 - Chronic kidney disease, unspecified Status: Acute Assessment and Plan: -stable (5) Dyslipidemia: Code(s): E78.5 - Hyperlipidemia, unspecified Status: Acute Assessment and Plan: -heart healthy diet (6) Hypertension: Code(s): I10 - Essential (primary) hypertension Status: Acute Assessment and Plan: -continue Benicar and Norvasc (7) Hypothyroidism: Qualifiers: Hypothyroidism type: unspecified Qualified Code(s): E03.9 - Hypothyroidism, unspecified Code(s): E03.9 - Hypothyroidism, unspecified Status: Acute Assessment and Plan: -continue levothyroxine -check TSH (8) Memory deficit: Code(s): R41.3 - Other amnesia Status: Acute Assessment and Plan: -Possible early dementia -continue Namenda and Aricept (9) Atrial flutter: Code(s): I48.92 - Unspecified atrial flutter Status: Acute Assessment and Plan: -Continue flecainide and Eliquis (10) Urinary frequency: Code(s): R35.0 - Frequency of micturition Status: Acute Assessment and Plan: -reported today, check UA Subjective Date/time seen: 07/19/22 11:30 No new complaints Exam Narrative: elderly frail chronically ill Patient is comfortable, NAD HEENT: eyes are clear and none icteric LUNGS: bilateral fair entry with rhonchi and wheezing HEART: RR S1S2 ABD: BS+, Soft and nontender Lower extremities: no edema SKIN: nonjaundiced Neuro: grossly intact. Objective Data Vital Signs Vital Signs: Vital Signs - 24 hr 07/18/22 12:49 07/18/22 14:00 07/18/22 14:06 Temperature 98.5 F Pulse Rate 85 92 91 Respiratory Rate 20 16 22 H Blood Pressure 132/57 L Pulse Oximetry 95 90 Oxygen Delivery Nasal Cannula Oxygen Flow Rate 4 Fraction of Inspired Oxygen 36 07/18/22 12:02 07/18/22 16:00 07/18/22 20:59 Temperature Pulse Rate 90 91 79 Respiratory Rate Blood Pressure Pulse Oximetry Oxygen Delivery Oxygen Flow Rate Fraction of Inspired Oxygen 07/18/22 22:00 07/18/22 23:01 07/18/22 20:00 Temperature 96.6 F L Pulse Rate 75 73 Respiratory Rate 20 Blood Pressure 143/62 H Pulse Oximetry 99 98 Oxygen Delivery Nasal Cannula Oxygen Flow Rate 4 Fraction of Inspired Oxygen 07/19/22 02:15 07/19/22 02:28 07/19/22 00:00 Temperature Pulse Rate 94 88 72 Respiratory Rate 24 H 24 H Blood Pressure Pulse Oximetry Oxygen Delivery Oxygen Flow Rate Fraction of Inspired Oxy
--- NOTE | 2022-07-19 13:44 | PCNWS ---
Weekly nutritional screen. Patient is tolerating current diet with adequate intake. No weight loss reported. No nutritional needs at this time.
[2022-07-19] MEDS: MONTELUKAST SODIUM 10 MG TABLET PO (21:22)
[2022-07-20] VITALS (16 sets, daily range): BP systolic 148–150; BP diastolic 52–117; PULSE 71–97; RESP 18–22; TEMP 35.7–36.6; O2SAT 84–96
--- NOTE | 2022-07-20 00:40 | PC.NURSE ---
Pt is resting in bed. Pt is A&O4 with bouts of confusion at times. Pt continues to desaturate with movement. Pt being monitored with continuous pulse ox and telemetry. Pt has some breakdown on sacrum so protective ointment and mepelex was placed for protection. Pt has dick catheter and catheter care was performed. Pt is compliant with repositioning. Pt participated and contributed in plan of care for the shift. Pt expresses no other needs at this time. Will continue to monitor pt.
[2022-07-20] MEDS: IPRATROPIUM BR 0.02% INH SOLN 0.5 MG/2.5 ML VIAL INHALATION ×3 (01:39→14:00)
[2022-07-20] MEDS: LEVALBUTEROL NEB 1.25 MG/3 ML INHALATION ×3 (01:40→14:00)
[2022-07-20] MEDS: LEVOTHYROXINE SODIUM 25 MCG TABLET PO (05:42)
[2022-07-20] MEDS: ACETAMINOPHEN 325 MG TABLET 650 MG PO ×2 (05:42→15:38)
[2022-07-20 06:48] LABS: Hematocrit 31.9 % (37.0-47.0); Hemoglobin 9.9 g/dL (12.0-15.0); Mean Corpuscular Hemoglobin 31.3 pg (26-34); Mean Corpuscular Volume 100.9 fl (80-100); Mean Platelet Volume 9.5 fl (7.4-10.4); Platelet Count Result 341 k/mm3 (150-375); Red Blood Count 3.16 M/mm3 (4.2-5.4); Red Cell Distribution Width 13.2 % (11.5-14.5); White Blood Count 10.9 K/mm3 (4.5-10.0)
[2022-07-20 06:54] LABS: Anion Gap 3 mmol/L (8-16); Blood Urea Nitrogen 16 mg/dL (7-17); Calcium 8.2 mg/dL (8.4-10.2); Carbon Dioxide 35 mmol/L (22-30); Chloride 100 mmol/L (98-107); Estimated CRCL calculation 42 ml/min; Estimated Glomerular Filt Rate > 60; Glucose 82 mg/dL (65-110); Magnesium 2.2 mg/dL (1.6-2.3); Potassium 3.6 mmol/L (3.4-5.0); Sodium 138 mmol/L (137-145)
[2022-07-20] MEDS: FOLIC ACID 1 MG TABLET PO (08:28)
[2022-07-20] MEDS: FLECAINIDE ACETATE 100 MG TABLET PO (08:28)
[2022-07-20] MEDS: PARoxetine 20 MG TABLET PO ×2 (08:28→15:54)
[2022-07-20] MEDS: MEMANTINE 5 MG TABLET PO ×2 (08:28→15:54)
[2022-07-20] MEDS: OLMESARTAN MEDOXOMIL 20 MG TABLET PO (08:28)
[2022-07-20] MEDS: predniSONE 20 MG TABLET PO (08:28)
[2022-07-20] MEDS: OPTI-GEN TAB 1 TABLET PO (08:29)
[2022-07-20] MEDS: amLODIPine BESYLATE 5 MG TABLET PO (08:29)
[2022-07-20] MEDS: CHOLECALCIFEROL 1,000 UNITS TABLET 2000 UNITS PO (08:29)
[2022-07-20] MEDS: BENZOCAINE/MENTHOL (*BKC) 18 EA LOZENGE 1 LOZENGE PO (08:32)
[2022-07-20] MEDS: guaiFENesin 200 MG/10 ML UDC PO ×2 (08:38→13:19)
[2022-07-20] MEDS: ENOXAPARIN 40 MG/0.4 ML SYRINGE SUB-Q (08:54)
[2022-07-20] MEDS: FLUTICASONE/UMECLIDIN/VILANTER 100-62.5-25 MCG ELLIPTA 1 PUFF INHALATION (09:10)
--- NOTE | 2022-07-20 12:03 | PCPTNOTE ---
Patient declined PT in A.M.. Patient awaiting dressing change.
--- NOTE | 2022-07-20 12:46 | PM.DS ---
DS: Admitting Diagnosis Discharge Date July 20, 2022 Admitting Diagnosis COPD DS: Discharge Diagnosis Discharge Diagnosis (1) Acute exacerbation of chronic obstructive pulmonary disease: Code(s): J44.1 - Chronic obstructive pulmonary disease with (acute) exacerbation Status: Acute Assessment and Plan: -continue Solu-Medrol 60 q 6 hrs -continue neb treatments -I believe that the patient was having some problems with her concentrator at home. The patient tells me that she has had the same concentrator for over 5 years. Her son went and purchased her a new oxygen concentrator. May need portable oxygen tank at home or multiple tanks in different rooms to avoid extending her tubing. -continue Omnicef -continue Singulair -continue guaifenesin -pulmonology consulted due to her severe COPD, appreciate any additional recommendations (2) Anemia: Qualifiers: Anemia type: iron deficiency Iron deficiency anemia type: unspecified iron deficiency Qualified Code(s): D50.9 - Iron deficiency anemia, unspecified Code(s): D64.9 - Anemia, unspecified Status: Acute Assessment and Plan: -appears to be at her baseline -continue to monitor (3) Anxiety and depression: Code(s): F41.9 - Anxiety disorder, unspecified; F32.A - Depression, unspecified Status: Acute Assessment and Plan: -continue Paxil and Ativan (4) Chronic kidney disease: Code(s): N18.9 - Chronic kidney disease, unspecified Status: Acute Assessment and Plan: -stable (5) Dyslipidemia: Code(s): E78.5 - Hyperlipidemia, unspecified Status: Acute Assessment and Plan: -heart healthy diet (6) Hypertension: Code(s): I10 - Essential (primary) hypertension Status: Acute Assessment and Plan: -continue Benicar and Norvasc (7) Hypothyroidism: Qualifiers: Hypothyroidism type: unspecified Qualified Code(s): E03.9 - Hypothyroidism, unspecified Code(s): E03.9 - Hypothyroidism, unspecified Status: Acute Assessment and Plan: -continue levothyroxine -check TSH (8) Memory deficit: Code(s): R41.3 - Other amnesia Status: Acute Assessment and Plan: -Possible early dementia -continue Namenda and Aricept (9) Atrial flutter: Code(s): I48.92 - Unspecified atrial flutter Status: Acute Assessment and Plan: -Continue flecainide and Eliquis (10) Urinary frequency: Code(s): R35.0 - Frequency of micturition Status: Acute Assessment and Plan: -reported today, check UA DS: Summary Hospital Course Hospital Course: Patient is a 77-year-old female with known history of COPD came in with shortness of breath hypoxia. This was felt to be related to her underlying lung disease. Patient will be sent on oxygen. Otherwise she will also be sent home on prednisone. Patient reports she is able to get around her room on her baseline oxygen. Patient does have moderate severe underlying lung disease and is high risk for readmission. Time Spent with Patient Time attestation: Total time spent providing and/or coordinating discharge services: Exam Narrative: elderly frail chronically ill Patient is comfortable, NAD HEENT: eyes are clear and none icteric LUNGS: bilateral fair entry with rhonchi and wheezing HEART: RR S1S2 ABD: BS+, Soft and nontender Lower extremities: no edema SKIN: nonjaundiced Neuro: grossly intact. DS: Data Data Completed and Pending Labs on day of discharge: Labs from last 24 hours 07/20/22 07/20/22 06:07 06:07 WBC 10.9 H RBC 3.16 L Hgb 9.9 L Hct 31.9 L MCV 100.9 H MCH 31.3 MCHC 31.0 L RDW 13.2 Plt Count 341 MPV 9.5 Sodium 138 Potassium 3.6 Chloride 100 Carbon Dioxide 35 H Anion Gap 3 L BUN 16 Creatinine 0.70 Estim Creat Clear Calc 42 Est
== END 2022-07-20 16:20 | disposition home health service (06) | DRG 191 ==
LOC: ANHED 15:48 → ANH3MEDSUR 16:11
PROVIDERS: Family Medicine; Internal Medicine Pulmonary Disease; Nurse Practitioner; Physician Assistant; Admitting Provider Internal Medicine; Emergency Provider Family Medicine; PCP Internal Medicine; Visit Provider Chiropractor
DX: J43.9 Emphysema, unspecified (principal); I48.92 Unspecified atrial flutter; J96.11 Chronic respiratory failure with hypoxia; I12.9 Hypertensive chronic kidney disease with stage 1 through stage 4 chronic kidney disease, or unspecified chronic kidney disease; N18.9 Chronic kidney disease, unspecified; N32.81 Overactive bladder; D50.9 Iron deficiency anemia, unspecified; Z20.822 Contact with and (suspected) exposure to COVID-19; E03.9 Hypothyroidism, unspecified; E78.5 Hyperlipidemia, unspecified; F41.9 Anxiety disorder, unspecified; F32.A Depression, unspecified; H91.90 Unspecified hearing loss, unspecified ear; I25.2 Old myocardial infarction; K21.9 Gastro-esophageal reflux disease without esophagitis; M19.90 Unspecified osteoarthritis, unspecified site; R41.3 Other amnesia; R73.03 Prediabetes; Z99.81 Dependence on supplemental oxygen; Z98.41 Cataract extraction status, right eye; Z98.42 Cataract extraction status, left eye; Z86.16 Personal history of COVID-19; Z87.891 Personal history of nicotine dependence; Z79.82 Long term (current) use of aspirin; Z79.01 Long term (current) use of anticoagulants; Z87.442 Personal history of urinary calculi
CPT/HCPCS: 36415; 36600; 71045; 71250; 80048; 80053; 81001; 82805; 83605; 83735; 83880; 84443; 84484; 85025; 85027; 85610; 87040; 87070; 87081; 87205; 87636; 93005; 93970; 94640; 94660; 96361; 96374; 96376; 97110; 97116; 97162; 97165; 97530; 97535; 99285; A9270; G0378; J0743; J1650; J2930; J7030; J7512

== ENCOUNTER 2022-08-02 11:04 | Inpatient (IN) | payer MEDICARE, SELFPAY ==
[2022-08-02] VITALS (25 sets, daily range): BP systolic 118–171; BP diastolic 43–103; PULSE 78–94; RESP 14–32; TEMP 36.6–36.7; O2SAT 84–99; BMI 22.8
--- NOTE | ~2022-08-02 | XR_ITS ---
XR chest 1V portable DATE: 08/04/2022 01:53 INDICATION: Hypoxia TECHNIQUE: Portable upright AP chest on August 04, 2022 2 0148 hours COMPARISON: 07/19/2022 portable AP chest 07/04/2022 AP and lateral views FINDINGS: There are extensive patchy bilateral pulmonary infiltrates, more prominent on the right, in volving particularly the right mid to upper lung and right lower lung as well as the left lower lung. Bilateral hyperinflation suggesting COPD. Diffuse osteopenia. Bilateral glenohumeral osteoarthritis. Scoliosis and degenerative changes of the thoracic and lumbar spine. IMPRESSION: Patchy bilateral pulmonary infiltrates, largely new since 07/04/2022, likely due to multif ocal bilateral pneumonia Reviewed, dictated and finalized at location A. ER OPERATOR AUTOMATIC IMPRESSION: Patchy bilateral pulmonary infiltrates, largely new since 07/04/2022 , likely due to multifocal bilateral pneumonia
--- NOTE | ~2022-08-02 | XR_ITS ---
XR chest 1V portable DATE: 08/06/2022 06:11 INDICATION: Shortness of breath TECHNIQUE: Portable upright AP chest on August 06, 2022 at 0557 hours COMPARISON: August 04, 2022 portable AP chest at 0148 hours FINDINGS: Patchy bilateral pulmonary infiltrates involving right mid to upper and lower lung zones an d left lower lung, mildly improved since August 04, 2022. Normal heart size. Aortic calcification. There is minimal if any pleural effusion. No pneumothorax. Osteopenia. Osteoarthritic arthritis at the glenohumeral joints. Levoscoliosis and degenerative luo e of the thoracic spine. IMPRESSION: Patchy bilateral pulmonary infiltrates, right greater than left, mildly improved since [facility] Reviewed, dictated and finalized at location A. E WORKER PACKAGER IMPRESSION: Patchy bilateral pulmonary infiltrates, right greater than left, mi ldly improved since August 04
--- NOTE | ~2022-08-02 | CT_ITS ---
EXAMINATION: CT abdomen pelvis w con DATE: 08/02/2022 12:32 INDICATION: Diverticulitis. Blood in stool. TECHNIQUE: Computed tomography (CT) of the abdomen and pelvis was performed with 100 mL Omnipaque 350 intravenous contrast. Automated exposure control and iterative reconstruction technique were employe d. The dose-length product was 234.86 mGy-cm. COMPARISON: CT abdomen and pelvis 06/30/2020 FINDINGS: The visualized portions of the lung bases demonstrate severe emphysema. There are airspace opacities in the right middle lobe and right lower lobe. There is mild atelectasis in lingula and lef t lower lobe. No pleural effusion. The heart size is normal. There are calcifications of aortic valve . No pericardial effusion. The liver, gallbladder, spleen, pancreas, and adrenal glands are normal. T here is cortical thinning of the kidneys. There are cysts in left kidney measuring up to 2.4 cm. Ther e is a calcified fibroid in the uterus. There are scattered diverticula in the colon. There is wall t hickening from the distal transverse colon to the sigmoid colon, consistent with colitis. There are n o dilated loops of bowel. The appendix is normal. There are no pathologically enlarged lymph nodes. T here is no free intraperitoneal fluid. There are bilateral femoral hernias containing fat. There is m ild stenosis of celiac axis and superior mesenteric artery. There is no significant stenosis of infer ior mesenteric artery. There is severe thoracic and lumbar spondylosis. IMPRESSION: 1. Colitis from the distal transverse colon to the sigmoid colon. Reviewed, dictated and finalized at location A. INE TOOL OPERATOR
[2022-08-02 11:41] LABS: Basophils Absolute Auto 0.1 K/mm3 (0.0-0.1); Basophils Percent Auto 0.5 % (0.2-1.2); Eosinophils Absolute Auto 0.3 K/mm3 (0-0.3); Eosinophils Percent Auto 1.3 % (0-4.4); Hematocrit 31.9 % (37.0-47.0); Hemoglobin 9.6 g/dL (12.0-15.0); Immature Granulocyte Absolute 0.14 K/mm3 (0.00-0.031); Immature Granulocyte Percent A 0.7 % (0-0.5); Lymphocytes Absolute Auto 0.86 K/mm3 (0.9-3.2); Lymphocytes Percent Auto 4.2 % (18.3-44.2); Mean Corpuscular HGB Conc 30.1 g/dl (32-36); Mean Corpuscular Hemoglobin 30.7 pg (26-34); Mean Corpuscular Volume 101.9 fl (80-100); Mean Platelet Volume 9.4 fl (7.4-10.4); Monocytes Absolute Auto 1.1 K/mm3 (0.1-0.6); Monocytes Percent Auto 5.6 % (2.6-8.5); Neutrophils Percent Auto 87.7 % (45.5-73.1); Platelet Count Result 188 k/mm3 (150-375); Red Blood Count 3.13 M/mm3 (4.2-5.4); Red Cell Distribution Width 13.7 % (11.5-14.5); White Blood Count 20.5 K/mm3 (4.5-10.0)
[2022-08-02 11:54] LABS: Alanine Aminotransferase 22 U/L (6-35); Albumin Level 3.9 g/dL (3.5-5.1); Alkaline Phosphatase 76 U/L (38-126); Anion Gap 3 mmol/L (8-16); Aspartate Amino Transferase 26 U/L (14-36); Bilirubin,Total 0.5 mg/dL (0.2-1.3); Blood Urea Nitrogen 16 mg/dL (7-17); Calcium 8.4 mg/dL (8.4-10.2); Carbon Dioxide 34 mmol/L (22-30); Chloride 101 mmol/L (98-107); Estimated CRCL calculation 33 ml/min; Estimated Glomerular Filt Rate > 60; Glucose 110 mg/dL (65-110); Potassium 3.8 mmol/L (3.4-5.0); Sodium 138 mmol/L (137-145)
[2022-08-02 11:57] LABS: INR 1.2; Partial Thromboplastin Time 30.8 SECONDS (22.3-36.8); Prothrombin Time 14.6 Seconds (11.1-14.7)
[2022-08-02] MEDS: SODIUM CHLORIDE 0.9% IV 1,000 ML 150 ML IV CONT (13:12)
[2022-08-02 13:15] LABS: Lactic Acid Reflex 0.9 mmol/L (0.7-2.0)
--- NOTE | 2022-08-02 14:15 | PM.IMHP ---
H&P: HPI History of Present Illness Date/Time: 08/02/22 14:15 Chief Complaint: Rectal bleeding. Narrative: This is a pleasant 77-year-old female with a severe emphysema and COPD by PFTs in 2017, chronic respiratory failure on 2 liters nasal cannula, hypertension, hypothyroidism, anemia, and other comorbidities who presented to the emergency department from home for evaluation of a rectal bleeding. Patient provides the following history. She is known to myself and the hospitalist service from 2 admissions in June, 1 for new onset atrial flutter with rapid ventricular response for which she was started on apixaban and flecainide and another towards the end of the month with a COPD exacerbation. She was last discharged on 07/20/2022 and she has been doing okay up until the last couple of days when she developed left lower quadrant cramping and rectal bleeding. Initially she was passing bright red blood and some clots though her stools have been darker over the last 24 hours. The cramping in abdomen seems to occur just before the need to have a bowel movement and it does not seem to bother her thereafter. Appetite has been okay and she denies nausea and vomiting. She has not had fever chills but endorses sweats. No abdominal or epigastric pain. She denies bloating and belching. She has never had similar symptoms. No sick contacts. Vital signs have been stable and factor blood pressures have been a bit high. Pertinent labs included WBC of 20.5, hemoglobin 9.6, lactic acid 0.9. CT of the abdomen pelvis showed evidence of colitis from the distal transverse colon to the sigmoid colon. She was started on Zosyn the ED and she is being admitted in this setting for further treatment and evaluation. Review of Systems Review of Systems: Twelve systems were reviewed and are negative except as per HPI. [facility] Past Medical History Medical History (Updated 08/02/22 @ 21:54 by Katherine Alvarez PA-C) Adenomatous colon polyp Anxiety and depression Arthritis Chronic anemia Chronic anticoagulation Chronic kidney disease Chronic obstructive pulmonary disease 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 Chronic respiratory failure with hypoxia, on home oxygen therapy On 2 liters nasal cannula. Cognitive dysfunction Dyslipidemia Gastroesophageal reflux disease Hearing loss Hypertension Hypothyroidism Iron deficiency anemia Kidney stones Lung nodule Multiple pulmonary nodules determined by computed tomography of lung Paroxysmal atrial flutter Personal history of COVID-19 Pre-diabetes Tobacco abuse Surgical History Surgical History History of bilateral cataract extraction History of cardiac catheterization History of colonoscopy with polypectomy History of cystoscopy History of lithotripsy History of lung biopsy (02/2020) Left lung nodule-fibrous tissue with chronic inflammation and granulomatous. History of tubal ligation Family History Family History Other Breast cancer Social History Social History (Updated 08/02/22 @ 21:51 by Katherine Alvarez PA-C) Social History: . Lives in [place]. Son lives with her. Retired from [employer]. Surrogate medical decision maker: Jevon Lucas, son. Code status: Full code Smoking packs per day: 1 Smoking cigarettes per day: 20.0 Years smoked: 50 Smoking pack-years: 50.00 Smoking status: Former smoker Tobacco type: cigarettes Second hand tobacco smoke exposure: No Alcohol intake: former Drinks per week: 3 Substance use: never Substance use type: does not use Lack of Transportation: No Lack of Food: Never True Current Housing: I Have Housing Concerned About Future Housing: No Difficulty Paying Gas/Electric Bills: No Difficulty Paying for Meds: No Currently Unemployed: No Education: High School Diploma/GED Difficulty w/ Childcare or Family
[2022-08-02 14:40] LABS: Influenza A QL RT-PCR Negative (Negative); Influenza B QL RT-PCR Negative (Negative); SARS-CoV-2 RNA PCR Negative
--- NOTE | 2022-08-02 14:49 | ED.GENADULT ---
HPI - General Adult General Chief complaint: GI Bleed Stated complaint: rectal bleeding Time Seen by Provider: 08/02/22 12:10 Source: patient Mode of arrival: EMS Limitations: no limitations History of Present Illness HPI narrative: 77-year-old with a history of COPD on 3 L of oxygen at home was brought in with a complaint of abdominal pain and rectal bleeding since last 2 days. Patient states that she was constipated , had a bowel movement which had bright red blood and now she states that she is dark maroon in color. Son states that she ate chocolate covered caramel candy few days ago which made her constipated. He also stated that he gave him Pepto-Bismol. Patient states that she has been in the hospital for several days and now her bottom is sore laying on the bed all the time. No history of fever or chills denies any nausea or vomiting. Onset (ago): day(s) (2) Radiation: non-radiation Severity: mild Pain Consistency: constant Associated symptoms: denies other symptoms Related Data Home Medications Medication Instructions Recorded Confirmed [id number] tablet 1 tablet PO DAILY 07/14/20 07/29/22 cholecalciferol (vitamin D3) 50 100 mcg PO DAILY 02/27/22 07/29/22 mcg (2,000 unit) capsule amlodipine 5 mg tablet 5 mg PO DAILY 06/25/22 07/29/22 cyclobenzaprine 10 mg tablet 10 mg PO BID PRN Muscle Spasm 06/25/22 07/29/22 donepezil 10 mg tablet 10 mg PO DAILY 06/25/22 07/29/22 doxycycline hyclate 100 mg capsule 100 mg PO 3XW 06/25/22 07/29/22 folic acid 1 mg tablet 1 mg PO DAILY 06/25/22 07/29/22 levothyroxine 25 mcg tablet 25 mcg PO DAILY 06/25/22 07/29/22 memantine 5 mg tablet 5 mg PO BID 06/25/22 07/29/22 olmesartan 20 mg tablet 20 mg PO DAILY 06/25/22 07/29/22 paroxetine HCl 20 mg tablet 20 mg PO BID 06/25/22 07/29/22 acidophilus 100 million 1 cap PO DAILY 07/04/22 07/29/22 cell-pectin, citrus 10 mg capsule guaifenesin 1,200 mg tablet, 1,200 mg PO BID 07/04/22 07/29/22 extended release 12 hr (Mucinex) mecobalamin (vitamin B12) 1,000 1,000 mcg sublingual DAILY 07/29/22 07/29/22 mcg disintegrating tablet,sublingual Allergies Allergy/AdvReac Type Severity Reaction Status Date / Time methylprednisolone Allergy Unknown Jittery Verified 07/29/22 10:25 Review of Systems Review of Systems: All systems reviewed & are unremarkable except as noted in HPI and below Constitutional: Constitutional: Reports no additional constitutional complaints Eyes: Eyes: Reports no additional eye complaints ENT: Reports system reviewed and no additional complaints, except as documented Cardiovascular: Cardiovascular: Reports no additional cardiovascular complaints Respiratory: Respiratory: Reports no additional respiratory complaints Gastrointestinal: Gastrointestinal: Reports as per HPI Musculoskeletal: Musculoskeletal: Reports no additional musculoskeletal complaints Integumentary/Breasts: Skin/Breast: Reports system reviewed and no additional complaints, except as docu Neurologic: Reports system reviewed and no additional complaints, except as documented PMFSH Past Medical History Medical History Adenomatous colon polyp Anxiety and depression Arthritis Atrial flutter Atrial flutter with rapid ventricular response Chronic anemia Chronic kidney disease Chronic obstructive pulmonary disease 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 Chronic respiratory failure with hypoxia, on home oxygen therapy On 2 liters nasal cannula. Cognitive dysfunction Dyslipidemia Gastroesophageal reflux disease Hearing loss Hospital discharge follow-up Hypertension Hypothyroidism Iron deficiency anemia Kidney stones Lung nodule Memory deficit Multiple pulmonary nodules determined by computed tomography of lung Paroxysmal atrial flutter Personal history of COVID-19 Pre-diabetes Tobacco abuse Surgical History Surgical History (Reviewed 08/02/22 @ 14:56 by
--- NOTE | 2022-08-02 15:06 | ADMGEN ---
This patient, Jenny Lucas, was admitted to Medical Room 257-01. Patient/family oriented to hospital policies and general routines including ID bracelet, bed and alarms, visiting hours, pain management, procedures, bathroom and other care routines, personal items, smoking policy, room service/diet, and visiting hours. Information on how to activate the Rapid Response Team has been discussed. Patient/Family are encouraged to report perceived risks to care and to ask questions if they do not understand what they are told or what they should do.
[2022-08-02] MEDS: SODIUM CHLORIDE 0.9% IV 1,000 ML 125 ML IV CONT ×2 (15:26→18:44)
[2022-08-02] MEDS: LORazepam (*CRX) 1 MG TABLET PO (19:20)
[2022-08-02] MEDS: DOXYCYCLINE HYCLATE 100 MG TABLET PO (19:20)
[2022-08-02] MEDS: MEMANTINE 5 MG TABLET PO (19:20)
[2022-08-02] MEDS: PARoxetine 20 MG TABLET PO (19:21)
[2022-08-02] MEDS: LEVALBUTEROL NEB 1.25 MG/3 ML INHALATION (19:26)
[2022-08-02] MEDS: FLECAINIDE ACETATE 100 MG TABLET PO (20:39)
[2022-08-02] MEDS: guaiFENesin 12 HR 600 MG TABCR 1200 MG PO (20:40)
[2022-08-02] MEDS: MONTELUKAST SODIUM 10 MG TABLET PO (20:40)
[2022-08-02] MEDS: ACETAMINOPHEN 325 MG TABLET 650 MG PO (20:44)
[2022-08-02 22:59] LABS: Hematocrit 26.8 % (37.0-47.0); Hemoglobin 8.2 g/dL (12.0-15.0)
[2022-08-03] VITALS (16 sets, daily range): BP systolic 120–134; BP diastolic 40–50; PULSE 73–90; RESP 14–22; TEMP 36.6–37; O2SAT 91–97
[2022-08-03] MEDS: LEVALBUTEROL NEB 1.25 MG/3 ML INHALATION ×4 (02:03→20:13)
[2022-08-03 05:43] LABS: Basophils Absolute Auto 0.1 K/mm3 (0.0-0.1); Basophils Percent Auto 0.5 % (0.2-1.2); Eosinophils Absolute Auto 0.3 K/mm3 (0-0.3); Eosinophils Percent Auto 2.6 % (0-4.4); Hematocrit 30.3 % (37.0-47.0); Hemoglobin 9.1 g/dL (12.0-15.0); Immature Granulocyte Absolute 0.06 K/mm3 (0.00-0.031); Immature Granulocyte Percent A 0.5 % (0-0.5); Lymphocytes Absolute Auto 0.66 K/mm3 (0.9-3.2); Lymphocytes Percent Auto 5.2 % (18.3-44.2); Mean Corpuscular Hemoglobin 30.6 pg (26-34); Mean Platelet Volume 9.6 fl (7.4-10.4); Monocytes Absolute Auto 0.9 K/mm3 (0.1-0.6); Monocytes Percent Auto 6.9 % (2.6-8.5); Neutrophils Absolute Auto 10.7 K/mm3 (1.3-6.7); Neutrophils Percent Auto 84.3 % (45.5-73.1); Platelet Count Result 179 k/mm3 (150-375); Red Blood Count 2.97 M/mm3 (4.2-5.4); Red Cell Distribution Width 13.6 % (11.5-14.5); White Blood Count 12.7 K/mm3 (4.5-10.0)
[2022-08-03 05:56] LABS: Anion Gap 4 mmol/L (8-16); Blood Urea Nitrogen 8 mg/dL (7-17); Calcium 7.8 mg/dL (8.4-10.2); Carbon Dioxide 31 mmol/L (22-30); Chloride 101 mmol/L (98-107); Estimated CRCL calculation 37 ml/min; Estimated Glomerular Filt Rate > 60; Glucose 89 mg/dL (65-110); Magnesium 2.1 mg/dL (1.6-2.3); Potassium 3.5 mmol/L (3.4-5.0); Sodium 136 mmol/L (137-145)
[2022-08-03] MEDS: LEVOTHYROXINE SODIUM 25 MCG TABLET PO (06:28)
[2022-08-03] MEDS: ACETAMINOPHEN 325 MG TABLET 650 MG PO ×2 (06:28→17:18)
[2022-08-03] MEDS: FLUTICASONE/UMECLIDIN/VILANTER 100-62.5-25 MCG ELLIPTA 1 PUFF INHALATION (07:41)
[2022-08-03] MEDS: oxyBUTYnin CHLORIDE XL 5 MG TAB.ER.24 PO (08:33)
[2022-08-03] MEDS: PARoxetine 20 MG TABLET PO ×2 (08:33→17:18)
[2022-08-03] MEDS: PANTOPRAZOLE 40 MG TABLET PO (08:33)
[2022-08-03] MEDS: CYANOCOBALAMIN 1,000 MCG TABLET 1000 MCG PO (08:34)
[2022-08-03] MEDS: OPTI-GEN TAB 1 TABLET PO (08:34)
[2022-08-03] MEDS: OLMESARTAN MEDOXOMIL 20 MG TABLET PO (08:34)
[2022-08-03] MEDS: DONEPEZIL HCL 10 MG TABLET PO (08:34)
[2022-08-03] MEDS: ACIDOPHILUS/BULGARICUS CHEWABLE TABLET 1 TABLET PO (08:34)
[2022-08-03] MEDS: FLECAINIDE ACETATE 100 MG TABLET PO ×2 (08:35→20:36)
[2022-08-03] MEDS: guaiFENesin 12 HR 600 MG TABCR 1200 MG PO ×2 (08:35→20:36)
[2022-08-03] MEDS: amLODIPine BESYLATE 5 MG TABLET PO (08:35)
[2022-08-03] MEDS: MEMANTINE 5 MG TABLET PO ×2 (08:36→17:18)
[2022-08-03] MEDS: CHOLECALCIFEROL 1,000 UNITS TABLET 4000 UNITS PO (08:36)
[2022-08-03] MEDS: FOLIC ACID 1 MG TABLET PO (08:36)
[2022-08-03] MEDS: LORazepam (*CRX) 1 MG TABLET PO ×2 (08:38→17:18)
[2022-08-03 10:01] LABS: Hematocrit 30.6 % (37.0-47.0); Hemoglobin 8.9 g/dL (12.0-15.0)
--- NOTE | 2022-08-03 11:32 | PM.IMPN ---
Progress Note: A&P Assessment and Plan (1) Colitis: Code(s): K52.9 - Noninfective gastroenteritis and colitis, unspecified Status: Acute Assessment and Plan: Continue IV antibiotics (2) Chronic anemia: Code(s): D64.9 - Anemia, unspecified Status: Acute (3) Chronic anticoagulation: Code(s): Z79.01 - keno terminal operator (current) use of anticoagulants Status: Acute (4) Chronic respiratory failure with hypoxia, on home oxygen therapy: Code(s): J96.11 - Chronic respiratory failure with hypoxia; Z99.81 - Dependence on supplemental oxygen Status: Acute (5) Chronic obstructive pulmonary disease: Code(s): J44.9 - Chronic obstructive pulmonary disease, unspecified Status: Acute Subjective Date/time seen: 08/03/22 11:32 No new complaints Exam Narrative: Constitutional:?Chronically ill-appearing female sitting up in bed. Weight: 53 kg. BMI: 22.8. HEENT:??PERRL, EOMI. Sclera anicteric. Moist mucous membranes. Neck:??Supple. No lymphadenopathy or JVD. Respiratory:?At baseline oxygen requirement. Respirations are nonlabored. Lung sounds significantly diminished throughout. Cardiovascular:?Regular rate and rhythm with normal S1 S2. Gastrointestinal:??Abdomen is soft and nondistended with positive bowel sounds. She is a bit tender to deeper palpation in the left lower quadrant. No guarding or rebound tenderness. Skin:??Warm and dry. Generalized pallor. Extremities:??No cyanosis, clubbing, or edema. Radial and pedal pulses intact. No knots or cords. Neurological:??Alert.? Cranial nerves 2-12 are grossly intact. No gross focal deficits to casual conversation. Psychiatric:??Pleasant and cooperative with appropriate mood and affect. Objective Data Vital Signs Vital Signs: Vital Signs - 24 hr 08/02/22 13:58 08/02/22 11:46 08/02/22 11:47 Temperature Pulse Rate 94 85 87 Respiratory Rate 22 H 23 H 23 H Blood Pressure 136/103 H 143/49 H Pulse Oximetry 97 Oxygen Delivery Oxygen Flow Rate 08/02/22 12:00 08/02/22 12:15 08/02/22 12:16 Temperature Pulse Rate 87 87 88 Respiratory Rate 23 H 23 H 21 H Blood Pressure 144/57 H Pulse Oximetry 94 Oxygen Delivery Oxygen Flow Rate 08/02/22 12:56 08/02/22 13:00 08/02/22 13:15 Temperature Pulse Rate 91 90 92 Respiratory Rate 24 H 22 H 18 Blood Pressure Pulse Oximetry 89 L 93 99 Oxygen Delivery Oxygen Flow Rate 08/02/22 13:32 08/02/22 13:45 08/02/22 14:00 Temperature Pulse Rate 92 91 92 Respiratory Rate 20 20 18 Blood Pressure Pulse Oximetry 98 98 95 Oxygen Delivery Oxygen Flow Rate 08/02/22 14:15 08/02/22 14:30 08/02/22 14:45 Temperature Pulse Rate 90 88 86 Respiratory Rate 30 H 23 H 20 Blood Pressure 138/56 L Pulse Oximetry 94 99 91 Oxygen Delivery Oxygen Flow Rate 08/02/22 15:20 08/02/22 19:22 08/02/22 19:29 Temperature 97.8 F Pulse Rate 89 88 Respiratory Rate 20 24 H Blood Pressure 125/43 L Pulse Oximetry 92 95 Oxygen Delivery Nasal Cannula Oxygen Flow Rate 3 08/02/22 19:34 08/02/22 20:39 08/02/22 22:36 Temperature 98.0 F Pulse Rate 88 78 Respiratory Rate 14 Blood Pressure 119/48 L Pulse Oximetry 91 98 Oxygen Delivery Nasal Cannula Oxygen Flow Rate 4 08/03/22 02:05 08/03/22 04:01 08/03/22 04:22 Temperature 97.9 F Pulse Rate 90 85 79 Respiratory Rate 22 H 22 H 14 Blood Pressure 127/48 L Pulse Oximetry 97 Oxygen Delivery Oxygen Flow Rate 08/03/22 07:41 08/03/22 07:43 08/03/22 08:35 Temperature Pulse Rate 83 88 Respiratory Rate 20 Blood Pressure Pulse Oximetry 96 Oxygen Delivery Nasal Cannula Oxygen Flow Rate 4 08/03/22 08:36 Temperature Pulse Rate Respiratory Rate 20 Blood Pressure Pulse Oximetry 95 Oxygen Delivery Nasal Cannula Oxygen Flow Rate 4 Intake/Output Intake/Output: Intake & Output 07/31/22 08/01/22 08/02/22 08/03/22 23:59 23:
[2022-08-03 15:38] LABS: Hematocrit 29.8 % (37.0-47.0)
[2022-08-03] MEDS: MONTELUKAST SODIUM 10 MG TABLET PO (20:36)
[2022-08-04] VITALS (21 sets, daily range): BP systolic 107–169; BP diastolic 40–95; PULSE 79–99; RESP 16–24; TEMP 36.3–36.8; O2SAT 93–100
[2022-08-04] MEDS: LEVALBUTEROL NEB 1.25 MG/3 ML INHALATION ×4 (02:11→19:50)
[2022-08-04] MEDS: methylPREDNISolone SOD SUCC 125 MG VIAL IV PUSH (02:39)
[2022-08-04] MEDS: LEVOTHYROXINE SODIUM 25 MCG TABLET PO (06:37)
--- NOTE | 2022-08-04 07:30 | PC.NURSE ---
Around 0130, JOSE DAVID Ramos walked into patients room and noticed abnormal breathing while getting her off of the bed flores. After taking a set of vitals, patients O2 saturation was noted to be 69%. This nurse placed patient on 10L non rebreather mask. Patients saturation increased above 90% and Dr. Steen was notified. Orders were placed (see provider notification) and patient was comfortable enough to be placed on 8L high flow nasal cannula. Throughout the remainder of the shift, patient's oxygen saturation fluctuated from 70's to 90's depending on activity. Dr. Steen notified again and patient was placed on ekg monitor with continuous pulse ox due to sudden hypoxia, but no other orders obtained. Stat CXR ordered and obtained right after order was placed. Results faxed up to 2 Med at 1814.
[2022-08-04 08:38] LABS: Alveolar/Arterial O2 Gradient 148.9 mmHg; Base Excess ABG 3.4 mEq/l (+/-2.0); Fractional Inspired Oxygen 40 %; HCO3 ABG 28.4 mEq/l (22.0-26.0); Oxygen Content ABG 14.5 %vol (16.0-22.0); Oxygen Saturation ABG 96.4 % (95.0-100.0); PCO2 ABG 45.2 mmHg (35.0-45.0); PO2 ABG 84.3 mmHg (80.0-100.0); PO2 FiO2 Ratio Arterial Blood 2.11 %; Total Hemoglobin 10.8 g/dL (12.0-18.0); pH ABG 7.416 (7.350-7.450)
[2022-08-04 08:39] LABS: Device HIGH FLOW NASAL CANN; Modified Allen's Test Pass; Site Drawn LEFT BRACHIAL
[2022-08-04] MEDS: FUROSEMIDE INJ 100 MG/10 ML VIAL 80 MG IV PUSH (08:50)
[2022-08-04] MEDS: CHOLECALCIFEROL 1,000 UNITS TABLET 4000 UNITS PO (08:53)
[2022-08-04] MEDS: amLODIPine BESYLATE 5 MG TABLET PO (08:53)
[2022-08-04] MEDS: ACIDOPHILUS/BULGARICUS CHEWABLE TABLET 1 TABLET PO (08:53)
[2022-08-04] MEDS: CYANOCOBALAMIN 1,000 MCG TABLET 1000 MCG PO (08:54)
[2022-08-04] MEDS: FOLIC ACID 1 MG TABLET PO (08:54)
[2022-08-04] MEDS: FLECAINIDE ACETATE 100 MG TABLET PO ×2 (08:54→21:01)
[2022-08-04] MEDS: DONEPEZIL HCL 10 MG TABLET PO (08:54)
[2022-08-04] MEDS: guaiFENesin 12 HR 600 MG TABCR 1200 MG PO ×2 (08:54→21:01)
[2022-08-04] MEDS: PANTOPRAZOLE 40 MG TABLET PO (08:55)
[2022-08-04] MEDS: OPTI-GEN TAB 1 TABLET PO (08:55)
[2022-08-04] MEDS: oxyBUTYnin CHLORIDE XL 5 MG TAB.ER.24 PO (08:55)
[2022-08-04] MEDS: PARoxetine 20 MG TABLET PO ×2 (08:55→17:27)
[2022-08-04] MEDS: LORazepam (*CRX) 1 MG TABLET PO ×2 (08:55→17:26)
[2022-08-04] MEDS: MEMANTINE 5 MG TABLET PO ×2 (08:55→17:27)
[2022-08-04] MEDS: OLMESARTAN MEDOXOMIL 20 MG TABLET PO (08:55)
[2022-08-04 09:23] LABS: Basophils Percent Auto 0.2 % (0.2-1.2); Hematocrit 33.5 % (37.0-47.0); Hemoglobin 10.2 g/dL (12.0-15.0); Immature Granulocyte Absolute 0.04 K/mm3 (0.00-0.031); Immature Granulocyte Percent A 0.5 % (0-0.5); Lymphocytes Absolute Auto 0.14 K/mm3 (0.9-3.2); Lymphocytes Percent Auto 1.7 % (18.3-44.2); Mean Corpuscular HGB Conc 30.4 g/dl (32-36); Mean Corpuscular Hemoglobin 30.3 pg (26-34); Mean Corpuscular Volume 99.4 fl (80-100); Mean Platelet Volume 9.4 fl (7.4-10.4); Monocytes Percent Auto 0.5 % (2.6-8.5); Neutrophils Absolute Auto 8.2 K/mm3 (1.3-6.7); Neutrophils Percent Auto 97.1 % (45.5-73.1); Platelet Count Result 210 k/mm3 (150-375); Red Blood Count 3.37 M/mm3 (4.2-5.4); Red Cell Distribution Width 13.3 % (11.5-14.5); White Blood Count 8.4 K/mm3 (4.5-10.0)
[2022-08-04 09:42] LABS: Anion Gap 6 mmol/L (8-16); Blood Urea Nitrogen 4 mg/dL (7-17); Calcium 8.5 mg/dL (8.4-10.2); Carbon Dioxide 34 mmol/L (22-30); Chloride 100 mmol/L (98-107); Estimated CRCL calculation 42 ml/min; Estimated Glomerular Filt Rate > 60; Glucose 162 mg/dL (65-110); Potassium 3.6 mmol/L (3.4-5.0); Sodium 140 mmol/L (137-145)
[2022-08-04] MEDS: FLUTICASONE/UMECLIDIN/VILANTER 100-62.5-25 MCG ELLIPTA 1 PUFF INHALATION (09:59)
--- NOTE | 2022-08-04 10:39 | PC.NURSE ---
0750 Dr Mason notified of pt on 10 liters high flow oxygen anf given chest xray results from earlier. New orders received.
--- NOTE | 2022-08-04 11:10 | PM.IMPN ---
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 Weight: 53 kg. BMI: 22.8. HEENT:??PERRL, EOMI. Sclera anicteric. Moist mucous membranes. Neck:??Supple. No lymphadenopathy or JVD. Respiratory:?At baseline oxygen requirement. Respirations are nonlabored. Lung sounds significantly diminished throughout. Cardiovascular:?Regular rate and rhythm with normal S1 S2. Gastrointestinal:??Abdomen is soft and nondistended with positive bowel sounds. She is a bit tender to deeper palpation in the left lower quadrant. No guarding or rebound tenderness. Skin:??Warm and dry. Generalized pallor. Extremities:??No cyanosis, clubbing, or edema. Radial and pedal pulses intact. No knots or cords. Neurological:??Alert.? Cranial nerves 2-12 are grossly intact. No gross focal deficits to casual conversation. Psychiatric:??Pleasant and cooperative with appropriate mood and affect. Objective Data Vital Signs Vital Signs: Vital Signs - 24 hr 08/03/22 13:25 08/03/22 15:30 08/03/22 14:00 Temperature 98.2 F Pulse Rate 84 88 Respiratory Rate 20 20 Blood Pressure 134/50 L Pulse Oximetry 95 96 Oxygen Delivery Nasal Cannula Oxygen Flow Rate 2 Fraction of Inspired Oxygen 08/03/22 20:13 08/03/22 20:15 08/03/22 20:36 Temperature Pulse Rate 81 81 Respiratory Rate 22 H Blood Pressure Pulse Oximetry 91 Oxygen Delivery Nasal Cannula Oxygen Flow Rate 4 Fraction of Inspired Oxygen 08/03/22 20:00 08/03/22 21:53 08/04/22 02:13 Temperature 98.6 F Pulse Rate 73 88 Respiratory Rate 16 22 H Blood Pressure 120/40 L Pulse Oximetry 94 96 Oxygen Delivery Nasal Cannula Oxygen Flow Rate 4 Fraction of Inspired Oxygen 08/03/22 20:27 08/04/22 05:54 08/04/22 02:25 Temperature 98.3 F Pulse Rate 79 95 87 Respiratory Rate 20 16 22 H Blood Pressure 169/63 H Pulse Oximetry 96 Oxygen Delivery Oxygen Flow Rate Fraction of Inspired Oxygen 08/04/22 08:53 08/04/22 08:54 08/04/22 08:00 Temperature Pulse Rate 97 Respiratory Rate Blood Pressure 148/95 H Pulse Oximetry 98 Oxygen Delivery High Flow Nasal Cannula Oxygen Flow Rate 10 Fraction of Inspired Oxygen 08/04/22 09:16 08/04/22 10:01 08/04/22 10:03 Temperature Pulse Rate 92 92 Respiratory Rate 24 H 24 H Blood Pressure Pulse Oximetry 99 93 Oxygen Delivery High Flow Nasal Cannula High Flow Nasal Cannula Oxygen Flow Rate 6 10 Fraction of Inspired Oxygen 40 08/04/22 08:00 Temperature Pulse Rate 94 Respiratory Rate Blood Pressure Pulse Oximetry Oxygen Delivery Oxygen Flow Rate Fraction of Inspired Oxygen Intake/Output Intake/Output: Intake & Output 08/01/22 08/02/22 08/03/22 08/04/22 23:59 23:59 23:59 23:59 Intake Total 1340 1320 640 Output Total 600 1000 2400 Balance 740 320 -1760 Meds/Results Medications: Active Medications Generic Name Dose Route Start Last Admin Trade Name Kamariq PRN Reason Stop Dose Admin Acetaminophen 650 mg 08/02/22 13:27 08/03/22 17:18 Acetaminophen 325 Mg Tablet PO 650 mg Q4H PRN Administration Mil
[2022-08-04] MEDS: ACETAMINOPHEN 325 MG TABLET 650 MG PO (15:54)
[2022-08-04] MEDS: MONTELUKAST SODIUM 10 MG TABLET PO (21:02)
[2022-08-05] VITALS (18 sets, daily range): BP systolic 123–161; BP diastolic 47–67; PULSE 78–92; RESP 16–20; TEMP 36.6–36.9; O2SAT 94–100
[2022-08-05] MEDS: LEVALBUTEROL NEB 1.25 MG/3 ML INHALATION ×3 (02:08→20:22)
[2022-08-05] MEDS: LEVOTHYROXINE SODIUM 25 MCG TABLET PO (06:07)
[2022-08-05] MEDS: amLODIPine BESYLATE 5 MG TABLET PO (08:47)
[2022-08-05] MEDS: ACIDOPHILUS/BULGARICUS CHEWABLE TABLET 1 TABLET PO (08:47)
[2022-08-05] MEDS: FUROSEMIDE INJ 40 MG/4 ML VIAL IV PUSH (08:47)
[2022-08-05] MEDS: CHOLECALCIFEROL 1,000 UNITS TABLET 4000 UNITS PO (08:48)
[2022-08-05] MEDS: DONEPEZIL HCL 10 MG TABLET PO (08:48)
[2022-08-05] MEDS: CYANOCOBALAMIN 1,000 MCG TABLET 1000 MCG PO (08:48)
[2022-08-05] MEDS: FLECAINIDE ACETATE 100 MG TABLET PO ×2 (08:49→20:45)
[2022-08-05] MEDS: DOXYCYCLINE HYCLATE 100 MG TABLET PO (08:49)
[2022-08-05] MEDS: guaiFENesin 12 HR 600 MG TABCR 1200 MG PO ×2 (08:50→20:46)
[2022-08-05] MEDS: FOLIC ACID 1 MG TABLET PO (08:50)
[2022-08-05] MEDS: OLMESARTAN MEDOXOMIL 20 MG TABLET PO (08:51)
[2022-08-05] MEDS: MEMANTINE 5 MG TABLET PO ×2 (08:51→17:26)
[2022-08-05] MEDS: LORazepam (*CRX) 1 MG TABLET PO ×2 (08:51→17:26)
[2022-08-05] MEDS: oxyBUTYnin CHLORIDE XL 5 MG TAB.ER.24 PO (08:52)
[2022-08-05] MEDS: OPTI-GEN TAB 1 TABLET PO (08:52)
[2022-08-05] MEDS: PANTOPRAZOLE 40 MG TABLET PO (08:52)
[2022-08-05] MEDS: PARoxetine 20 MG TABLET PO ×2 (08:53→17:25)
[2022-08-05] MEDS: FLUTICASONE/UMECLIDIN/VILANTER 100-62.5-25 MCG ELLIPTA 1 PUFF INHALATION (09:17)
--- NOTE | 2022-08-05 10:36 | PM.IMPN ---
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 Weight: 53 kg. BMI: 22.8. HEENT:??PERRL, EOMI. Sclera anicteric. Moist mucous membranes. Neck:??Supple. No lymphadenopathy or JVD. Respiratory:?At baseline oxygen requirement. Respirations are nonlabored. Lung sounds significantly diminished throughout. Cardiovascular:?Regular rate and rhythm with normal S1 S2. Gastrointestinal:??Abdomen is soft and nondistended with positive bowel sounds. She is a bit tender to deeper palpation in the left lower quadrant. No guarding or rebound tenderness. Skin:??Warm and dry. Generalized pallor. Extremities:??No cyanosis, clubbing, or edema. Radial and pedal pulses intact. No knots or cords. Neurological:??Alert.? Cranial nerves 2-12 are grossly intact. No gross focal deficits to casual conversation. Psychiatric:??Pleasant and cooperative with appropriate mood and affect. Objective Data Vital Signs Vital Signs: Vital Signs - 24 hr 08/04/22 11:13 08/04/22 12:00 08/04/22 14:15 Temperature 98.1 F Pulse Rate 81 87 Respiratory Rate 20 Blood Pressure 115/84 Pulse Oximetry 99 98 Oxygen Delivery Nasal Cannula Oxygen Flow Rate 6 08/04/22 11:20 08/04/22 15:37 08/04/22 15:46 Temperature Pulse Rate 95 99 Respiratory Rate 20 20 Blood Pressure Pulse Oximetry 96 Oxygen Delivery Nasal Cannula Oxygen Flow Rate 4 08/04/22 16:00 08/04/22 19:53 08/04/22 19:53 Temperature Pulse Rate 85 84 84 Respiratory Rate 20 22 H Blood Pressure Pulse Oximetry 96 Oxygen Delivery Nasal Cannula Oxygen Flow Rate 4 08/04/22 19:59 08/04/22 21:01 08/04/22 20:00 Temperature Pulse Rate 88 88 Respiratory Rate 20 Blood Pressure Pulse Oximetry 96 Oxygen Delivery Nasal Cannula Oxygen Flow Rate 4 08/04/22 22:00 08/05/22 02:09 08/05/22 02:14 Temperature 97.3 F L Pulse Rate 82 90 84 Respiratory Rate 21 H 18 18 Blood Pressure 107/40 L Pulse Oximetry 100 Oxygen Delivery Oxygen Flow Rate 08/04/22 20:00 08/05/22 00:00 08/05/22 04:00 Temperature Pulse Rate 79 78 87 Respiratory Rate Blood Pressure Pulse Oximetry Oxygen Delivery Oxygen Flow Rate 08/05/22 06:00 08/05/22 08:42 08/05/22 08:49 Temperature 97.9 F Pulse Rate 91 92 91 Respiratory Rate 18 20 Blood Pressure 132/60 161/62 H Pulse Oximetry 96 97 Oxygen Delivery Oxygen Flow Rate 08/05/22 09:25 Temperature Pulse Rate Respiratory Rate Blood Pressure Pulse Oximetry 96 Oxygen Delivery Nasal Cannula Oxygen Flow Rate 4 Intake/Output Intake/Output: Intake & Output 08/02/22 08/03/22 08/04/22 08/05/22 23:59 23:59 23:59 23:59 Intake Total 1340 1320 1570 850 Output Total 600 1000 3000 800 Balance 740 320 -1430 50 Meds/Results Medications: Active Medications Generic Name Dose Route Start Last Admin Trade Name Kamariq PRN Reason Stop Dose Admin Acetaminophen 650 mg 08/02/22 13:27 08/04/22 15:54 Acetaminophen 325 Mg Tablet PO 650 mg Q4H PRN Administration Mild Pain (1-3) or Fever Albuterol 2.5 mg 08/04/22 01:31 Al
[2022-08-05] MEDS: ACETAMINOPHEN 325 MG TABLET 650 MG PO (14:23)
[2022-08-05] MEDS: MONTELUKAST SODIUM 10 MG TABLET PO (20:46)
[2022-08-06] VITALS (18 sets, daily range): BP systolic 132; BP diastolic 72; PULSE 83–97; RESP 17–20; TEMP 37.1; O2SAT 82–94
[2022-08-06] MEDS: LEVALBUTEROL NEB 1.25 MG/3 ML INHALATION ×3 (02:51→13:25)
[2022-08-06 06:17] LABS: Basophils Absolute Auto 0.1 K/mm3 (0.0-0.1); Basophils Percent Auto 0.6 % (0.2-1.2); Eosinophils Absolute Auto 0.7 K/mm3 (0-0.3); Eosinophils Percent Auto 5.8 % (0-4.4); Hematocrit 33.7 % (37.0-47.0); Hemoglobin 10.2 g/dL (12.0-15.0); Immature Granulocyte Absolute 0.13 K/mm3 (0.00-0.031); Immature Granulocyte Percent A 1.1 % (0-0.5); Lymphocytes Absolute Auto 0.86 K/mm3 (0.9-3.2); Lymphocytes Percent Auto 7.6 % (18.3-44.2); Mean Corpuscular HGB Conc 30.3 g/dl (32-36); Mean Corpuscular Hemoglobin 30.2 pg (26-34); Mean Corpuscular Volume 99.7 fl (80-100); Mean Platelet Volume 8.9 fl (7.4-10.4); Monocytes Percent Auto 8.6 % (2.6-8.5); Neutrophils Absolute Auto 8.7 K/mm3 (1.3-6.7); Neutrophils Percent Auto 76.3 % (45.5-73.1); Platelet Count Result 234 k/mm3 (150-375); Red Blood Count 3.38 M/mm3 (4.2-5.4); Red Cell Distribution Width 13.4 % (11.5-14.5); White Blood Count 11.4 K/mm3 (4.5-10.0)
[2022-08-06 06:41] LABS: Blood Urea Nitrogen 13 mg/dL (7-17); Calcium 8.5 mg/dL (8.4-10.2); Carbon Dioxide > 40 mmol/L (22-30); Chloride 92 mmol/L (98-107); Estimated CRCL calculation 30 ml/min; Estimated Glomerular Filt Rate 54; Glucose 88 mg/dL (65-110); Potassium 3.2 mmol/L (3.4-5.0); Sodium 136 mmol/L (137-145)
[2022-08-06] MEDS: LEVOTHYROXINE SODIUM 25 MCG TABLET PO (06:53)
[2022-08-06] MEDS: ACETAMINOPHEN 325 MG TABLET 650 MG PO ×2 (06:56→11:50)
[2022-08-06] MEDS: FLUTICASONE/UMECLIDIN/VILANTER 100-62.5-25 MCG ELLIPTA 1 PUFF INHALATION (07:35)
[2022-08-06] MEDS: oxyBUTYnin CHLORIDE XL 5 MG TAB.ER.24 PO (08:07)
[2022-08-06] MEDS: PANTOPRAZOLE 40 MG TABLET PO (08:07)
[2022-08-06] MEDS: CHOLECALCIFEROL 1,000 UNITS TABLET 4000 UNITS PO (08:07)
[2022-08-06] MEDS: ACIDOPHILUS/BULGARICUS CHEWABLE TABLET 1 TABLET PO (08:07)
[2022-08-06] MEDS: OLMESARTAN MEDOXOMIL 20 MG TABLET PO (08:07)
[2022-08-06] MEDS: FOLIC ACID 1 MG TABLET PO (08:07)
[2022-08-06] MEDS: guaiFENesin 12 HR 600 MG TABCR 1200 MG PO (08:07)
[2022-08-06] MEDS: amLODIPine BESYLATE 5 MG TABLET PO (08:07)
[2022-08-06] MEDS: PARoxetine 20 MG TABLET PO (08:07)
[2022-08-06] MEDS: OPTI-GEN TAB 1 TABLET PO (08:07)
[2022-08-06] MEDS: FLECAINIDE ACETATE 100 MG TABLET PO (08:08)
[2022-08-06] MEDS: CYANOCOBALAMIN 1,000 MCG TABLET 1000 MCG PO (08:08)
[2022-08-06] MEDS: LORazepam (*CRX) 1 MG TABLET PO (08:08)
[2022-08-06] MEDS: MEMANTINE 5 MG TABLET PO (08:11)
[2022-08-06] MEDS: DONEPEZIL HCL 10 MG TABLET PO (08:11)
--- NOTE | 2022-08-06 10:46 | PM.DS ---
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 Started on IV antibiotics did well. Tolerating a diet not having any issues with stools. Otherwise she does have chronic hypoxic respiratory failure will continue home oxygen on discharge. Antibiotics on discharge Time Spent with Patient Time attestation: Total time spent providing and/or coordinating discharge services: Exam Narrative: Constitutional:?Chronically ill-appearing female sitting up in bed. Weight: 53 kg. BMI: 22.8. HEENT:??PERRL, EOMI. Sclera anicteric. Moist mucous membranes. Neck:??Supple. No lymphadenopathy or JVD. Respiratory:?At baseline oxygen requirement. Respirations are nonlabored. Lung sounds significantly diminished throughout. Cardiovascular:?Regular rate and rhythm with normal S1 S2. Gastrointestinal:??Abdomen is soft and nondistended with positive bowel sounds. She is a bit tender to deeper palpation in the left lower quadrant. No guarding or rebound tenderness. Skin:??Warm and dry. Generalized pallor. Extremities:??No cyanosis, clubbing, or edema. Radial and pedal pulses intact. No knots or cords. Neurological:??Alert.? Cranial nerves 2-12 are grossly intact. No gross focal deficits to casual conversation. Psychiatric:??Pleasant and cooperative with appropriate mood and affect. DS: Data Data Completed and Pending Labs on day of discharge: Labs from last 24 hours 08/06/22 08/06/22 06:05 06:05 WBC 11.4 H RBC 3.38 L Hgb 10.2 L Hct 33.7 L MCV 99.7 MCH 30.2 MCHC 30.3 L RDW 13.4 Plt Count 234 MPV 8.9 Immature Gran % (Auto) 1.1 H Neut % (Auto) 76.3 H Lymph % (Auto) 7.6 L Early % (Auto) 8.6 H Eos % (Auto) 5.8 H Baso % (Auto) 0.6 Lymph # (Auto) 0.86 L Early # (Auto) 1.0 H Eos # (Auto) 0.7 H Baso # (Auto) 0.1 Abs Immat Gran (auto) 0.13 H Absolute Neuts (auto) 8.7 H Absolute Nucleated RBC 0.0 Nucleated RBC % 0.0 Sodium 136 L Potassium 3.2 L Chloride 92 L Carbon Dioxide > 40 H Anion Gap BUN 13 D Creatinine 1.00 Estim Creat Clear Calc 30 Estimated GFR 54 L Glucose 88 Calcium 8.5 Preliminary micro results at discharge 08/02/22 12:56 Blood Culture - Preliminary Blood 08/02/22 12:55 Blood Culture - Preliminary Blood Discharge Plan Discharge Attending physician on discharge: Manuelito Mason Discharging Clinician: Manuelito Mason Patient Disposition: Home Health Service Activity: no preference Diet: as tolerated Discharge Instructions: Care Coordination: Patient is current with [facility] for RN, PT, OT services. Their phone number is [phone]. RN please fax completed discharge instructions to [phone] Patient Instructions: Antibiotic Form Stand Alone Forms: General Discharge Information Follow-up/Referrals: Jf Wade MD [Primary Care Provider] - Discharge Medications: New amoxicillin-pot clavulanate 875-125 mg tablet 1 tablet PO Q12H 7 Days Qty: 14 0RF Continued mecobalamin (vi
--- NOTE | 2022-08-06 14:13 | HOMEO2EVAL ---
Evaluation was performed at [facility] Home Oxygen Evaluation RC: Home Oxygen (O2) Evaluation Start: 08/06/22 12:34 Freq: ONCE Status: Active Protocol: RPE Activity Type Activity Date Activity User E-sign Co-sign Detail Recorded Client Recorded Date Recorded By Document 08/06/22 13:42 RACHELLE [id number] 08/06/22 14:13 RACHELLE Document 08/06/22 13:45 RACHELLE [email or web address] 08/06/22 14:13 RACHELLE Document 08/06/22 13:46 RACHELLE [email or web address] 08/06/22 14:13 RACHELLE Document 08/06/22 13:47 RACHELLE [email or web address] 08/06/22 14:13 RACHELLE Document 08/06/22 13:55 RACHELLE [email or web address] 08/06/22 14:13 RACHELLE Document 08/06/22 14:00 RACHELLE [email or web address] 08/06/22 14:13 RACHELLE 08/06/22 08/06/22 08/06/22 13:42 13:45 13:46 Home O2 Evaluation [Oxygen] -Test Phase Resting Resting Resting -Oxygen Delivery Room Air Nasal Cannula Nasal Cannula -Oxygen Flow Rate (L/min) 2 3 [Pulse Oximetry] -Pulse Oximetry (90-100 %) 82 L 86 L 87 L [Comments] -Home Oxygen Evaluation Comments 08/06/22 08/06/22 08/06/22 13:47 13:55 14:00 Home O2 Evaluation [Oxygen] -Test Phase Resting Exercise Resting -Oxygen Delivery Nasal Cannula Nasal Cannula Nasal Cannula -Oxygen Flow Rate (L/min) 4 4 4 [Pulse Oximetry] -Pulse Oximetry (90-100 %) 92 93 93 [Comments] -Home Oxygen Evaluation Comments PT REQUIRES 4 L REST AND WITH ACTIVITY
--- NOTE | 2022-08-06 14:15 | PCRCNOTE ---
HOME O2 EVAL DONE, PT REQUIRES 4 L REST AND EXERTION. PT HAS [facility], I WILL LET THEM KNOW OF INCREASE IN O2 NEEDS. RN NOTIFIED
== END 2022-08-06 16:16 | disposition home health service (06) | DRG 392 ==
LOC: ANHED 13:03 → ANH2MED 14:54
PROVIDERS: Emergency Medicine; Physician Assistant; Admitting Provider Chiropractor; Emergency Provider Family Medicine; PCP Internal Medicine; Visit Provider Chiropractor
DX: K52.9 Noninfective gastroenteritis and colitis, unspecified (principal); J96.11 Chronic respiratory failure with hypoxia; D64.9 Anemia, unspecified; Z20.822 Contact with and (suspected) exposure to COVID-19; I12.9 Hypertensive chronic kidney disease with stage 1 through stage 4 chronic kidney disease, or unspecified chronic kidney disease; N18.30 Chronic kidney disease, stage 3 unspecified; E03.9 Hypothyroidism, unspecified; F41.8 Other specified anxiety disorders; M19.90 Unspecified osteoarthritis, unspecified site; J43.9 Emphysema, unspecified; E78.5 Hyperlipidemia, unspecified; K21.9 Gastro-esophageal reflux disease without esophagitis; D50.9 Iron deficiency anemia, unspecified; Z87.442 Personal history of urinary calculi; Z79.01 Long term (current) use of anticoagulants; Z99.81 Dependence on supplemental oxygen; Z86.16 Personal history of COVID-19; Z98.42 Cataract extraction status, left eye; Z98.41 Cataract extraction status, right eye; Z87.891 Personal history of nicotine dependence
CPT/HCPCS: 36415; 36600; 71045; 74177; 80048; 80053; 82805; 83605; 83735; 85014; 85018; 85025; 85610; 85730; 86850; 86900; 86901; 87040; 87636; 94640; 96361; 96365; 96366; 96375; 99285; A9270; G0378; J1940; J2543; J2930; J7030; Q9967

== ENCOUNTER 2022-08-13 10:56 | Inpatient (IN) | payer MEDICARE, SELFPAY ==
[2022-08-13] VITALS (27 sets, daily range): BP systolic 108–124; BP diastolic 46–87; PULSE 79–101; RESP 16–34; TEMP 36.1–36.5; O2SAT 93–100
--- NOTE | ~2022-08-13 | XR_ITS ---
XR chest 1V portable 08/13/2022 11:51 Indication: Shortness of breath Procedure: AP portable chest Comparison: Comparison to multiple prior studies sequentially, with oldest reviewed study dated 07/13. Findings: Heart size normal. Persistent patchy bilateral coarse mixed interstitial and airspace disea se, consistent with chronic interstitial lung disease without significant change. There is likely sup erimposed emphysema. No acute osseous abnormality. There is atherosclerosis. Heart size normal. No ac awilda osseous abnormality. Impression: 1: Stable chronic interstitial lung disease. Reviewed, dictated and finalized at location [employer]. [employer] TRA[employer]ER Impression: 1: Stable chronic interstitial lung disease.
--- NOTE | ~2022-08-13 | US_ITS ---
Renal-Bladder ultrasound Clinical History: Incontinence Technique: Real-time sonographic imaging of the kidneys and urinary bladder was performed. Findings: The right kidney measures 10.3 cm in length and the left kidney measures 10.8 cm. There is no hydronephrosis or renal calculus identified. Renal cortical echogenicity is within normal limits. Left renal cyst noted. The urinary bladder is partially distended at the time of this exam. No intraluminal echoes are ident ified. No abnormal wall thickening is seen. Impression: No significant abnormality identified. Reviewed, dictated and finalized at location . [employer] Impression: No significant abnormality identified.
--- NOTE | ~2022-08-13 | CT_ITS ---
CT head without contrast Indication: Status post fall Technique: Serial scans were obtained through the brain without the administration of contrast. Dose reduction technique was used on this scan by utilizing automated exposure control and iterative recon struction technique. The dose-length product (DLP) was 605.33 mGy-cm. Findings: There is no evidence of intracranial hemorrhage, mass lesion, or acute infarct. The ventri cles and subarachnoid spaces are dilated, consistent with mild atrophy. Low attenuation regions are seen within the periventricular white matter bilaterally, likely representing changes from chronic mi crovascular ischemic disease. There is no evidence of edema, mass effect or midline shift. The visu alized paranasal sinuses and mastoid air cells are clear. Impression: No intracranial hemorrhage, mass, or acute infarct. Atrophy and chronic white matter changes, as above. Reviewed, dictated and finalized at location . [facility] Impression: No intracranial hemorrhage, mass, or acute infarct. Atrophy and chronic white matter changes, as above.
--- NOTE | 2022-08-13 11:08 | ECG_ITS ---
Measurements Intervals [place] Rate: 91 P: 67 ND: 160 QRS: 3 QRSD: 118 T: 54 QT: 354 QTc: 437 Interpretive Statements SINUS RHYTHM MODERATE INTRAVENTRICULAR CONDUCTION DELAY [105+ ms QRS DURATION, 80+ ms Q/S IN V1/V2, NO Q AND 60+ ms R IN I/aVL/V5/V6] ABNORMAL ECG COMPARED TO ECG 07/15/2022 10:45:21 NO SIGNIFICANT CHANGES Electronically Signed On 08-13-2022 14:15:38 [employer] [employer] by Leif Cohen M.D.
[2022-08-13 11:35] LABS: Alveolar/Arterial O2 Gradient 148.5 mmHg; Base Excess ABG 6.6 mEq/l (+/-2.0); Fractional Inspired Oxygen 36 %; HCO3 ABG 32.2 mEq/l (22.0-26.0); Oxygen Content ABG 11.2 %vol (16.0-22.0); PCO2 ABG 51.8 mmHg (35.0-45.0); PO2 FiO2 Ratio Arterial Blood 1.34 %; Total Hemoglobin 9.7 g/dL (12.0-18.0); pH ABG 7.411 (7.350-7.450)
[2022-08-13 11:36] LABS: Oxygen Saturation ABG 83.6 % (95.0-100.0); PO2 ABG 48.1 mmHg (80.0-100.0)
[2022-08-13 11:37] LABS: Device NASAL CANNULA; Modified Allen's Test Pass; Oxyhemoglobin 81.8 % THb (90.0-100.0); Site Drawn LEFT RADIAL
[2022-08-13 11:38] LABS: Basophils Absolute Auto 0.2 K/mm3 (0.0-0.1); Basophils Percent Auto 0.8 % (0.2-1.2); Eosinophils Absolute Auto 0.2 K/mm3 (0-0.3); Hematocrit 31.5 % (37.0-47.0); Hemoglobin 9.2 g/dL (12.0-15.0); Immature Granulocyte Absolute 0.49 K/mm3 (0.00-0.031); Immature Granulocyte Percent A 2.8 % (0-0.5); Lymphocytes Absolute Auto 1.13 K/mm3 (0.9-3.2); Lymphocytes Percent Auto 6.4 % (18.3-44.2); Mean Corpuscular HGB Conc 29.2 g/dl (32-36); Mean Corpuscular Hemoglobin 29.3 pg (26-34); Mean Corpuscular Volume 100.3 fl (80-100); Mean Platelet Volume 9.2 fl (7.4-10.4); Monocytes Absolute Auto 1.1 K/mm3 (0.1-0.6); Monocytes Percent Auto 6.4 % (2.6-8.5); Neutrophils Absolute Auto 14.7 K/mm3 (1.3-6.7); Neutrophils Percent Auto 82.6 % (45.5-73.1); Platelet Count Result 471 k/mm3 (150-375); Red Blood Count 3.14 M/mm3 (4.2-5.4); White Blood Count 17.8 K/mm3 (4.5-10.0)
[2022-08-13 11:49] LABS: INR 1.1; Prothrombin Time 14.1 Seconds (11.1-14.7)
[2022-08-13 11:50] LABS: Partial Thromboplastin Time 26.3 SECONDS (22.3-36.8)
[2022-08-13 11:52] LABS: Alanine Aminotransferase 22 U/L (6-35); Albumin Level 3.8 g/dL (3.5-5.1); Alkaline Phosphatase 96 U/L (38-126); Anion Gap 4 mmol/L (8-16); Aspartate Amino Transferase 40 U/L (14-36); Bilirubin,Total 0.4 mg/dL (0.2-1.3); Blood Urea Nitrogen 18 mg/dL (7-17); Calcium 8.5 mg/dL (8.4-10.2); Carbon Dioxide 35 mmol/L (22-30); Chloride 100 mmol/L (98-107); Estimated CRCL calculation 39 ml/min; Estimated Glomerular Filt Rate > 60; Glucose 107 mg/dL (65-110); Potassium 4.3 mmol/L (3.4-5.0); Sodium 139 mmol/L (137-145)
[2022-08-13 11:59] LABS: NT Pro B Type Natriuretic Pept 1380 pg/mL (19.9-100)
--- NOTE | 2022-08-13 12:00 | PC.NURSE ---
pt tolerating cpap well. ease of breathing much improved.
[2022-08-13 12:34] LABS: Influenza A QL RT-PCR Negative (Negative); Influenza B QL RT-PCR Negative (Negative); SARS-CoV-2 RNA PCR Negative
--- NOTE | 2022-08-13 12:52 | ED.SOB ---
HPI - SOB/Dyspnea General Chief Complaint: Shortness of Breath/Dyspnea Stated Complaint: fall, low O2 Time Seen by Provider: 08/13/22 11:05 History of Present Illness HPI Narrative: Patient is a 77-year-old female who presents to the ER with shortness of breath. Found to be hypoxic at 50% while laying on the floor at home. No altered mental status. No chest pain or chest pressure but has diffuse wheezing and endorses dyspnea. PE speaking in 1-2 word sentences. Inline nebulizer given by EMS with some improvement of symptoms but patient is still on nonrebreather. They were unable to obtain IV access. Patient wears 3 L at baseline. Related Data Home Medications Medication Instructions Recorded Confirmed [id number]-[id number] tablet 1 tablet PO DAILY 07/14/20 08/02/22 cholecalciferol (vitamin D3) 50 100 mcg PO DAILY 02/27/22 08/02/22 mcg (2,000 unit) capsule amlodipine 5 mg tablet 5 mg PO DAILY 06/25/22 08/02/22 donepezil 10 mg tablet 10 mg PO DAILY 06/25/22 08/02/22 doxycycline hyclate 100 mg capsule 100 mg PO 3XW 06/25/22 08/02/22 folic acid 1 mg tablet 1 mg PO DAILY 06/25/22 08/02/22 levothyroxine 25 mcg tablet 25 mcg PO DAILY 06/25/22 08/02/22 memantine 5 mg tablet 5 mg PO BID 06/25/22 08/02/22 olmesartan 20 mg tablet 20 mg PO DAILY 06/25/22 08/02/22 paroxetine HCl 20 mg tablet 20 mg PO BID 06/25/22 08/02/22 acidophilus 100 million 1 cap PO DAILY 07/04/22 08/02/22 cell-pectin, citrus 10 mg capsule guaifenesin 1,200 mg tablet, 1,200 mg PO BID 07/04/22 08/02/22 extended release 12 hr (Mucinex) mecobalamin (vitamin B12) 1,000 1,000 mcg sublingual DAILY 07/29/22 08/02/22 mcg disintegrating tablet,sublingual oxybutynin chloride 5 mg 5 mg PO DAILY 08/02/22 08/02/22 tablet,extended release 24 hr Allergies Allergy/AdvReac Type Severity Reaction Status Date / Time No Known Allergies Allergy Verified 08/13/22 11:10 Review of Systems Review of Systems: ROS unobtainable: Yes unobtainable due to medical condition [facility] Past Medical History Medical History (Updated 08/13/22 @ 19:23 by Jason Banda MD) Adenomatous colon polyp Anxiety and depression Arthritis Chronic anemia Chronic anticoagulation Chronic kidney disease Chronic obstructive pulmonary disease 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 Chronic respiratory failure with hypoxia, on home oxygen therapy On 2 liters nasal cannula. Cognitive dysfunction Dyslipidemia Gastroesophageal reflux disease Hearing loss Hypertension Hypothyroidism Iron deficiency anemia Kidney stones Lung nodule Multiple pulmonary nodules determined by computed tomography of lung Paroxysmal atrial flutter Personal history of COVID-19 Pre-diabetes Tobacco abuse Surgical History Surgical History History of bilateral cataract extraction History of cardiac catheterization History of colonoscopy with polypectomy History of cystoscopy History of lithotripsy History of lung biopsy (02/2020) Left lung nodule-fibrous tissue with chronic inflammation and granulomatous. History of tubal ligation Family History Family History Other Breast cancer Social History Social History (Updated 08/02/22 @ 21:51 by Katherine Alvarez PA-C) Social History: . Lives in [place]. Son lives with her. Retired from [email or web address]. Surrogate medical decision maker: Jevon Lucas, son. Code status: Full code Smoking packs per day: 1 Smoking cigarettes per day: 20.0 Years smoked: 50 Smoking pack-years: 50.00 Smoking status: Former smoker Tobacco type: cigarettes Second hand tobacco smoke exposure: No Alcohol intake: former Drinks per week: 3 Substance use: never Substance use type: does not use Lack of Transportation: No Lack of Food: Never True Current Housing: I Have Housing Concerned About Future Housing: No Difficulty
[2022-08-13] MEDS: IPRATROPIUM BR 0.02% INH SOLN 0.5 MG/2.5 ML VIAL 1.5 MG INHALATION (13:09)
[2022-08-13] MEDS: ALBUTEROL SULFATE NEB 2.5 MG/3 ML INH 15 MG INHALATION (13:09)
[2022-08-13] MEDS: methylPREDNISolone SOD SUCC 125 MG VIAL IV PUSH (14:10)
[2022-08-13] MEDS: methylPREDNISolone SOD SUCC 125 MG VIAL 60 MG IV PUSH ×2 (17:35→23:38)
[2022-08-13] MEDS: ALBUTEROL SULFATE NEB 2.5 MG/3 ML INH INHALATION (20:51)
[2022-08-13] MEDS: IPRATROPIUM BR 0.02% INH SOLN 0.5 MG/2.5 ML VIAL INHALATION (20:51)
--- NOTE | 2022-08-13 21:00 | PM.IMHP ---
H&P: HPI History of Present Illness Date/Time: 08/13/22 21:00 Chief Complaint: Fall, low oxygen. Narrative: This is a pleasant 77-year-old female with a severe emphysema and COPD by PFTs in 2017, chronic respiratory failure on 2 liters nasal cannula, hypertension, hypothyroidism, anemia, paroxysmal atrial fibrillation, and other comorbidities who presented to the emergency department from home for evaluation after a fall; EMS was called for lift assist in her SpO2 was reportedly in the 50s. Patient provides the following history. She has been hospitalized several times just this year for acute on chronic respiratory failure, COPD exacerbations, and atrial fibrillation with rapid ventricular response but most recently she was admitted with colitis. She was discharged on 08/06/2021 with Augmentin and she has been doing okay since that time. In any event this morning she apparently had a fall and lay on the floor for about 30 minutes before her son found her. She cannot provide me with specific details as to how she fell but she denies sustaining injury in the fall. EMS was summoned for lift assist and on their arrival her SpO2 was reportedly 52% on 5 L nasal cannula. She was given a DuoNeb in route to the hospital and due to work of breathing she was placed on BiPAP on arrival. ABG showed a pH of 7.411, pCO2 51.8, PO2 48.1, bicarb 32.2. Chest x-ray showed stable chronic interstitial lung disease. She tested negative for influenza and COVID. At the time my evaluation she feels better and is off the BiPAP. She denies fever, chills, sweats, chest pain, pleuritic pain, nausea, vomiting, diarrhea, and dysuria. She has an occasional cough which is unchanged. No sore throat or sinus congestion. No sick contacts. She denies headache, vertigo, focal weakness, and joint pains. Review of Systems Review of Systems: Twelve systems were reviewed and are negative except for as per HPI. 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 Chronic respiratory failure with hypoxia, on home oxygen therapy On 2 liters nasal cannula. Cognitive dysfunction Dyslipidemia Gastroesophageal reflux disease Hearing loss Hypertension Hypothyroidism Iron deficiency anemia Kidney stones Lung nodule Multiple pulmonary nodules determined by computed tomography of lung Paroxysmal atrial flutter Personal history of COVID-19 Pre-diabetes Tobacco abuse Surgical History Surgical History History of bilateral cataract extraction History of cardiac catheterization History of colonoscopy with polypectomy History of cystoscopy History of lithotripsy History of lung biopsy (02/2020) Left lung nodule-fibrous tissue with chronic inflammation and granulomatous. History of tubal ligation Family History Family History Other Breast cancer Social History Social History (Updated 08/02/22 @ 21:51 by Katherine Alvarez PA-C) Social History: . Lives in [place]. Son lives with her. Retired from [employer]. Surrogate medical decision maker: Jevon Lucas, son. Code status: Full code Smoking packs per day: 1 Smoking cigarettes per day: 20.0 Years smoked: 50 Smoking pack-years: 50.00 Smoking status: Former smoker Tobacco type: cigarettes Second hand tobacco smoke exposure: No Alcohol intake: former Drinks per week: 3 Substance use: never Substance use type: does not use Lack of Transportation: No Lack of Food: Never True Current Housing: I Have Housing Concerned About Future Housing: No Difficulty Paying Gas/Electric Bills: No Difficulty Paying for Meds: No Currently Unemploy
[2022-08-14] VITALS (26 sets, daily range): BP systolic 112–160; BP diastolic 50–93; PULSE 80–103; RESP 14–28; TEMP 36.3–36.6; O2SAT 94–100
[2022-08-14 00:46] LABS: Alveolar/Arterial O2 Gradient 147.1 mmHg; Base Excess ABG 7.5 mEq/l (+/-2.0); Carboxyhemoglobin 0.4 % THb (0-2.0); Fractional Inspired Oxygen 40 %; HCO3 ABG 33.2 mEq/l (22.0-26.0); Methemoglobin ABG 0.2 %THb (0-1.5); Modified Allen's Test Pass; Oxygen Content ABG 12.1 %vol (16.0-22.0); Oxyhemoglobin 93.8 % THb (90.0-100.0); PCO2 ABG 54.1 mmHg (35.0-45.0); PO2 ABG 75.9 mmHg (80.0-100.0); Reduced Hemoglobin 5.6 %THb (0-5.0); Site Drawn RIGHT RADIAL; Total Hemoglobin 9.1 g/dL (12.0-18.0); pH ABG 7.406 (7.350-7.450)
[2022-08-14 00:47] LABS: Device NON-INVASIVE VENT; Non-Invasive Expiratory Pressure 6 CMH2O; Non-Invasive Inspiratory Pressure 14 CMH2O; Non-Invasive Vent Rate 4 /MIN
[2022-08-14] MEDS: ALBUTEROL SULFATE NEB 2.5 MG/3 ML INH INHALATION (02:34)
[2022-08-14] MEDS: IPRATROPIUM BR 0.02% INH SOLN 0.5 MG/2.5 ML VIAL INHALATION ×4 (02:34→22:39)
[2022-08-14 05:00] LABS: Hematocrit 28.3 % (37.0-47.0); Hemoglobin 8.5 g/dL (12.0-15.0); Mean Corpuscular Hemoglobin 28.7 pg (26-34); Mean Corpuscular Volume 95.6 fl (80-100); Platelet Count Result 435 k/mm3 (150-375); Red Blood Count 2.96 M/mm3 (4.2-5.4); Red Cell Distribution Width 13.9 % (11.5-14.5); White Blood Count 14.8 K/mm3 (4.5-10.0)
[2022-08-14 05:15] LABS: Alanine Aminotransferase 22 U/L (6-35); Albumin Level 3.6 g/dL (3.5-5.1); Alkaline Phosphatase 93 U/L (38-126); Anion Gap 2 mmol/L (8-16); Aspartate Amino Transferase 32 U/L (14-36); Bilirubin,Total 0.4 mg/dL (0.2-1.3); Blood Urea Nitrogen 16 mg/dL (7-17); Calcium 8.5 mg/dL (8.4-10.2); Carbon Dioxide 36 mmol/L (22-30); Chloride 96 mmol/L (98-107); Estimated CRCL calculation 49 ml/min; Estimated Glomerular Filt Rate > 60; Glucose 133 mg/dL (65-110); Magnesium 2.1 mg/dL (1.6-2.3); Potassium 4.6 mmol/L (3.4-5.0); Sodium 134 mmol/L (137-145)
[2022-08-14] MEDS: LEVOTHYROXINE SODIUM 25 MCG TABLET PO (06:47)
[2022-08-14] MEDS: methylPREDNISolone SOD SUCC 125 MG VIAL 60 MG IV PUSH ×3 (06:47→18:53)
[2022-08-14] MEDS: LEVALBUTEROL NEB 1.25 MG/3 ML INHALATION ×3 (09:18→22:38)
[2022-08-14] MEDS: FLUTICASONE/UMECLIDIN/VILANTER 100-62.5-25 MCG ELLIPTA 1 PUFF INHALATION (09:19)
[2022-08-14] MEDS: FLECAINIDE ACETATE 100 MG TABLET PO ×2 (09:20→20:07)
[2022-08-14] MEDS: LORazepam (*CRX) 1 MG TABLET PO ×2 (12:27→20:07)
--- NOTE | 2022-08-14 13:38 | PM.IMPN ---
Progress Note: A&P Assessment and Plan (1) Fall from ground level: Code(s): W18.30XA - Fall on same level, unspecified, initial encounter Status: Acute Assessment and Plan: She had a fall this morning from ground level and reportedly lay on the floor for about 30 minutes before her son found her. No obvious trauma graze on her let arm. Once SOB is better pt to start ambulating with PT/ OT (2) Acute on chronic respiratory failure with hypoxia and hypercapnia: Code(s): J96.21 - Acute and chronic respiratory failure with hypoxia; J96.22 - Acute and chronic respiratory failure with hypercapnia Status: Acute Assessment and Plan: EMS was summoned for lift assist and her SpO2 was reportedly in the mid 50s on 5 L. She was placed on a non-rebreather and given a nebulizer treatment and on arrival to the ER she was transitioned to BiPAP. She has been weaned off of the BiPAP. Bipap at night 8 liters during the day (3) Chronic obstructive pulmonary disease: Code(s): J44.9 - Chronic obstructive pulmonary disease, unspecified Status: Acute Assessment and Plan: Continue scheduled bronchodilators and steroids given significant wheezing. It seems as though she has probably steroid dependent at this time and is end-stage COPD. Pt is DNR status (4) Hypertension: Code(s): I10 - Essential (primary) hypertension Status: Acute Assessment and Plan: Antihypertensives will be resumed and blood pressures will be monitored closely. (5) Hypothyroidism: Qualifiers: Hypothyroidism type: unspecified Qualified Code(s): E03.9 - Hypothyroidism, unspecified Code(s): E03.9 - Hypothyroidism, unspecified Status: Acute Assessment and Plan: Continue levothyroxine. (6) Chronic anemia: Code(s): D64.9 - Anemia, unspecified Status: Acute Assessment and Plan: Stable on review of previous labs. (7) Paroxysmal atrial flutter: Code(s): I48.92 - Unspecified atrial flutter Status: Acute Assessment and Plan: Currently in a sinus rhythm. Continue flecainide. Hold anticoagulation given recent fall, pending brain CT. Subjective Date/time seen: 08/14/22 13:38 77-year-old female with a severe emphysema and COPD by PFTs in 2017, chronic respiratory failure on 2 liters nasal cannula, hypertension, hypothyroidism, anemia, paroxysmal atrial fibrillation, and other comorbidities who presented to the emergency department from home for evaluation after a fall. Pt was needing BIPAP yesterday currently on 8 liters of oxygen Family has paperwork for DNR code status Pt is better cf yesterday still SOB at rest Pt usually on 2 liters of oxygen lives in at home son is main carer cannot afford SNF care Review of Systems Review of Systems: SOB cough and wheeze Exam Narrative: Constitutional:?Chronically ill-appearing female Respiratory:?On nasal cannula. Lung sounds are coarse and diminished throughout with end-expiratory wheezing. Cardiovascular:?Regular rate and rhythm with normal S1 S2. Gastrointestinal:??Abdomen is soft and nondistended with positive bowel sounds. Skin:??Warm and dry. Extremities:??No cyanosis, clubbing, or edema. Radial and pedal pulses intact. No knots or cords. Neurological:??Alert and oriented x4.? Cranial nerves 2-12 are grossly intact. Speech seems a bit slurred. No facial droop noted. Hand air drill operator and foot pushes are equal. No pronator drift. Psychiatric:??Pleasant and cooperative. A bit somnolent. Appropriate mood and affect. Objective Data Vital Signs Vital Signs: Vital Signs - 24 hr 08/13/22 14:08 08/13/22 13:57 08/13/22 14:01 Temperature Pulse Rate 98 95 94 Respiratory Rate 34 H 19 24 H Blood Pressure Pulse Oximetry 98 98 Oxygen Delivery Oxygen Flow Rate Fraction of Inspired Oxygen 08/13/22 14:12 08/13/22 14:15 08/13/22 14:16 Temperature Pulse R
--- NOTE | 2022-08-14 14:09 | PC.NURSE ---
Spoke with patient who is alert and oriented X 4. Patients states she wants to be a DNR, son confirms DNR status. Sons name is Jevon Lucas he is Patients POA. Son will also bring in a copy of DNR paperwork.
[2022-08-14] MEDS: ACETAMINOPHEN 325 MG TABLET 650 MG PO (16:13)
[2022-08-14] MEDS: FUROSEMIDE 40 MG TABLET PO (16:14)
[2022-08-14] MEDS: MEMANTINE 5 MG TABLET PO (16:14)
[2022-08-14] MEDS: PARoxetine 20 MG TABLET PO (16:14)
[2022-08-14] MEDS: MONTELUKAST SODIUM 10 MG TABLET PO (20:07)
[2022-08-14] MEDS: PANTOPRAZOLE 40 MG TABLET PO (20:07)
[2022-08-15] VITALS (23 sets, daily range): BP systolic 123–170; BP diastolic 59–80; PULSE 1–104; RESP 12–20; TEMP 36.1–36.8; O2SAT 94–100
[2022-08-15] MEDS: methylPREDNISolone SOD SUCC 125 MG VIAL 60 MG IV PUSH ×4 (01:03→20:02)
[2022-08-15] MEDS: IPRATROPIUM BR 0.02% INH SOLN 0.5 MG/2.5 ML VIAL INHALATION ×4 (02:20→20:12)
[2022-08-15] MEDS: LEVALBUTEROL NEB 1.25 MG/3 ML INHALATION ×4 (02:20→20:12)
[2022-08-15] MEDS: LEVOTHYROXINE SODIUM 25 MCG TABLET PO (05:35)
[2022-08-15 07:21] LABS: Hematocrit 29.4 % (37.0-47.0); Hemoglobin 8.9 g/dL (12.0-15.0); Mean Corpuscular HGB Conc 30.3 g/dl (32-36); Mean Corpuscular Hemoglobin 28.8 pg (26-34); Mean Corpuscular Volume 95.1 fl (80-100); Mean Platelet Volume 9.1 fl (7.4-10.4); Platelet Count Result 553 k/mm3 (150-375); Red Blood Count 3.09 M/mm3 (4.2-5.4); Red Cell Distribution Width 14.2 % (11.5-14.5); White Blood Count 37.9 K/mm3 (4.5-10.0)
[2022-08-15 07:33] LABS: Anion Gap 5 mmol/L (8-16); Blood Urea Nitrogen 19 mg/dL (7-17); Calcium 8.7 mg/dL (8.4-10.2); Carbon Dioxide 36 mmol/L (22-30); Chloride 93 mmol/L (98-107); Estimated CRCL calculation 44 ml/min; Estimated Glomerular Filt Rate > 60; Glucose 113 mg/dL (65-110); Potassium 4.5 mmol/L (3.4-5.0); Sodium 134 mmol/L (137-145)
[2022-08-15] MEDS: ACETAMINOPHEN 325 MG TABLET 650 MG PO ×2 (07:58→20:03)
[2022-08-15] MEDS: FOLIC ACID 1 MG TABLET PO (07:59)
[2022-08-15] MEDS: CYANOCOBALAMIN 1,000 MCG TABLET 1000 MCG PO (07:59)
[2022-08-15] MEDS: amLODIPine BESYLATE 5 MG TABLET PO (07:59)
[2022-08-15] MEDS: ASPIRIN 81 MG CHEWABLE TABLET PO (07:59)
[2022-08-15] MEDS: CHOLECALCIFEROL 1,000 UNITS TABLET 2000 UNITS PO (08:00)
[2022-08-15] MEDS: PARoxetine 20 MG TABLET PO ×2 (08:00→16:36)
[2022-08-15] MEDS: OPTI-GEN TAB 1 TABLET PO (08:01)
[2022-08-15] MEDS: FLECAINIDE ACETATE 100 MG TABLET PO ×2 (08:01→20:02)
[2022-08-15] MEDS: ACIDOPHILUS/BULGARICUS CHEWABLE TABLET 1 TABLET PO (08:01)
[2022-08-15] MEDS: oxyBUTYnin CHLORIDE XL 5 MG TAB.ER.24 PO (08:01)
[2022-08-15] MEDS: PANTOPRAZOLE 40 MG TABLET PO ×2 (08:01→20:01)
[2022-08-15] MEDS: DONEPEZIL HCL 10 MG TABLET PO (08:01)
[2022-08-15] MEDS: MEMANTINE 5 MG TABLET PO ×2 (08:02→16:37)
[2022-08-15] MEDS: FUROSEMIDE 40 MG TABLET PO ×2 (08:02→16:37)
[2022-08-15] MEDS: OLMESARTAN MEDOXOMIL 20 MG TABLET PO (08:02)
[2022-08-15] MEDS: LORazepam (*CRX) 1 MG TABLET PO ×2 (08:38→23:13)
[2022-08-15] MEDS: FLUTICASONE/UMECLIDIN/VILANTER 100-62.5-25 MCG ELLIPTA 1 PUFF INHALATION (09:05)
--- NOTE | 2022-08-15 13:21 | PM.IMPN ---
Progress Note: A&P Assessment and Plan (1) Fall from ground level: Code(s): W18.30XA - Fall on same level, unspecified, initial encounter Status: Acute Assessment and Plan: She had a fall this morning from ground level and reportedly lay on the floor for about 30 minutes before her son found her. No obvious trauma graze on her let arm. Once SOB is better pt can start ambulating with PT/ OT (2) Acute on chronic respiratory failure with hypoxia and hypercapnia: Code(s): J96.21 - Acute and chronic respiratory failure with hypoxia; J96.22 - Acute and chronic respiratory failure with hypercapnia Status: Acute Assessment and Plan: EMS was summoned for lift assist and her SpO2 was reportedly in the mid 50s on 5 L. She was placed on a non-rebreather and given a nebulizer treatment and on arrival to the ER she was transitioned to BiPAP. She has been weaned off of the BiPAP. Bipap at night 7 liters during the day (3) Chronic obstructive pulmonary disease: Code(s): J44.9 - Chronic obstructive pulmonary disease, unspecified Status: Acute Assessment and Plan: Continue scheduled bronchodilators and steroids given significant wheezing. It seems as though she has probably steroid dependent at this time and is end-stage COPD. Pt is DNR status (4) Hypertension: Code(s): I10 - Essential (primary) hypertension Status: Acute Assessment and Plan: Antihypertensives will be resumed and blood pressures will be monitored closely. (5) Hypothyroidism: Qualifiers: Hypothyroidism type: unspecified Qualified Code(s): E03.9 - Hypothyroidism, unspecified Code(s): E03.9 - Hypothyroidism, unspecified Status: Acute Assessment and Plan: Continue levothyroxine. (6) Chronic anemia: Code(s): D64.9 - Anemia, unspecified Status: Acute Assessment and Plan: Stable on review of previous labs. (7) Paroxysmal atrial flutter: Code(s): I48.92 - Unspecified atrial flutter Status: Acute Assessment and Plan: Currently in a sinus rhythm. Continue flecainide. Hold anticoagulation given recent fall CT head is negative can start her anticoagulation. Plan Pt has a buttock wound- continue to use santyl cream and leave open as suggested by wound team Subjective Date/time seen: 02/23/23 13:21 77-year-old female with a severe emphysema and COPD by PFTs in 2017, chronic respiratory failure on 2 liters nasal cannula, hypertension, hypothyroidism, anemia, paroxysmal atrial fibrillation, and other comorbidities who presented to the emergency department from home for evaluation after a fall. Pt was needing BIPAP yesterday currently on 7 liters of oxygen Family has paperwork for DNR code status Pt is better cf yesterday still SOB at rest Pt usually on 2 liters of oxygen lives in at home son is main carer cannot afford SNF care Review of Systems Review of Systems: Ongoing sob and weakness Exam Narrative: Constitutional:?Chronically ill-appearing female on 7 liters of oxygen Respiratory:?On nasal cannula. Lung sounds are coarse and diminished throughout with end-expiratory wheezing. Cardiovascular:?Regular rate and rhythm with normal S1 S2. Gastrointestinal:??Abdomen is soft and nondistended with positive bowel sounds. Skin:??Warm and dry. Extremities:??No cyanosis, clubbing, or edema. Radial and pedal pulses intact. No knots or cords. Neurological:??Alert and oriented x4.? Cranial nerves 2-12 are grossly intact. Speech seems a bit slurred. No facial droop noted. Hand gaming surveillance observer and foot pushes are equal. No pronator drift. Psychiatric:??Pleasant and cooperative. Skin: Pt has a buttock wound Objective Data Vital Signs Vital Signs: Vital Signs - 24 hr 08/14/22 15:14 08/14/22 15:32 08/14/22 14:00 Temperature Pulse Rate 98 99 98 Respiratory Rate 20 20 Blood Pressure Pulse Oximetry Oxygen De
[2022-08-15] MEDS: MONTELUKAST SODIUM 10 MG TABLET PO (20:02)
[2022-08-16] VITALS (24 sets, daily range): BP systolic 111–165; BP diastolic 51–72; PULSE 55–104; RESP 16–25; TEMP 36.4–37.2; O2SAT 90–98
[2022-08-16] MEDS: IPRATROPIUM BR 0.02% INH SOLN 0.5 MG/2.5 ML VIAL INHALATION ×4 (02:52→21:29)
[2022-08-16] MEDS: LEVALBUTEROL NEB 1.25 MG/3 ML INHALATION ×4 (02:53→21:29)
[2022-08-16 04:49] LABS: Hematocrit 29.6 % (37.0-47.0); Hemoglobin 9.1 g/dL (12.0-15.0); Mean Corpuscular HGB Conc 30.7 g/dl (32-36); Mean Corpuscular Hemoglobin 29.4 pg (26-34); Mean Corpuscular Volume 95.5 fl (80-100); Mean Platelet Volume 9.1 fl (7.4-10.4); Platelet Count Result 521 k/mm3 (150-375); Red Cell Distribution Width 14.3 % (11.5-14.5); White Blood Count 26.1 K/mm3 (4.5-10.0)
[2022-08-16 05:05] LABS: Blood Urea Nitrogen 26 mg/dL (7-17); Calcium 8.3 mg/dL (8.4-10.2); Carbon Dioxide > 40 mmol/L (22-30); Chloride 94 mmol/L (98-107); Estimated CRCL calculation 27 ml/min; Estimated Glomerular Filt Rate 48; Glucose 110 mg/dL (65-110); Potassium 4.3 mmol/L (3.4-5.0); Sodium 137 mmol/L (137-145)
[2022-08-16] MEDS: LEVOTHYROXINE SODIUM 25 MCG TABLET PO (06:54)
[2022-08-16] MEDS: CHOLECALCIFEROL 1,000 UNITS TABLET 2000 UNITS PO (09:33)
[2022-08-16] MEDS: MEMANTINE 5 MG TABLET PO ×2 (09:33→17:13)
[2022-08-16] MEDS: PARoxetine 20 MG TABLET PO ×2 (09:34→17:13)
[2022-08-16] MEDS: FLECAINIDE ACETATE 100 MG TABLET PO ×2 (09:34→22:06)
[2022-08-16] MEDS: PANTOPRAZOLE 40 MG TABLET PO ×2 (09:34→22:05)
[2022-08-16] MEDS: DONEPEZIL HCL 10 MG TABLET PO (09:35)
[2022-08-16] MEDS: OPTI-GEN TAB 1 TABLET PO (09:35)
[2022-08-16] MEDS: FOLIC ACID 1 MG TABLET PO (09:35)
[2022-08-16] MEDS: amLODIPine BESYLATE 5 MG TABLET PO (09:35)
[2022-08-16] MEDS: oxyBUTYnin CHLORIDE XL 5 MG TAB.ER.24 PO (09:35)
[2022-08-16] MEDS: FUROSEMIDE 40 MG TABLET PO ×2 (09:35→17:13)
[2022-08-16] MEDS: ASPIRIN 81 MG CHEWABLE TABLET PO (09:36)
[2022-08-16] MEDS: ACIDOPHILUS/BULGARICUS CHEWABLE TABLET 1 TABLET PO (09:36)
[2022-08-16] MEDS: CYANOCOBALAMIN 1,000 MCG TABLET 1000 MCG PO (09:36)
[2022-08-16] MEDS: OLMESARTAN MEDOXOMIL 20 MG TABLET PO (09:36)
[2022-08-16] MEDS: FLUTICASONE/UMECLIDIN/VILANTER 100-62.5-25 MCG ELLIPTA 1 PUFF INHALATION (10:05)
[2022-08-16] MEDS: ENOXAPARIN 40 MG/0.4 ML SYRINGE SUB-Q (12:19)
[2022-08-16] MEDS: methylPREDNISolone SOD SUCC 125 MG VIAL 60 MG IV PUSH (12:19)
--- NOTE | 2022-08-16 12:27 | PM.IMPN ---
Progress Note: A&P Assessment and Plan (1) Fall from ground level: Code(s): W18.30XA - Fall on same level, unspecified, initial encounter Status: Acute Assessment and Plan: She had a fall this morning from ground level and reportedly lay on the floor for about 30 minutes before her son found her. PT/OT ordered today, follow-up recommendations (2) Acute on chronic respiratory failure with hypoxia and hypercapnia: Code(s): J96.21 - Acute and chronic respiratory failure with hypoxia; J96.22 - Acute and chronic respiratory failure with hypercapnia Status: Acute Assessment and Plan: EMS was summoned for lift assist and her SpO2 was reportedly in the mid 50s on 5 L. She was placed on a non-rebreather and given a nebulizer treatment and on arrival to the ER she was transitioned to BiPAP. She has been weaned off of the BiPAP. Bipap at night 7 liters during the day. Patient with do not suspect comorbid pneumonia, will discontinue antibiotics. Hypercapnic respiratory failure at baseline. CO2 was 54 on ABG 08/14, pulmonology consult pending. (3) Chronic obstructive pulmonary disease: Code(s): J44.9 - Chronic obstructive pulmonary disease, unspecified Status: Acute Assessment and Plan: Continue scheduled bronchodilators and steroids given significant wheezing. It seems as though she has probably steroid dependent at this time and is end-stage COPD. Pt is DNR status. Will deescalate IV steroids to oral prednisone to complete a 5 day course, end date tomorrow August 17, may consider a longer course if patient seems to still benefit (4) Hypertension: Code(s): I10 - Essential (primary) hypertension Status: Acute Assessment and Plan: Antihypertensives will be resumed and blood pressures will be monitored closely. (5) Hypothyroidism: Qualifiers: Hypothyroidism type: unspecified Qualified Code(s): E03.9 - Hypothyroidism, unspecified Code(s): E03.9 - Hypothyroidism, unspecified Status: Acute Assessment and Plan: Continue levothyroxine. (6) Chronic anemia: Code(s): D64.9 - Anemia, unspecified Status: Acute Assessment and Plan: Stable on review of previous labs. (7) Paroxysmal atrial flutter: Code(s): I48.92 - Unspecified atrial flutter Status: Acute Assessment and Plan: Currently in a sinus rhythm. Continue flecainide. Hold anticoagulation given recent fall CT head is negative, can start her anticoagulation, was previously on eliquis, will restart this. (8) Acute kidney injury: Code(s): N17.9 - Acute kidney failure, unspecified Status: Acute Assessment and Plan: Suspect dehydration, con po lasix instead of IV and hold off on IVF, monitor Plan Pt has a buttock wound- continue to use santyl cream and leave open as suggested by wound team. DVT prophylaxis with SCDs plus Lovenox GI prophylaxis with PPI Code status DNR Subjective Date/time seen: 08/16/22 12:27 Interval history: No overnight events noted. No chest pain or shortness of breath. No nausea, vomiting or diarrhea. No fevers or chills. Patient states she feels much better than yesterday, still some dyspnea with exertion. Review of Systems Review of Systems: 12 point review of systems was assessed and was negative except as noted in the HPI Exam Narrative: General: No acute distress, alert and oriented per baseline HEENT: Atraumatic, normocephalic, mucous membranes moist CV: Regular rate and rhythm, S1, S2 Lungs: Diminished throughout with scattered wheezes everywhere Abdomen: Soft, nontender, nondistended Extremities: Normal to inspection Skin: No rashes noted, no lesions or wounds seen Psych: Euthymic, normal affect Objective Data Vital Signs Vital Signs: Vital Signs - 24 hr 08/15/22 14:00 08/15/22 16:12 08/15/22 16:26 Temperature Pulse
--- NOTE | 2022-08-16 15:54 | PM.CNPUL ---
Assessment and Plan Assessment and plan (1) Acute on chronic respiratory failure with hypoxia and hypercapnia: Code(s): J96.21 - Acute and chronic respiratory failure with hypoxia; J96.22 - Acute and chronic respiratory failure with hypercapnia Status: Acute (2) Chronic obstructive pulmonary disease: Code(s): J44.9 - Chronic obstructive pulmonary disease, unspecified Status: Acute (3) Sore mouth: Code(s): K13.79 - Other lesions of oral mucosa Status: Acute Plan treat thrush with clotrimazole jarrett 5 x a day she has mild hypercapnia, does not have to wear BiPAP at night here; she is not going to wear it at home. If she uses it here, she must have Ativan or another benzo to tolerate the device. continue to wean O2; now at 3 l/min at rest, 4 l/min with sleep; Home O2 study before discharge History of Present Illness History of Present Illness Consult date: 09/09/22 Requesting physician: Meghana Reynoso MD Chief complaint: COPD Exacerbation/Respiratory Failure Narrative: pt was seen 08/18/2022 at 18:00. NEW: Jenny Lucsa is a 77-year-old female followed in our practice, has severe centrilobular emphysema, FEV1 37% on PFT in 2017, anxiety, uses anxiolytics frequently. She has significant problems tolerating BiPAP due to claustrophobia. She has had multiple recent admissions with COPD exacerbations, several associated with atrial fibrillation/flutter due to respiratory distress. She is now admitted Feb 21 after having a fall from ground level, needed EMS to help pick her up. She was on the floor a half hour EMS arrived. She had a low saturation in the 52% on 5 L/min when they arrived, was placed on a non-rebreather mask. She did not hit her head, only injury was her right forearm with a cut. Her wbc at admission 37.9, gradually improved, today it is 13.6, no fever, O2 need lower. Her initial blood gas showed a pH is 7.411, pCO2 51.8, PO2 48.1, bicarbonate 32.2. Chest x-ray did not show infiltrate, just stable chronic interstitial changes. All serologies were negative, influenza and COVID. She did not have symptoms consistent with infection, no fever, chills, sinus congestion, sore throat, chest discomfort, no GI symptoms, no nausea vomiting or diarrhea. She does have urinary urgency, her urologist is prescribed an anti cholinergic which she says helps. Between Lasix and bladder pill, the medications are trying to accomplish different goals. She is much less short of breath, feels better compared to admission. She is coughing with clear sputum, not difficult to clear. Her O2 requirement was higher, normally uses 2 L at rest and 3 L with exertion. Today she was on 5 L/ minute with a saturation 97%. While I was visiting the patient, Donavon RN weaned O2, was able to decreased O2 to 3 L/ minute with saturation staying between 92 and 93%. She has plans to go to [facility] on discharge. While here, she wore BiPAP with significant anxiety due to claustrophobia. She wa saving her Ativan to use tonight, planning to get 6 hours using BiPAP. June 25 to 2022; hypercapnic hypoxemic respiratory failure; Jun 26 cardioversion July 04; AFib with RVR July 10; COPD exacerbation, AFib-flutter August 02- colitis, chronic anemia, discharged on Augmentin PMH: Hypertension, hypothyroidism, anemia, paroxysmal atrial fibrillation, chronic respiratory failure on oxygen 2 L at rest, 3 L/min with exertion, anxiety DATA * 08/13/22 CXR : ?Stable chronic interstitial lung disease. Review of Systems Review of Systems: She developed a couple of bed sores over the few weeks prior to admission. [facility] Past Medical History Medical History (Updated 08/27/22 @ 16:12 by Marguerite Horn PA-C) Adenomatous colon polyp Anxiety and depression Arthritis Chronic anemia Chronic anticoagulation Chronic kidney disease Chronic obstructive pulmonary disease Severe COPD with emphysema on PFTs in 2
--- NOTE | 2022-08-16 17:41 | PC.NURSE ---
Patient received from IMU to room 257. Patient oriented to the room.
[2022-08-16] MEDS: MONTELUKAST SODIUM 10 MG TABLET PO (22:05)
[2022-08-16] MEDS: APIXABAN 5 MG TABLET PO (22:05)
[2022-08-16] MEDS: LORazepam (*CRX) 1 MG TABLET PO (22:07)
[2022-08-17] VITALS (14 sets, daily range): BP systolic 124–163; BP diastolic 50–82; PULSE 82–95; RESP 18–23; TEMP 36.3–36.9; O2SAT 93–100
[2022-08-17] MEDS: IPRATROPIUM BR 0.02% INH SOLN 0.5 MG/2.5 ML VIAL INHALATION ×4 (02:15→20:30)
[2022-08-17] MEDS: LEVALBUTEROL NEB 1.25 MG/3 ML INHALATION ×4 (02:15→20:30)
[2022-08-17 05:40] LABS: Basophils Percent Auto 0.1 % (0.2-1.2); Hematocrit 34.2 % (37.0-47.0); Hemoglobin 10.3 g/dL (12.0-15.0); Immature Granulocyte Absolute 0.17 K/mm3 (0.00-0.031); Immature Granulocyte Percent A 0.9 % (0-0.5); Lymphocytes Absolute Auto 0.85 K/mm3 (0.9-3.2); Lymphocytes Percent Auto 4.7 % (18.3-44.2); Mean Corpuscular HGB Conc 30.1 g/dl (32-36); Mean Corpuscular Volume 92.9 fl (80-100); Mean Platelet Volume 9.3 fl (7.4-10.4); Monocytes Absolute Auto 0.9 K/mm3 (0.1-0.6); Monocytes Percent Auto 4.7 % (2.6-8.5); Neutrophils Absolute Auto 16.3 K/mm3 (1.3-6.7); Neutrophils Percent Auto 89.6 % (45.5-73.1); Platelet Count Result 576 k/mm3 (150-375); Red Blood Count 3.68 M/mm3 (4.2-5.4); Red Cell Distribution Width 14.3 % (11.5-14.5); White Blood Count 18.2 K/mm3 (4.5-10.0)
[2022-08-17 05:55] LABS: Alanine Aminotransferase 27 U/L (6-35); Albumin Level 3.8 g/dL (3.5-5.1); Alkaline Phosphatase 82 U/L (38-126); Aspartate Amino Transferase 30 U/L (14-36); Bilirubin,Total 0.4 mg/dL (0.2-1.3); Blood Urea Nitrogen 30 mg/dL (7-17); Calcium 8.4 mg/dL (8.4-10.2); Carbon Dioxide > 40 mmol/L (22-30); Chloride 92 mmol/L (98-107); Estimated CRCL calculation 33 ml/min; Estimated Glomerular Filt Rate > 60; Glucose 92 mg/dL (65-110); Sodium 139 mmol/L (137-145)
[2022-08-17] MEDS: ACETAMINOPHEN 325 MG TABLET 650 MG PO ×2 (06:43→20:19)
[2022-08-17] MEDS: LEVOTHYROXINE SODIUM 25 MCG TABLET PO (06:46)
[2022-08-17] MEDS: amLODIPine BESYLATE 5 MG TABLET PO (08:46)
[2022-08-17] MEDS: FLECAINIDE ACETATE 100 MG TABLET PO ×2 (08:46→20:21)
[2022-08-17] MEDS: PARoxetine 20 MG TABLET PO ×2 (08:46→16:16)
[2022-08-17] MEDS: DONEPEZIL HCL 10 MG TABLET PO (08:46)
[2022-08-17] MEDS: OPTI-GEN TAB 1 TABLET PO (08:46)
[2022-08-17] MEDS: ACIDOPHILUS/BULGARICUS CHEWABLE TABLET 1 TABLET PO (08:46)
[2022-08-17] MEDS: CHOLECALCIFEROL 1,000 UNITS TABLET 2000 UNITS PO (08:47)
[2022-08-17] MEDS: OLMESARTAN MEDOXOMIL 20 MG TABLET PO (08:47)
[2022-08-17] MEDS: predniSONE 20 MG TABLET 40 MG PO (08:48)
[2022-08-17] MEDS: FUROSEMIDE 40 MG TABLET PO ×2 (08:48→16:16)
[2022-08-17] MEDS: FOLIC ACID 1 MG TABLET PO (08:48)
[2022-08-17] MEDS: CYANOCOBALAMIN 1,000 MCG TABLET 1000 MCG PO (08:48)
[2022-08-17] MEDS: APIXABAN 5 MG TABLET PO ×2 (08:48→20:19)
[2022-08-17] MEDS: ASPIRIN 81 MG CHEWABLE TABLET PO (08:48)
[2022-08-17] MEDS: MEMANTINE 5 MG TABLET PO ×2 (08:49→16:16)
[2022-08-17] MEDS: FLUTICASONE/UMECLIDIN/VILANTER 100-62.5-25 MCG ELLIPTA 1 PUFF INHALATION (08:49)
[2022-08-17] MEDS: oxyBUTYnin CHLORIDE XL 5 MG TAB.ER.24 PO (08:49)
[2022-08-17] MEDS: PANTOPRAZOLE 40 MG TABLET PO ×2 (08:49→20:20)
--- NOTE | 2022-08-17 09:18 | PM.IMPN ---
Progress Note: A&P Assessment and Plan (1) Fall from ground level: Code(s): W18.30XA - Fall on same level, unspecified, initial encounter Status: Acute Assessment and Plan: She had a fall from ground level prior to admission and reportedly lay on the floor for about 30 minutes before her son found her. PT/OT ordered, follow-up recommendations, likely SNF at d/c, appreciate care coordination assistance (2) Acute on chronic respiratory failure with hypoxia and hypercapnia: Code(s): J96.21 - Acute and chronic respiratory failure with hypoxia; J96.22 - Acute and chronic respiratory failure with hypercapnia Status: Acute Assessment and Plan: EMS was summoned for lift assist and her SpO2 was reportedly in the mid 50s on 5 L. She was placed on a non-rebreather and given a nebulizer treatment and on arrival to the ER she was transitioned to BiPAP. She has been weaned off of the BiPAP. Bipap at night 7 liters during the day. Patient is on 2L nc at baseline 08/17: 93% on 5L today Do not suspect comorbid pneumonia, will discontinue antibiotics. Hypercapnic respiratory failure at baseline CO2 was 54 on ABG 08/14 Continue steroids with Solu-Medrol 60 mg q.12 hours Pulmonology consult pending (3) Chronic obstructive pulmonary disease: Code(s): J44.9 - Chronic obstructive pulmonary disease, unspecified Status: Acute Assessment and Plan: Continue scheduled bronchodilators and steroids given significant wheezing. It seems as though she is probably steroid dependent at this time and is end-stage COPD. Pt is DNR status. Day 4 of steroids, continue IV steroids for now (4) Hypertension: Code(s): I10 - Essential (primary) hypertension Status: Acute Assessment and Plan: Antihypertensives will be resumed and blood pressures will be monitored closely. (5) Hypothyroidism: Qualifiers: Hypothyroidism type: unspecified Qualified Code(s): E03.9 - Hypothyroidism, unspecified Code(s): E03.9 - Hypothyroidism, unspecified Status: Acute Assessment and Plan: Continue levothyroxine. (6) Chronic anemia: Code(s): D64.9 - Anemia, unspecified Status: Acute Assessment and Plan: Stable on review of previous labs. (7) Paroxysmal atrial flutter: Code(s): I48.92 - Unspecified atrial flutter Status: Acute Assessment and Plan: Currently in a sinus rhythm. Continue flecainide. Hold anticoagulation given recent fall CT head is negative, can start her anticoagulation, was previously on eliquis, will restart this. (8) Acute kidney injury: Code(s): N17.9 - Acute kidney failure, unspecified Status: Acute Assessment and Plan: Suspect dehydration, con po lasix instead of IV and hold off on IVF, monitor Plan Pt has a buttock wound- continue to use santyl cream and leave open as suggested by wound team. DVT prophylaxis with SCDs plus Lovenox GI prophylaxis with PPI Code status DNR Subjective Date/time seen: 08/17/22 09:18 Interval history: No overnight events noted. No chest pain. No nausea, vomiting or diarrhea. No fevers or chills. Still with some shortness of breath, much better than yesterday. Review of Systems Review of Systems: 12 point review of systems was assessed and was negative except as noted in the HPI Exam Narrative: General: No acute distress, alert and oriented per baseline HEENT: Atraumatic, normocephalic, mucous membranes moist CV: Regular rate and rhythm, S1, S2 Lungs: Moderate air entry, expiratory rhonchi and soft wheezes noted Abdomen: Soft, nontender, nondistended Extremities: Normal to inspection Skin: No rashes noted, no lesions or wounds seen Psych: Euthymic, normal affect Objective Data Vital Signs Vital Signs: Vital Signs - 24 hr 08/16/22 09:34 08/16/22 10:00 08/16/22 10:06 Temperature Pulse
[2022-08-17] MEDS: methylPREDNISolone SOD SUCC 125 MG VIAL 60 MG IV PUSH ×2 (10:59→20:19)
[2022-08-17 14:47] LABS: RBC Urine 0-2 /hpf (0-2); WBC Urine 0-3 /hpf (0-3)
[2022-08-17 14:50] LABS: Appearance Urine Clear (Clear); Bilirubin Urine Negative (Negative); Blood Urine Trace-lysed (Negative); Color Urine Yellow (Yellow); Glucose Urine UA Negative (Negative); Ketones Urine Negative (Negative); Leukocyte Esterase Ur Trace LEU/UL (NEGATIVE); Nitrate Urine Negative (Negative); Protein Urine Negative (Negative); Urobilinogen Urine 0.2 mg/dL (<2.0)
[2022-08-17 14:52] LABS: Add Urine Microscopic? YES
[2022-08-17] MEDS: LORazepam (*CRX) 1 MG TABLET PO (15:44)
[2022-08-17] MEDS: MONTELUKAST SODIUM 10 MG TABLET PO (20:20)
[2022-08-18] VITALS (17 sets, daily range): BP systolic 132–146; BP diastolic 58–71; PULSE 70–91; RESP 18–20; TEMP 36.3–36.8; O2SAT 93–98
[2022-08-18] MEDS: LEVALBUTEROL NEB 1.25 MG/3 ML INHALATION ×4 (01:23→21:20)
[2022-08-18] MEDS: IPRATROPIUM BR 0.02% INH SOLN 0.5 MG/2.5 ML VIAL INHALATION ×4 (01:23→21:20)
[2022-08-18 05:51] LABS: Basophils Percent Auto 0.1 % (0.2-1.2); Hematocrit 33.9 % (37.0-47.0); Hemoglobin 10.2 g/dL (12.0-15.0); Immature Granulocyte Absolute 0.15 K/mm3 (0.00-0.031); Immature Granulocyte Percent A 1.1 % (0-0.5); Lymphocytes Absolute Auto 0.43 K/mm3 (0.9-3.2); Lymphocytes Percent Auto 3.2 % (18.3-44.2); Mean Corpuscular HGB Conc 30.1 g/dl (32-36); Mean Corpuscular Volume 93.1 fl (80-100); Mean Platelet Volume 9.2 fl (7.4-10.4); Monocytes Absolute Auto 0.4 K/mm3 (0.1-0.6); Neutrophils Absolute Auto 12.5 K/mm3 (1.3-6.7); Neutrophils Percent Auto 92.6 % (45.5-73.1); Platelet Count Result 541 k/mm3 (150-375); Red Blood Count 3.64 M/mm3 (4.2-5.4); Red Cell Distribution Width 14.1 % (11.5-14.5); White Blood Count 13.5 K/mm3 (4.5-10.0)
[2022-08-18 06:00] LABS: Alanine Aminotransferase 27 U/L (6-35); Albumin Level 3.9 g/dL (3.5-5.1); Alkaline Phosphatase 75 U/L (38-126); Aspartate Amino Transferase 24 U/L (14-36); Bilirubin,Total 0.4 mg/dL (0.2-1.3); Blood Urea Nitrogen 33 mg/dL (7-17); Calcium 8.8 mg/dL (8.4-10.2); Carbon Dioxide > 40 mmol/L (22-30); Chloride 89 mmol/L (98-107); Estimated CRCL calculation 34 ml/min; Estimated Glomerular Filt Rate 54; Glucose 105 mg/dL (65-110); Potassium 3.6 mmol/L (3.4-5.0); Sodium 135 mmol/L (137-145)
[2022-08-18] MEDS: LEVOTHYROXINE SODIUM 25 MCG TABLET PO (06:11)
[2022-08-18] MEDS: FLUTICASONE/UMECLIDIN/VILANTER 100-62.5-25 MCG ELLIPTA 1 PUFF INHALATION (08:33)
[2022-08-18] MEDS: CHOLECALCIFEROL 1,000 UNITS TABLET 2000 UNITS PO (10:49)
[2022-08-18] MEDS: CYANOCOBALAMIN 1,000 MCG TABLET 1000 MCG PO (10:49)
[2022-08-18] MEDS: PANTOPRAZOLE 40 MG TABLET PO ×2 (10:49→20:10)
[2022-08-18] MEDS: methylPREDNISolone SOD SUCC 125 MG VIAL 60 MG IV PUSH (10:49)
[2022-08-18] MEDS: ACIDOPHILUS/BULGARICUS CHEWABLE TABLET 1 TABLET PO (10:49)
[2022-08-18] MEDS: OLMESARTAN MEDOXOMIL 20 MG TABLET PO (10:49)
[2022-08-18] MEDS: DONEPEZIL HCL 10 MG TABLET PO (10:50)
[2022-08-18] MEDS: oxyBUTYnin CHLORIDE XL 5 MG TAB.ER.24 PO (10:50)
[2022-08-18] MEDS: APIXABAN 5 MG TABLET PO ×2 (10:50→20:10)
[2022-08-18] MEDS: FOLIC ACID 1 MG TABLET PO (10:50)
[2022-08-18] MEDS: PARoxetine 20 MG TABLET PO ×2 (10:50→17:15)
[2022-08-18] MEDS: FUROSEMIDE 40 MG TABLET PO (10:50)
[2022-08-18] MEDS: MEMANTINE 5 MG TABLET PO ×2 (10:50→17:15)
[2022-08-18] MEDS: amLODIPine BESYLATE 5 MG TABLET PO (10:50)
[2022-08-18] MEDS: FLECAINIDE ACETATE 100 MG TABLET PO ×2 (10:51→20:10)
[2022-08-18] MEDS: OPTI-GEN TAB 1 TABLET PO (10:52)
[2022-08-18] MEDS: ASPIRIN 81 MG CHEWABLE TABLET PO (10:52)
--- NOTE | 2022-08-18 14:11 | PM.IMPN ---
Progress Note: A&P Assessment and Plan (1) Fall from ground level: Code(s): W18.30XA - Fall on same level, unspecified, initial encounter Status: Acute Assessment and Plan: She had a fall from ground level prior to admission and reportedly lay on the floor for about 30 minutes before her son found her. PT/OT ordered, follow-up recommendations, likely SNF at d/c, appreciate care coordination assistance (2) Acute on chronic respiratory failure with hypoxia and hypercapnia: Code(s): J96.21 - Acute and chronic respiratory failure with hypoxia; J96.22 - Acute and chronic respiratory failure with hypercapnia Status: Acute Assessment and Plan: EMS was summoned for lift assist and her SpO2 was reportedly in the mid 50s on 5 L. She was placed on a non-rebreather and given a nebulizer treatment and on arrival to the ER she was transitioned to BiPAP. She has been weaned off of the BiPAP. Bipap at night 7 liters during the day. Patient is on 2L nc at baseline 08/17: 93% on 5L today Do not suspect comorbid pneumonia, will discontinue antibiotics. Hypercapnic respiratory failure at baseline CO2 was 54 on ABG 08/14 Continue steroids with Solu-Medrol 60 mg q.12 hours Pulmonology consult pending (3) Chronic obstructive pulmonary disease: Code(s): J44.9 - Chronic obstructive pulmonary disease, unspecified Status: Acute Assessment and Plan: Continue scheduled bronchodilators and steroids given significant wheezing. It seems as though she is probably steroid dependent at this time and is end-stage COPD. Pt is DNR status. Will d/c IV steroids, initiate prednisone 50 mg daily today, today is day 6 of steroids, will d/c after 8 days (4) Hypertension: Code(s): I10 - Essential (primary) hypertension Status: Acute Assessment and Plan: Stable, reviewed 08/18 (5) Hypothyroidism: Qualifiers: Hypothyroidism type: unspecified Qualified Code(s): E03.9 - Hypothyroidism, unspecified Code(s): E03.9 - Hypothyroidism, unspecified Status: Acute Assessment and Plan: Continue levothyroxine. (6) Chronic anemia: Code(s): D64.9 - Anemia, unspecified Status: Acute Assessment and Plan: Stable on review of previous labs. (7) Paroxysmal atrial flutter: Code(s): I48.92 - Unspecified atrial flutter Status: Acute Assessment and Plan: cont flecainide and eliquis (8) Acute kidney injury: Code(s): N17.9 - Acute kidney failure, unspecified Status: Acute Assessment and Plan: Stable, decrease lasix from 40 mg po BID to 60 mg po daily Plan Pt has a buttock wound- continue to use santyl cream and leave open as suggested by wound team. DVT prophylaxis with SCDs plus Lovenox GI prophylaxis with PPI Code status DNR Subjective Date/time seen: 08/18/22 14:11 Interval history: No overnight events noted. No chest pain. No nausea, vomiting or diarrhea. No fevers or chills. Still with some shortness of breath, much better than yesterday. Exam Narrative: General: No acute distress, alert and oriented per baseline HEENT: Atraumatic, normocephalic, mucous membranes moist CV: Regular rate and rhythm, S1, S2 Lungs: Moderate air entry, expiratory rhonchi and soft wheezes noted Abdomen: Soft, nontender, nondistended Extremities: Normal to inspection Skin: No rashes noted, no lesions or wounds seen Psych: Euthymic, normal affect Objective Data Vital Signs Vital Signs: Vital Signs - 24 hr 08/17/22 14:54 08/17/22 20:21 08/17/22 20:34 Temperature Pulse Rate 86 88 90 Respiratory Rate 20 20 Blood Pressure Pulse Oximetry Oxygen Delivery Oxygen Flow Rate Fraction of Inspired Oxygen 08/17/22 20:00 08/17/22 21:22 08/18/22 01:25 Temperature 98.2 F Pulse Rate 90 88 90 Respiratory Rate 20 20 20 Blood Pressure 124/50 L Pu
[2022-08-18] MEDS: MONTELUKAST SODIUM 10 MG TABLET PO (20:10)
[2022-08-18] MEDS: LORazepam (*CRX) 1 MG TABLET PO (20:16)
[2022-08-18] MEDS: CLOTRIMAZOLE 10 MG TROC PO (23:50)
[2022-08-19] VITALS (11 sets, daily range): BP systolic 133–145; BP diastolic 56–61; PULSE 82–90; RESP 11–22; TEMP 36.9–37.1; O2SAT 86–97
[2022-08-19] MEDS: LEVALBUTEROL NEB 1.25 MG/3 ML INHALATION ×3 (02:09→14:20)
[2022-08-19] MEDS: IPRATROPIUM BR 0.02% INH SOLN 0.5 MG/2.5 ML VIAL INHALATION ×3 (02:09→14:20)
[2022-08-19 05:41] LABS: Basophils Percent Auto 0.1 % (0.2-1.2); Eosinophils Absolute Auto 0.1 K/mm3 (0-0.3); Eosinophils Percent Auto 0.5 % (0-4.4); Hematocrit 32.3 % (37.0-47.0); Hemoglobin 9.7 g/dL (12.0-15.0); Immature Granulocyte Absolute 0.18 K/mm3 (0.00-0.031); Immature Granulocyte Percent A 1.2 % (0-0.5); Lymphocytes Absolute Auto 2.09 K/mm3 (0.9-3.2); Lymphocytes Percent Auto 13.9 % (18.3-44.2); Mean Corpuscular Hemoglobin 28.2 pg (26-34); Mean Corpuscular Volume 93.9 fl (80-100); Mean Platelet Volume 8.7 fl (7.4-10.4); Monocytes Absolute Auto 1.2 K/mm3 (0.1-0.6); Monocytes Percent Auto 7.8 % (2.6-8.5); Neutrophils Absolute Auto 11.5 K/mm3 (1.3-6.7); Neutrophils Percent Auto 76.5 % (45.5-73.1); Platelet Count Result 468 k/mm3 (150-375); Red Blood Count 3.44 M/mm3 (4.2-5.4); Red Cell Distribution Width 14.2 % (11.5-14.5); White Blood Count 15.1 K/mm3 (4.5-10.0)
[2022-08-19 06:01] LABS: Alanine Aminotransferase 25 U/L (6-35); Albumin Level 3.4 g/dL (3.5-5.1); Alkaline Phosphatase 68 U/L (38-126); Aspartate Amino Transferase 22 U/L (14-36); Bilirubin,Total 0.4 mg/dL (0.2-1.3); Blood Urea Nitrogen 29 mg/dL (7-17); Calcium 8.3 mg/dL (8.4-10.2); Carbon Dioxide > 40 mmol/L (22-30); Chloride 88 mmol/L (98-107); Estimated CRCL calculation 33 ml/min; Estimated Glomerular Filt Rate > 60; Glucose 86 mg/dL (65-110); Potassium 3.1 mmol/L (3.4-5.0); Sodium 130 mmol/L (137-145)
[2022-08-19] MEDS: LEVOTHYROXINE SODIUM 25 MCG TABLET PO (06:01)
[2022-08-19] MEDS: CHOLECALCIFEROL 1,000 UNITS TABLET 2000 UNITS PO (08:35)
[2022-08-19] MEDS: MEMANTINE 5 MG TABLET PO (08:35)
[2022-08-19] MEDS: PARoxetine 20 MG TABLET PO (08:35)
[2022-08-19] MEDS: CLOTRIMAZOLE 10 MG TROC PO ×2 (08:35→12:19)
[2022-08-19] MEDS: ACIDOPHILUS/BULGARICUS CHEWABLE TABLET 1 TABLET PO (08:35)
[2022-08-19] MEDS: FUROSEMIDE 20 MG TABLET 60 MG PO (08:36)
[2022-08-19] MEDS: OPTI-GEN TAB 1 TABLET PO (08:37)
[2022-08-19] MEDS: FLECAINIDE ACETATE 100 MG TABLET PO (08:37)
[2022-08-19] MEDS: CYANOCOBALAMIN 1,000 MCG TABLET 1000 MCG PO (08:37)
[2022-08-19] MEDS: FOLIC ACID 1 MG TABLET PO (08:41)
[2022-08-19] MEDS: PANTOPRAZOLE 40 MG TABLET PO (08:42)
[2022-08-19] MEDS: OLMESARTAN MEDOXOMIL 20 MG TABLET PO (08:42)
[2022-08-19] MEDS: predniSONE 40 MG, predniSONE 10 MG 50 MG PO (08:42)
[2022-08-19] MEDS: DONEPEZIL HCL 10 MG TABLET PO (08:42)
[2022-08-19] MEDS: oxyBUTYnin CHLORIDE XL 5 MG TAB.ER.24 PO (08:42)
[2022-08-19] MEDS: APIXABAN 5 MG TABLET PO (08:43)
[2022-08-19] MEDS: ASPIRIN 81 MG CHEWABLE TABLET PO (08:43)
[2022-08-19] MEDS: amLODIPine BESYLATE 5 MG TABLET PO (08:43)
[2022-08-19] MEDS: FLUTICASONE/UMECLIDIN/VILANTER 100-62.5-25 MCG ELLIPTA 1 PUFF INHALATION (08:44)
--- NOTE | 2022-08-19 14:09 | PM.DS ---
DS: Admitting Diagnosis Discharge Date 08/19/2022 Admitting Diagnosis Status post fall DS: Discharge Diagnosis Discharge Diagnosis (1) Fall from ground level: Code(s): W18.30XA - Fall on same level, unspecified, initial encounter Status: Acute Assessment and Plan: She had a fall from ground level prior to admission and reportedly lay on the floor for about 30 minutes before her son found her. PT/OT ordered, follow-up recommendations, likely SNF at d/c, appreciate care coordination assistance (2) Acute on chronic respiratory failure with hypoxia and hypercapnia: Code(s): J96.21 - Acute and chronic respiratory failure with hypoxia; J96.22 - Acute and chronic respiratory failure with hypercapnia Status: Acute Assessment and Plan: EMS was summoned for lift assist and her SpO2 was reportedly in the mid 50s on 5 L. She was placed on a non-rebreather and given a nebulizer treatment and on arrival to the ER she was transitioned to BiPAP. She has been weaned off of the BiPAP. Bipap at night 7 liters during the day. Patient is on 2L nc at baseline 08/17: 93% on 5L today Do not suspect comorbid pneumonia, will discontinue antibiotics. Hypercapnic respiratory failure at baseline CO2 was 54 on ABG 08/14 Continue steroids with Solu-Medrol 60 mg q.12 hours Pulmonology consult pending (3) Chronic obstructive pulmonary disease: Code(s): J44.9 - Chronic obstructive pulmonary disease, unspecified Status: Acute Assessment and Plan: Continue scheduled bronchodilators and steroids given significant wheezing. It seems as though she is probably steroid dependent at this time and is end-stage COPD. Pt is DNR status. Will d/c IV steroids, initiate prednisone 50 mg daily today, today is day 6 of steroids, will d/c after 8 days (4) Hypertension: Code(s): I10 - Essential (primary) hypertension Status: Acute Assessment and Plan: Stable, reviewed 08/18 (5) Hypothyroidism: Qualifiers: Hypothyroidism type: unspecified Qualified Code(s): E03.9 - Hypothyroidism, unspecified Code(s): E03.9 - Hypothyroidism, unspecified Status: Acute Assessment and Plan: Continue levothyroxine. (6) Chronic anemia: Code(s): D64.9 - Anemia, unspecified Status: Acute Assessment and Plan: Stable on review of previous labs. (7) Paroxysmal atrial flutter: Code(s): I48.92 - Unspecified atrial flutter Status: Acute Assessment and Plan: cont flecainide and eliquis (8) Acute kidney injury: Code(s): N17.9 - Acute kidney failure, unspecified Status: Acute Assessment and Plan: Stable, decrease lasix from 40 mg po BID to 60 mg po daily Plan Pt has a buttock wound- continue to use santyl cream and leave open as suggested by wound team. DVT prophylaxis with SCDs plus Lovenox GI prophylaxis with PPI Code status DNR DS: Summary Hospital Course Hospital Course: She had a fall from ground level prior to admission and reportedly lay on the floor for about 30 minutes before her son found her. PT/OT ordered, follow-up recommendations, likely SNF at d/c, appreciate care coordination assistance. EMS was summoned for lift assist and her SpO2 was reportedly in the mid 50s on 5 L. She was placed on a non-rebreather and given a nebulizer treatment and on arrival to the ER she was transitioned to BiPAP. She has been weaned off of the BiPAP. Bipap at night 7 liters during the day.? Patient is on 2L nc at baseline 08/17: 93% on 5L today Do not suspect comorbid pneumonia, will discontinue antibiotics.? Hypercapnic respiratory failure at baseline CO2 was 54 on ABG 08/14 Continue steroids with Solu-Medrol 60 mg q.12 hours Pt has a buttock wound- continue to use santyl cream and leave open as suggested by wound team. Pulmonology was consulted and recommended wearing her BiPAP at night w
--- NOTE | 2022-08-19 15:42 | WPDURCON ---
Assessment and Plan Assessment and plan (1) Acute kidney injury: Code(s): N17.9 - Acute kidney failure, unspecified Status: Acute Assessment and Plan: Creatinine is stable at 0.90. (2) Urinary frequency: Code(s): R35.0 - Frequency of micturition Status: Acute Assessment and Plan: Secondary to Lasix. We discussed that this is a normal cause and effect of Lasix d/t expelling extra fluid that is making it difficult for her breath. She understands that even though her OAB was well controlled before, her bladder is now emptying more fluid than usual and she will have urgency and frequency that is difficult to control even with OAB medications. We discussed increasing her dose of Oxybutynin to 15mg as she has a normal bladder scan and negative urine culture but that she would likely still have urgency and freuqency as long as she is taking Lasix. She understands that if the Oxybutynin at the higher dose will help it may take 2-3 weeks to see a difference. F/U in 1 month. (3) Overactive bladder: Code(s): N32.81 - Overactive bladder Status: Acute Urology Consult Note HPI Date Seen: 08/19/22 Time Seen: 15:42 Requesting Physician: Meagan Mello MD Primary Care Provider: Jf Wade MD Consult Narrative Reason for consult: OAB Narrative: Jenny Lucas is a 77 year old female whom we were consulted on d/t ongoing/worsening OAB symptoms despite being on Oxybutynin. The patient was seen initially in the ER on 08/13/22 for SOB and hypoxia. She was admitted and treated for COPD exacerbation. She was started on Lasix which caused urinary frequency and urgency, which is normally not a problem when she takes her Oxybutynin 5mg QD at home. She had also c/o new onset of dysuria but had a negative urine culture. Her Bladder scan was 120cc. Review of Systems Cardiovascular: Cardiovascular: Denies chest pain Respiratory: Respiratory: Reports dyspnea on exertion Gastrointestinal: Gastrointestinal: Denies abdominal pain, Denies nausea and Denies vomiting Genitourinary: Genitourinary: Denies hematuria, Reports nocturia, Denies dysuria, Denies pelvic pain, Denies flank pain, Denies urinary hesitancy and Reports urinary urgency [facility] Past Medical History Medical History Adenomatous colon polyp Anxiety and depression Arthritis Chronic anemia Chronic anticoagulation Chronic kidney disease Chronic obstructive pulmonary disease 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 Chronic respiratory failure with hypoxia, on home oxygen therapy On 2 liters nasal cannula. Cognitive dysfunction Dyslipidemia Gastroesophageal reflux disease Hearing loss Hypertension Hypothyroidism Iron deficiency anemia Kidney stones Lung nodule Multiple pulmonary nodules determined by computed tomography of lung Paroxysmal atrial flutter Personal history of COVID-19 Pre-diabetes Tobacco abuse Surgical History Surgical History History of bilateral cataract extraction History of cardiac catheterization History of colonoscopy with polypectomy History of cystoscopy History of lithotripsy History of lung biopsy (02/2020) Left lung nodule-fibrous tissue with chronic inflammation and granulomatous. History of tubal ligation Family History Family History Other Breast cancer Social History Social History Social History: . Lives in [place]. Son lives with her. Retired from [employer] Surrogate medical decision maker: Jevon Lucas, son. Code status: Full code Smoking packs per day: 1 Smoking cigarettes per day: 20.0 Years smoked: 50 Smoking pack-years: 50.00 Smoking status: Former smoker Tobacco type: cigarettes Second hand tobacco smoke exposure: No Alcohol inta
[2022-08-19 16:03] LABS: EDCOVIDSCREEN Negative (Negative)
== END 2022-08-19 16:20 | DRG 190 ==
LOC: ANHED 12:12 → ANHIMU 14:00 → ANH2MED 08-16 17:51
PROVIDERS: Family Medicine; Physician Assistant; Admitting Provider Internal Medicine; Emergency Provider Emergency Medicine; PCP Internal Medicine; Visit Provider Student in an Organized Health Care Education/Training Program
DX: J43.2 Centrilobular emphysema (principal); J96.21 Acute and chronic respiratory failure with hypoxia; J96.22 Acute and chronic respiratory failure with hypercapnia; I48.92 Unspecified atrial flutter; N17.9 Acute kidney failure, unspecified; Z66 Do not resuscitate; D50.9 Iron deficiency anemia, unspecified; E78.5 Hyperlipidemia, unspecified; E03.9 Hypothyroidism, unspecified; F41.9 Anxiety disorder, unspecified; F32.A Depression, unspecified; H91.90 Unspecified hearing loss, unspecified ear; I48.0 Paroxysmal atrial fibrillation; I12.9 Hypertensive chronic kidney disease with stage 1 through stage 4 chronic kidney disease, or unspecified chronic kidney disease; K21.9 Gastro-esophageal reflux disease without esophagitis; K13.79 Other lesions of oral mucosa; L89.159 Pressure ulcer of sacral region, unspecified stage; N18.9 Chronic kidney disease, unspecified; N32.81 Overactive bladder; R35.0 Frequency of micturition; R73.03 Prediabetes; W19.XXXA Unspecified fall, initial encounter; Z20.822 Contact with and (suspected) exposure to COVID-19; Z98.41 Cataract extraction status, right eye; Z99.81 Dependence on supplemental oxygen; Z79.01 Long term (current) use of anticoagulants; Z79.82 Long term (current) use of aspirin; Z86.16 Personal history of COVID-19; Z98.42 Cataract extraction status, left eye; Z87.891 Personal history of nicotine dependence
CPT/HCPCS: 36415; 36600; 70450; 71045; 76775; 80048; 80053; 81001; 82375; 82805; 83050; 83735; 83880; 85025; 85027; 85610; 85730; 87040; 87086; 87088; 87426; 87636; 93005; 94002; 94003; 94640; 96365; 96375; 97161; 97165; 97530; 99291; A9270; C9803; G0378; J0456; J0696; J1650; J2930; J7512

== ENCOUNTER 2022-08-27 07:20 | Inpatient (IN) | payer MEDICARE, SELFPAY ==
[2022-08-27] VITALS (17 sets, daily range): BP systolic 118–175; BP diastolic 52–75; PULSE 78–115; RESP 13–24; TEMP 36.1–36.8; O2SAT 91–99
--- NOTE | ~2022-08-27 | XR_ITS ---
XR chest 1V portable DATE: 08/27/2022 08:36 INDICATION: Shortness of breath. History of COPD. TECHNIQUE: Portable upright AP chest on 08/27/2022 at 0824 hours 08/13/2022 portable AP chest at 1147 hours 07/19/2022 portable AP chest 07/14/2022 CT chest COMPARISON: 08/13/2022 portable AP chest at 1147 hours 07/19/2022 portable AP chest 07/14/2022 CT chest. FINDINGS: There are chronic interstitial fibrotic changes in both lungs. Since 08/04/2022 there is kelly y prominent infiltrate in the left lower lung. Rather extensive right lung interstitial fibrosis and/ or infiltrate appears relatively stable since 08/04/2022. Heart size is likely within normal range considering magnification associated with AP projection. The re is aortic calcified atherosclerosis. Diffuse osteopenia. IMPRESSION: Extensive bilateral pulmonary interstitial fibrotic changes, with interval prominent patc hy left lower lung infiltrate Reviewed, dictated and finalized at location L. ER HELPER IMPRESSION: Extensive bilateral pulmonary interstitial fibrotic changes, with i nterval prominent patchy left lower lung infiltrate
--- NOTE | ~2022-08-27 | XR_ITS ---
Portable chest x-ray Comparison: 08/28/2022 Clinical History: Shortness of breath Findings: Diffuse chronic interstitial pattern of the lungs is unchanged. No pleural effusion or pne umothorax. Cardiomediastinal silhouette is stable. Bones and soft tissues are unremarkable. Impression: Stable diffuse chronic interstitial disease. Reviewed, dictated and finalized at [facility]. HEADER OPERATOR Impression: Stable diffuse chronic interstitial disease.
--- NOTE | ~2022-08-27 | XR_ITS ---
Portable chest x-ray Comparison: 08/30/2022 Clinical History: Interstitial disease Findings: Extensive chronic interstitial disease in the lungs is unchanged. No definite acute abnorm ality. Cardiomediastinal silhouette is stable. Bones and soft tissues are unremarkable. Impression: Stable extensive chronic interstitial disease in the lungs. Reviewed, dictated and finalized at location . Impression: Stable extensive chronic interstitial disease in the lungs.
--- NOTE | ~2022-08-27 | CT_ITS ---
CT Scan of the Chest without Contrast: Clinical Indication: Pneumonia, COPD Technique: Contiguous sections were acquired throughout the chest without intravenous contrast. Dose reduction technique was used on this scan by utilizing automated exposure control and iterative recon struction technique. The dose-length product (DLP) was 136.63 mGy-cm. COMPARISON: 07/14/2022 Findings: There is no evidence of any significant mediastinal, hilar or axillary lymphadenopathy. Coronary joana ry calcifications are present. There are atherosclerotic calcifications of the aorta. There is no evidence of pleural or pericardial effusion. Severe emphysema is present, similar to prior exam. Probable left basilar atelectatic change versus p ossible pneumonia. Images through the upper abdomen reveal no abnormalities. Impression: Severe emphysema. Probable left basilar atelectatic change, less likely pneumonia. Correlate clinically. Reviewed, dictated and finalized at [facility]. L DRAFTSMAN Impression: Severe emphysema. Probable left basilar atelectatic change, less likely pneumonia. Correlate clin ically.
--- NOTE | ~2022-08-27 | XR_ITS ---
EXAMINATION: XR chest 1V portable DATE: 08/28/2022 05:23 INDICATION: Desaturations TECHNIQUE: frontal view of the chest was obtained. COMPARISON: Chest radiograph dated 08/27/2022 and 06/28/2022 FINDINGS: There are scattered coarse interstitial and mild patchy airspace opacities throughout the right lung and in the left lower lung zone without interval change since the most recent study but which have la rgely developed since 06/28/2022 consistent with pneumonia and/or pulmonary edema superimposed over sev ere emphysema. No pneumothorax or definitive pleural effusion. The cardiomediastinal silhouette is no rmal. Severe lumbar spondylosis. IMPRESSION: 1. No significant change in scattered bilateral lung disease most likely either pneumonia or pulmonar y edema superimposed over emphysema. Reviewed, dictated and finalized at location [facility]. K BROKER IMPRESSION: 1. No significant change in scattered bilateral lung disease most likely either pneumonia or pulmonary edema superimposed over emphysema.
--- NOTE | 2022-08-27 07:31 | ECG_ITS ---
Measurements Intervals [place] Rate: 88 P: 56 MI: 147 QRS: 19 QRSD: 109 T: 86 QT: 451 QTc: 547 Interpretive Statements SINUS RHYTHM INTRAVENTRICULAR CONDUCTION DELAY DELAYED PRECORDIAL R/S TRANSITION BORDERLINE ST-T WAVE ABNORMALITY- DIFFUSE LEADS BASELINE ARTIFACT- I, II, III, AVR, AVL, AVF, V1-V6 BORDERLINE ECG COMPARED TO ECG 08/13/2022 11:14:18 ST-T WAVE ABNORMALITY NOW PRESENT Electronically Signed On 08-27-2022 7:52:10 [employer] TEACHER by Kendrick Paula D.O.
[2022-08-27 08:08] LABS: Basophils Absolute Auto 0.1 K/mm3 (0.0-0.1); Basophils Percent Auto 0.6 % (0.2-1.2); Eosinophils Absolute Auto 0.2 K/mm3 (0-0.3); Eosinophils Percent Auto 1.5 % (0-4.4); Hematocrit 28.6 % (37.0-47.0); Hemoglobin 8.4 g/dL (12.0-15.0); Immature Granulocyte Absolute 0.14 K/mm3 (0.00-0.031); Immature Granulocyte Percent A 0.9 % (0-0.5); Lymphocytes Absolute Auto 0.59 K/mm3 (0.9-3.2); Lymphocytes Percent Auto 3.7 % (18.3-44.2); Mean Corpuscular HGB Conc 29.4 g/dl (32-36); Mean Corpuscular Hemoglobin 27.7 pg (26-34); Mean Corpuscular Volume 94.4 fl (80-100); Mean Platelet Volume 10.1 fl (7.4-10.4); Monocytes Absolute Auto 1.3 K/mm3 (0.1-0.6); Monocytes Percent Auto 7.8 % (2.6-8.5); Neutrophils Absolute Auto 13.8 K/mm3 (1.3-6.7); Neutrophils Percent Auto 85.5 % (45.5-73.1); Platelet Count Result 220 k/mm3 (150-375); Red Blood Count 3.03 M/mm3 (4.2-5.4); Red Cell Distribution Width 15.5 % (11.5-14.5); White Blood Count 16.1 K/mm3 (4.5-10.0)
[2022-08-27 08:11] LABS: Alveolar/Arterial O2 Gradient 501.4 mmHg; Carboxyhemoglobin 1.3 % THb (0-2.0); Fractional Inspired Oxygen 100 %; Methemoglobin ABG 0.3 %THb (0-1.5); Oxygen Content ABG 11.8 %vol (16.0-22.0); Oxygen Saturation ABG 99.3 % (95.0-100.0); Oxyhemoglobin 96.9 % THb (90.0-100.0); PCO2 ABG 42.3 mmHg (35.0-45.0); PO2 ABG 169.3 mmHg (80.0-100.0); PO2 FiO2 Ratio Arterial Blood 1.69 %; Reduced Hemoglobin 1.5 %THb (0-5.0); Total Hemoglobin 8.4 g/dL (12.0-18.0); pH ABG 7.496 (7.350-7.450)
[2022-08-27 08:12] LABS: Device NON-REBREATHER MASK; Modified Allen's Test Pass; Site Drawn RIGHT RADIAL
[2022-08-27] MEDS: IPRATROPIUM BR 0.02% INH SOLN 0.5 MG/2.5 ML VIAL INHALATION ×2 (08:12→18:15)
[2022-08-27] MEDS: ALBUTEROL SULFATE NEB 2.5 MG/3 ML INH INHALATION ×2 (08:12→18:15)
[2022-08-27 08:18] LABS: Alanine Aminotransferase 24 U/L (6-35); Albumin Level 3.9 g/dL (3.5-5.1); Alkaline Phosphatase 81 U/L (38-126); Anion Gap 7 mmol/L (8-16); Aspartate Amino Transferase 29 U/L (14-36); Bilirubin,Total 0.6 mg/dL (0.2-1.3); Blood Urea Nitrogen 13 mg/dL (7-17); Calcium 8.3 mg/dL (8.4-10.2); Carbon Dioxide 36 mmol/L (22-30); Chloride 98 mmol/L (98-107); Estimated CRCL calculation 49 ml/min; Estimated Glomerular Filt Rate > 60; Glucose 126 mg/dL (65-110); Magnesium 1.9 mg/dL (1.6-2.3); Potassium 3.1 mmol/L (3.4-5.0); Sodium 141 mmol/L (137-145)
[2022-08-27 08:19] LABS: INR 1.5; Prothrombin Time 17.9 Seconds (11.1-14.7)
[2022-08-27 08:20] LABS: Partial Thromboplastin Time 34.3 SECONDS (22.3-36.8)
[2022-08-27 08:30] LABS: NT Pro B Type Natriuretic Pept 741 pg/mL (19.9-100); Troponin I < 0.012 ng/mL (0.000-0.034)
--- NOTE | 2022-08-27 09:36 | ED.SOB ---
HPI - SOB/Dyspnea General Chief Complaint: Shortness of Breath/Dyspnea Stated Complaint: SOB Time Seen by Provider: 08/27/22 07:36 History of Present Illness HPI Narrative: Pt presents with progressively worsening SOB. Pt says her oxygen machine quit working and her oxygen sats dropped into the 40's. Pt denies CP. Pt has had a cough but denies fever. Per EMS pt received 2 nebs and decadron but oxygen sats still low and requiring more oxygen than her normal 4 L. Related Data Home Medications Medication Instructions Recorded Confirmed [id number] tablet 1 tablet PO DAILY 07/14/20 08/27/22 cholecalciferol (vitamin D3) 50 100 mcg PO DAILY 02/27/22 08/27/22 mcg (2,000 unit) capsule amlodipine 5 mg tablet 5 mg PO DAILY 06/25/22 08/27/22 donepezil 10 mg tablet 10 mg PO DAILY 06/25/22 08/27/22 folic acid 1 mg tablet 1 mg PO DAILY 06/25/22 08/27/22 memantine 5 mg tablet 5 mg PO BID 06/25/22 08/27/22 olmesartan 20 mg tablet 20 mg PO DAILY 06/25/22 08/27/22 acidophilus 100 million 1 cap PO DAILY 07/04/22 08/27/22 cell-pectin, citrus 10 mg capsule mecobalamin (vitamin B12) 1,000 1,000 mcg sublingual DAILY 07/29/22 08/27/22 mcg disintegrating tablet,sublingual lorazepam 1 mg tablet 1 mg PO BID 08/14/22 08/27/22 omeprazole 20 mg capsule,delayed 40 mg PO BID 08/14/22 08/27/22 release Allergies Allergy/AdvReac Type Severity Reaction Status Date / Time No Known Allergies Allergy Verified 08/27/22 09:28 Review of Systems Review of Systems: All systems reviewed & are unremarkable except as noted in HPI and below PMFSH Past Medical History Medical History (Updated 08/27/22 @ 16:12 by Marguerite Horn PA-C) Adenomatous colon polyp Anxiety and depression Arthritis Chronic anemia Chronic anticoagulation Chronic kidney disease Chronic obstructive pulmonary disease 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 Chronic respiratory failure with hypoxia, on home oxygen therapy On 4 liters nasal cannula. Cognitive dysfunction Dyslipidemia Gastroesophageal reflux disease Hearing loss Hypertension Hypothyroidism Iron deficiency anemia Kidney stones Lung nodule Multiple pulmonary nodules determined by computed tomography of lung Paroxysmal atrial flutter Personal history of COVID-19 Pre-diabetes Tobacco abuse Surgical History Surgical History History of bilateral cataract extraction History of cardiac catheterization History of colonoscopy with polypectomy History of cystoscopy History of lithotripsy History of lung biopsy (02/2020) Left lung nodule-fibrous tissue with chronic inflammation and granulomatous. History of tubal ligation Family History Family History Other Breast cancer Social History Social History (Updated 08/27/22 @ 16:12 by Marguerite Horn PA-C) Social History: . Lives in [place]. Son lives with her. Retired from [employer]. Surrogate medical decision maker: Jevon Lucas, phi. Code status: Full code Smoking packs per day: 1 Smoking cigarettes per day: 20.0 Years smoked: 50 Smoking pack-years: 50.00 Smoking status: Former smoker Tobacco type: cigarettes Second hand tobacco smoke exposure: No Alcohol intake: never Drinks per week: 0 Substance use: never Substance use type: does not use Lack of Transportation: No Lack of Food: Never True Current Housing: I Have Housing Concerned About Future Housing: No Difficulty Paying Gas/Electric Bills: No Difficulty Paying for Meds: No Currently Unemployed: No Education: High School Diploma/GED Difficulty w/ Childcare or Family Care: No Spiritual care concerns: No Exam Const: General: healthy appearing Nutritional Appearance: thin Orientation/consciousness: patient oriented x3 Neck: Neck: normal visual inspection Chest: Chest palpation & inspection: n
--- NOTE | 2022-08-27 10:13 | PC.NURSE ---
Pt coughed up small amount of blood tinged sputum.
[2022-08-27] MEDS: cefTRIAXone 2 GM in SODIUM CHLORIDE 0.9% IV 100 ML 200 ML IVPB (10:16)
--- NOTE | 2022-08-27 16:02 | PM.IMHP ---
H&P: HPI History of Present Illness Date/Time: 08/27/22 16:02 Chief Complaint: dyspnea Narrative: date of service: 08/27/2022 Jenny Lucas is a 77-year-old female with a history of atrial flutter on chronic anticoagulation, COPD, chronic respiratory failure on 4 L supplemental oxygen, pulmonary nodules, and tobacco abuse known to the hospitalist service with several recent admissions who presented to the emergency department on 08/27/2022 from her group home facility with complaints of shortness of breath. The patient states that her oxygen concentrator became broken overnight and she was feeling short of breath. She got up to the chair and reportedly staff took her vital signs and her O2 sats were at 35%. EMS was summoned and she was noted to be hypoxic at 47-50%. She received dexamethasone and 2 nebulizer treatments. Upon presentation to the ED, her O2 sats were stable at 97% on 15 L non-rebreather, she was mildly tachypneic, additional vital signs were stable, white blood cell count 16.1, potassium 3.1, troponin negative, BNP 700, ABG revealed primary metabolic alkalosis, and CXR showed extensive bilateral pulmonary interstitial fibrotic changes with interval prominent patchy left lower lung infiltrates. At the time of my evaluation, the patient states that she is feeling better. States that her breathing is much improved. Does endorse cough productive of clear phlegm and 1 episode of dark red phlegm. She reports that she has been feeling more short of breath over the past couple of days. She denies fever or chills. She feels that her legs have been slightly more swollen than normal, but today they seem improved. She denies wheezing. Patient states that she is occasionally able to ambulate to the bathroom but is typically incontinent. She denies any recent urinary symptoms. Reports that her appetite has been good. She has not had any abdominal discomfort. 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 Chronic respiratory failure with hypoxia, on home oxygen therapy On 4 liters nasal cannula. Cognitive dysfunction Dyslipidemia Gastroesophageal reflux disease Hearing loss Hypertension Hypothyroidism Iron deficiency anemia Kidney stones Lung nodule Multiple pulmonary nodules determined by computed tomography of lung Paroxysmal atrial flutter Personal history of COVID-19 Pre-diabetes Tobacco abuse Surgical History Surgical History History of bilateral cataract extraction History of cardiac catheterization History of colonoscopy with polypectomy History of cystoscopy History of lithotripsy History of lung biopsy (02/2020) Left lung nodule-fibrous tissue with chronic inflammation and granulomatous. History of tubal ligation Family History Family History Other Breast cancer Social History Social History (Updated 08/27/22 @ 16:12 by Marguerite Horn PA-C) Social History: . Lives in [place]. Son lives with her. Retired from [employer]. Surrogate medical decision maker: Jevon Lucas, son. Code status: Full code Smoking packs per day: 1 Smoking cigarettes per day: 20.0 Years smoked: 50 Smoking pack-years: 50.00 Smoking status: Former smoker Tobacco type: cigarettes Second hand tobacco smoke exposure: No Alcohol intake: never Drinks per week: 0 Substance use: never Substance use type: does not use Lack of Transportation: No Lack of Food: Never True Current Housing: I Have Housing Concerned
[2022-08-27] MEDS: MEMANTINE 5 MG TABLET PO (18:03)
[2022-08-27] MEDS: POTASSIUM CHLORIDE 20 MEQ PACKET (FOR LIQUID) 40 MEQ PO (18:03)
[2022-08-27] MEDS: LORazepam (*CRX) 1 MG TABLET PO (18:05)
[2022-08-27] MEDS: APIXABAN 5 MG TABLET PO (20:06)
[2022-08-27] MEDS: FLECAINIDE ACETATE 100 MG TABLET PO (20:07)
[2022-08-27] MEDS: DOXYCYCLINE HYCLATE 100 MG TABLET PO (20:07)
[2022-08-27] MEDS: PANTOPRAZOLE 40 MG TABLET PO (20:07)
[2022-08-27] MEDS: MONTELUKAST SODIUM 10 MG TABLET PO (20:07)
[2022-08-28] VITALS (25 sets, daily range): BP systolic 137–174; BP diastolic 51–69; PULSE 75–118; RESP 16–24; TEMP 35.8–36.8; O2SAT 85–100; BMI 17.9
[2022-08-28] MEDS: LORazepam (*CRX) 1 MG TABLET PO ×3 (04:03→21:11)
[2022-08-28] MEDS: ALBUTEROL SULFATE NEB 2.5 MG/3 ML INH INHALATION ×3 (04:24→19:54)
[2022-08-28] MEDS: IPRATROPIUM BR 0.02% INH SOLN 0.5 MG/2.5 ML VIAL INHALATION ×3 (04:24→19:54)
[2022-08-28 04:50] LABS: Alveolar/Arterial O2 Gradient 613.6 mmHg; Base Excess ABG 8.1 mEq/l (+/-2.0); Carboxyhemoglobin 0.3 % THb (0-2.0); Fractional Inspired Oxygen 100 %; HCO3 ABG 33.3 mEq/l (22.0-26.0); Methemoglobin ABG 0.5 %THb (0-1.5); Oxygen Content ABG 9.6 %vol (16.0-22.0); PCO2 ABG 50.6 mmHg (35.0-45.0); PO2 FiO2 Ratio Arterial Blood 0.49 %; Reduced Hemoglobin 16.3 %THb (0-5.0); Total Hemoglobin 8.2 g/dL (12.0-18.0); pH ABG 7.436 (7.350-7.450)
[2022-08-28 04:51] LABS: PO2 ABG 48.8 mmHg (80.0-100.0)
[2022-08-28 04:52] LABS: Device HIGH FLOW NASAL CANN; Modified Allen's Test Pass; Oxygen Saturation ABG 85.1 % (95.0-100.0); Oxyhemoglobin 82.9 % THb (90.0-100.0); Site Drawn RIGHT RADIAL
[2022-08-28] MEDS: FUROSEMIDE INJ 40 MG/4 ML VIAL (04:52)
[2022-08-28] MEDS: methylPREDNISolone SOD SUCC 125 MG VIAL 80 MG IV PUSH (04:52)
[2022-08-28 06:06] LABS: Influenza A QL RT-PCR Negative (Negative); Influenza B QL RT-PCR Negative (Negative); SARS-CoV-2 RNA PCR Negative
[2022-08-28] MEDS: LEVOTHYROXINE SODIUM 25 MCG TABLET PO ×2 (06:35→10:10)
[2022-08-28 06:59] LABS: Hematocrit 28.1 % (37.0-47.0); Hemoglobin 8.4 g/dL (12.0-15.0); Mean Corpuscular HGB Conc 29.9 g/dl (32-36); Mean Corpuscular Hemoglobin 28.4 pg (26-34); Mean Corpuscular Volume 94.9 fl (80-100); Mean Platelet Volume 9.5 fl (7.4-10.4); Platelet Count Result 230 k/mm3 (150-375); Red Blood Count 2.96 M/mm3 (4.2-5.4); Red Cell Distribution Width 15.9 % (11.5-14.5)
[2022-08-28 07:08] LABS: Anion Gap 5 mmol/L (8-16); Blood Urea Nitrogen 10 mg/dL (7-17); Calcium 8.8 mg/dL (8.4-10.2); Carbon Dioxide 37 mmol/L (22-30); Chloride 100 mmol/L (98-107); Estimated CRCL calculation 49 ml/min; Estimated Glomerular Filt Rate > 60; Glucose 106 mg/dL (65-110); Potassium 3.4 mmol/L (3.4-5.0); Sodium 142 mmol/L (137-145)
--- NOTE | 2022-08-28 07:31 | PC.NURSE ---
This patient, Jenny Lucas, was received from [room 323 ] on 08/28/22 at 0533. Patient/family oriented to unit policies and routines
[2022-08-28 08:15] LABS: Glucose Point of Care 112 mg/dl (65-105)
[2022-08-28] MEDS: FLUTICASONE/UMECLIDIN/VILANTER 100-62.5-25 MCG ELLIPTA 1 PUFF INHALATION (09:32)
[2022-08-28] MEDS: CHOLECALCIFEROL 1,000 UNITS TABLET 2000 UNITS PO (10:00)
[2022-08-28] MEDS: FLECAINIDE ACETATE 100 MG TABLET PO ×2 (10:05→21:04)
[2022-08-28] MEDS: DONEPEZIL HCL 10 MG TABLET PO (10:05)
[2022-08-28] MEDS: OLMESARTAN MEDOXOMIL 20 MG TABLET PO (10:06)
[2022-08-28] MEDS: OPTI-GEN TAB 1 TABLET PO (10:07)
[2022-08-28] MEDS: CYANOCOBALAMIN 1,000 MCG TABLET 1000 MCG PO (10:08)
[2022-08-28] MEDS: PANTOPRAZOLE 40 MG TABLET PO ×2 (10:08→21:04)
[2022-08-28] MEDS: DOXYCYCLINE HYCLATE 100 MG TABLET PO ×2 (10:08→21:05)
[2022-08-28] MEDS: APIXABAN 5 MG TABLET PO ×2 (10:08→21:04)
[2022-08-28] MEDS: ASPIRIN 81 MG CHEWABLE TABLET PO (10:09)
[2022-08-28] MEDS: FOLIC ACID 1 MG TABLET PO (10:09)
[2022-08-28] MEDS: MEMANTINE 5 MG TABLET PO ×2 (10:09→16:57)
[2022-08-28] MEDS: PARoxetine 20 MG TABLET 40 MG PO (10:09)
[2022-08-28] MEDS: FUROSEMIDE 40 MG TABLET PO (10:09)
[2022-08-28] MEDS: oxyBUTYnin CHLORIDE XL 5 MG TAB.ER.24 15 MG PO (10:10)
[2022-08-28] MEDS: amLODIPine BESYLATE 5 MG TABLET PO (10:10)
--- NOTE | 2022-08-28 13:33 | PM.IMPN ---
Progress Note: A&P Assessment and Plan (1) Acute on chronic respiratory failure with hypoxia and hypercapnia: Code(s): J96.21 - Acute and chronic respiratory failure with hypoxia; J96.22 - Acute and chronic respiratory failure with hypercapnia Status: Acute Assessment and Plan: patient with chronic respiratory failure typically on 4 L supplemental O2 noted to be acutely hypoxic at nursing facility due to failure of oxygen concentrator CXR on presentation showed extensive bilateral pulmonary interstitial fibrotic changes with interval prominent patchy left lower lung infiltrate currently requiring 10 L supplemental O2 per nasal cannula continue with supplemental oxygen as needed. Wean to baseline as tolerated see plan below BNP 741 which is improved from prior level Currently on Lasix oral which will be continued Pulmonary consultation (2) Pneumonia: Code(s): J18.9 - Pneumonia, unspecified organism Status: Acute Assessment and Plan: imaging and clinical findings consistent with pneumonia On ceftriaxone and doxycycline COVID influenza a and B negative Urine Legionella and pneumococcus pending Sputum culture Leukocytosis worsened today better did receive methylprednisolone earlier today (3) Hypokalemia: Code(s): E87.6 - Hypokalemia Status: Acute Assessment and Plan: Replace and monitor (4) Paroxysmal atrial flutter: Code(s): I48.92 - Unspecified atrial flutter Status: Acute Assessment and Plan: patient is in sinus rhythm continue flecainide continue Eliquis (5) Hypertension: Code(s): I10 - Essential (primary) hypertension Status: Acute Assessment and Plan: continue olmesartan, amlodipine, and furosemide monitor BP trends Plan DVT prophylaxis on apixaban Subjective Date/time seen: 08/28/22 13:33 Interval history: Jenny Lucas is a 77-year-old female with a history of atrial flutter on chronic anticoagulation, COPD, chronic respiratory failure on 4 L supplemental oxygen, pulmonary nodules, and tobacco abuse known to the hospitalist service with several recent admissions who presented to the emergency department on 08/27/2022 from her [facility] facility with complaints of shortness of breath.? The patient states that her oxygen concentrator became broken overnight and she was feeling short of breath.? She got up to the chair and reportedly staff took her vital signs and her O2 sats were at 35%.? EMS was summoned and she was noted to be hypoxic at 47-50%.? She received dexamethasone and 2 nebulizer treatments.? Upon presentation to the ED, her O2 sats were stable at 97% on 15 L non-rebreather, she was mildly tachypneic, additional vital signs were stable, white blood cell count 16.1, potassium 3.1, troponin negative, BNP 700, ABG revealed primary metabolic alkalosis, and CXR showed extensive bilateral pulmonary interstitial fibrotic changes with interval prominent patchy left lower lung infiltrates.? At the time of my evaluation, the patient states that she is feeling better.? States that her breathing is much improved.? Does endorse cough productive of clear phlegm and 1 episode of dark red phlegm.? She reports that she has been feeling more short of breath over the past couple of days.? She denies fever or chills.? She feels that her legs have been slightly more swollen than normal, but today they seem improved.? She denies wheezing.? Patient states that she is occasionally able to ambulate to the bathroom but is typically incontinent.? She denies any recent urinary symptoms.? Reports that her appetite has been good.? She has not had any abdominal discomfort. 08/28/22 overnight she got short of breath and was brought to IMU. Received Solu Medrol. She is feeling a little better now. She denies any chest pain. Oxygen saturation has improved. She normally uses 4 L oxygen at all times. Review of Systems R
[2022-08-28] MEDS: methylPREDNISolone SOD SUCC 40 MG VIAL IV PUSH ×2 (16:54→21:05)
[2022-08-28] MEDS: MONTELUKAST SODIUM 10 MG TABLET PO (21:04)
[2022-08-28] MEDS: ACETAMINOPHEN 325 MG TABLET 650 MG PO (21:10)
[2022-08-29] VITALS (27 sets, daily range): BP systolic 140–170; BP diastolic 60–69; PULSE 79–104; RESP 16–27; TEMP 36.3–36.9; O2SAT 91–96
[2022-08-29 04:13] LABS: Alveolar/Arterial O2 Gradient 569.4 mmHg; Base Excess ABG 12.1 mEq/l (+/-2.0); Fractional Inspired Oxygen 95 %; Oxygen Content ABG 11.3 %vol (16.0-22.0); Oxygen Saturation ABG 90.9 % (95.0-100.0); Oxyhemoglobin 88.1 % THb (90.0-100.0); PCO2 ABG 50.7 mmHg (35.0-45.0); PO2 ABG 56.6 mmHg (80.0-100.0); Total Hemoglobin 9.1 g/dL (12.0-18.0); pH ABG 7.481 (7.350-7.450)
[2022-08-29 04:14] LABS: Device NON-REBREATHER MASK; Site Drawn RIGHT BRACHIAL
[2022-08-29 05:11] LABS: Basophils Percent Auto 0.1 % (0.2-1.2); Hematocrit 26.7 % (37.0-47.0); Hemoglobin 7.8 g/dL (12.0-15.0); Immature Granulocyte Absolute 0.14 K/mm3 (0.00-0.031); Lymphocytes Absolute Auto 0.43 K/mm3 (0.9-3.2); Lymphocytes Percent Auto 3.1 % (18.3-44.2); Mean Corpuscular HGB Conc 29.2 g/dl (32-36); Mean Corpuscular Hemoglobin 27.4 pg (26-34); Mean Corpuscular Volume 93.7 fl (80-100); Mean Platelet Volume 9.9 fl (7.4-10.4); Monocytes Absolute Auto 0.3 K/mm3 (0.1-0.6); Monocytes Percent Auto 2.4 % (2.6-8.5); Neutrophils Percent Auto 93.4 % (45.5-73.1); Platelet Count Result 202 k/mm3 (150-375); Red Blood Count 2.85 M/mm3 (4.2-5.4); Red Cell Distribution Width 16.3 % (11.5-14.5); White Blood Count 13.9 K/mm3 (4.5-10.0)
[2022-08-29 05:34] LABS: Anisocytosis 1+ (NORMAL); Hypochromasia 2+ (NORMAL); Platelet Estimate Adequate (Adequate); Schistocytes None Seen (NORMAL)
[2022-08-29 05:39] LABS: Alanine Aminotransferase 21 U/L (6-35); Albumin Level 3.6 g/dL (3.5-5.1); Alkaline Phosphatase 83 U/L (38-126); Anion Gap 1 mmol/L (8-16); Aspartate Amino Transferase 22 U/L (14-36); Bilirubin,Total 0.6 mg/dL (0.2-1.3); Blood Urea Nitrogen 16 mg/dL (7-17); Calcium 8.6 mg/dL (8.4-10.2); Carbon Dioxide 39 mmol/L (22-30); Chloride 98 mmol/L (98-107); Estimated CRCL calculation 49 ml/min; Estimated Glomerular Filt Rate > 60; Glucose 111 mg/dL (65-110); Magnesium 2.1 mg/dL (1.6-2.3); Potassium 3.8 mmol/L (3.4-5.0); Sodium 138 mmol/L (137-145)
[2022-08-29] MEDS: methylPREDNISolone SOD SUCC 40 MG VIAL IV PUSH (06:27)
--- NOTE | 2022-08-29 07:23 | PC.NURSE ---
Around 0340 patient's SpO2 was 78% on 8 L High Flow nasal cannula. RN placed patient on 10 L high flow and patient continued to deteriorate to low 70's. RT was notified as well as Dr. Steen; received orders for ABG and to place patient on Airvo. Patient was placed on 15 L nonrebreather and reached SpO2 as low as 57%. Patient SpO2 stayed in 70's approximately 10 minutes before recovering to low 80's. When off oxygen, patient immediately desats to low 70's/60's.
[2022-08-29] MEDS: ALBUTEROL SULFATE NEB 2.5 MG/3 ML INH INHALATION ×4 (09:16→20:12)
[2022-08-29] MEDS: IPRATROPIUM BR 0.02% INH SOLN 0.5 MG/2.5 ML VIAL INHALATION ×4 (09:17→20:13)
[2022-08-29] MEDS: FLUTICASONE/UMECLIDIN/VILANTER 100-62.5-25 MCG ELLIPTA 1 PUFF INHALATION (09:17)
[2022-08-29] MEDS: APIXABAN 5 MG TABLET PO ×2 (09:24→21:14)
[2022-08-29] MEDS: ASPIRIN 81 MG CHEWABLE TABLET PO (09:24)
[2022-08-29] MEDS: amLODIPine BESYLATE 5 MG TABLET PO (09:24)
[2022-08-29] MEDS: CYANOCOBALAMIN 1,000 MCG TABLET 1000 MCG PO (09:24)
[2022-08-29] MEDS: DOXYCYCLINE HYCLATE 100 MG TABLET PO (09:24)
[2022-08-29] MEDS: FUROSEMIDE 40 MG TABLET PO (09:24)
[2022-08-29] MEDS: oxyBUTYnin CHLORIDE XL 5 MG TAB.ER.24 15 MG PO (09:24)
[2022-08-29] MEDS: PANTOPRAZOLE 40 MG TABLET PO ×2 (09:24→21:16)
[2022-08-29] MEDS: OPTI-GEN TAB 1 TABLET PO (09:24)
[2022-08-29] MEDS: DONEPEZIL HCL 10 MG TABLET PO (09:24)
[2022-08-29] MEDS: MEMANTINE 5 MG TABLET PO ×2 (09:24→19:02)
[2022-08-29] MEDS: CHOLECALCIFEROL 1,000 UNITS TABLET 2000 UNITS PO (09:25)
[2022-08-29] MEDS: OLMESARTAN MEDOXOMIL 20 MG TABLET PO (09:25)
[2022-08-29] MEDS: FLECAINIDE ACETATE 100 MG TABLET PO ×2 (09:25→21:14)
[2022-08-29] MEDS: FOLIC ACID 1 MG TABLET PO (09:25)
[2022-08-29] MEDS: PARoxetine 20 MG TABLET 40 MG PO (09:26)
[2022-08-29] MEDS: LORazepam (*CRX) 1 MG TABLET PO ×2 (09:40→21:04)
--- NOTE | 2022-08-29 11:31 | PM.IMPN ---
Progress Note: A&P Assessment and Plan (1) Acute on chronic respiratory failure with hypoxia and hypercapnia: Code(s): J96.21 - Acute and chronic respiratory failure with hypoxia; J96.22 - Acute and chronic respiratory failure with hypercapnia Status: Acute Assessment and Plan: patient with chronic respiratory failure typically on 4 L supplemental O2 noted to be acutely hypoxic at nursing facility due to failure of oxygen concentrator CXR on presentation showed extensive bilateral pulmonary interstitial fibrotic changes with interval prominent patchy left lower lung infiltrate currently requiring 10 L supplemental O2 per nasal cannula continue with supplemental oxygen as needed. Wean to baseline as tolerated see plan below BNP 741 which is improved from prior level Currently on Lasix oral which will be continued Pulmonary consultation. Discussed with him Antibiotics changed to vancomycin imipenem and Levaquin for healthcare associated pneumonia Off ceftriaxone and doxycycline (2) Pneumonia: Code(s): J18.9 - Pneumonia, unspecified organism Status: Acute Assessment and Plan: imaging and clinical findings consistent with pneumonia On ceftriaxone and doxycycline COVID influenza a and B negative Urine Legionella and pneumococcus pending Sputum culture Leukocytosis worsened today better did receive methylprednisolone earlier today On Solu-Medrol 40 q.8 hours. Leukocytosis has improved today (3) Hypokalemia: Code(s): E87.6 - Hypokalemia Status: Acute Assessment and Plan: Replace and monitor (4) Paroxysmal atrial flutter: Code(s): I48.92 - Unspecified atrial flutter Status: Acute Assessment and Plan: patient is in sinus rhythm continue flecainide continue Eliquis (5) Hypertension: Code(s): I10 - Essential (primary) hypertension Status: Acute Assessment and Plan: continue olmesartan, amlodipine, and furosemide monitor BP trends Plan DVT prophylaxis on apixaban Subjective Date/time seen: 08/29/22 11:31 Interval history: Jenny Lucas is a 77-year-old female with a history of atrial flutter on chronic anticoagulation, COPD, chronic respiratory failure on 4 L supplemental oxygen, pulmonary nodules, and tobacco abuse known to the hospitalist service with several recent admissions who presented to the emergency department on 08/27/2022 from her [facility] facility with complaints of shortness of breath.? The patient states that her oxygen concentrator became broken overnight and she was feeling short of breath.? She got up to the chair and reportedly staff took her vital signs and her O2 sats were at 35%.? EMS was summoned and she was noted to be hypoxic at 47-50%.? She received dexamethasone and 2 nebulizer treatments.? Upon presentation to the ED, her O2 sats were stable at 97% on 15 L non-rebreather, she was mildly tachypneic, additional vital signs were stable, white blood cell count 16.1, potassium 3.1, troponin negative, BNP 700, ABG revealed primary metabolic alkalosis, and CXR showed extensive bilateral pulmonary interstitial fibrotic changes with interval prominent patchy left lower lung infiltrates.? At the time of my evaluation, the patient states that she is feeling better.? States that her breathing is much improved.? Does endorse cough productive of clear phlegm and 1 episode of dark red phlegm.? She reports that she has been feeling more short of breath over the past couple of days.? She denies fever or chills.? She feels that her legs have been slightly more swollen than normal, but today they seem improved.? She denies wheezing.? Patient states that she is occasionally able to ambulate to the bathroom but is typically incontinent.? She denies any recent urinary symptoms.? Reports that her appetite has been good.? She has not had any abdominal discomfort. 08/28/22 overnight she got short of breath
[2022-08-29] MEDS: methylPREDNISolone SOD SUCC 40 MG VIAL 20 MG IV PUSH ×2 (11:41→19:02)
--- NOTE | 2022-08-29 12:29 | PM.CNPUL ---
Assessment and Plan Assessment and plan (1) Pneumonia: Code(s): J18.9 - Pneumonia, unspecified organism Status: Acute Assessment and Plan: patient tells me she was in her usual state of health and then her oxygen tank broke and she was brought to the emergency department. She had a leukocytosis of 16.1, a chest x-ray with new infiltrates left lower lobe and worsening hypoxemia. Her cope and influenza RT PCR studies are negative. Urine Legionella and urine pneumococcal antigen studies are pending. I will order mycoplasma IgM. Patient has had multiple hospitalizations over the last 3-4 months and I will cover her more broadly for with vancomycin, imipenem and Levaquin all started on 08/29/2022. (2) COPD exacerbation: Code(s): J44.1 - Chronic obstructive pulmonary disease with (acute) exacerbation Status: Acute Assessment and Plan: GOLD grade 3 group E COPD, (57 PY quit 2018),? last PFTs on 11/15/2016 with an FEV1 of 37% predicted,? chronic hypoxemic respiratory failure on 2 L nasal cannula with rest, ambulation and sleep, dyspnea on exertion at 20 ft,? She has very severe panlobular emphysema on her CT scan of the chest. Patient is not wheezing but at this time will treat for COPD exacerbation and I will decrease her Solu-Medrol to 20 mg IV q.6, I will discontinue her trilogy inhaler and place her on albuterol 2.5 mg nebs q.4 hours and ipratropium 0.5 mg nebs q.4 hours. (3) Acute on chronic respiratory failure with hypoxia and hypercapnia: Code(s): J96.21 - Acute and chronic respiratory failure with hypoxia; J96.22 - Acute and chronic respiratory failure with hypercapnia Status: Acute Assessment and Plan: patient presented with hypoxemic respiratory failure with a blood gas of 7.505/42/169 and her last blood gas this morning on 08/29/2022 of 7.48/51/56. In the past patient has poorly tolerated BiPAP and refused this in the past. in the past she has required Ativan for her claustrophobia. The patient states that if she was given Ativan she could try the BiPAP if it was absolutely necessary. Patient is currently on high-flow nasal cannula 50 L and 65% FiO2 with saturations 92%. I did talk to the patient about mechanical ventilation and at this time she does not wish for mechanical ventilation. Patient's code status was discussed with the hospitalist who will make these alterations. Discussed with Dr. Mack, will follow with you History of Present Illness History of Present Illness Consult date: 08/29/22 Chief complaint: Pneumonia/COPD Narrative: 08/29/2022: This is a new pulmonary consult for COPD and pneumonia ?77-year-old woman with a history of GOLD grade 3 group E COPD, (57 PY quit 2018),? last PFTs on 11/15/2016 with an FEV1 of 37% predicted,? chronic hypoxemic respiratory failure on 2 L nasal cannula with rest, ambulation and sleep, dyspnea on exertion at 20 ft,? hypertension, hypothyroidism, atrial fibrillation on and flecainide and eliquis and anemia. Patient is followed in the pulmonary clinic and was last seen on 06/18/2022.? At that time she was on 2 L nasal cannula 24-7, she was maintained on trilogy inhaler, had failed Daliresp in the past, was using nebulized albuterol 3 times a day, was using a vibratory vest and acaPella flutter valve for mucus clearing and was taking doxycycline Friday and Friday prescribed by her PCP in December of 2021.? Patient has had multiple exacerbations over the last year approximately every 6 weeks requiring prednisone and antibiotics.? Last prednisone burst was approximately 2 weeks ago. ?When patient has difficulty breathing she also notices that she makes by grunting? and squeaking sounds when she breathes and that her voice also changes. ? The patient and her son state that this only occurs after she is having trouble breathe and that these changes never occur or while she is breathing normally and never precipitate
[2022-08-29] MEDS: ACETAMINOPHEN 325 MG TABLET 650 MG PO (21:04)
[2022-08-29] MEDS: MONTELUKAST SODIUM 10 MG TABLET PO (21:15)
[2022-08-30] VITALS (29 sets, daily range): BP systolic 140–166; BP diastolic 55–74; PULSE 74–98; RESP 15–28; TEMP 36.3–36.8; O2SAT 91–96
[2022-08-30] MEDS: ALBUTEROL SULFATE NEB 2.5 MG/3 ML INH INHALATION ×6 (00:15→20:41)
[2022-08-30] MEDS: IPRATROPIUM BR 0.02% INH SOLN 0.5 MG/2.5 ML VIAL INHALATION ×6 (00:15→20:41)
[2022-08-30] MEDS: methylPREDNISolone SOD SUCC 40 MG VIAL 20 MG IV PUSH ×4 (00:30→20:53)
[2022-08-30] MEDS: LEVOTHYROXINE SODIUM 25 MCG TABLET PO (05:05)
[2022-08-30 05:06] LABS: Hematocrit 26.3 % (37.0-47.0); Hemoglobin 7.9 g/dL (12.0-15.0); Mean Corpuscular Hemoglobin 27.3 pg (26-34); Mean Platelet Volume 9.5 fl (7.4-10.4); Platelet Count Result 223 k/mm3 (150-375); Red Blood Count 2.89 M/mm3 (4.2-5.4); Red Cell Distribution Width 16.3 % (11.5-14.5); White Blood Count 20.5 K/mm3 (4.5-10.0)
[2022-08-30 05:19] LABS: Alanine Aminotransferase 20 U/L (6-35); Albumin Level 3.4 g/dL (3.5-5.1); Alkaline Phosphatase 84 U/L (38-126); Aspartate Amino Transferase 23 U/L (14-36); Bilirubin,Total 0.5 mg/dL (0.2-1.3); Blood Urea Nitrogen 21 mg/dL (7-17); Calcium 8.8 mg/dL (8.4-10.2); Carbon Dioxide > 40 mmol/L (22-30); Chloride 93 mmol/L (98-107); Estimated CRCL calculation 38 ml/min; Estimated Glomerular Filt Rate > 60; Glucose 108 mg/dL (65-110); Potassium 3.7 mmol/L (3.4-5.0); Sodium 136 mmol/L (137-145)
[2022-08-30 05:52] LABS: Eosinophils Absolute Manual 0.61 K/mm3 (0.02-0.5); Eosinophils Percent Manual 3 % (0-4); Lymphocytes Absolute Manual 0.41 K/mm3 (1.1-4.5); Monocytes Absolute Manual 0.41 K/mm3 (0.1-0.90); Monocytes Percent Manual 2 % (3-9); Neutrophils Percent Manual 93 % (46-73); Total Cells Counted 100
[2022-08-30 05:53] LABS: Anisocytosis 1+ (NORMAL); Microcytosis 1+ (NORMAL); Platelet Estimate Adequate (Adequate); Schistocytes None Seen (NORMAL)
[2022-08-30 05:54] LABS: Hypochromasia 2+ (NORMAL); Macrocytosis 2+ (NORMAL); Stomatocytes 1+ (NORMAL)
[2022-08-30] MEDS: PARoxetine 20 MG TABLET 40 MG PO (08:33)
[2022-08-30] MEDS: OLMESARTAN MEDOXOMIL 20 MG TABLET PO (08:33)
[2022-08-30] MEDS: CHOLECALCIFEROL 1,000 UNITS TABLET 2000 UNITS PO (08:33)
[2022-08-30] MEDS: FOLIC ACID 1 MG TABLET PO (08:33)
[2022-08-30] MEDS: DONEPEZIL HCL 10 MG TABLET PO (08:33)
[2022-08-30] MEDS: amLODIPine BESYLATE 5 MG TABLET PO (08:34)
[2022-08-30] MEDS: FLECAINIDE ACETATE 100 MG TABLET PO ×2 (08:34→20:53)
[2022-08-30] MEDS: FUROSEMIDE 40 MG TABLET PO (08:34)
[2022-08-30] MEDS: PANTOPRAZOLE 40 MG TABLET PO ×2 (08:34→20:54)
[2022-08-30] MEDS: CYANOCOBALAMIN 1,000 MCG TABLET 1000 MCG PO (08:35)
[2022-08-30] MEDS: oxyBUTYnin CHLORIDE XL 5 MG TAB.ER.24 15 MG PO (08:35)
[2022-08-30] MEDS: APIXABAN 5 MG TABLET PO ×2 (08:35→20:54)
[2022-08-30] MEDS: MEMANTINE 5 MG TABLET PO ×2 (08:36→18:27)
[2022-08-30] MEDS: ASPIRIN 81 MG CHEWABLE TABLET PO (08:36)
[2022-08-30] MEDS: OPTI-GEN TAB 1 TABLET PO (08:36)
--- NOTE | 2022-08-30 09:21 | PM.IMPN ---
Progress Note: A&P Assessment and Plan (1) Acute on chronic respiratory failure with hypoxia and hypercapnia: Code(s): J96.21 - Acute and chronic respiratory failure with hypoxia; J96.22 - Acute and chronic respiratory failure with hypercapnia Status: Acute Assessment and Plan: patient with chronic respiratory failure typically on 4 L supplemental O2 noted to be acutely hypoxic at nursing facility due to failure of oxygen concentrator CXR on presentation showed extensive bilateral pulmonary interstitial fibrotic changes with interval prominent patchy left lower lung infiltrate currently requiring 10 L supplemental O2 per nasal cannula continue with supplemental oxygen as needed. Wean to baseline as tolerated see plan below BNP 741 which is improved from prior level Currently on Lasix oral which will be continued Pulmonary consultation. Discussed with him Antibiotics changed to vancomycin imipenem and Levaquin for healthcare associated pneumonia Off ceftriaxone and doxycycline CT chest 08/30/2022 with severe emphysema (2) Pneumonia: Code(s): J18.9 - Pneumonia, unspecified organism Status: Acute Assessment and Plan: imaging and clinical findings consistent with pneumonia On ceftriaxone and doxycycline COVID influenza a and B negative Urine Legionella and pneumococcus pending Sputum culture Leukocytosis worsened today better did receive methylprednisolone earlier today On Solu Medrol 20q 8hrs. Leukocytosis worsened today (3) Hypokalemia: Code(s): E87.6 - Hypokalemia Status: Acute Assessment and Plan: Replace and monitor (4) Paroxysmal atrial flutter: Code(s): I48.92 - Unspecified atrial flutter Status: Acute Assessment and Plan: patient is in sinus rhythm continue flecainide continue Eliquis (5) Hypertension: Code(s): I10 - Essential (primary) hypertension Status: Acute Assessment and Plan: continue olmesartan, amlodipine, and furosemide monitor BP trends Plan DVT prophylaxis on apixaban Subjective Date/time seen: 08/30/22 09:21 Interval history: Jenny Lucas is a 77-year-old female with a history of atrial flutter on chronic anticoagulation, COPD, chronic respiratory failure on 4 L supplemental oxygen, pulmonary nodules, and tobacco abuse known to the hospitalist service with several recent admissions who presented to the emergency department on 08[facility]/2022 from [facility] with complaints of shortness of breath.? The patient states that her oxygen concentrator became broken overnight and she was feeling short of breath.? She got up to the chair and reportedly staff took her vital signs and her O2 sats were at 35%.? EMS was summoned and she was noted to be hypoxic at 47-50%.? She received dexamethasone and 2 nebulizer treatments.? Upon presentation to the ED, her O2 sats were stable at 97% on 15 L non-rebreather, she was mildly tachypneic, additional vital signs were stable, white blood cell count 16.1, potassium 3.1, troponin negative, BNP 700, ABG revealed primary metabolic alkalosis, and CXR showed extensive bilateral pulmonary interstitial fibrotic changes with interval prominent patchy left lower lung infiltrates.? At the time of my evaluation, the patient states that she is feeling better.? States that her breathing is much improved.? Does endorse cough productive of clear phlegm and 1 episode of dark red phlegm.? She reports that she has been feeling more short of breath over the past couple of days.? She denies fever or chills.? She feels that her legs have been slightly more swollen than normal, but today they seem improved.? She denies wheezing.? Patient states that she is occasionally able to ambulate to the bathroom but is typically incontinent.? She denies any recent urinary symptoms.? Reports that her appetite has been good.? She has not had any abdominal discomfort.
--- NOTE | 2022-08-30 12:05 | PM.PNPUL ---
Progress Note: A&P Assessment and Plan (1) Pneumonia: Code(s): J18.9 - Pneumonia, unspecified organism Status: Acute Assessment and Plan: 08/29/2022 patient tells me she was in her usual state of health and then her oxygen tank broke and she was brought to the emergency department. She had a leukocytosis of 16.1 (admit 16.1 on 08/27 (eos 1.5=240/uL), 24.0 on 08/28), a chest x-ray with new infiltrates left lower lobe and worsening hypoxemia. Her cope and influenza RT PCR studies are negative. Urine Legionella and urine pneumococcal antigen studies are pending. I will order mycoplasma IgM. Patient has had multiple hospitalizations over the last 3-4 months and I will cover her more broadly for with vancomycin, imipenem and Levaquin all started on 08/29/2022. 08/30 Patient tells me she is breathing better today, she is in less respiratory distress. She did sleep well with the BiPAP. Currently she is on high-flow nasal cannula 50 L and 45% FiO2 with saturations 92%. White blood cell count is 20.5, her creatinine is 0.7. Her chest x-ray demonstrated stable bilateral infiltrates. Her CAT scan demonstrated severe panlobular emphysema all lung whitehead, probable left basilar atelectatic changes cannot exclude pneumonia. Plan: continue vancomycin, imipenem and Levaquin, day 2 (2) COPD exacerbation: Code(s): J44.1 - Chronic obstructive pulmonary disease with (acute) exacerbation Status: Acute Assessment and Plan: GOLD grade 3 group E COPD, (57 PY quit 2018),? last PFTs on 11/15/2016 with an FEV1 of 37% predicted,? chronic hypoxemic respiratory failure on 2 L nasal cannula with rest, ambulation and sleep, dyspnea on exertion at 20 ft,? She has very severe panlobular emphysema on her CT scan of the chest. 08/29/22 Patient is not wheezing but at this time will treat for COPD exacerbation and I will decrease her Solu-Medrol to 20 mg IV q.6, I will discontinue her trilogy inhaler and place her on albuterol 2.5 mg nebs q.4 hours and ipratropium 0.5 mg nebs q.4 hours. 08/30 patient has no wheezing. I will decrease her Solu-Medrol to 20 mg IV b.i.d. and continue albuterol and ipratropium nebulizers q.4 hours. Continue montelukast. I will check alpha 1 AT phenotype and level. (3) Acute on chronic respiratory failure with hypoxia and hypercapnia: Code(s): J96.21 - Acute and chronic respiratory failure with hypoxia; J96.22 - Acute and chronic respiratory failure with hypercapnia Status: Acute Assessment and Plan: 08/29 patient presented with hypoxemic respiratory failure with a blood gas of 7.50/42/169 and her last blood gas this morning on 08/29/2022 of 7.48/51/56. In the past patient has poorly tolerated BiPAP and refused this in the past. in the past she has required Ativan for her claustrophobia. The patient states that if she was given Ativan she could try the BiPAP if it was absolutely necessary. Patient is currently on high-flow nasal cannula 50 L and 65% FiO2 with saturations 92%. I did talk to the patient about mechanical ventilation and at this time she does not wish for mechanical ventilation. Patient's code status was discussed with the hospitalist who will make these alterations. 08/30 Patient did tolerate BiPAP set rate of 4, pressure is 14/6 with 40% during the afternoon yesterday and last night and said she slept well with the settings. Currently she is on Airvo 50 L and 45% FiO2 with saturations 92%. Will continue Airvo and told her she can try BiPAP again tonight and if this is comfortable for her she can wear it but she should not be forced to wear at. Discussed with Dr. Mack, will follow with you Subjective Date/time seen: 08/30/22 12:05 Interval history: 08/29/2022:? This is a new pulmonary consult for COPD and pneumonia ?77-year-old woman with a history of GOLD grade 3 group E COPD, (57 PY quit 2019),? last PFTs on 11/15/2016 with an FEV1 of 37% predicted,?
[2022-08-30] MEDS: MONTELUKAST SODIUM 10 MG TABLET PO (20:54)
[2022-08-30] MEDS: LORazepam (*CRX) 1 MG TABLET PO (22:38)
[2022-08-31] VITALS (32 sets, daily range): BP systolic 138–171; BP diastolic 50–70; PULSE 72–97; RESP 20–26; TEMP 36.1–36.4; O2SAT 93–100
[2022-08-31] MEDS: ALBUTEROL SULFATE NEB 2.5 MG/3 ML INH INHALATION ×6 (01:13→20:16)
[2022-08-31] MEDS: IPRATROPIUM BR 0.02% INH SOLN 0.5 MG/2.5 ML VIAL INHALATION ×6 (01:13→20:16)
[2022-08-31 04:55] LABS: Estimated CRCL calculation 38 ml/min; Estimated Glomerular Filt Rate > 60
[2022-08-31 05:17] LABS: Vancomycin Trough 10.5 ug/mL (10.0-20.0)
[2022-08-31] MEDS: LEVOTHYROXINE SODIUM 25 MCG TABLET PO (05:37)
[2022-08-31] MEDS: CYANOCOBALAMIN 1,000 MCG TABLET 1000 MCG PO (08:11)
[2022-08-31] MEDS: CHOLECALCIFEROL 1,000 UNITS TABLET 2000 UNITS PO (08:11)
[2022-08-31] MEDS: ASPIRIN 81 MG CHEWABLE TABLET PO (08:11)
[2022-08-31] MEDS: APIXABAN 5 MG TABLET PO ×2 (08:11→21:06)
[2022-08-31] MEDS: amLODIPine BESYLATE 5 MG TABLET PO (08:11)
[2022-08-31] MEDS: DONEPEZIL HCL 10 MG TABLET PO (08:12)
[2022-08-31] MEDS: FLECAINIDE ACETATE 100 MG TABLET PO ×2 (08:12→21:05)
[2022-08-31] MEDS: FUROSEMIDE 40 MG TABLET PO (08:12)
[2022-08-31] MEDS: OPTI-GEN TAB 1 TABLET PO (08:13)
[2022-08-31] MEDS: FOLIC ACID 1 MG TABLET PO (08:13)
[2022-08-31] MEDS: methylPREDNISolone SOD SUCC 40 MG VIAL 20 MG IV PUSH (08:13)
[2022-08-31] MEDS: OLMESARTAN MEDOXOMIL 20 MG TABLET PO (08:13)
[2022-08-31] MEDS: MEMANTINE 5 MG TABLET PO ×2 (08:13→16:30)
[2022-08-31] MEDS: PARoxetine 20 MG TABLET 40 MG PO (08:13)
[2022-08-31] MEDS: PANTOPRAZOLE 40 MG TABLET PO ×2 (08:14→21:06)
[2022-08-31] MEDS: oxyBUTYnin CHLORIDE XL 5 MG TAB.ER.24 15 MG PO (08:14)
[2022-08-31] MEDS: ACETAMINOPHEN 325 MG TABLET 650 MG PO ×2 (08:28→21:03)
[2022-08-31] MEDS: LORazepam (*CRX) 1 MG TABLET PO ×2 (08:28→21:03)
[2022-08-31 10:16] LABS: Basophils Percent Auto 0.2 % (0.2-1.2); Hematocrit 29.4 % (37.0-47.0); Hemoglobin 8.6 g/dL (12.0-15.0); Immature Granulocyte Absolute 0.14 K/mm3 (0.00-0.031); Immature Granulocyte Percent A 0.7 % (0-0.5); Lymphocytes Absolute Auto 0.57 K/mm3 (0.9-3.2); Mean Corpuscular HGB Conc 29.3 g/dl (32-36); Mean Corpuscular Hemoglobin 27.7 pg (26-34); Mean Corpuscular Volume 94.5 fl (80-100); Mean Platelet Volume 10.4 fl (7.4-10.4); Monocytes Absolute Auto 0.7 K/mm3 (0.1-0.6); Monocytes Percent Auto 3.7 % (2.6-8.5); Neutrophils Absolute Auto 17.5 K/mm3 (1.3-6.7); Neutrophils Percent Auto 92.4 % (45.5-73.1); Platelet Count Result 275 k/mm3 (150-375); Red Blood Count 3.11 M/mm3 (4.2-5.4); Red Cell Distribution Width 16.5 % (11.5-14.5); White Blood Count 18.9 K/mm3 (4.5-10.0)
[2022-08-31 10:29] LABS: Alanine Aminotransferase 21 U/L (6-35); Albumin Level 3.6 g/dL (3.5-5.1); Alkaline Phosphatase 86 U/L (38-126); Anion Gap 7 mmol/L (8-16); Aspartate Amino Transferase 21 U/L (14-36); Bilirubin,Total 0.6 mg/dL (0.2-1.3); Blood Urea Nitrogen 26 mg/dL (7-17); Calcium 8.8 mg/dL (8.4-10.2); Carbon Dioxide 38 mmol/L (22-30); Chloride 95 mmol/L (98-107); Estimated CRCL calculation 38 ml/min; Estimated Glomerular Filt Rate > 60; Glucose 103 mg/dL (65-110); Magnesium 2.3 mg/dL (1.6-2.3); Potassium 3.6 mmol/L (3.4-5.0); Sodium 140 mmol/L (137-145)
[2022-08-31 10:46] LABS: Platelet Estimate Adequate (Adequate)
[2022-08-31 10:57] LABS: Hypochromasia 2+ (NORMAL); Poikilocytosis 1+ (NORMAL)
[2022-08-31 10:58] LABS: Anisocytosis 1+ (NORMAL); Schistocytes None Seen (NORMAL)
--- NOTE | 2022-08-31 10:59 | PM.PNPUL ---
Progress Note: A&P Assessment and Plan (1) Pneumonia: Code(s): J18.9 - Pneumonia, unspecified organism Status: Acute Assessment and Plan: 08/29/2022 patient tells me she was in her usual state of health and then her oxygen tank broke and she was brought to the emergency department. She had a leukocytosis of 16.1 (admit 16.1 on 08/27 (eos 1.5=240/uL), 24.0 on 08/28), a chest x-ray with new infiltrates left lower lobe and worsening hypoxemia. Her cope and influenza RT PCR studies are negative. Urine Legionella and urine pneumococcal antigen studies are pending. I will order mycoplasma IgM. Patient has had multiple hospitalizations over the last 3-4 months and I will cover her more broadly for with vancomycin, imipenem and Levaquin all started on 08/29/2022. 08/30 Patient tells me she is breathing better today, she is in less respiratory distress. She did sleep well with the BiPAP. Currently she is on high-flow nasal cannula 50 L and 45% FiO2 with saturations 92%. White blood cell count is 20.5, her creatinine is 0.7. Her chest x-ray demonstrated stable bilateral infiltrates. Her CAT scan demonstrated severe panlobular emphysema all lung whitehead, probable left basilar atelectatic changes cannot exclude pneumonia. No blood cultures were drawn Plan: continue vancomycin, imipenem and Levaquin, day 2 08/31 Patient says she has a little bit better today. She wore the hospital BiPAP for 5 hours last night but said that it is hard to breathe with these settings. Her sputum is staff training and development manager in color and now a beige color. Afebrile, white blood cell count 18.9, currently she is on high-flow nasal cannula 40 L, 45% FiO2 with saturations 90%. Plan: continue vancomycin, imipenem and Levaquin, day 3 (2) COPD exacerbation: Code(s): J44.1 - Chronic obstructive pulmonary disease with (acute) exacerbation Status: Acute Assessment and Plan: GOLD grade 3 group E COPD, (57 PY quit 2018),? last PFTs on 11/15/2016 with an FEV1 of 37% predicted,? chronic hypoxemic respiratory failure on 2 L nasal cannula with rest, ambulation and sleep, dyspnea on exertion at 20 ft,? She has very severe panlobular emphysema on her CT scan of the chest. 08/29/22 Patient is not wheezing but at this time will treat for COPD exacerbation and I will decrease her Solu-Medrol to 20 mg IV q.6, I will discontinue her trilogy inhaler and place her on albuterol 2.5 mg nebs q.4 hours and ipratropium 0.5 mg nebs q.4 hours. 08/30 patient has no wheezing. I will decrease her Solu-Medrol to 20 mg IV b.i.d. and continue albuterol and ipratropium nebulizers q.4 hours. Continue montelukast. I will check alpha 1 AT phenotype and level. 08/31 no wheezing. I will change the patient to prednisone 40, day 4 of steroids. Continue albuterol and ipratropium nebulizers Q 4. Continue montelukast. Patient is having some difficulty expectorating sputum and I will add guaifenesin 1200 mg p.o. b.i.d. and Cornet flutter valve. (3) Acute on chronic respiratory failure with hypoxia and hypercapnia: Code(s): J96.21 - Acute and chronic respiratory failure with hypoxia; J96.22 - Acute and chronic respiratory failure with hypercapnia Status: Acute Assessment and Plan: 08/29 patient presented with hypoxemic respiratory failure with a blood gas of 7.50/42/169 and her last blood gas this morning on 08/29/2022 of 7.48/51/56. In the past patient has poorly tolerated BiPAP and refused this in the past. in the past she has required Ativan for her claustrophobia. The patient states that if she was given Ativan she could try the BiPAP if it was absolutely necessary. Patient is currently on high-flow nasal cannula 50 L and 65% FiO2 with saturations 92%. I did talk to the patient about mechanical ventilation and at this time she does not wish for mechanical ventilation. Patient's code status was discussed with the hospitalist who will make these alterat
[2022-08-31] MEDS: NYSTATIN 100,000 UNITS/ML SUSP 5 ML ORAL.SUSP PO ×3 (12:00→21:06)
[2022-08-31] MEDS: guaiFENesin 12 HR 600 MG TABCR 1200 MG PO ×2 (12:01→21:05)
[2022-08-31] MEDS: predniSONE 20 MG TABLET 40 MG PO (12:01)
[2022-08-31 13:46] LABS: Vancomycin Trough 7.2 ug/mL (10.0-20.0)
--- NOTE | 2022-08-31 15:33 | PM.IMPN ---
Progress Note: A&P Assessment and Plan (1) Acute on chronic respiratory failure with hypoxia and hypercapnia: Code(s): J96.21 - Acute and chronic respiratory failure with hypoxia; J96.22 - Acute and chronic respiratory failure with hypercapnia Status: Acute Assessment and Plan: patient with chronic respiratory failure typically on 4 L supplemental O2 noted to be acutely hypoxic at nursing facility due to failure of oxygen concentrator CXR on presentation showed extensive bilateral pulmonary interstitial fibrotic changes with interval prominent patchy left lower lung infiltrate currently requiring 10 L supplemental O2 per nasal cannula continue with supplemental oxygen as needed. Wean to baseline as tolerated see plan below BNP 741 which is improved from prior level Currently on Lasix oral which will be continued Pulmonary consultation. Discussed with him Antibiotics changed to vancomycin imipenem and Levaquin for healthcare associated pneumonia Off ceftriaxone and doxycycline CT chest 08/30/2022 with severe emphysema (2) Pneumonia: Code(s): J18.9 - Pneumonia, unspecified organism Status: Acute Assessment and Plan: imaging and clinical findings consistent with pneumonia On ceftriaxone and doxycycline COVID influenza a and B negative Urine Legionella and pneumococcus pending Sputum culture Leukocytosis worsened today better did receive methylprednisolone earlier today On Solu Medrol 20q 8hrs. Leukocytosis worsened but stable today On prednisone now (3) Hypokalemia: Code(s): E87.6 - Hypokalemia Status: Acute Assessment and Plan: Replace and monitor (4) Paroxysmal atrial flutter: Code(s): I48.92 - Unspecified atrial flutter Status: Acute Assessment and Plan: patient is in sinus rhythm continue flecainide continue Eliquis (5) Hypertension: Code(s): I10 - Essential (primary) hypertension Status: Acute Assessment and Plan: continue olmesartan, amlodipine, and furosemide monitor BP trends Plan DVT prophylaxis on apixaban Subjective Date/time seen: 08/31/22 15:33 Interval history: Jenny Lucas is a 77-year-old female with a history of atrial flutter on chronic anticoagulation, COPD, chronic respiratory failure on 4 L supplemental oxygen, pulmonary nodules, and tobacco abuse known to the hospitalist service with several recent admissions who presented to the emergency department on 08/27/2022 from her [facility] facility with complaints of shortness of breath.? The patient states that her oxygen concentrator became broken overnight and she was feeling short of breath.? She got up to the chair and reportedly staff took her vital signs and her O2 sats were at 35%.? EMS was summoned and she was noted to be hypoxic at 47-50%.? She received dexamethasone and 2 nebulizer treatments.? Upon presentation to the ED, her O2 sats were stable at 97% on 15 L non-rebreather, she was mildly tachypneic, additional vital signs were stable, white blood cell count 16.1, potassium 3.1, troponin negative, BNP 700, ABG revealed primary metabolic alkalosis, and CXR showed extensive bilateral pulmonary interstitial fibrotic changes with interval prominent patchy left lower lung infiltrates.? At the time of my evaluation, the patient states that she is feeling better.? States that her breathing is much improved.? Does endorse cough productive of clear phlegm and 1 episode of dark red phlegm.? She reports that she has been feeling more short of breath over the past couple of days.? She denies fever or chills.? She feels that her legs have been slightly more swollen than normal, but today they seem improved.? She denies wheezing.? Patient states that she is occasionally able to ambulate to the bathroom but is typically incontinent.? She denies any recent urinary symptoms.? Reports that her appetite has been good.? She has not had any
[2022-08-31] MEDS: polyethylene glycoL 3350 17 GM POWD.PACK PO (16:30)
[2022-08-31] MEDS: SENNA/DOCUSATE SODIUM TABLET 1 TAB PO (16:30)
[2022-08-31 17:03] LABS: Pneumococcal Antigen Urine Not Detected (Not Detected)
[2022-08-31] MEDS: MONTELUKAST SODIUM 10 MG TABLET PO (21:06)
[2022-09-01] VITALS (29 sets, daily range): BP systolic 117–163; BP diastolic 46–66; PULSE 69–101; RESP 18–28; TEMP 36.3–37.1; O2SAT 90–100
[2022-09-01] MEDS: IPRATROPIUM BR 0.02% INH SOLN 0.5 MG/2.5 ML VIAL INHALATION ×6 (00:11→19:57)
[2022-09-01] MEDS: ALBUTEROL SULFATE NEB 2.5 MG/3 ML INH INHALATION ×6 (00:11→19:57)
--- NOTE | 2022-09-01 00:52 | PC.NURSE ---
Daylight Savings Time For Daylight Savings Time Ending in the Fall - Clocks are moved back. For Daylight Savings Time Beginning in the Spring - Clocks are moved ahead. For [facility], the time of change occurs at 0200 hrs. Time is taken from the client server programmer. This entry on the patient's chart recognizes the change in time reflected during documentation. Example: 2 entries for vital signs may be charted for 0200 hrs.
[2022-09-01 04:15] LABS: Basophils Percent Auto 0.1 % (0.2-1.2); Hematocrit 26.6 % (37.0-47.0); Immature Granulocyte Percent A 0.7 % (0-0.5); Lymphocytes Percent Auto 5.1 % (18.3-44.2); Mean Corpuscular HGB Conc 30.1 g/dl (32-36); Mean Corpuscular Hemoglobin 27.7 pg (26-34); Mean Platelet Volume 9.9 fl (7.4-10.4); Monocytes Absolute Auto 0.7 K/mm3 (0.1-0.6); Monocytes Percent Auto 4.8 % (2.6-8.5); Neutrophils Absolute Auto 12.3 K/mm3 (1.3-6.7); Neutrophils Percent Auto 89.3 % (45.5-73.1); Nucleated Red Blood Cells Perc 0.1 % (0.0-0.2); Platelet Count Result 234 k/mm3 (150-375); Red Blood Count 2.89 M/mm3 (4.2-5.4); Red Cell Distribution Width 15.9 % (11.5-14.5); White Blood Count 13.7 K/mm3 (4.5-10.0)
[2022-09-01 04:29] LABS: Alanine Aminotransferase 20 U/L (6-35); Albumin Level 3.2 g/dL (3.5-5.1); Alkaline Phosphatase 65 U/L (38-126); Aspartate Amino Transferase 20 U/L (14-36); Bilirubin,Total 0.5 mg/dL (0.2-1.3); Blood Urea Nitrogen 27 mg/dL (7-17); Calcium 8.3 mg/dL (8.4-10.2); Carbon Dioxide > 40 mmol/L (22-30); Chloride 91 mmol/L (98-107); Estimated CRCL calculation 34 ml/min; Estimated Glomerular Filt Rate 54; Glucose 139 mg/dL (65-110); Magnesium 2.3 mg/dL (1.6-2.3); Potassium 3.5 mmol/L (3.4-5.0); Sodium 132 mmol/L (137-145)
[2022-09-01] MEDS: LEVOTHYROXINE SODIUM 25 MCG TABLET PO (05:41)
[2022-09-01 05:42] LABS: Legionella pneumophila Ag Ur Not Detected (Not Detected)
[2022-09-01] MEDS: ASPIRIN 81 MG CHEWABLE TABLET PO (09:03)
[2022-09-01] MEDS: predniSONE 20 MG TABLET 40 MG PO (09:03)
[2022-09-01] MEDS: amLODIPine BESYLATE 5 MG TABLET PO (09:03)
[2022-09-01] MEDS: APIXABAN 5 MG TABLET PO ×2 (09:04→20:26)
[2022-09-01] MEDS: CYANOCOBALAMIN 1,000 MCG TABLET 1000 MCG PO (09:05)
[2022-09-01] MEDS: CHOLECALCIFEROL 1,000 UNITS TABLET 2000 UNITS PO (09:05)
[2022-09-01] MEDS: SENNA/DOCUSATE SODIUM TABLET 1 TAB PO ×2 (09:06→17:31)
[2022-09-01] MEDS: DONEPEZIL HCL 10 MG TABLET PO (09:06)
[2022-09-01] MEDS: FOLIC ACID 1 MG TABLET PO (09:06)
[2022-09-01] MEDS: FLECAINIDE ACETATE 100 MG TABLET PO ×2 (09:06→20:27)
[2022-09-01] MEDS: NYSTATIN 100,000 UNITS/ML SUSP 5 ML ORAL.SUSP PO ×4 (09:07→20:25)
[2022-09-01] MEDS: FUROSEMIDE 40 MG TABLET PO (09:07)
[2022-09-01] MEDS: MEMANTINE 5 MG TABLET PO ×2 (09:07→17:31)
[2022-09-01] MEDS: guaiFENesin 12 HR 600 MG TABCR 1200 MG PO ×2 (09:07→20:26)
[2022-09-01] MEDS: PARoxetine 20 MG TABLET 40 MG PO (09:08)
[2022-09-01] MEDS: OLMESARTAN MEDOXOMIL 20 MG TABLET PO (09:08)
[2022-09-01] MEDS: oxyBUTYnin CHLORIDE XL 5 MG TAB.ER.24 15 MG PO (09:08)
[2022-09-01] MEDS: PANTOPRAZOLE 40 MG TABLET PO ×2 (09:08→20:26)
[2022-09-01] MEDS: OPTI-GEN TAB 1 TABLET PO (09:08)
[2022-09-01] MEDS: polyethylene glycoL 3350 17 GM POWD.PACK PO (09:09)
[2022-09-01] MEDS: ACETAMINOPHEN 325 MG TABLET 650 MG PO ×3 (09:20→21:47)
[2022-09-01] MEDS: LORazepam (*CRX) 1 MG TABLET PO ×2 (09:22→21:48)
--- NOTE | 2022-09-01 10:16 | PM.PNPUL ---
Progress Note: A&P Assessment and Plan (1) Pneumonia: Code(s): J18.9 - Pneumonia, unspecified organism Status: Acute Assessment and Plan: 08/29/2022 patient tells me she was in her usual state of health and then her oxygen tank broke and she was brought to the emergency department. She had a leukocytosis of 16.1 (admit 16.1 on 08/27 (eos 1.5=240/uL), 24.0 on 08/28), a chest x-ray with new infiltrates left lower lobe and worsening hypoxemia. Her cope and influenza RT PCR studies are negative. Urine Legionella and urine pneumococcal antigen studies are pending. I will order mycoplasma IgM. Patient has had multiple hospitalizations over the last 3-4 months and I will cover her more broadly for with vancomycin, imipenem and Levaquin all started on 08/29/2022. 08/30 Patient tells me she is breathing better today, she is in less respiratory distress. She did sleep well with the BiPAP. Currently she is on high-flow nasal cannula 50 L and 45% FiO2 with saturations 92%. White blood cell count is 20.5, her creatinine is 0.7. Her chest x-ray demonstrated stable bilateral infiltrates. Her CAT scan demonstrated severe panlobular emphysema all lung whitehead, probable left basilar atelectatic changes cannot exclude pneumonia. No blood cultures were drawn Plan: continue vancomycin, imipenem and Levaquin, day 2 08/31 Patient says she has a little bit better today. She wore the hospital BiPAP for 5 hours last night but said that it is hard to breathe with these settings. Her sputum is blending technician in color and now a beige color. Afebrile, white blood cell count 18.9, currently she is on high-flow nasal cannula 40 L, 45% FiO2 with saturations 90%. Plan: continue vancomycin, imipenem and Levaquin, day 3. 09/01 Currently she states she has 60% back to normal. Her cough is back to normal and she has clear phlegm. Afebrile. Her white blood cell count is 13.7, creatinine is 1.0. Her weight is 51.3 kg and she is net diuresis of -1.5 L since admission. Plan: continue vancomycin, imipenem and Levaquin, day 4. (2) COPD exacerbation: Code(s): J44.1 - Chronic obstructive pulmonary disease with (acute) exacerbation Status: Acute Assessment and Plan: GOLD grade 3 group E COPD, (57 PY quit 2019),? last PFTs on 11/15/2016 with an FEV1 of 37% predicted,? chronic hypoxemic respiratory failure on 2 L nasal cannula with rest, ambulation and sleep, dyspnea on exertion at 20 ft,? She has very severe panlobular emphysema on her CT scan of the chest. 08/29/22 Patient is not wheezing but at this time will treat for COPD exacerbation and I will decrease her Solu-Medrol to 20 mg IV q.6, I will discontinue her trilogy inhaler and place her on albuterol 2.5 mg nebs q.4 hours and ipratropium 0.5 mg nebs q.4 hours. 08/30 patient has no wheezing. I will decrease her Solu-Medrol to 20 mg IV b.i.d. and continue albuterol and ipratropium nebulizers q.4 hours. Continue montelukast. I will check alpha 1 AT phenotype and level. 08/31 no wheezing. I will change the patient to prednisone 40, day 4 of steroids. Continue albuterol and ipratropium nebulizers Q 4. Continue montelukast. Patient is having some difficulty expectorating sputum and I will add guaifenesin 1200 mg p.o. b.i.d. and Cornet flutter valve. 09/01 No wheezes. Today was her 5th day of steroids and I will discontinue. Continue albuterol 2.5 mg nebs Q 4 hours, ipratropium 0.5 mg nebulizers q.4 hours and add budesonide nebulizers. continue guaifenesin 1200 mg p.o. Q q.12 hours, continue montelukast 10 mg p.o. q.day. (3) Acute on chronic respiratory failure with hypoxia and hypercapnia: Code(s): J96.21 - Acute and chronic respiratory failure with hypoxia; J96.22 - Acute and chronic respiratory failure with hypercapnia Status: Acute Assessment and Plan: 08/29 patient presented with hypoxemic respiratory failure with a blood gas of 7.50/42/169 and her l
[2022-09-01] MEDS: WATER FOR IRRIGATION, STERILE 1,000 ML BOTTLE 1000 ML (11:00)
--- NOTE | 2022-09-01 12:43 | PM.IMPN ---
Progress Note: A&P Assessment and Plan (1) Acute on chronic respiratory failure with hypoxia and hypercapnia: Code(s): J96.21 - Acute and chronic respiratory failure with hypoxia; J96.22 - Acute and chronic respiratory failure with hypercapnia Status: Acute Assessment and Plan: patient with chronic respiratory failure typically on 4 L supplemental O2 noted to be acutely hypoxic at nursing facility due to failure of oxygen concentrator CXR on presentation showed extensive bilateral pulmonary interstitial fibrotic changes with interval prominent patchy left lower lung infiltrate currently requiring 10 L supplemental O2 per nasal cannula continue with supplemental oxygen as needed. Wean to baseline as tolerated see plan below BNP 741 which is improved from prior level Currently on Lasix oral which will be continued Pulmonary consultation. Discussed with him Antibiotics changed to vancomycin imipenem and Levaquin for healthcare associated pneumonia Off ceftriaxone and doxycycline CT chest 08/30/2022 with severe emphysema Plan for echo with bubble study in a.m. (2) Pneumonia: Code(s): J18.9 - Pneumonia, unspecified organism Status: Acute Assessment and Plan: imaging and clinical findings consistent with pneumonia On ceftriaxone and doxycycline COVID influenza a and B negative Urine Legionella and pneumococcus pending Sputum culture Leukocytosis worsened today better did receive methylprednisolone earlier today On Solu Medrol 20q 8hrs. Leukocytosis worsened but stable today On prednisone now which has been tapered off (3) Hypokalemia: Code(s): E87.6 - Hypokalemia Status: Acute Assessment and Plan: Replace and monitor (4) Paroxysmal atrial flutter: Code(s): I48.92 - Unspecified atrial flutter Status: Acute Assessment and Plan: patient is in sinus rhythm continue flecainide continue Eliquis (5) Hypertension: Code(s): I10 - Essential (primary) hypertension Status: Acute Assessment and Plan: continue olmesartan, amlodipine, and furosemide monitor BP trends Plan DVT prophylaxis on apixaban Subjective Date/time seen: 09/01/22 12:43 Interval history: Jenny Lucas is a 77-year-old female with a history of atrial flutter on chronic anticoagulation, COPD, chronic respiratory failure on 4 L supplemental oxygen, pulmonary nodules, and tobacco abuse known to the hospitalist service with several recent admissions who presented to the emergency department on 08/27/2022 from her [facility] facility with complaints of shortness of breath.? The patient states that her oxygen concentrator became broken overnight and she was feeling short of breath.? She got up to the chair and reportedly staff took her vital signs and her O2 sats were at 35%.? EMS was summoned and she was noted to be hypoxic at 47-50%.? She received dexamethasone and 2 nebulizer treatments.? Upon presentation to the ED, her O2 sats were stable at 97% on 15 L non-rebreather, she was mildly tachypneic, additional vital signs were stable, white blood cell count 16.1, potassium 3.1, troponin negative, BNP 700, ABG revealed primary metabolic alkalosis, and CXR showed extensive bilateral pulmonary interstitial fibrotic changes with interval prominent patchy left lower lung infiltrates.? At the time of my evaluation, the patient states that she is feeling better.? States that her breathing is much improved.? Does endorse cough productive of clear phlegm and 1 episode of dark red phlegm.? She reports that she has been feeling more short of breath over the past couple of days.? She denies fever or chills.? She feels that her legs have been slightly more swollen than normal, but today they seem improved.? She denies wheezing.? Patient states that she is occasionally able to ambulate to the bathroom but is typically incontinent.? She denies any recent urinary sympt
[2022-09-01 13:20] LABS: Vancomycin Trough 14.4 ug/mL (10.0-20.0)
[2022-09-01] MEDS: BUDESONIDE RESPULE NEB 0.5 MG/2 ML AMP INHALATION (19:57)
[2022-09-01] MEDS: MONTELUKAST SODIUM 10 MG TABLET PO (20:26)
[2022-09-02] VITALS (30 sets, daily range): BP systolic 94–153; BP diastolic 47–94; PULSE 68–96; RESP 20–28; TEMP 36.2–36.8; O2SAT 87–100
[2022-09-02] MEDS: ALBUTEROL SULFATE NEB 2.5 MG/3 ML INH INHALATION ×5 (00:15→20:24)
[2022-09-02] MEDS: IPRATROPIUM BR 0.02% INH SOLN 0.5 MG/2.5 ML VIAL INHALATION ×5 (00:15→20:23)
[2022-09-02] MEDS: ACETAMINOPHEN 325 MG TABLET 650 MG PO ×3 (05:13→17:19)
[2022-09-02] MEDS: LEVOTHYROXINE SODIUM 25 MCG TABLET PO (05:38)
[2022-09-02 07:24] LABS: Basophils Percent Auto 0.1 % (0.2-1.2); Eosinophils Absolute Auto 0.2 K/mm3 (0-0.3); Eosinophils Percent Auto 1.2 % (0-4.4); Hematocrit 27.8 % (37.0-47.0); Hemoglobin 8.2 g/dL (12.0-15.0); Immature Granulocyte Absolute 0.09 K/mm3 (0.00-0.031); Immature Granulocyte Percent A 0.7 % (0-0.5); Lymphocytes Absolute Auto 1.17 K/mm3 (0.9-3.2); Lymphocytes Percent Auto 9.3 % (18.3-44.2); Mean Corpuscular HGB Conc 29.5 g/dl (32-36); Mean Corpuscular Hemoglobin 27.2 pg (26-34); Mean Corpuscular Volume 92.1 fl (80-100); Mean Platelet Volume 9.3 fl (7.4-10.4); Monocytes Absolute Auto 0.8 K/mm3 (0.1-0.6); Monocytes Percent Auto 6.2 % (2.6-8.5); Neutrophils Absolute Auto 10.4 K/mm3 (1.3-6.7); Neutrophils Percent Auto 82.5 % (45.5-73.1); Nucleated Red Blood Cells Perc 0.2 % (0.0-0.2); Platelet Count Result 272 k/mm3 (150-375); Red Blood Count 3.02 M/mm3 (4.2-5.4); Red Cell Distribution Width 15.9 % (11.5-14.5); White Blood Count 12.6 K/mm3 (4.5-10.0)
[2022-09-02 07:41] LABS: Alanine Aminotransferase 18 U/L (6-35); Albumin Level 3.3 g/dL (3.5-5.1); Alkaline Phosphatase 76 U/L (38-126); Aspartate Amino Transferase 24 U/L (14-36); Bilirubin,Total 0.6 mg/dL (0.2-1.3); Blood Urea Nitrogen 25 mg/dL (7-17); Calcium 8.2 mg/dL (8.4-10.2); Carbon Dioxide > 40 mmol/L (22-30); Chloride 95 mmol/L (98-107); Estimated CRCL calculation 34 ml/min; Estimated Glomerular Filt Rate 54; Glucose 84 mg/dL (65-110); Magnesium 2.4 mg/dL (1.6-2.3); Potassium 3.4 mmol/L (3.4-5.0); Sodium 136 mmol/L (137-145)
[2022-09-02] MEDS: BUDESONIDE RESPULE NEB 0.5 MG/2 ML AMP INHALATION ×2 (07:46→20:23)
--- NOTE | 2022-09-02 08:32 | ECHO_ITS ---
Patient Info Name: Jenny Lucas Age: 77 years : 1945 Gender: Female Ht: 68 in Wt: 113 lbs BSA: 1.55 m2 HR: 92 bpm BP: 139 / 58 mmHg Technical Quality: Good Exam Date: 09/02/2022 9:50 AM Exam Location: [facility] Patient Status: Inpatient Admit Date: 08/28/2022 Staff Ordering Physician: Manuelito Crawford MD Athletics Director: Yolande Donato RDCS Attending Provider: Meagan Mello MD Referring Physician: Ty STRAUSS; Exam Type: CA echo limited w bubble study Study Info Indications - ASSESS FOR PFO - HYPOXIA Limited two-dimensional transthoracic echocardiogram is performed with agitated saline. Contrast/Agitated Saline Contrast/Ag. Saline: Agitated Saline Amount: 20.00 ml Administered By: Darby Bay RDCS Existing IV Access: Yes IV Access Condition: patent with no signs of infiltration Summary 1. Limited study for bubble study. 2. Suspected patent foramen ovale visualized by agitated saline imaging. There is a very mild right to left shunt with bubble study with Valsalva only. 3. Right ventricular chamber dimension appears enlarged. Right Ventricle Right ventricular chamber dimension appears enlarged. Atrial Septum Suspected patent foramen ovale visualized by agitated saline imaging. There is a very mild right to left shunt with bubble study with Valsalva only. Report Signatures
[2022-09-02] MEDS: OPTI-GEN TAB 1 TABLET PO (08:42)
[2022-09-02] MEDS: OLMESARTAN MEDOXOMIL 20 MG TABLET PO (08:42)
[2022-09-02] MEDS: PARoxetine 20 MG TABLET 40 MG PO (08:42)
[2022-09-02] MEDS: polyethylene glycoL 3350 17 GM POWD.PACK PO (08:42)
[2022-09-02] MEDS: amLODIPine BESYLATE 5 MG TABLET PO (08:43)
[2022-09-02] MEDS: FOLIC ACID 1 MG TABLET PO (08:43)
[2022-09-02] MEDS: CHOLECALCIFEROL 1,000 UNITS TABLET 2000 UNITS PO (08:43)
[2022-09-02] MEDS: CYANOCOBALAMIN 1,000 MCG TABLET 1000 MCG PO (08:43)
[2022-09-02] MEDS: APIXABAN 5 MG TABLET PO ×2 (08:43→21:15)
[2022-09-02] MEDS: FUROSEMIDE 40 MG TABLET PO (08:43)
[2022-09-02] MEDS: ASPIRIN 81 MG CHEWABLE TABLET PO (08:43)
[2022-09-02] MEDS: oxyBUTYnin CHLORIDE XL 5 MG TAB.ER.24 15 MG PO (08:43)
[2022-09-02] MEDS: FLECAINIDE ACETATE 100 MG TABLET PO ×2 (08:43→21:16)
[2022-09-02] MEDS: guaiFENesin 12 HR 600 MG TABCR 1200 MG PO ×2 (08:44→21:17)
[2022-09-02] MEDS: MEMANTINE 5 MG TABLET PO ×2 (08:44→17:12)
[2022-09-02] MEDS: NYSTATIN 100,000 UNITS/ML SUSP 5 ML ORAL.SUSP PO ×4 (08:44→21:17)
[2022-09-02] MEDS: PANTOPRAZOLE 40 MG TABLET PO ×2 (08:44→21:18)
[2022-09-02] MEDS: DONEPEZIL HCL 10 MG TABLET PO (08:44)
[2022-09-02] MEDS: LORazepam (*CRX) 1 MG TABLET PO ×2 (08:52→23:13)
[2022-09-02] MEDS: SENNA/DOCUSATE SODIUM TABLET 1 TAB PO (10:54)
[2022-09-02] MEDS: POTASSIUM CHLORIDE 20 MEQ PACKET (FOR LIQUID) 40 MEQ PO (13:09)
--- NOTE | 2022-09-02 17:27 | PM.IMPN ---
Progress Note: A&P Assessment and Plan (1) Acute on chronic respiratory failure with hypoxia and hypercapnia: Code(s): J96.21 - Acute and chronic respiratory failure with hypoxia; J96.22 - Acute and chronic respiratory failure with hypercapnia Status: Acute Assessment and Plan: patient with chronic respiratory failure typically on 4 L supplemental O2 noted to be acutely hypoxic at nursing facility due to failure of oxygen concentrator CXR on presentation showed extensive bilateral pulmonary interstitial fibrotic changes with interval prominent patchy left lower lung infiltrate currently requiring 10 L supplemental O2 per nasal cannula continue with supplemental oxygen as needed. Wean to baseline as tolerated see plan below 09/02/2022 interval history: patient with COPD and with hypoxia seen by college sports assistant to further evaluate, patient had cardiac echo it did show patent foramen ovale mild right to left shunt with bubble study, patient will be seen by the college sports assistant and further recommendation to follow. will continue to monitor. (2) Pneumonia: Code(s): J18.9 - Pneumonia, unspecified organism Status: Acute Assessment and Plan: imaging and clinical findings consistent with pneumonia begin ceftriaxone and azithromycin check COVID and influenza obtain urinary Legionella and pneumococcal antigens sputum culture supportive care to include bronchodilators, expectorants, incentive spirometry patient afebrile monitor WBC (3) Hypokalemia: Code(s): E87.6 - Hypokalemia Status: Acute Assessment and Plan: potassium is 3.1 40 mEq p.o. KCl monitor BMP (4) Paroxysmal atrial flutter: Code(s): I48.92 - Unspecified atrial flutter Status: Acute Assessment and Plan: patient is in sinus rhythm continue flecainide continue Eliquis (5) Hypertension: Code(s): I10 - Essential (primary) hypertension Status: Acute Assessment and Plan: blood pressure is stable. Last BP 118/70 continue olmesartan, amlodipine, and furosemide monitor BP trends Subjective Date/time seen: 09/02/22 17:27 Interval history: Jenny Lucas is a 77-year-old female with a history of atrial flutter on chronic anticoagulation, COPD, chronic respiratory failure on 4 L supplemental oxygen, pulmonary nodules, and tobacco abuse known to the hospitalist service with several recent admissions who presented to the emergency department on 08/27/2022 from her shelter facility with complaints of shortness of breath.? The patient states that her oxygen concentrator became broken overnight and she was feeling short of breath.? She got up to the chair and reportedly staff took her vital signs and her O2 sats were at 35%.? EMS was summoned and she was noted to be hypoxic at 47-50%.? She received dexamethasone and 2 nebulizer treatments.? Upon presentation to the ED, her O2 sats were stable at 97% on 15 L non-rebreather, she was mildly tachypneic, additional vital signs were stable, white blood cell count 16.1, potassium 3.1, troponin negative, BNP 700, ABG revealed primary metabolic alkalosis, and CXR showed extensive bilateral pulmonary interstitial fibrotic changes with interval prominent patchy left lower lung infiltrates.? At the time of my evaluation, the patient states that she is feeling better.? States that her breathing is much improved.? Does endorse cough productive of clear phlegm and 1 episode of dark red phlegm.? She reports that she has been feeling more short of breath over the past couple of days.? She denies fever or chills.? She feels that her legs have been slightly more swollen than normal, but today they seem improved.? She denies wheezing.? Patient states that she is occasionally able to ambulate to the bathroom but is typically incontinent.? She denies any recent urinary symptoms.? Reports that her appetite has been good.? She michael
--- NOTE | 2022-09-02 19:57 | PM.PNPUL ---
Progress Note: A&P Assessment and Plan (1) Pneumonia: Code(s): J18.9 - Pneumonia, unspecified organism Status: Acute Assessment and Plan: 08/29/2022 patient tells me she was in her usual state of health and then her oxygen tank broke and she was brought to the emergency department. She had a leukocytosis of 16.1 (admit 16.1 on 08/27 (eos 1.5=240/uL), 24.0 on 08/28), a chest x-ray with new infiltrates left lower lobe and worsening hypoxemia. Her cope and influenza RT PCR studies are negative. Urine Legionella and urine pneumococcal antigen studies are pending. I will order mycoplasma IgM. Patient has had multiple hospitalizations over the last 3-4 months and I will cover her more broadly for with vancomycin, imipenem and Levaquin all started on 08/29/2022. 08/30 Patient tells me she is breathing better today, she is in less respiratory distress. She did sleep well with the BiPAP. Currently she is on high-flow nasal cannula 50 L and 45% FiO2 with saturations 92%. White blood cell count is 20.5, her creatinine is 0.7. Her chest x-ray demonstrated stable bilateral infiltrates. Her CAT scan demonstrated severe panlobular emphysema all lung whitehead, probable left basilar atelectatic changes cannot exclude pneumonia. No blood cultures were drawn Plan: continue vancomycin, imipenem and Levaquin, day 2 08/31 Patient says she has a little bit better today. She wore the hospital BiPAP for 5 hours last night but said that it is hard to breathe with these settings. Her sputum is information operator in color and now a beige color. Afebrile, white blood cell count 18.9, currently she is on high-flow nasal cannula 40 L, 45% FiO2 with saturations 90%. Plan: continue vancomycin, imipenem and Levaquin, day 3. 09/01 Currently she states she has 60% back to normal. Her cough is back to normal and she has clear phlegm. Afebrile. Her white blood cell count is 13.7, creatinine is 1.0. Her weight is 51.3 kg and she is net diuresis of -1.5 L since admission. 09/02 WBC is lower, 12.6, lower O2 requirement, still has wet cough without production of sputum Will continue vancomycin, imipenem and Levaquin, day 5. (2) COPD exacerbation: Code(s): J44.1 - Chronic obstructive pulmonary disease with (acute) exacerbation Status: Acute Assessment and Plan: GOLD grade 3 group E COPD, (57 PY quit 2018),? last PFTs on 11/15/2016 with an FEV1 of 37% predicted,? chronic hypoxemic respiratory failure on 2 L nasal cannula with rest, ambulation and sleep, dyspnea on exertion at 20 ft,? She has very severe panlobular emphysema on her CT scan of the chest. 08/29/22 Patient is not wheezing but at this time will treat for COPD exacerbation and I will decrease her Solu-Medrol to 20 mg IV q.6, I will discontinue her trilogy inhaler and place her on albuterol 2.5 mg nebs q.4 hours and ipratropium 0.5 mg nebs q.4 hours. 08/30 patient has no wheezing. I will decrease her Solu-Medrol to 20 mg IV b.i.d. and continue albuterol and ipratropium nebulizers q.4 hours. Continue montelukast. I will check alpha 1 AT phenotype and level. 08/31 no wheezing. I will change the patient to prednisone 40, day 4 of steroids. Continue albuterol and ipratropium nebulizers Q 4. Continue montelukast. Patient is having some difficulty expectorating sputum and I will add guaifenesin 1200 mg p.o. b.i.d. and Cornet flutter valve. 09/01 No wheezes. Today was her 5th day of steroids and I will discontinue. Continue albuterol 2.5 mg nebs Q 4 hours, ipratropium 0.5 mg nebulizers q.4 hours and add budesonide nebulizers. continue guaifenesin 1200 mg p.o. Q q.12 hours, continue montelukast 10 mg p.o. q.day. 09/02 No wheezing. Continue albuterol and ipratropium nebulized, budesonide nebuiklized BID, montelukast and guaifenesin. (3) Ac
--- NOTE | 2022-09-02 20:39 | PC.NURSE ---
This patient, Jenny Lucas, was transferred to [[id number]] on 09/02/22 at 2051. Personal belongings sent with patient. Report given to [MIGUEL Clifford]. Appropriate documentation sent with patient.
[2022-09-02] MEDS: MONTELUKAST SODIUM 10 MG TABLET PO (21:17)
[2022-09-03] VITALS (27 sets, daily range): BP systolic 112–134; BP diastolic 43–61; PULSE 71–94; RESP 18–22; TEMP 35.9–36.4; O2SAT 91–97
[2022-09-03] MEDS: ALBUTEROL SULFATE NEB 2.5 MG/3 ML INH INHALATION ×7 (00:31→20:12)
[2022-09-03] MEDS: IPRATROPIUM BR 0.02% INH SOLN 0.5 MG/2.5 ML VIAL INHALATION ×7 (00:31→20:12)
[2022-09-03] MEDS: ACETAMINOPHEN 325 MG TABLET 650 MG PO ×3 (04:37→16:36)
[2022-09-03] MEDS: LEVOTHYROXINE SODIUM 25 MCG TABLET PO (05:31)
[2022-09-03 07:56] LABS: Estimated CRCL calculation 43 ml/min; Estimated Glomerular Filt Rate > 60
[2022-09-03] MEDS: BUDESONIDE RESPULE NEB 0.5 MG/2 ML AMP INHALATION ×2 (08:44→20:00)
[2022-09-03] MEDS: guaiFENesin 12 HR 600 MG TABCR 1200 MG PO ×2 (08:49→21:11)
[2022-09-03] MEDS: FOLIC ACID 1 MG TABLET PO (08:50)
[2022-09-03] MEDS: ASPIRIN 81 MG CHEWABLE TABLET PO (08:50)
[2022-09-03] MEDS: PANTOPRAZOLE 40 MG TABLET PO ×2 (08:50→21:11)
[2022-09-03] MEDS: oxyBUTYnin CHLORIDE XL 5 MG TAB.ER.24 15 MG PO (08:50)
[2022-09-03] MEDS: MEMANTINE 5 MG TABLET PO ×2 (08:50→16:38)
[2022-09-03] MEDS: DONEPEZIL HCL 10 MG TABLET PO (08:50)
[2022-09-03] MEDS: OLMESARTAN MEDOXOMIL 20 MG TABLET PO (08:50)
[2022-09-03] MEDS: FLECAINIDE ACETATE 100 MG TABLET PO ×2 (08:50→21:10)
[2022-09-03] MEDS: SENNA/DOCUSATE SODIUM TABLET 1 TAB PO ×2 (08:50→16:37)
[2022-09-03] MEDS: NYSTATIN 100,000 UNITS/ML SUSP 5 ML ORAL.SUSP PO ×4 (08:50→21:11)
[2022-09-03] MEDS: APIXABAN 5 MG TABLET PO ×2 (08:50→21:10)
[2022-09-03] MEDS: PARoxetine 20 MG TABLET 40 MG PO (08:51)
[2022-09-03] MEDS: amLODIPine BESYLATE 5 MG TABLET PO (08:51)
[2022-09-03] MEDS: acetaZOLAMIDE SODIUM FOR INJ 500 MG VIAL IV PUSH (08:51)
[2022-09-03] MEDS: FUROSEMIDE 40 MG TABLET PO (08:51)
[2022-09-03] MEDS: CYANOCOBALAMIN 1,000 MCG TABLET 1000 MCG PO (08:51)
[2022-09-03] MEDS: OPTI-GEN TAB 1 TABLET PO (08:51)
[2022-09-03] MEDS: CHOLECALCIFEROL 1,000 UNITS TABLET 2000 UNITS PO (08:52)
[2022-09-03] MEDS: polyethylene glycoL 3350 17 GM POWD.PACK PO (09:01)
[2022-09-03 09:02] LABS: Hematocrit 27.4 % (37.0-47.0); Mean Corpuscular HGB Conc 29.2 g/dl (32-36); Mean Corpuscular Hemoglobin 27.1 pg (26-34); Mean Corpuscular Volume 92.9 fl (80-100); Platelet Count Result 343 k/mm3 (150-375); Red Blood Count 2.95 M/mm3 (4.2-5.4); Red Cell Distribution Width 16.1 % (11.5-14.5); White Blood Count 19.4 K/mm3 (4.5-10.0)
[2022-09-03 09:09] LABS: Anion Gap 5 mmol/L (8-16); Blood Urea Nitrogen 21 mg/dL (7-17); Calcium 8.1 mg/dL (8.4-10.2); Carbon Dioxide 33 mmol/L (22-30); Chloride 95 mmol/L (98-107); Estimated CRCL calculation 43 ml/min; Estimated Glomerular Filt Rate > 60; Glucose 85 mg/dL (65-110); Magnesium 2.3 mg/dL (1.6-2.3); Sodium 133 mmol/L (137-145)
--- NOTE | 2022-09-03 14:37 | P.PNIM_ITS ---
Progress Note: A&P Assessment and Plan (1) Acute on chronic respiratory failure with hypoxia and hypercapnia: Code(s): J96.21 - Acute and chronic respiratory failure with hypoxia; J96.22 - Acute and chronic respiratory failure with hypercapnia Status: Acute Assessment and Plan: patient with chronic respiratory failure typically on 4 L supplemental O2 noted to be acutely hypoxic at nursing facility due to failure of oxygen concentrator * CXR on presentation showed extensive bilateral pulmonary interstitial fibrotic changes with interval prominent patchy left lower lung infiltrate * currently requiring 10 L supplemental O2 per nasal cannula * continue with supplemental oxygen as needed. Wean to baseline as tolerated * see plan below 09/03/2022 interval history: patient with COPD and with hypoxia seen by furnace keeper to further evaluate, patient had cardiac echo it did show patent foramen ovale mild right to left shunt with bubble study, there was no mention of size of the shunt, today patient was more short winded while taking her morning medication, patient will be seen by the furnace keeper and further recommendation to follow. will continue to monitor. (2) Pneumonia: Code(s): J18.9 - Pneumonia, unspecified organism Status: Acute Assessment and Plan: imaging and clinical findings consistent with pneumonia * begin ceftriaxone and azithromycin * check COVID and influenza * obtain urinary Legionella and pneumococcal antigens * sputum culture * supportive care to include bronchodilators, expectorants, incentive spirometry * patient afebrile * monitor WBC (3) Hypokalemia: Code(s): E87.6 - Hypokalemia Status: Acute Assessment and Plan: potassium is 3.1 * 40 mEq p.o. KCl * monitor BMP (4) Paroxysmal atrial flutter: Code(s): I48.92 - Unspecified atrial flutter Status: Acute Assessment and Plan: patient is in sinus rhythm * continue flecainide * continue Eliquis (5) Hypertension: Code(s): I10 - Essential (primary) hypertension Status: Acute Assessment and Plan: blood pressure is stable. Last BP 118/70 * continue olmesartan, amlodipine, and furosemide * monitor BP trends Subjective Date/time seen: 09/03/22 14:37 09/03/2022 interval history: patient with COPD and with hypoxia seen by furnace keeper to further evaluate, patient had cardiac echo it did show patent foramen ovale mild right to left shunt with bubble study, there was no mention of size of the shunt, today patient was more short winded while taking her morning medication, patient will be seen by the furnace keeper and further recommendation to follow. will continue to monitor. Review of Systems Review of Systems: All systems reviewed & are unremarkable except as noted in HPI and below Objective Data Vital Signs Vital Signs: Vital Signs - 24 hr 09/02/22 15:58 09/02/22 16:09 09/02/22 16:00 Temperature Pulse Rate 87 91 86 Respiratory Rate 20 20 Blood Pressure Pulse Oximetry Oxygen Delivery Oxygen Flow Rate 09/02/22 16:00 09/02/22 18:00 09/02/22 20:24 Temperature 97.6 F Pulse Rate 88 87 89 Respiratory Rate 28 H 20 Blood Pressure 114/47 L Pulse Oximetry 100 Oxygen Delivery Oxygen Flow Rate
--- NOTE | 2022-09-03 14:37 | PM.IMPN ---
Progress Note: A&P Assessment and Plan (1) Acute on chronic respiratory failure with hypoxia and hypercapnia: Code(s): J96.21 - Acute and chronic respiratory failure with hypoxia; J96.22 - Acute and chronic respiratory failure with hypercapnia Status: Acute Assessment and Plan: patient with chronic respiratory failure typically on 4 L supplemental O2 noted to be acutely hypoxic at nursing facility due to failure of oxygen concentrator CXR on presentation showed extensive bilateral pulmonary interstitial fibrotic changes with interval prominent patchy left lower lung infiltrate currently requiring 10 L supplemental O2 per nasal cannula continue with supplemental oxygen as needed. Wean to baseline as tolerated see plan below 09/03/2022 interval history: patient with COPD and with hypoxia seen by wash driller to further evaluate, patient had cardiac echo it did show patent foramen ovale mild right to left shunt with bubble study, there was no mention of size of the shunt, today patient was more short winded while taking her morning medication, patient will be seen by the wash driller and further recommendation to follow. will continue to monitor. (2) Pneumonia: Code(s): J18.9 - Pneumonia, unspecified organism Status: Acute Assessment and Plan: imaging and clinical findings consistent with pneumonia begin ceftriaxone and azithromycin check COVID and influenza obtain urinary Legionella and pneumococcal antigens sputum culture supportive care to include bronchodilators, expectorants, incentive spirometry patient afebrile monitor WBC (3) Hypokalemia: Code(s): E87.6 - Hypokalemia Status: Acute Assessment and Plan: potassium is 3.1 40 mEq p.o. KCl monitor BMP (4) Paroxysmal atrial flutter: Code(s): I48.92 - Unspecified atrial flutter Status: Acute Assessment and Plan: patient is in sinus rhythm continue flecainide continue Eliquis (5) Hypertension: Code(s): I10 - Essential (primary) hypertension Status: Acute Assessment and Plan: blood pressure is stable. Last BP 118/70 continue olmesartan, amlodipine, and furosemide monitor BP trends Subjective Date/time seen: 09/03/22 14:37 09/03/2022 interval history: patient with COPD and with hypoxia seen by wash driller to further evaluate, patient had cardiac echo it did show patent foramen ovale mild right to left shunt with bubble study, there was no mention of size of the shunt, today patient was more short winded while taking her morning medication, patient will be seen by the wash driller and further recommendation to follow. will continue to monitor. Review of Systems Review of Systems: All systems reviewed & are unremarkable except as noted in HPI and below Objective Data Vital Signs Vital Signs: Vital Signs - 24 hr 09/02/22 15:58 09/02/22 16:09 09/02/22 16:00 Temperature Pulse Rate 87 91 86 Respiratory Rate 20 20 Blood Pressure Pulse Oximetry Oxygen Delivery Oxygen Flow Rate 09/02/22 16:00 09/02/22 18:00 09/02/22 20:24 Temperature 97.6 F Pulse Rate 88 87 89 Respiratory Rate 28 H 20 Blood Pressure 114/47 L Pulse Oximetry 100 Oxygen Delivery Oxygen Flow Rate 09/02/22 20:25 09/02/22 20:38 09/02/22 20:00 Temperature Pulse Rate 88 Respiratory Rate 20 Blood Pressure Pulse Oximetry 91 96 Oxygen Delivery High Flow Nasal Cannula High Flow Nasal Cannula Oxygen Flow Rate 4 5 09/02/22 20:00 09/02/22 20:00 09/02/22 21:16 Temperature 97.2 F L Pulse Rate 86 88 88 Respiratory Rate 22 H Blood Pressure 94/66 L Pulse Oximetry 87 L Oxygen Delivery Oxygen Flow Rate 09/02/22 23:23 09/03/22 00:25 09/03/22 00:33 Temperature Pulse Rate 86 86 88 Respiratory Rate 21 H 20 20 Blood Pressure Pulse Oximetry 96 Oxygen Delivery Oxygen Flow Rate
[2022-09-03 19:38] LABS: Mycoplasma IgM Antibody Titer 83 U/mL (<770)
[2022-09-03] MEDS: MONTELUKAST SODIUM 10 MG TABLET PO (21:11)
[2022-09-03] MEDS: LORazepam (*CRX) 1 MG TABLET PO (21:17)
[2022-09-04] VITALS (22 sets, daily range): BP systolic 107–134; BP diastolic 51–53; PULSE 77–100; RESP 16–24; TEMP 36.2–36.6; O2SAT 85–92
[2022-09-04] MEDS: IPRATROPIUM BR 0.02% INH SOLN 0.5 MG/2.5 ML VIAL INHALATION ×6 (00:10→19:50)
[2022-09-04] MEDS: ALBUTEROL SULFATE NEB 2.5 MG/3 ML INH INHALATION ×6 (00:10→19:50)
[2022-09-04] MEDS: ACETAMINOPHEN 325 MG TABLET 650 MG PO (06:04)
[2022-09-04] MEDS: LEVOTHYROXINE SODIUM 25 MCG TABLET PO (06:05)
[2022-09-04 06:54] LABS: Hematocrit 27.7 % (37.0-47.0); Hemoglobin 8.1 g/dL (12.0-15.0); Mean Corpuscular HGB Conc 29.2 g/dl (32-36); Mean Corpuscular Volume 89.1 fl (80-100); Mean Platelet Volume 9.2 fl (7.4-10.4); Platelet Count Result 381 k/mm3 (150-375); Red Blood Count 3.11 M/mm3 (4.2-5.4); Red Cell Distribution Width 16.5 % (11.5-14.5); White Blood Count 17.9 K/mm3 (4.5-10.0)
[2022-09-04 07:18] LABS: Anion Gap 3 mmol/L (8-16); Blood Urea Nitrogen 15 mg/dL (7-17); Calcium 8.3 mg/dL (8.4-10.2); Carbon Dioxide 33 mmol/L (22-30); Chloride 98 mmol/L (98-107); Estimated CRCL calculation 39 ml/min; Estimated Glomerular Filt Rate > 60; Glucose 96 mg/dL (65-110); Magnesium 2.4 mg/dL (1.6-2.3); Potassium 3.6 mmol/L (3.4-5.0); Sodium 134 mmol/L (137-145)
[2022-09-04] MEDS: BUDESONIDE RESPULE NEB 0.5 MG/2 ML AMP INHALATION ×2 (08:11→19:50)
[2022-09-04] MEDS: APIXABAN 5 MG TABLET PO ×2 (08:42→21:57)
[2022-09-04] MEDS: NYSTATIN 100,000 UNITS/ML SUSP 5 ML ORAL.SUSP PO ×4 (08:42→21:57)
[2022-09-04] MEDS: SENNA/DOCUSATE SODIUM TABLET 1 TAB PO ×2 (08:43→17:34)
[2022-09-04] MEDS: oxyBUTYnin CHLORIDE XL 5 MG TAB.ER.24 15 MG PO (08:44)
[2022-09-04] MEDS: OLMESARTAN MEDOXOMIL 20 MG TABLET PO (08:44)
[2022-09-04] MEDS: CHOLECALCIFEROL 1,000 UNITS TABLET 2000 UNITS PO (08:44)
[2022-09-04] MEDS: OPTI-GEN TAB 1 TABLET PO (08:44)
[2022-09-04] MEDS: FLECAINIDE ACETATE 100 MG TABLET PO ×2 (08:45→21:57)
[2022-09-04] MEDS: polyethylene glycoL 3350 17 GM POWD.PACK PO (08:45)
[2022-09-04] MEDS: MEMANTINE 5 MG TABLET PO ×2 (08:45→17:34)
[2022-09-04] MEDS: guaiFENesin 12 HR 600 MG TABCR 1200 MG PO ×2 (08:45→21:57)
[2022-09-04] MEDS: PANTOPRAZOLE 40 MG TABLET PO ×2 (08:45→21:58)
[2022-09-04] MEDS: CYANOCOBALAMIN 1,000 MCG TABLET 1000 MCG PO (08:45)
[2022-09-04] MEDS: POTASSIUM CHLORIDE 20 MEQ PACKET (FOR LIQUID) 40 MEQ PO (08:45)
[2022-09-04] MEDS: ASPIRIN 81 MG CHEWABLE TABLET PO (08:46)
[2022-09-04] MEDS: FOLIC ACID 1 MG TABLET PO (08:46)
[2022-09-04] MEDS: DONEPEZIL HCL 10 MG TABLET PO (08:46)
[2022-09-04] MEDS: amLODIPine BESYLATE 5 MG TABLET PO (08:46)
[2022-09-04] MEDS: PARoxetine 20 MG TABLET 40 MG PO (08:46)
[2022-09-04] MEDS: FUROSEMIDE 40 MG TABLET PO (08:46)
[2022-09-04] MEDS: LORazepam (*CRX) 1 MG TABLET PO ×2 (08:56→22:49)
[2022-09-04] MEDS: MAGNES & ALUM HYD/SIMETH/DIPHENHYD/LIDOCAINE 119 ML MOUTHWASH BY MOUTH ×3 (13:03→21:57)
[2022-09-04 13:39] LABS: Alpha-1-Antitrypsin, QN 135 mg/dL (83-199)
--- NOTE | 2022-09-04 13:55 | PCNFU ---
Nutrition Follow-Up Complete: Underweight as evidenced by low BMI of 18 PO intake 75% or greater for meals-Progressing toward goal. Continue with same goal Goal: Pt current nutrition is heart healthy diet with Ensure Enlive BID for additional 350 kcals and 20 g protein each. Nutrition recommendation: COntinue with current diet orders and supplements. Last recorded weight is 53.1 kg. Bowel Motility: +BM 09/03/22 Labs Reviewed: Hgb 8.1, Hct 27.7, Alb 3.3, Na 134 Meds Noted: Eliquid, folic acid, Lasix Skin: Maceration to buttocks Additional Notes: Intakes 25-75% meals with no intakes report on Ensure. Monitor intake, wt, labs. Follow up in 7 days.
--- NOTE | 2022-09-04 14:47 | P.PNIM_ITS ---
Progress Note: A&P Assessment and Plan (1) Acute on chronic respiratory failure with hypoxia and hypercapnia: Code(s): J96.21 - Acute and chronic respiratory failure with hypoxia; J96.22 - Acute and chronic respiratory failure with hypercapnia Status: Acute Assessment and Plan: patient with chronic respiratory failure typically on 4 L supplemental O2 noted to be acutely hypoxic at nursing facility due to failure of oxygen concentrator * CXR on presentation showed extensive bilateral pulmonary interstitial fibrotic changes with interval prominent patchy left lower lung infiltrate * currently requiring 10 L supplemental O2 per nasal cannula * continue with supplemental oxygen as needed. Wean to baseline as tolerated * see plan below 09/04/2022 interval history: patient with COPD and with hypoxia seen by batch room technician to further evaluate, patient had cardiac echo it did show patent foramen ovale mild right to left shunt with bubble study, there was no mention of size of the shunt, on 09/02 patient was more short winded while taking her morning medication, today patient states feeling better compared to yesterday not as short of breath, CT scan of the chest showed pneumonia patient is being treated levofloxacin and vancomycin, upon arrival blood culture was not collected we have blood culture will monitor, patient will be seen by the batch room technician and further recommendation to follow. will continue to monitor. (2) Pneumonia: Code(s): J18.9 - Pneumonia, unspecified organism Status: Acute Assessment and Plan: imaging and clinical findings consistent with pneumonia * begin ceftriaxone and azithromycin * check COVID and influenza * obtain urinary Legionella and pneumococcal antigens * sputum culture * supportive care to include bronchodilators, expectorants, incentive spirometry * patient afebrile * monitor WBC (3) Hypokalemia: Code(s): E87.6 - Hypokalemia Status: Acute Assessment and Plan: potassium is 3.1 * 40 mEq p.o. KCl * monitor BMP (4) Paroxysmal atrial flutter: Code(s): I48.92 - Unspecified atrial flutter Status: Acute Assessment and Plan: patient is in sinus rhythm * continue flecainide * continue Eliquis (5) Hypertension: Code(s): I10 - Essential (primary) hypertension Status: Acute Assessment and Plan: blood pressure is stable. Last BP 118/70 * continue olmesartan, amlodipine, and furosemide * monitor BP trends Subjective Date/time seen: 09/04/22 14:47 patient with chronic respiratory failure typically on 4 L supplemental O2 noted to be acutely hypoxic at nursing facility due to failure of oxygen concentrator * CXR on presentation showed extensive bilateral pulmonary interstitial fibrotic changes with interval prominent patchy left lower lung infiltrate * currently requiring 10 L supplemental O2 per nasal cannula * continue with supplemental oxygen as needed. Wean to baseline as tolerated * see plan below 09/04/2022 interval history: patient with COPD and with hypoxia seen by batch room technician to further evaluate, patient had cardiac echo it did show patent foramen ovale mild right to left shunt with bubble study, there was no mention of size of the shunt, on 09/02 patient was more short winded while taking her morning medication, today patient states feeling better compared to yesterday not as short of breath, CT scan of the chest showed pneumonia patient is being treated levofloxacin and vancomycin, upon arrival blood culture was not collected we have bloo
--- NOTE | 2022-09-04 14:47 | PM.IMPN ---
Progress Note: A&P Assessment and Plan (1) Acute on chronic respiratory failure with hypoxia and hypercapnia: Code(s): J96.21 - Acute and chronic respiratory failure with hypoxia; J96.22 - Acute and chronic respiratory failure with hypercapnia Status: Acute Assessment and Plan: patient with chronic respiratory failure typically on 4 L supplemental O2 noted to be acutely hypoxic at nursing facility due to failure of oxygen concentrator CXR on presentation showed extensive bilateral pulmonary interstitial fibrotic changes with interval prominent patchy left lower lung infiltrate currently requiring 10 L supplemental O2 per nasal cannula continue with supplemental oxygen as needed. Wean to baseline as tolerated see plan below 09/04/2022 interval history: patient with COPD and with hypoxia seen by filter cloth maker to further evaluate, patient had cardiac echo it did show patent foramen ovale mild right to left shunt with bubble study, there was no mention of size of the shunt, on 09/02 patient was more short winded while taking her morning medication, today patient states feeling better compared to yesterday not as short of breath, CT scan of the chest showed pneumonia patient is being treated levofloxacin and vancomycin, upon arrival blood culture was not collected we have blood culture will monitor, patient will be seen by the filter cloth maker and further recommendation to follow. will continue to monitor. (2) Pneumonia: Code(s): J18.9 - Pneumonia, unspecified organism Status: Acute Assessment and Plan: imaging and clinical findings consistent with pneumonia begin ceftriaxone and azithromycin check COVID and influenza obtain urinary Legionella and pneumococcal antigens sputum culture supportive care to include bronchodilators, expectorants, incentive spirometry patient afebrile monitor WBC (3) Hypokalemia: Code(s): E87.6 - Hypokalemia Status: Acute Assessment and Plan: potassium is 3.1 40 mEq p.o. KCl monitor BMP (4) Paroxysmal atrial flutter: Code(s): I48.92 - Unspecified atrial flutter Status: Acute Assessment and Plan: patient is in sinus rhythm continue flecainide continue Eliquis (5) Hypertension: Code(s): I10 - Essential (primary) hypertension Status: Acute Assessment and Plan: blood pressure is stable. Last BP 118/70 continue olmesartan, amlodipine, and furosemide monitor BP trends Subjective Date/time seen: 09/04/22 14:47 patient with chronic respiratory failure typically on 4 L supplemental O2 noted to be acutely hypoxic at nursing facility due to failure of oxygen concentrator CXR on presentation showed extensive bilateral pulmonary interstitial fibrotic changes with interval prominent patchy left lower lung infiltrate currently requiring 10 L supplemental O2 per nasal cannula continue with supplemental oxygen as needed. Wean to baseline as tolerated see plan below 09/04/2022 interval history: patient with COPD and with hypoxia seen by filter cloth maker to further evaluate, patient had cardiac echo it did show patent foramen ovale mild right to left shunt with bubble study, there was no mention of size of the shunt, on 09/02 patient was more short winded while taking her morning medication, today patient states feeling better compared to yesterday not as short of breath, CT scan of the chest showed pneumonia patient is being treated levofloxacin and vancomycin, upon arrival blood culture was not collected we have blood culture will monitor, patient will be seen by the filter cloth maker and further recommendation to follow. will continue to monitor. Review of Systems Review of Systems: All systems reviewed & are unremarkable except as noted in HPI and below Exam Narrative: Patient is comfortable, NAD HEENT: eyes are clear and none icteric LUNGS: normal respiratory effort
--- NOTE | 2022-09-04 18:03 | PM.PNPUL ---
Progress Note: A&P Assessment and Plan (1) Pneumonia: Code(s): J18.9 - Pneumonia, unspecified organism Status: Acute Assessment and Plan: 08/29/2022 patient tells me she was in her usual state of health and then her oxygen tank broke and she was brought to the emergency department. She had a leukocytosis of 16.1 (admit 16.1 on 08/27 (eos 1.5=240/uL), 24.0 on 08/28), a chest x-ray with new infiltrates left lower lobe and worsening hypoxemia. Her cope and influenza RT PCR studies are negative. Urine Legionella and urine pneumococcal antigen studies are pending. I will order mycoplasma IgM. Patient has had multiple hospitalizations over the last 3-4 months and I will cover her more broadly for with vancomycin, imipenem and Levaquin all started on 08/29/2022. 08/30 Patient tells me she is breathing better today, she is in less respiratory distress. She did sleep well with the BiPAP. Currently she is on high-flow nasal cannula 50 L and 45% FiO2 with saturations 92%. White blood cell count is 20.5, her creatinine is 0.7. Her chest x-ray demonstrated stable bilateral infiltrates. Her CAT scan demonstrated severe panlobular emphysema all lung whitehead, probable left basilar atelectatic changes cannot exclude pneumonia. No blood cultures were drawn Plan: continue vancomycin, imipenem and Levaquin, day 2 08/31 Patient says she has a little bit better today. She wore the hospital BiPAP for 5 hours last night but said that it is hard to breathe with these settings. Her sputum is aircraft tool maker in color and now a beige color. Afebrile, white blood cell count 18.9, currently she is on high-flow nasal cannula 40 L, 45% FiO2 with saturations 90%. Plan: continue vancomycin, imipenem and Levaquin, day 3. 09/01 Currently she states she has 60% back to normal. Her cough is back to normal and she has clear phlegm. Afebrile. Her white blood cell count is 13.7, creatinine is 1.0. Her weight is 51.3 kg and she is net diuresis of -1.5 L since admission. 09/02 WBC is lower, 12.6, lower O2 requirement, still has wet cough without production of sputum Will continue vancomycin, imipenem and Levaquin, day 5. 09/04 WBC increased, not clear why. I do not think she is having leukocytosis due to pneumonia. Her pulmonary symptoms are better. She has a sacral wound, this needs to be examined. Wound care nurse is expected; we need to make sure that the wound is not the source of increase in WBC. She is not running fevers. (2) COPD exacerbation: Code(s): J44.1 - Chronic obstructive pulmonary disease with (acute) exacerbation Status: Acute Assessment and Plan: GOLD grade 3 group E COPD, (57 PY quit 2018),? last PFTs on 11/15/2016 with an FEV1 of 37% predicted,? chronic hypoxemic respiratory failure on 2 L nasal cannula with rest, ambulation and sleep, dyspnea on exertion at 20 ft,? She has very severe panlobular emphysema on her CT scan of the chest. 08/29/22 Patient is not wheezing but at this time will treat for COPD exacerbation and I will decrease her Solu-Medrol to 20 mg IV q.6, I will discontinue her trilogy inhaler and place her on albuterol 2.5 mg nebs q.4 hours and ipratropium 0.5 mg nebs q.4 hours. 08/30 patient has no wheezing. I will decrease her Solu-Medrol to 20 mg IV b.i.d. and continue albuterol and ipratropium nebulizers q.4 hours. Continue montelukast. I will check alpha 1 AT phenotype and level. 08/31 no wheezing. I will change the patient to prednisone 40, day 4 of steroids. Continue albuterol and ipratropium nebulizers Q 4. Continue montelukast. Patient is having some difficulty expectorating sputum and I will add guaifenesin 1200 mg p.o. b.i.d. and Cornet flutter valve. 09/01 No wheezes. Today was her 5th day of steroids and I will discontinue. Continue albuterol 2.5 mg nebs Q 4 hours, ipratropium 0.5 mg nebulizers q.4 hours and add
[2022-09-04] MEDS: MONTELUKAST SODIUM 10 MG TABLET PO (22:02)
[2022-09-05] VITALS (26 sets, daily range): BP systolic 112–147; BP diastolic 47–81; PULSE 77–93; RESP 18–22; TEMP 36.4–36.9; O2SAT 90–93
[2022-09-05] MEDS: ALBUTEROL SULFATE NEB 2.5 MG/3 ML INH INHALATION ×6 (00:16→21:01)
[2022-09-05] MEDS: IPRATROPIUM BR 0.02% INH SOLN 0.5 MG/2.5 ML VIAL INHALATION ×6 (00:16→21:00)
[2022-09-05] MEDS: MAGNES & ALUM HYD/SIMETH/DIPHENHYD/LIDOCAINE 119 ML MOUTHWASH BY MOUTH ×6 (01:06→21:41)
[2022-09-05] MEDS: ACETAMINOPHEN 325 MG TABLET 650 MG PO ×2 (04:49→12:44)
[2022-09-05 07:25] LABS: Mean Corpuscular Hemoglobin 26.1 pg (26-34); Mean Corpuscular Volume 87.1 fl (80-100); Platelet Count Result 401 k/mm3 (150-375); Red Blood Count 2.64 M/mm3 (4.2-5.4); Red Cell Distribution Width 16.6 % (11.5-14.5); White Blood Count 13.6 K/mm3 (4.5-10.0)
[2022-09-05 07:27] LABS: Hemoglobin 6.9 g/dL (12.0-15.0)
[2022-09-05] MEDS: LEVOTHYROXINE SODIUM 25 MCG TABLET PO (07:28)
[2022-09-05 07:46] LABS: Anion Gap 2 mmol/L (8-16); Blood Urea Nitrogen 16 mg/dL (7-17); Calcium 7.9 mg/dL (8.4-10.2); Carbon Dioxide 32 mmol/L (22-30); Chloride 100 mmol/L (98-107); Estimated CRCL calculation 33 ml/min; Estimated Glomerular Filt Rate 54; Glucose 98 mg/dL (65-110); Magnesium 2.4 mg/dL (1.6-2.3); Sodium 134 mmol/L (137-145)
[2022-09-05] MEDS: BUDESONIDE RESPULE NEB 0.5 MG/2 ML AMP INHALATION ×2 (08:06→20:58)
[2022-09-05] MEDS: NYSTATIN 100,000 UNITS/ML SUSP 5 ML ORAL.SUSP PO ×4 (08:19→21:41)
[2022-09-05] MEDS: oxyBUTYnin CHLORIDE XL 5 MG TAB.ER.24 15 MG PO (08:20)
[2022-09-05] MEDS: PARoxetine 20 MG TABLET 40 MG PO (08:21)
[2022-09-05] MEDS: ASPIRIN 81 MG CHEWABLE TABLET PO (08:21)
[2022-09-05] MEDS: polyethylene glycoL 3350 17 GM POWD.PACK PO (08:21)
[2022-09-05] MEDS: guaiFENesin 12 HR 600 MG TABCR 1200 MG PO ×2 (08:21→21:41)
[2022-09-05] MEDS: FLECAINIDE ACETATE 100 MG TABLET PO ×2 (08:22→21:40)
[2022-09-05] MEDS: OLMESARTAN MEDOXOMIL 20 MG TABLET PO (08:26)
[2022-09-05] MEDS: DONEPEZIL HCL 10 MG TABLET PO (08:26)
[2022-09-05] MEDS: FOLIC ACID 1 MG TABLET PO (08:26)
[2022-09-05] MEDS: amLODIPine BESYLATE 5 MG TABLET PO (08:26)
[2022-09-05] MEDS: OPTI-GEN TAB 1 TABLET PO (08:27)
[2022-09-05] MEDS: FUROSEMIDE 40 MG TABLET PO (08:27)
[2022-09-05] MEDS: PANTOPRAZOLE 40 MG TABLET PO ×2 (08:27→21:41)
[2022-09-05] MEDS: CYANOCOBALAMIN 1,000 MCG TABLET 1000 MCG PO (08:27)
[2022-09-05] MEDS: SENNA/DOCUSATE SODIUM TABLET 1 TAB PO ×2 (08:27→17:49)
[2022-09-05] MEDS: MEMANTINE 5 MG TABLET PO ×2 (08:27→17:40)
[2022-09-05] MEDS: CHOLECALCIFEROL 1,000 UNITS TABLET 2000 UNITS PO (08:27)
[2022-09-05] MEDS: APIXABAN 5 MG TABLET PO ×2 (08:27→21:40)
[2022-09-05 10:05] LABS: Iron 12 ug/dL (37-170)
[2022-09-05 10:14] LABS: Percent Iron Saturation 4 % (20-50)
[2022-09-05 10:35] LABS: Folic Acid > 20.0 ng/mL (2.76->20)
--- NOTE | 2022-09-05 13:31 | PM.IMPN ---
Progress Note: A&P Assessment and Plan (1) Acute on chronic respiratory failure with hypoxia and hypercapnia: Code(s): J96.21 - Acute and chronic respiratory failure with hypoxia; J96.22 - Acute and chronic respiratory failure with hypercapnia Status: Acute Assessment and Plan: patient with chronic respiratory failure typically on 4 L supplemental O2 noted to be acutely hypoxic at nursing facility due to failure of oxygen concentrator CXR on presentation showed extensive bilateral pulmonary interstitial fibrotic changes with interval prominent patchy left lower lung infiltrate currently requiring 10 L supplemental O2 per nasal cannula continue with supplemental oxygen as needed. Wean to baseline as tolerated see plan below 09/05/2022 interval history: patient with COPD and with hypoxia seen by transmission worker to further evaluate, patient had cardiac echo it did show patent foramen ovale mild right to left shunt with bubble study, there was no mention of size of the shunt, on 09/02 patient was more short winded while taking her morning medication, today patient hgb is 6.9 there is no obvious source of bleeding, will transuse 1 units of PRBC, today patient states feeling better not as short of breath, on 09/04 patient was seen by Dr. Rush, in terms of respiratory patient is now at her baseline and stable, CT scan of the chest showed pneumonia patient is being treated levofloxacin and vancomycin, upon arrival blood culture was not collected on 09/04 we have collected blood culture will monitor, patient will be seen by the transmission worker and further recommendation to follow. will continue to monitor. (2) Pneumonia: Code(s): J18.9 - Pneumonia, unspecified organism Status: Acute Assessment and Plan: imaging and clinical findings consistent with pneumonia begin ceftriaxone and azithromycin check COVID and influenza obtain urinary Legionella and pneumococcal antigens sputum culture supportive care to include bronchodilators, expectorants, incentive spirometry patient afebrile monitor WBC (3) Hypokalemia: Code(s): E87.6 - Hypokalemia Status: Acute Assessment and Plan: potassium is 3.1 40 mEq p.o. KCl monitor BMP (4) Paroxysmal atrial flutter: Code(s): I48.92 - Unspecified atrial flutter Status: Acute Assessment and Plan: patient is in sinus rhythm continue flecainide continue Eliquis (5) Hypertension: Code(s): I10 - Essential (primary) hypertension Status: Acute Assessment and Plan: blood pressure is stable. Last BP 118/70 continue olmesartan, amlodipine, and furosemide monitor BP trends Subjective Date/time seen: 09/05/22 13:31 patient with chronic respiratory failure typically on 4 L supplemental O2 noted to be acutely hypoxic at nursing facility due to failure of oxygen concentrator CXR on presentation showed extensive bilateral pulmonary interstitial fibrotic changes with interval prominent patchy left lower lung infiltrate currently requiring 10 L supplemental O2 per nasal cannula continue with supplemental oxygen as needed. Wean to baseline as tolerated see plan below 09/05/2022 interval history: patient with COPD and with hypoxia seen by transmission worker to further evaluate, patient had cardiac echo it did show patent foramen ovale mild right to left shunt with bubble study, there was no mention of size of the shunt, on 09/02 patient was more short winded while taking her morning medication, today patient hgb is 6.9 there is no obvious source of bleeding, will transuse 1 units of PRBC, today patient states feeling better not as short of breath, on 09/04 patient was seen by Dr. Rush, in terms of respiratory patient is now at her baseline and stable, CT scan of the chest showed pneumonia patient is being treated levofloxacin and vancomycin, upon arrival blood culture was not collecte
--- NOTE | 2022-09-05 13:40 | PM.PNPUL ---
Progress Note: A&P Assessment and Plan (1) Pneumonia: Code(s): J18.9 - Pneumonia, unspecified organism Status: Acute Assessment and Plan: 08/29/2022 patient tells me she was in her usual state of health and then her oxygen tank broke and she was brought to the emergency department. She had a leukocytosis of 16.1 (admit 16.1 on 08/27 (eos 1.5=240/uL), 24.0 on 08/28), a chest x-ray with new infiltrates left lower lobe and worsening hypoxemia. Her cope and influenza RT PCR studies are negative. Urine Legionella and urine pneumococcal antigen studies are pending. I will order mycoplasma IgM. Patient has had multiple hospitalizations over the last 3-4 months and I will cover her more broadly for with vancomycin, imipenem and Levaquin all started on 08/29/2022. 08/30 Patient tells me she is breathing better today, she is in less respiratory distress. She did sleep well with the BiPAP. Currently she is on high-flow nasal cannula 50 L and 45% FiO2 with saturations 92%. White blood cell count is 20.5, her creatinine is 0.7. Her chest x-ray demonstrated stable bilateral infiltrates. Her CAT scan demonstrated severe panlobular emphysema all lung whitehead, probable left basilar atelectatic changes cannot exclude pneumonia. No blood cultures were drawn Plan: continue vancomycin, imipenem and Levaquin, day 2 08/31 Patient says she has a little bit better today. She wore the hospital BiPAP for 5 hours last night but said that it is hard to breathe with these settings. Her sputum is training officer in color and now a beige color. Afebrile, white blood cell count 18.9, currently she is on high-flow nasal cannula 40 L, 45% FiO2 with saturations 90%. Plan: continue vancomycin, imipenem and Levaquin, day 3. 09/01 Currently she states she has 60% back to normal. Her cough is back to normal and she has clear phlegm. Afebrile. Her white blood cell count is 13.7, creatinine is 1.0. Her weight is 51.3 kg and she is net diuresis of -1.5 L since admission. 09/02 WBC is lower, 12.6, lower O2 requirement, still has wet cough without production of sputum Will continue vancomycin, imipenem and Levaquin, day 5. 09/04 WBC increased, not clear why. I do not think she is having leukocytosis due to pneumonia. Her pulmonary symptoms are better. She has a sacral wound, this needs to be examined. Wound care nurse is expected; we need to make sure that the wound is not the source of increase in WBC. She is not running fevers. 09/05 She is tired, H/H dropped, 6.9/23%, 1 unit RBC transfused. O2 requirement is 5 L/min, stable. She has nonproductive cough. WBC lower 13.6k. Her sacral wound is not great, however has no purulence. She has a flat pink macerated area in the sacral cleft. It is open to air, no dressing. I talked with Paradise RIVERA who has a sacral dressing to apply. She is also receiving antifungals BID ordered by wound nurse Sep 02. Will check CXR tomorrow. She is day 7 Vanco, which can stop. She is Day 7 imipenem and day 9 Levaquin; continue these until tomorrow. If CXR is improving, stop imipenem and Levaquin. Urine antigens were negative, Legionella and Pneumococcal pneumonia, Mycoplasma antibody was negative. I am not sure she had pneumonia. (2) COPD exacerbation: Code(s): J44.1 - Chronic obstructive pulmonary disease with (acute) exacerbation Status: Acute Assessment and Plan: GOLD grade 3 group E COPD, (57 PY quit 2018),? last PFTs on 11/15/2016 with an FEV1 of 37% predicted,? chronic hypoxemic respiratory failure on 2 L nasal cannula with rest, ambulation and sleep, dyspnea on exertion at 20 ft,? She has very severe panlobular emphysema on her CT scan of the chest. 08/29/22 Patient is not wheezing but at this time will treat for COPD exacerbation and I will decrease her Solu-Medrol to 20 mg IV q.6, I will discontinue her trilogy inhaler and place her on albuterol 2.5 mg neb
[2022-09-05 15:32] LABS: Hematocrit 29.4 % (37.0-47.0); Hemoglobin 9.1 g/dL (12.0-15.0)
[2022-09-05 16:37] LABS: Vancomycin Trough 15.9 ug/mL (10.0-20.0)
[2022-09-05] MEDS: MONTELUKAST SODIUM 10 MG TABLET PO (21:41)
[2022-09-05] MEDS: LORazepam (*CRX) 1 MG TABLET PO (21:44)
[2022-09-06] VITALS (18 sets, daily range): BP systolic 119–143; BP diastolic 53–88; PULSE 80–90; RESP 18–22; TEMP 36.1–36.7; O2SAT 84–97
[2022-09-06] MEDS: IPRATROPIUM BR 0.02% INH SOLN 0.5 MG/2.5 ML VIAL INHALATION ×5 (00:03→15:10)
[2022-09-06] MEDS: ALBUTEROL SULFATE NEB 2.5 MG/3 ML INH INHALATION ×5 (00:03→15:10)
[2022-09-06] MEDS: MAGNES & ALUM HYD/SIMETH/DIPHENHYD/LIDOCAINE 119 ML MOUTHWASH BY MOUTH ×4 (00:30→13:58)
[2022-09-06] MEDS: LEVOTHYROXINE SODIUM 25 MCG TABLET PO (05:40)
[2022-09-06] MEDS: BUDESONIDE RESPULE NEB 0.5 MG/2 ML AMP INHALATION (07:00)
[2022-09-06 07:17] LABS: Hematocrit 29.8 % (37.0-47.0); Hemoglobin 9.2 g/dL (12.0-15.0); Mean Corpuscular HGB Conc 30.9 g/dl (32-36); Mean Corpuscular Volume 87.4 fl (80-100); Mean Platelet Volume 8.8 fl (7.4-10.4); Platelet Count Result 447 k/mm3 (150-375); Red Blood Count 3.41 M/mm3 (4.2-5.4); Red Cell Distribution Width 16.3 % (11.5-14.5); White Blood Count 12.4 K/mm3 (4.5-10.0)
[2022-09-06 07:25] LABS: Anion Gap 3 mmol/L (8-16); Blood Urea Nitrogen 18 mg/dL (7-17); Carbon Dioxide 32 mmol/L (22-30); Chloride 101 mmol/L (98-107); Estimated CRCL calculation 37 ml/min; Estimated Glomerular Filt Rate > 60; Glucose 95 mg/dL (65-110); Magnesium 2.3 mg/dL (1.6-2.3); Sodium 136 mmol/L (137-145)
[2022-09-06] MEDS: NYSTATIN 100,000 UNITS/ML SUSP 5 ML ORAL.SUSP PO ×2 (09:06→13:58)
[2022-09-06] MEDS: OLMESARTAN MEDOXOMIL 20 MG TABLET PO (09:06)
[2022-09-06] MEDS: amLODIPine BESYLATE 5 MG TABLET PO (09:06)
[2022-09-06] MEDS: CHOLECALCIFEROL 1,000 UNITS TABLET 2000 UNITS PO (09:07)
[2022-09-06] MEDS: FUROSEMIDE 40 MG TABLET PO (09:07)
[2022-09-06] MEDS: OPTI-GEN TAB 1 TABLET PO (09:07)
[2022-09-06] MEDS: SENNA/DOCUSATE SODIUM TABLET 1 TAB PO (09:07)
[2022-09-06] MEDS: oxyBUTYnin CHLORIDE XL 5 MG TAB.ER.24 15 MG PO (09:07)
[2022-09-06] MEDS: PANTOPRAZOLE 40 MG TABLET PO (09:07)
[2022-09-06] MEDS: guaiFENesin 12 HR 600 MG TABCR 1200 MG PO (09:07)
[2022-09-06] MEDS: FLECAINIDE ACETATE 100 MG TABLET PO (09:07)
[2022-09-06] MEDS: MEMANTINE 5 MG TABLET PO (09:07)
[2022-09-06] MEDS: ASPIRIN 81 MG CHEWABLE TABLET PO (09:07)
[2022-09-06] MEDS: DONEPEZIL HCL 10 MG TABLET PO (09:07)
[2022-09-06] MEDS: CYANOCOBALAMIN 1,000 MCG TABLET 1000 MCG PO (09:08)
[2022-09-06] MEDS: PARoxetine 20 MG TABLET 40 MG PO (09:08)
[2022-09-06] MEDS: APIXABAN 5 MG TABLET PO (09:08)
[2022-09-06] MEDS: FOLIC ACID 1 MG TABLET PO (09:09)
[2022-09-06] MEDS: polyethylene glycoL 3350 17 GM POWD.PACK PO (09:41)
[2022-09-06] MEDS: LORazepam (*CRX) 1 MG TABLET PO (09:44)
--- NOTE | 2022-09-06 12:19 | PM.DS ---
DS: Admitting Diagnosis Discharge Date 09/06/2022 Admitting Diagnosis dyspnea DS: Discharge Diagnosis Discharge Diagnosis (1) Acute on chronic respiratory failure with hypoxia and hypercapnia: Code(s): J96.21 - Acute and chronic respiratory failure with hypoxia; J96.22 - Acute and chronic respiratory failure with hypercapnia Status: Acute Assessment and Plan: patient with chronic respiratory failure typically on 4 L supplemental O2 noted to be acutely hypoxic at nursing facility due to failure of oxygen concentrator CXR on presentation showed extensive bilateral pulmonary interstitial fibrotic changes with interval prominent patchy left lower lung infiltrate currently requiring 10 L supplemental O2 per nasal cannula continue with supplemental oxygen as needed. Wean to baseline as tolerated see plan below 09/05/2022 interval history: patient with COPD and with hypoxia seen by psychological operations to further evaluate, patient had cardiac echo it did show patent foramen ovale mild right to left shunt with bubble study, there was no mention of size of the shunt, on 09/02 patient was more short winded while taking her morning medication, today patient hgb is 6.9 there is no obvious source of bleeding, will transuse 1 units of PRBC, today patient states feeling better not as short of breath, on 09/04 patient was seen by Dr. Rush, in terms of respiratory patient is now at her baseline and stable, CT scan of the chest showed pneumonia patient is being treated levofloxacin and vancomycin, upon arrival blood culture was not collected on 09/04 we have collected blood culture will monitor, patient will be seen by the psychological operations and further recommendation to follow. will continue to monitor. (2) Pneumonia: Code(s): J18.9 - Pneumonia, unspecified organism Status: Acute Assessment and Plan: imaging and clinical findings consistent with pneumonia begin ceftriaxone and azithromycin check COVID and influenza obtain urinary Legionella and pneumococcal antigens sputum culture supportive care to include bronchodilators, expectorants, incentive spirometry patient afebrile monitor WBC (3) Hypokalemia: Code(s): E87.6 - Hypokalemia Status: Acute Assessment and Plan: potassium is 3.1 40 mEq p.o. KCl monitor BMP (4) Paroxysmal atrial flutter: Code(s): I48.92 - Unspecified atrial flutter Status: Acute Assessment and Plan: patient is in sinus rhythm continue flecainide continue Eliquis (5) Hypertension: Code(s): I10 - Essential (primary) hypertension Status: Acute Assessment and Plan: blood pressure is stable. Last BP 118/70 continue olmesartan, amlodipine, and furosemide monitor BP trends DS: Summary Hospital Course Reason for hospitalization: dyspnea Narrative: ?date of service: 08/27/2022 ?Jenny Lucas is a 77-year-old female with a history of atrial flutter on chronic anticoagulation, COPD, chronic respiratory failure on 4 L supplemental oxygen, pulmonary nodules, and tobacco abuse known to the hospitalist service with several recent admissions who presented to the emergency department on 08/27/[facility] with complaints of shortness of breath.? The patient states that her oxygen concentrator became broken overnight and she was feeling short of breath.? She got up to the chair and reportedly staff took her vital signs and her O2 sats were at 35%.? EMS was summoned and she was noted to be hypoxic at 47-50%.? She received dexamethasone and 2 nebulizer treatments.? Upon presentation to the ED, her O2 sats were stable at 97% on 15 L non-rebreather, she was mildly tachypneic, additional vital signs were stable, white blood cell count 16.1, potassium 3.1, troponin negative, BNP 700, ABG revealed primary metabolic alkalosis, and CXR showed extensive bilateral pulmonary interstitial fib
[2022-09-06] MEDS: ACETAMINOPHEN 325 MG TABLET 650 MG PO (13:55)
[2022-09-06 15:21] LABS: EDCOVIDSCREEN Negative (Negative)
== END 2022-09-06 16:20 | DRG 193 ==
LOC: ANHED 10:03 → ANH3MEDSUR 10:37 → ANHIMU 08-28 05:41 → ANH3MEDSUR 09-02 21:04
PROVIDERS: Internal Medicine; Internal Medicine Pulmonary Disease; Physician Assistant; Admitting Provider Internal Medicine; Emergency Provider Emergency Medicine; PCP Internal Medicine; Visit Provider Family Medicine
DX: J18.9 Pneumonia, unspecified organism (principal); J96.21 Acute and chronic respiratory failure with hypoxia; J96.22 Acute and chronic respiratory failure with hypercapnia; J44.0 Chronic obstructive pulmonary disease with (acute) lower respiratory infection; I48.92 Unspecified atrial flutter; Q21.12 Patent foramen ovale; E87.6 Hypokalemia; I10 Essential (primary) hypertension; Z99.81 Dependence on supplemental oxygen; K21.9 Gastro-esophageal reflux disease without esophagitis; Z20.822 Contact with and (suspected) exposure to COVID-19; Z86.16 Personal history of COVID-19; Z87.891 Personal history of nicotine dependence; Z79.899 Other long term (current) drug therapy
CPT/HCPCS: 36415; 36430; 36600; 71045; 71250; 80048; 80053; 80202; 82103; 82104; 82375; 82565; 82607; 82728; 82746; 82805; 82948; 83050; 83540; 83550; 83735; 83880; 84484; 85014; 85018; 85025; 85027; 85610; 85730; 86738; 86850; 86900; 86901; 86923; 87040; 87070; 87081; 87205; 87426; 87449; 87636; 87899; 93005; 93308; 94002; 94003; 94640; 94667; 94668; 96365; 96375; 96376; 97110; 97161; 97166; 97530; 99285; A9270; C9803; G0378; J0456; J0696; J0743; J1120; J1756; J1940; J1956; J2920; J2930; J3370; J7512; P9016

== ENCOUNTER 2022-09-11 12:18 | Inpatient (IN) | payer MEDICARE, SELFPAY ==
[2022-09-11] VITALS (26 sets, daily range): BP systolic 114–141; BP diastolic 44–57; PULSE 75–97; RESP 15–25; TEMP 36.2–36.3; O2SAT 87–100; BMI 22.6
--- NOTE | ~2022-09-11 | US_ITS ---
US venous doppler [facility] DATE: 09/13/2022 17:11 INDICATION: Swelling TECHNIQUE: Real-time and color flow imaging and Doppler analysis of the veins of the lower extremitie s COMPARISON: None FINDINGS: The greater saphenous veins are patent. There is spontaneous and phasic flow and normal aug mentation and color flow signal and normal compression of the deep veins of both lower extremity. IMPRESSION: No evidence of deep venous thrombosis of the lower extremities Reviewed, dictated and finalized at Location [facility]. Reviewed, dictated and finalized at location A.
--- NOTE | ~2022-09-11 | US_ITS ---
US venous doppler [facility] DATE: 09/13/2022 17:11 INDICATION: Swelling TECHNIQUE: Real-time and color flow imaging and Doppler analysis of the upper extremity veins COMPARISON: None FINDINGS: The internal jugular veins, subclavian veins, axillary, brachial cephalic, basilic, radial and ulnar veins are patent, with normal color flow signal, augmentation and compression. There are IMPRESSION: No evidence of deep venous thrombosis of the upper extremities Reviewed, dictated and finalized at [facility]. Reviewed, dictated and finalized at location A.
--- NOTE | ~2022-09-11 | CT_ITS ---
EXAMINATION: CTA chest PE protocol DATE: 09/12/2022 20:47 INDICATION: Elevated d-dimer TECHNIQUE: Computed tomography angiography (CTA) of the chest was performed with 100 mL Omnipaque-350 intravenous contrast timed to evaluate the pulmonary arteries. Coronal maximum intensity projection 3D-reconstructions were created by the technologist. Automated exposure control and iterative reconst ruction technique were employed. Exam dose: 211.19 mGy-cm total exam DLP. COMPARISON: 09/11/2022 portable AP chest 08/30/2022 CT chest FINDINGS: There is diagnostic contrast enhancement the pulmonary arteries and no evidence of pulmonar y embolism. No thoracic aortic aneurysm or dissection. Heart size is within normal range.. No hilar or mediastinal mass lesion or lymphadenopathy. There is severe bullous emphysema and interstitial fibrosis of the lungs. There is prominent dependent right basilar atelectasis and/or consolidation. IMPRESSION: No evidence of pulmonary embolism Reviewed, dictated and finalized at [facility]. Reviewed, dictated and finalized at location A.
--- NOTE | ~2022-09-11 | XR_ITS ---
Portable chest x-ray Comparison: 09/11/2022 Clinical History: Covid pneumonia Findings: There is diffuse interstitial prominence in the lungs. No definite acute consolidation pre sent. No pneumothorax or pleural effusion. Cardiomediastinal silhouette is stable. Bones and soft ti ssues are unremarkable. Impression: Diffuse chronic appearing interstitial disease in the lungs, unchanged. Reviewed, dictated and finalized at location . Impression: Diffuse chronic appearing interstitial disease in the lungs, unchanged.
--- NOTE | ~2022-09-11 | XR_ITS ---
Portable chest x-ray Comparison: 09/06/2022 Clinical History: Shortness of breath Findings: Extensive chronic interstitial disease and COPD is similar to prior exam. No acute abnorma lity evident. Cardiomediastinal silhouette is stable. Bones and soft tissues are unremarkable. Impression: Stable COPD and/or severe chronic interstitial disease. No definite acute abnormality. Reviewed, dictated and finalized at location . Impression: Stable COPD and/or severe chronic interstitial disease. No definite acute abnormality.
--- NOTE | 2022-09-11 12:28 | ECG_ITS ---
Measurements Intervals [place] Rate: 95 P: 58 NV: 170 QRS: -17 QRSD: 110 T: 38 QT: 363 QTc: 456 Interpretive Statements SINUS RHYTHM POSSIBLE LEFT ATRIAL ENLARGEMENT CANNOT RULE OUT SEPTAL INFARCT, AGE INDETERMINATE CONSIDER INFERIOR INFARCT, AGE INDETERMINATE BASELINE ARTIFACT- I, II, AVR, AVL ABNORMAL ECG COMPARED TO ECG 08/27/2022 07:34:30 NO SIGNIFICANT CHANGES Electronically Signed On 09-11-2022 14:34:24 CDT by Kendrick Paula D.O.
[2022-09-11 12:58] LABS: Basophils Absolute Auto 0.1 K/mm3 (0.0-0.1); Basophils Percent Auto 0.9 % (0.2-1.2); Eosinophils Percent Auto 0.2 % (0-4.4); Hematocrit 35.8 % (37.0-47.0); Hemoglobin 10.7 g/dL (12.0-15.0); Immature Granulocyte Absolute 0.28 K/mm3 (0.00-0.031); Immature Granulocyte Percent A 2.2 % (0-0.5); Lymphocytes Absolute Auto 0.37 K/mm3 (0.9-3.2); Lymphocytes Percent Auto 2.9 % (18.3-44.2); Mean Corpuscular HGB Conc 29.9 g/dl (32-36); Mean Corpuscular Hemoglobin 27.5 pg (26-34); Monocytes Absolute Auto 1.2 K/mm3 (0.1-0.6); Monocytes Percent Auto 9.2 % (2.6-8.5); Neutrophils Percent Auto 84.6 % (45.5-73.1); Platelet Count Result 327 k/mm3 (150-375); Red Blood Count 3.89 M/mm3 (4.2-5.4); Red Cell Distribution Width 18.3 % (11.5-14.5); White Blood Count 12.9 K/mm3 (4.5-10.0)
[2022-09-11 13:02] LABS: Alveolar/Arterial O2 Gradient 219.4 mmHg; Base Excess ABG 2.7 mEq/l (+/-2.0); Carboxyhemoglobin 1.2 % THb (0-2.0); HCO3 ABG 26.7 mEq/l (22.0-26.0); Methemoglobin ABG 0.2 %THb (0-1.5); Oxygen Content ABG 12.2 %vol (16.0-22.0); Oxygen Saturation ABG 91.1 % (95.0-100.0); PO2 ABG 57.1 mmHg (80.0-100.0); PO2 FiO2 Ratio Arterial Blood 1.27 %; Reduced Hemoglobin 12.8 %THb (0-5.0); Total Hemoglobin 10.1 g/dL (12.0-18.0); pH ABG 7.454 (7.350-7.450)
[2022-09-11 13:06] LABS: Device NASAL CANNULA; Fractional Inspired Oxygen 48 %; Modified Allen's Test Pass; Oxyhemoglobin 85.8 % THb (90.0-100.0); Site Drawn LEFT RADIAL
[2022-09-11 13:09] LABS: Lactic Acid Reflex 1.9 mmol/L (0.7-2.0)
[2022-09-11 13:10] LABS: Alanine Aminotransferase 20 U/L (6-35); Albumin Level 3.5 g/dL (3.5-5.1); Alkaline Phosphatase 103 U/L (38-126); Anion Gap 7 mmol/L (8-16); Aspartate Amino Transferase 32 U/L (14-36); Bilirubin,Total 0.5 mg/dL (0.2-1.3); Blood Urea Nitrogen 16 mg/dL (7-17); Calcium 8.1 mg/dL (8.4-10.2); Carbon Dioxide 32 mmol/L (22-30); Chloride 96 mmol/L (98-107); Estimated CRCL calculation 27 ml/min; Estimated Glomerular Filt Rate 48; Glucose 112 mg/dL (65-110); Potassium 4.1 mmol/L (3.4-5.0); Sodium 135 mmol/L (137-145)
[2022-09-11 13:12] LABS: Anisocytosis 1+ (NORMAL); Platelet Estimate Adequate (Adequate)
[2022-09-11 13:13] LABS: Hypochromasia 1+ (NORMAL); Schistocytes None Seen (NORMAL); Stomatocytes 1+ (NORMAL)
--- NOTE | 2022-09-11 13:15 | ED.SOB ---
HPI - SOB/Dyspnea General Chief Complaint: Shortness of Breath/Dyspnea Stated Complaint: dyspnea Time Seen by Provider: 09/11/22 12:26 History of Present Illness HPI Narrative: Patient is a 77-year-old female who presents ER with shortness of breath. Patient on chronic home O2 of 8 L. Reports her O2 saturation was lower today. She is unsure of her oxygen father of her nose. She has chronic cough. No chest pain or chest pressure. No nausea/vomiting. Patient is very poor historian and cannot tell me more about her chronic disease. Related Data Home Medications Medication Instructions Recorded Confirmed amlodipine 5 mg tablet 5 mg PO DAILY 06/25/22 09/11/22 donepezil 10 mg tablet 10 mg PO DAILY 06/25/22 09/11/22 folic acid 1 mg tablet 1 mg PO DAILY 06/25/22 09/11/22 memantine 5 mg tablet 5 mg PO BID 06/25/22 09/11/22 olmesartan 20 mg tablet 20 mg PO DAILY 06/25/22 09/11/22 mecobalamin (vitamin B12) 1,000 1,000 mcg sublingual DAILY 07/29/22 09/11/22 mcg disintegrating tablet,sublingual lorazepam 1 mg tablet 1 mg PO BID 08/14/22 09/11/22 omeprazole 20 mg capsule,delayed 40 mg PO BID 08/14/22 09/11/22 release Lactobacillus acidophilus 100 mg PO DAILY 09/11/22 09/11/22 albuterol sulfate 0.63 mg/3 mL 0.63 mg inhalation QID 09/11/22 09/11/22 solution for nebulization aspirin 81 mg chewable tablet 81 mg PO DAILY 09/11/22 09/11/22 azithromycin 500 mg tablet 500 mg PO DAILY 09/11/22 09/11/22 ceftriaxone 1 gram solution for 1 g IM DAILY 09/11/22 09/11/22 injection cholecalciferol (vitamin D3) 25 50 mcg PO DAILY 09/11/22 09/11/22 mcg (1,000 unit) capsule fluticasone fur. 100 mcg-umeclid 1 inh inhalation DAILY 09/11/22 09/11/22 62.5 mcg-vilant 25 mcg inhalat.powder (Trelegy Ellipta) furosemide 20 mg tablet 20 mg PO DAILY 09/11/22 09/11/22 levothyroxine 25 mcg tablet 25 mcg PO DAILY 09/11/22 09/11/22 melatonin 5 mg tablet 5 mg PO HS 09/11/22 09/11/22 methylprednisolone 4 mg tablet 4 mg PO 1200 09/11/22 09/11/22 (Medrol) methylprednisolone 4 mg tablet 4 mg PO 1700 09/11/22 09/11/22 (Medrol) methylprednisolone 4 mg tablet 4 mg PO DAILY 09/11/22 09/11/22 (Medrol) methylprednisolone 4 mg tablet 4 mg PO HS 09/11/22 09/11/22 (Medrol) methylprednisolone 4 mg tablet 8 mg PO DAILY 09/11/22 09/11/22 (Medrol) methylprednisolone 4 mg tablet 8 mg PO HS 09/11/22 09/11/22 (Medrol) paroxetine HCl 20 mg tablet 20 mg PO BID 09/11/22 09/11/22 vit A 300 mcg-C 200 mg-E 27 1 tablet PO DAILY 09/11/22 09/11/22 mg-lutein 2 mg and minerals tablet (Healthy Eyes) Allergies Allergy/AdvReac Type Severity Reaction Status Date / Time No Known Allergies Allergy Verified 09/11/22 18:15 Review of Systems Review of Systems: ROS unobtainable: Yes unobtainable due to medical condition [facility] Past Medical History Medical History (Updated 09/11/22 @ 21:43 by Jason Banda MD) Adenomatous colon polyp Anxiety and depression Arthritis Chronic anemia Chronic anticoagulation Chronic kidney disease Chronic obstructive pulmonary disease 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 Chronic respiratory failure with hypoxia, on home oxygen therapy On 4 liters nasal cannula. Cognitive dysfunction Dyslipidemia Gastroesophageal reflux disease Hearing loss Hypertension Hypothyroidism Iron deficiency anemia Kidney stones Lung nodule Multiple pulmonary nodules determined by computed tomography of lung Paroxysmal atrial flutter Personal history of COVID-19 Pre-diabetes Tobacco abuse Surgical History Surgical History History of bilateral cataract extraction History of cardiac catheterization History of colonoscopy with polypectomy History of cystoscopy History of lithotripsy History of lung biopsy (02/2020) Left lung nodule-fibrous tissue with chronic inflammation and granulomatous. History of tubal ligation Family History Family History (Reviewed
[2022-09-11 13:18] LABS: NT Pro B Type Natriuretic Pept 3030 pg/mL (19.9-100)
[2022-09-11 13:35] LABS: Influenza A QL RT-PCR Negative (Negative); Influenza B QL RT-PCR Negative (Negative); SARS-CoV-2 RNA PCR Positive
[2022-09-11] MEDS: FUROSEMIDE INJ 40 MG/4 ML VIAL IV PUSH (13:51)
--- NOTE | 2022-09-11 14:00 | PM.IMHP ---
H&P: HPI History of Present Illness Date/Time: 09/11/22 14:00 Chief Complaint: Shortness of breath. Narrative: This is a pleasant 77-year-old female with a severe emphysema and COPD by PFTs in 2017, chronic respiratory failure on 2 liters nasal cannula, hypertension, hypothyroidism, anemia, paroxysmal atrial fibrillation/flutter, and other comorbidities who presented to the emergency department from [facility] for evaluation of shortness of breath. Patient provides the following history. She is well known to myself and the hospitalist service from several recent admissions for acute on chronic respiratory failure and COPD and most recently she was discharged on 09/06/2022. She has been doing okay since that time, she gets winded with minimal activity at home and she is now on 8 to 10 L nasal cannula at home. The last couple of days she has not been feeling well with chills, sweats, and a worsening cough though it has not been productive. This morning she was having a difficult time keeping her oxygen saturations above the mid 80s and she was brought in for evaluation. She was afebrile on arrival with stable blood pressures. She is currently on 8 L with SpO2 in the upper 90s. Labs were significant for a WBC count of 12.9, proBNP 3030, sodium 135, BUN 16, creatinine 1.10. Chest x-ray showed stable COPD and/or severe chronic interstitial lung disease without acute abnormality. She tested positive for COVID and she is being admitted in this setting. Other than and generalized malaise and some body aches she does not have any other complaints. She denies chest and pleuritic pain, sore throat, hemoptysis, vomiting, diarrhea, and dysuria. Review of Systems Review of Systems: Twelve systems were reviewed and are negative except for as per HPI. 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 Chronic respiratory failure with hypoxia, on home oxygen therapy On 4 liters nasal cannula. Cognitive dysfunction Dyslipidemia Gastroesophageal reflux disease Hearing loss Hypertension Hypothyroidism Iron deficiency anemia Kidney stones Lung nodule Multiple pulmonary nodules determined by computed tomography of lung Paroxysmal atrial flutter Patent foramen ovale Personal history of COVID-19 Pre-diabetes Tobacco abuse Surgical History Surgical History History of bilateral cataract extraction History of cardiac catheterization History of colonoscopy with polypectomy History of cystoscopy History of lithotripsy History of lung biopsy (02/2020) Left lung nodule-fibrous tissue with chronic inflammation and granulomatous. History of tubal ligation Family History Family History Other Breast cancer Social History Social History Social History: . Lives in [place]. Son lives with her. Retired from [employer]. Surrogate medical decision maker: Jevon Lucas, son. Code status: Full code Smoking packs per day: 1 Smoking cigarettes per day: 20.0 Years smoked: 50 Smoking pack-years: 50.00 Smoking status: Former smoker Tobacco type: cigarettes Alcohol intake: never Drinks per week: 0 Substance use: never Substance use type: does not use Lack of Transportation: No Lack of Food: Never True Current Housing: I Have Housing Concerned About Future Housing: No Difficulty Paying Gas/Electric Bills: No Difficulty Paying for Meds: No Currently Unemployed: No Education: Don't Know Difficulty w/ Childcare or Family Care: No Spiritual care concerns: No Meds Home Medications and Al
--- NOTE | 2022-09-11 17:02 | PC.NURSE ---
This patient, Jenny Lucas, was admitted to 3 [facility] Surg Room 313-01. Patient/family oriented to hospital policies and general routines including ID bracelet, bed and alarms, visiting hours, pain management, procedures, bathroom and other care routines, personal items, smoking policy, room service/diet, and visiting hours. Information on how to activate the Rapid Response Team has been discussed. Patient/Family are encouraged to report perceived risks to care and to ask questions if they do not understand what they are told or what they should do.
[2022-09-11 18:34] LABS: Appearance Urine Cloudy (Clear); Bacteria Urine None Seen /hpf; Bilirubin Urine Negative (Negative); Blood Urine 3+ (Negative); Budding Yeast Urine Present /hpf; Color Urine Yellow (Yellow); Glucose Urine UA Negative (Negative); Hyaline Casts Urine Present /lpf; Ketones Urine Negative (Negative); Leukocyte Esterase Ur 2+ LEU/UL (Negative); Nitrate Urine Negative (Negative); Non Pathogenic Casts >20; Protein Urine Trace mg/dL (Negative); RBC Urine >100 /hpf (0-2); Specific Grav Ur 1.012 (1.001-1.035); Squamous Epithelial Cell Urine Occasional /hpf (Few); Urobilinogen Urine 0.2 mg/dL (<2.0); WBC Urine >100 /hpf
[2022-09-11 18:44] LABS: Add Urine Microscopic? YES
[2022-09-11] MEDS: ALBUTEROL SULFATE NEB 2.5 MG/3 ML INH INHALATION (22:07)
[2022-09-11] MEDS: IPRATROPIUM BR 0.02% INH SOLN 0.5 MG/2.5 ML VIAL INHALATION (22:08)
[2022-09-12] VITALS (19 sets, daily range): BP systolic 113–167; BP diastolic 54–69; PULSE 70–95; RESP 14–22; TEMP 35.8–36.6; O2SAT 92–100; BMI 21.5
[2022-09-12] MEDS: REMDESIVIR 200 MG/NS 250 ML 200 MG/250 ML BAG 250 MG IVPB (03:03)
[2022-09-12] MEDS: ALBUTEROL SULFATE NEB 2.5 MG/3 ML INH INHALATION ×3 (03:57→20:30)
[2022-09-12] MEDS: IPRATROPIUM BR 0.02% INH SOLN 0.5 MG/2.5 ML VIAL INHALATION ×3 (03:57→20:30)
[2022-09-12] MEDS: LEVOTHYROXINE SODIUM 25 MCG TABLET PO (05:33)
[2022-09-12 06:30] LABS: Hematocrit 28.1 % (37.0-47.0); Hemoglobin 8.4 g/dL (12.0-15.0); Mean Corpuscular HGB Conc 29.9 g/dl (32-36); Mean Corpuscular Hemoglobin 26.7 pg (26-34); Mean Corpuscular Volume 89.2 fl (80-100); Mean Platelet Volume 8.8 fl (7.4-10.4); Platelet Count Result 251 k/mm3 (150-375); Red Blood Count 3.15 M/mm3 (4.2-5.4); Red Cell Distribution Width 17.7 % (11.5-14.5); White Blood Count 6.2 K/mm3 (4.5-10.0)
[2022-09-12 06:38] LABS: INR 1.3
[2022-09-12 06:42] LABS: Alanine Aminotransferase 19 U/L (6-35); Albumin Level 2.9 g/dL (3.5-5.1); Alkaline Phosphatase 84 U/L (38-126); Anion Gap 4 mmol/L (8-16); Aspartate Amino Transferase 29 U/L (14-36); Bilirubin,Total 0.5 mg/dL (0.2-1.3); Blood Urea Nitrogen 15 mg/dL (7-17); Calcium 7.6 mg/dL (8.4-10.2); Carbon Dioxide 36 mmol/L (22-30); Chloride 94 mmol/L (98-107); Estimated CRCL calculation 42 ml/min; Estimated Glomerular Filt Rate > 60; Glucose 88 mg/dL (65-110); Lactate Dehydrogenase 233 U/L (120-246); Potassium 3.7 mmol/L (3.4-5.0); Sodium 134 mmol/L (137-145)
[2022-09-12 06:53] LABS: CRP 10.8 mg/dL (<1.0)
[2022-09-12] MEDS: FLUTICASONE/UMECLIDIN/VILANTER 100-62.5-25 MCG ELLIPTA 1 PUFF INHALATION (07:15)
[2022-09-12] MEDS: ACIDOPHILUS/BULGARICUS CHEWABLE TABLET 2 TABLET PO (09:40)
[2022-09-12] MEDS: PARoxetine 20 MG TABLET PO ×2 (09:41→20:59)
[2022-09-12] MEDS: AZITHROMYCIN 250 MG TABLET 500 MG PO (09:41)
[2022-09-12] MEDS: OLMESARTAN MEDOXOMIL 20 MG TABLET PO (09:41)
[2022-09-12] MEDS: TIZANIDINE HCL 2 MG TABLET PO (09:41)
[2022-09-12] MEDS: OPTI-GEN TAB 1 TABLET PO (09:41)
[2022-09-12] MEDS: FLECAINIDE ACETATE 100 MG TABLET PO ×2 (09:41→20:59)
[2022-09-12] MEDS: DONEPEZIL HCL 10 MG TABLET PO (09:41)
[2022-09-12] MEDS: oxyBUTYnin CHLORIDE XL 5 MG TAB.ER.24 15 MG PO (09:41)
[2022-09-12] MEDS: polyethylene glycoL 3350 17 GM POWD.PACK PO (09:42)
[2022-09-12] MEDS: ASPIRIN 81 MG CHEWABLE TABLET PO (09:42)
[2022-09-12] MEDS: cefTRIAXone 1 GM VIAL IM (09:42)
[2022-09-12] MEDS: WATER, STERILE FOR INJECTION 10 ML VIAL XX (09:42)
[2022-09-12] MEDS: guaiFENesin 12 HR 600 MG TABCR 1200 MG PO ×2 (09:42→20:59)
[2022-09-12] MEDS: FUROSEMIDE 20 MG TABLET PO (09:42)
[2022-09-12] MEDS: NYSTATIN 100,000 UNITS/ML SUSP 5 ML ORAL.SUSP PO ×3 (09:42→21:00)
[2022-09-12] MEDS: CHOLECALCIFEROL 1,000 UNITS TABLET 2000 UNITS PO (09:43)
[2022-09-12] MEDS: amLODIPine BESYLATE 5 MG TABLET PO (09:43)
[2022-09-12] MEDS: FOLIC ACID 1 MG TABLET PO (09:43)
[2022-09-12] MEDS: MEMANTINE 5 MG TABLET PO ×2 (09:43→21:00)
[2022-09-12] MEDS: CYANOCOBALAMIN 1,000 MCG TABLET 1000 MCG PO (09:43)
[2022-09-12] MEDS: PANTOPRAZOLE 40 MG TABLET PO ×2 (09:44→16:56)
[2022-09-12] MEDS: APIXABAN 5 MG TABLET PO ×2 (09:44→20:59)
[2022-09-12] MEDS: SENNA/DOCUSATE SODIUM TABLET 1 TAB PO ×2 (09:44→16:56)
[2022-09-12] MEDS: LORazepam (*CRX) 1 MG TABLET (10:45)
--- NOTE | 2022-09-12 13:57 | PM.IMPN ---
Progress Note: A&P Assessment and Plan (1) COVID-19: Code(s): U07.1 - COVID-19 Status: Acute (2) Chronic respiratory failure with hypoxia, on home oxygen therapy: Code(s): J96.11 - Chronic respiratory failure with hypoxia; Z99.81 - Dependence on supplemental oxygen Status: Acute (3) Chronic obstructive pulmonary disease: Code(s): J44.9 - Chronic obstructive pulmonary disease, unspecified Status: Acute (4) Chronic kidney disease: Code(s): N18.9 - Chronic kidney disease, unspecified Status: Acute (5) Hypertension: Code(s): I10 - Essential (primary) hypertension Status: Acute (6) Paroxysmal atrial flutter: Code(s): I48.92 - Unspecified atrial flutter Status: Acute (7) Chronic anticoagulation: Code(s): Z79.01 - continuous churn buttermaker (current) use of anticoagulants Status: Acute Plan The patient presented to the emergency department from [facility] for evaluation of shortness of breath. # acute COVID infection started on remdesivir and Decadron # acute on chronic respiratory. ABG 7.45/39/57/26. On home oxygen 4 L supplemental prior to admission. Will consult Pulmonary # COPD with severe emphysema # paroxysmal atrial fibrillation on flecainide and Eliquis is to be continued # history of pulmonary nodule # history of tobacco abuse # hypertension home medication # DVT prophylaxis apixaban # code status do not resuscitate Subjective Date/time seen: 09/12/22 13:57 Interval history: Chart. Recently discharged. History of atrial flutter on chronic anticoagulation, COPD chronic respiratory failure on 4 L oxygen pulmonary nodules tobacco abuse. Present with shortness of breath tested positive for COVID. Review of Systems Review of Systems: All systems reviewed & are unremarkable except as noted in HPI and below Exam Narrative: General: Moderately ill-appearing female in the semi-Carrillo position in bed. None acute distress HEENT: PERRL, EOMI. Sclera anicteric. Tacky mucous membranes. Neck: Supple. No JVD. Respiratory: Mildly tachypneic, appears to be at her baseline. Lung sounds are diminished throughout with coarse crackles at the bases and some scattered rhonchi which improved with cough. Cardiovascular: Regular rate and rhythm with S1-S2. Soft systolic murmur at the upper sternal border. Gastrointestinal: Abdomen is soft, nontender, and nondistended with positive bowel sounds. Skin: Cool and clammy. Some sweat on the forehead. Extremities: No cyanosis, clubbing, or edema. Radial and pedal pulses intact. Neurological: Alert. Cranial nerves 2-12 are grossly intact. No gross focal deficits to casual conversation. Psychiatric: Pleasant and cooperative. Appropriate mood and affect. Objective Data Vital Signs Vital Signs: Vital Signs - 24 hr 09/11/22 13:58 09/11/22 14:00 09/11/22 14:01 Temperature Pulse Rate 88 87 86 Respiratory Rate 20 23 H 23 H Blood Pressure 130/50 L 138/48 L Pulse Oximetry 92 93 92 Oxygen Delivery Oxygen Flow Rate 09/11/22 14:15 09/11/22 14:44 09/11/22 14:51 Temperature Pulse Rate 86 75 76 Respiratory Rate 19 16 15 Blood Pressure Pulse Oximetry 95 100 100 Oxygen Delivery Oxygen Flow Rate 09/11/22 15:00 09/11/22 15:01 09/11/22 15:02 Temperature Pulse Rate 77 78 77 Respiratory Rate 16 15 15 Blood Pressure 119/44 L 114/46 L Pulse Oximetry 100 100 100 Oxygen Delivery Oxygen Flow Rate 09/11/22 16:42 09/11/22 16:55 09/11/22 22:08 Temperature 97.4 F L Pulse Rate 81 77 Respiratory Rate 20 16 Blood Pressure 141/54 H Pulse Oximetry 99 99 Oxygen Delivery High Flow Nasal Cannula Oxygen Flow Rate 7 09/11/22 22:20 09/11/22 22:00 09/12/22 00:00 Temperature 97.2 F L Pulse Rate 75 78 78 Respiratory Rate 16 18 Blood Pressure 133/57 L Pulse Oximetry 99 Oxygen Delivery Oxygen Flow Rate 09/12/22 03:58 09/12/22 04:00
--- NOTE | 2022-09-12 15:45 | PM.CNPUL ---
Assessment and Plan Assessment and plan (1) COVID-19: Code(s): U07.1 - COVID-19 Status: Acute Assessment and Plan: Patient tested positive for COVID-19 on 09/11/22 and started on remdesivir, dexamethasone on 09/11/22. Emperically started on ceftriaxone and azithromycin. Remdesivir for at least 5 days unless she should completely recover and tolerate her baseline oxygen requirements (6-8 L) with rest, ambulation and while sleeping. - Dexamethasone 6 mg IV - Continuous pulse oximetry - Prone positioning as tolerated. - Avoid any fluid overload. - emperic azihtromycin and ceftraixone for CAP. Keep saturations are 90-94% with nasal cannula up to 15 L if needed, if fails then Airvo high flow nasal cannula, if fails then NIV with AVAPS. She is DNR. I spoke with the son Jevon on speaker phone in the patient's room. Discussed with Dr. Mack (2) Chronic respiratory failure with hypoxia: Code(s): J96.11 - Chronic respiratory failure with hypoxia Status: Acute Assessment and Plan: Patient has severe COPD and was discharged from the hospital on 09/06/2022 requiring 7 L nasal cannula oxygen. Prior to that hospitalization she was on 2 L nasal cannula. Currently she is on 6 L NC. Etiology of hypoxic respiratory failure is likely COVID pneumonia and COPD. In addition the patient has a PFO by echo with bubble study on 09/02/2022. This is described as a very mild right to left shunt with the bubble study with Valsalva only. I will check a D-dimer and if this is positive I will perform a CT angiogram of the chest to exclude a PE which would be an Eliquis failure. if the D-dimer is negative I will perform a CT scan of the chest without contrast to assess infiltrates. 09/11 12:30 7 L NC, sats 92%. 09/11 16:45 7 L NC, sasts 99% 09/12 07:15 6 L NC, sats 92% 09/12 15:00 6 L NC, sats 96% Keep saturations are 90-94% with nasal cannula up to 15 L if needed, if fails then Airvo high flow nasal cannula, if fails then NIV with AVAPS. She is DNR. (3) Chronic obstructive pulmonary disease: Code(s): J44.9 - Chronic obstructive pulmonary disease, unspecified Status: Acute Assessment and Plan: GOLD grade 3 group E COPD, (57 PY quit 2019),? last PFTs on 11/15/2016 with an FEV1 of 37% predicted,? alpha 1 level 135 (normal) on 08/31/2022 with phenotype pending, CT scan of the chest in our system from 11/30/2015 demonstrates severe panlobular emphysema all lung whitehead, severe chronic hypoxemic respiratory failure on 6-8 L nasal cannula with rest, ambulation and sleep, dyspnea on exertion at 20 ft. Maintained on trelegy inhaler. currently the patient has no active wheezing. She is on dexamethasone 6 mg IV for her covert pneumonia. I will change her albuterol nebulizers to 2.5 mg nebulized q.4 hours, change her ipratropium to 0.5 mg nebulized Q 4 hours and continue budesonide 0.5 mg b.i.d.. I will discontinue all other inhalers at this time. ABG on admission on 7 L nasal cannula 7.45/39/57, there is no evidence of hypercarbic respiratory failure. Of note on her prior admissions she has had evidence of hypercarbic respiratory failure and she has tolerated noninvasive ventilator with the AVAPS mode and adjusted settings to comfort resulting in a rate of 20, tidal volume 500, EPAP 5, minimal inspiratory pressure 6, maximal inspiratory pressure 25, inspiratory time 0.85, rise of 1 which is the fastest. currently she does not need noninvasive ventilation or BiPAP support as she has no hypercarbia, maintaining her oxygen saturation on 6 L and no increased work of breathing. If things should change I would initiate AVAPS with the above settings. History of Present Illness History of Present Illness Consult date: 09/12/22 Chief complaint: covid,chf,chronic respiratory failure Narrative: 09/12/2022: This is a new pulmonary consult for covert pneumonia. 08/29/2022:? This is a new pulmonary consult for [place]
[2022-09-12 16:48] LABS: D Dimer 0.67 ug/mL (<0.48)
[2022-09-12] MEDS: LORazepam (*CRX) 1 MG TABLET PO (16:56)
[2022-09-12] MEDS: MONTELUKAST SODIUM 10 MG TABLET PO (20:59)
[2022-09-12] MEDS: MELATONIN 5 MG TABLET PO (20:59)
[2022-09-12] MEDS: REMDESIVIR 100 MG/NS 250 ML 100 MG/250 ML BAG 250 MG IVPB (21:00)
[2022-09-13] VITALS (25 sets, daily range): BP systolic 114–139; BP diastolic 55–66; PULSE 69–92; RESP 18–22; TEMP 35.9–36.4; O2SAT 92–100
[2022-09-13] MEDS: ALBUTEROL SULFATE NEB 2.5 MG/3 ML INH INHALATION ×6 (03:11→23:26)
[2022-09-13] MEDS: IPRATROPIUM BR 0.02% INH SOLN 0.5 MG/2.5 ML VIAL INHALATION ×6 (03:11→23:26)
[2022-09-13] MEDS: LEVOTHYROXINE SODIUM 25 MCG TABLET PO (05:31)
[2022-09-13 07:41] LABS: Basophils Percent Auto 0.3 % (0.2-1.2); Eosinophils Percent Auto 0.1 % (0-4.4); Hematocrit 30.2 % (37.0-47.0); Hemoglobin 8.9 g/dL (12.0-15.0); Immature Granulocyte Percent A 1.1 % (0-0.5); Lymphocytes Absolute Auto 0.82 K/mm3 (0.9-3.2); Lymphocytes Percent Auto 8.8 % (18.3-44.2); Mean Corpuscular HGB Conc 29.5 g/dl (32-36); Mean Corpuscular Hemoglobin 26.6 pg (26-34); Mean Corpuscular Volume 90.1 fl (80-100); Mean Platelet Volume 9.3 fl (7.4-10.4); Monocytes Absolute Auto 0.7 K/mm3 (0.1-0.6); Monocytes Percent Auto 7.2 % (2.6-8.5); Neutrophils Absolute Auto 7.7 K/mm3 (1.3-6.7); Neutrophils Percent Auto 82.5 % (45.5-73.1); Platelet Count Result 289 k/mm3 (150-375); Red Blood Count 3.35 M/mm3 (4.2-5.4); Red Cell Distribution Width 17.9 % (11.5-14.5); White Blood Count 9.4 K/mm3 (4.5-10.0)
[2022-09-13 07:54] LABS: INR 1.4
[2022-09-13 07:57] LABS: Alanine Aminotransferase 19 U/L (6-35); Albumin Level 2.9 g/dL (3.5-5.1); Alkaline Phosphatase 82 U/L (38-126); Anion Gap 4 mmol/L (8-16); Aspartate Amino Transferase 24 U/L (14-36); Bilirubin,Total 0.4 mg/dL (0.2-1.3); Blood Urea Nitrogen 19 mg/dL (7-17); Calcium 8.1 mg/dL (8.4-10.2); Carbon Dioxide 36 mmol/L (22-30); Chloride 97 mmol/L (98-107); Estimated CRCL calculation 42 ml/min; Estimated Glomerular Filt Rate > 60; Glucose 81 mg/dL (65-110); Magnesium 1.9 mg/dL (1.6-2.3); Sodium 137 mmol/L (137-145)
[2022-09-13 09:07] LABS: Anisocytosis 1+ (NORMAL); Hypochromasia 1+ (NORMAL); Platelet Estimate Adequate (Adequate); Schistocytes None Seen (NORMAL)
[2022-09-13] MEDS: AZITHROMYCIN 250 MG TABLET 500 MG PO (10:00)
[2022-09-13] MEDS: FOLIC ACID 1 MG TABLET PO (10:00)
[2022-09-13] MEDS: amLODIPine BESYLATE 5 MG TABLET PO (10:00)
[2022-09-13] MEDS: ACIDOPHILUS/BULGARICUS CHEWABLE TABLET 2 TABLET PO (10:00)
[2022-09-13] MEDS: CHOLECALCIFEROL 1,000 UNITS TABLET 2000 UNITS PO (10:00)
[2022-09-13] MEDS: OLMESARTAN MEDOXOMIL 20 MG TABLET PO (10:00)
[2022-09-13] MEDS: LORazepam (*CRX) 1 MG TABLET PO ×2 (10:01→16:54)
[2022-09-13] MEDS: TIZANIDINE HCL 2 MG TABLET PO (10:01)
[2022-09-13] MEDS: DONEPEZIL HCL 10 MG TABLET PO (10:01)
[2022-09-13] MEDS: APIXABAN 5 MG TABLET PO ×2 (10:01→21:13)
[2022-09-13] MEDS: guaiFENesin 12 HR 600 MG TABCR 1200 MG PO (10:01)
[2022-09-13] MEDS: MEMANTINE 5 MG TABLET PO ×2 (10:01→21:11)
[2022-09-13] MEDS: ASPIRIN 81 MG CHEWABLE TABLET PO (10:01)
[2022-09-13] MEDS: PARoxetine 20 MG TABLET PO ×2 (10:02→21:11)
[2022-09-13] MEDS: OPTI-GEN TAB 1 TABLET PO (10:02)
[2022-09-13] MEDS: FLECAINIDE ACETATE 100 MG TABLET PO ×2 (10:02→21:12)
[2022-09-13] MEDS: FUROSEMIDE 20 MG TABLET PO (10:02)
[2022-09-13] MEDS: SENNA/DOCUSATE SODIUM TABLET 1 TAB PO ×2 (10:02→16:54)
[2022-09-13] MEDS: PANTOPRAZOLE 40 MG TABLET PO ×2 (10:02→16:54)
[2022-09-13] MEDS: oxyBUTYnin CHLORIDE XL 5 MG TAB.ER.24 15 MG PO (10:02)
[2022-09-13] MEDS: NYSTATIN 100,000 UNITS/ML SUSP 5 ML ORAL.SUSP PO ×4 (10:03→21:11)
[2022-09-13] MEDS: CYANOCOBALAMIN 1,000 MCG TABLET 1000 MCG PO (10:03)
[2022-09-13] MEDS: cefTRIAXone 1 GM VIAL IVPB (10:03)
[2022-09-13] MEDS: polyethylene glycoL 3350 17 GM POWD.PACK PO (10:04)
--- NOTE | 2022-09-13 15:09 | PM.IMPN ---
Progress Note: A&P Assessment and Plan (1) COVID-19: Code(s): U07.1 - COVID-19 Status: Acute (2) Chronic respiratory failure with hypoxia, on home oxygen therapy: Code(s): J96.11 - Chronic respiratory failure with hypoxia; Z99.81 - Dependence on supplemental oxygen Status: Acute (3) Chronic obstructive pulmonary disease: Code(s): J44.9 - Chronic obstructive pulmonary disease, unspecified Status: Acute (4) Chronic kidney disease: Code(s): N18.9 - Chronic kidney disease, unspecified Status: Acute (5) Hypertension: Code(s): I10 - Essential (primary) hypertension Status: Acute (6) Paroxysmal atrial flutter: Code(s): I48.92 - Unspecified atrial flutter Status: Acute (7) Chronic anticoagulation: Code(s): 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 # acute COVID infection started on remdesivir and Decadron continue bronchodilators # acute on chronic respiratory. ABG 7.45/39/57/26. On home oxygen 4 L supplemental prior to admission. pulmonary consultation. CTA was performed for elevated D-dimer which came back negative. # COPD with severe emphysema # paroxysmal atrial fibrillation on flecainide and Eliquis is to be continued # history of pulmonary nodule # history of tobacco abuse # hypertension home medication # constipation will add Dulcolax # DVT prophylaxis apixaban # code status do not resuscitate Subjective Date/time seen: 09/13/22 15:09 Interval history: no overnight events. Oxygen requirement still high. Feeling stronger though. Needs Mucinex in liquid form as she cannot take large pills she having constipation issues as well Review of Systems Review of Systems: All systems reviewed & are unremarkable except as noted in HPI and below Exam Narrative: General: Moderately ill-appearing female in the semi-Carrillo position in bed. None acute distress HEENT: PERRL, EOMI. Sclera anicteric. Tacky mucous membranes. Neck: Supple. No JVD. Respiratory: Mildly tachypneic, appears to be at her baseline. Lung sounds are diminished throughout with coarse crackles at the bases and some scattered rhonchi which improved with cough. Cardiovascular: Regular rate and rhythm with S1-S2. Soft systolic murmur at the upper sternal border. Gastrointestinal: Abdomen is soft, nontender, and nondistended with positive bowel sounds. Skin: Cool and clammy. Some sweat on the forehead. Extremities: No cyanosis, clubbing, or edema. Radial and pedal pulses intact. Neurological: Alert. Cranial nerves 2-12 are grossly intact. No gross focal deficits to casual conversation. Psychiatric: Pleasant and cooperative. Appropriate mood and affect. Objective Data Vital Signs Vital Signs: Vital Signs - 24 hr 09/12/22 15:12 09/12/22 16:00 09/12/22 20:53 Temperature 96.5 F L 96.4 F L Pulse Rate 91 93 88 Respiratory Rate 18 18 Blood Pressure 120/63 113/54 L Pulse Oximetry 97 100 Oxygen Delivery Oxygen Flow Rate Fraction of Inspired Oxygen 09/12/22 20:59 09/12/22 22:06 09/12/22 22:07 Temperature Pulse Rate 88 91 91 Respiratory Rate 20 20 Blood Pressure Pulse Oximetry 95 Oxygen Delivery Nasal Cannula Oxygen Flow Rate 6 Fraction of Inspired Oxygen 44 09/12/22 20:00 09/12/22 20:00 09/13/22 00:00 Temperature Pulse Rate 86 69 Respiratory Rate Blood Pressure Pulse Oximetry 100 Oxygen Delivery Nasal Cannula Oxygen Flow Rate 7 Fraction of Inspired Oxygen 09/12/22 22:14 09/13/22 03:14 09/13/22 03:53 Temperature 96.8 F L Pulse Rate 95 86 76 Respiratory Rate 20 20 18 Blood Pressure 139/66 Pulse Oximetry 94 Oxygen Delivery Oxygen Flow Rate Fraction of Inspired Oxygen 09/13/22 04:00 09/13/22 03:22 09/13/22 08:45 Temperature
[2022-09-13] MEDS: BISACODYL 5 MG TABLET EC PO (16:54)
--- NOTE | 2022-09-13 18:54 | PM.PNPUL ---
Progress Note: A&P Assessment and Plan (1) COVID-19: Code(s): U07.1 - COVID-19 Status: Acute Assessment and Plan: Patient tested positive for COVID-19 on 09/11/22 and started on remdesivir, dexamethasone on 09/11/22. Empirically started on ceftriaxone and azithromycin. Remdesivir for at least 5 days unless she should completely recover and tolerate her baseline oxygen requirements (6-8 L) with rest, ambulation and while sleeping. - Dexamethasone 6 mg IV - Continuous pulse oximetry - Prone positioning as tolerated. - Avoid any fluid overload. - empiric azithromycin and ceftriaxone for CAP. Keep saturations 90-94% with nasal cannula up to 15 L if needed; if fails then Airvo high flow nasal cannula, if fails then NIV with AVAPS. She is DNR. (2) Chronic respiratory failure with hypoxia: Code(s): J96.11 - Chronic respiratory failure with hypoxia Status: Acute Assessment and Plan: Patient has severe COPD and was discharged from the hospital on 09/06/2022 requiring 7 L nasal cannula oxygen. Prior to that hospitalization she was on 2 L nasal cannula. Currently she is on 6 L NC. Etiology of hypoxic respiratory failure is likely COVID pneumonia and COPD. In addition the patient has a PFO by echo with bubble study on 09/02/2022. This is described as a very mild right to left shunt with the bubble study with Valsalva only. I will check a D-dimer and if this is positive I will perform a CT angiogram of the chest to exclude a PE which would be an Eliquis failure. if the D-dimer is negative I will perform a CT scan of the chest without contrast to assess infiltrates. 09/11 12:30 7 L NC, sats 92%. 09/11 16:45 7 L NC, sasts 99% 09/12 07:15 6 L NC, sats 92% 09/12 15:00 6 L NC, sats 96% 09/13 17:00 7 L, 92% Keep saturations are 90-94% with nasal cannula up to 15 L if needed, if fails then Airvo high flow nasal cannula, if fails then NIV with AVAPS. She is DNR. (3) Chronic obstructive pulmonary disease: Code(s): J44.9 - Chronic obstructive pulmonary disease, unspecified Status: Acute Assessment and Plan: GOLD grade 3 group E COPD, (57 PY quit 2018),? last PFTs on 11/15/2016 with an FEV1 of 37% predicted,? alpha 1 level 135 (normal) on 08/31/2022 with phenotype pending, CT scan of the chest in our system from 11/30/2015 demonstrates severe panlobular emphysema all lung whitehead, severe chronic hypoxemic respiratory failure on 6-8 L nasal cannula with rest, ambulation and sleep, dyspnea on exertion at 20 ft. Maintained on trelegy inhaler. Currently the patient has no active wheezing. She is on dexamethasone 6 mg IV for her covert pneumonia. I will change her albuterol nebulizers to 2.5 mg nebulized q.4 hours, change her ipratropium to 0.5 mg nebulized Q 4 hours and continue budesonide 0.5 mg b.i.d.. I will discontinue all other inhalers at this time. ABG on admission on 7 L nasal cannula 7.45/39/57, there is no evidence of hypercarbic respiratory failure. Of note on her prior admissions, she has had evidence of hypercarbic respiratory failure and she has tolerated noninvasive ventilator with the AVAPS mode and adjusted settings to comfort resulting in a rate of 20, tidal volume 500, EPAP 5, minimal inspiratory pressure 6, maximal inspiratory pressure 25, inspiratory time 0.85, rise of 1 which is the fastest. currently she does not need noninvasive ventilation or BiPAP support as she has no hypercarbia, maintaining her oxygen saturation on 6 L and no increased work of breathing. If things should change I would initiate AVAPS with the above settings. Plan Denture adhesive, no stool softener. Subjective Date/time seen: 09/13/22 18:54 Interval history: Hospital follow up : 09/13/2022 This is a follow up
[2022-09-13] MEDS: MELATONIN 5 MG TABLET PO (21:13)
[2022-09-13] MEDS: MONTELUKAST SODIUM 10 MG TABLET PO (21:16)
[2022-09-13] MEDS: REMDESIVIR 100 MG/NS 250 ML 100 MG/250 ML BAG 250 MG IVPB (21:21)
[2022-09-13] MEDS: ACETAMINOPHEN 325 MG TABLET 650 MG PO (21:21)
[2022-09-13] MEDS: guaiFENesin/DEXTROMETHORPHAN 10 ML UDC PO (21:59)
[2022-09-14] VITALS (20 sets, daily range): BP systolic 108–148; BP diastolic 60–75; PULSE 72–91; RESP 18–22; TEMP 36.3–36.6; O2SAT 92–100
[2022-09-14] MEDS: LEVOTHYROXINE SODIUM 25 MCG TABLET PO (06:40)
[2022-09-14] MEDS: ACETAMINOPHEN 325 MG TABLET 650 MG PO (06:43)
[2022-09-14 07:01] LABS: Basophils Percent Auto 0.2 % (0.2-1.2); Hemoglobin 8.8 g/dL (12.0-15.0); Immature Granulocyte Absolute 0.11 K/mm3 (0.00-0.031); Immature Granulocyte Percent A 0.9 % (0-0.5); Lymphocytes Absolute Auto 0.85 K/mm3 (0.9-3.2); Lymphocytes Percent Auto 7.3 % (18.3-44.2); Mean Corpuscular HGB Conc 29.3 g/dl (32-36); Mean Corpuscular Hemoglobin 26.5 pg (26-34); Mean Corpuscular Volume 90.4 fl (80-100); Mean Platelet Volume 9.7 fl (7.4-10.4); Monocytes Absolute Auto 0.4 K/mm3 (0.1-0.6); Monocytes Percent Auto 3.6 % (2.6-8.5); Neutrophils Absolute Auto 10.2 K/mm3 (1.3-6.7); Platelet Count Result 266 k/mm3 (150-375); Red Blood Count 3.32 M/mm3 (4.2-5.4); Red Cell Distribution Width 17.7 % (11.5-14.5); White Blood Count 11.6 K/mm3 (4.5-10.0)
[2022-09-14 07:16] LABS: Alanine Aminotransferase 20 U/L (6-35); Alkaline Phosphatase 81 U/L (38-126); Anion Gap 2 mmol/L (8-16); Aspartate Amino Transferase 30 U/L (14-36); Bilirubin,Total 0.4 mg/dL (0.2-1.3); Blood Urea Nitrogen 27 mg/dL (7-17); Calcium 8.3 mg/dL (8.4-10.2); Carbon Dioxide 39 mmol/L (22-30); Chloride 97 mmol/L (98-107); Estimated CRCL calculation 42 ml/min; Estimated Glomerular Filt Rate > 60; Glucose 84 mg/dL (65-110); Potassium 4.5 mmol/L (3.4-5.0); Sodium 138 mmol/L (137-145)
[2022-09-14] MEDS: ALBUTEROL SULFATE NEB 2.5 MG/3 ML INH INHALATION ×4 (07:55→21:21)
[2022-09-14] MEDS: IPRATROPIUM BR 0.02% INH SOLN 0.5 MG/2.5 ML VIAL INHALATION ×4 (07:55→21:21)
[2022-09-14 08:01] LABS: INR 1.7; Prothrombin Time 19.1 Seconds (11.1-14.7)
[2022-09-14] MEDS: cefTRIAXone 1 GM VIAL IVPB (09:05)
[2022-09-14] MEDS: NYSTATIN 100,000 UNITS/ML SUSP 5 ML ORAL.SUSP PO ×4 (09:05→21:45)
[2022-09-14] MEDS: OLMESARTAN MEDOXOMIL 20 MG TABLET PO (09:06)
[2022-09-14] MEDS: guaiFENesin/DEXTROMETHORPHAN 10 ML UDC PO ×4 (09:06→22:49)
[2022-09-14] MEDS: PANTOPRAZOLE 40 MG TABLET PO ×2 (09:07→17:48)
[2022-09-14] MEDS: oxyBUTYnin CHLORIDE XL 5 MG TAB.ER.24 15 MG PO (09:07)
[2022-09-14] MEDS: OPTI-GEN TAB 1 TABLET PO (09:07)
[2022-09-14] MEDS: CHOLECALCIFEROL 1,000 UNITS TABLET 2000 UNITS PO (09:08)
[2022-09-14] MEDS: ACIDOPHILUS/BULGARICUS CHEWABLE TABLET 2 TABLET PO (09:08)
[2022-09-14] MEDS: TIZANIDINE HCL 2 MG TABLET PO ×2 (09:09→17:48)
[2022-09-14] MEDS: AZITHROMYCIN 250 MG TABLET 500 MG PO (09:09)
[2022-09-14] MEDS: BISACODYL 5 MG TABLET EC PO (09:09)
[2022-09-14] MEDS: amLODIPine BESYLATE 5 MG TABLET PO (09:10)
[2022-09-14] MEDS: FOLIC ACID 1 MG TABLET PO (09:10)
[2022-09-14] MEDS: FLECAINIDE ACETATE 100 MG TABLET PO ×2 (09:10→22:49)
[2022-09-14] MEDS: LORazepam (*CRX) 1 MG TABLET PO ×2 (09:11→17:48)
[2022-09-14] MEDS: PARoxetine 20 MG TABLET PO ×2 (09:11→21:49)
[2022-09-14] MEDS: APIXABAN 5 MG TABLET PO ×2 (09:11→21:46)
[2022-09-14] MEDS: ASPIRIN 81 MG CHEWABLE TABLET PO (09:11)
[2022-09-14] MEDS: CYANOCOBALAMIN 1,000 MCG TABLET 1000 MCG PO (09:12)
[2022-09-14] MEDS: DONEPEZIL HCL 10 MG TABLET PO (09:12)
[2022-09-14] MEDS: MEMANTINE 5 MG TABLET PO ×2 (09:13→22:50)
[2022-09-14] MEDS: FUROSEMIDE 20 MG TABLET PO (09:13)
[2022-09-14] MEDS: HYDROcodone/acetaminophen (*CRX) 5-325 MG TABLET 1 TAB PO ×3 (09:37→17:48)
[2022-09-14 10:24] LABS: Platelet Estimate Adequate (Adequate)
[2022-09-14 10:45] LABS: Anisocytosis 1+ (NORMAL); Hypochromasia 2+ (NORMAL); Schistocytes None Seen (NORMAL)
--- NOTE | 2022-09-14 14:24 | PM.IMPN ---
Progress Note: A&P Assessment and Plan (1) COVID-19: Code(s): U07.1 - COVID-19 Status: Acute (2) Chronic respiratory failure with hypoxia, on home oxygen therapy: Code(s): J96.11 - Chronic respiratory failure with hypoxia; Z99.81 - Dependence on supplemental oxygen Status: Acute (3) Chronic obstructive pulmonary disease: Code(s): J44.9 - Chronic obstructive pulmonary disease, unspecified Status: Acute (4) Chronic kidney disease: Code(s): N18.9 - Chronic kidney disease, unspecified Status: Acute (5) Hypertension: Code(s): I10 - Essential (primary) hypertension Status: Acute (6) Paroxysmal atrial flutter: Code(s): I48.92 - Unspecified atrial flutter Status: Acute (7) Chronic anticoagulation: Code(s): 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 for evaluation of shortness of breath. # acute COVID infection started on remdesivir and Decadron continue bronchodilators # acute on chronic respiratory. ABG 7.45/39/57/26. On home oxygen 4 L supplemental prior to admission. pulmonary consultation. CTA was performed for elevated D-dimer which came back negative. on and off recurrent admission for the same. discussed Hospice agreeable. Will send a referral out # COPD with severe emphysema # paroxysmal atrial fibrillation on flecainide and Eliquis is to be continued # history of pulmonary nodule # history of tobacco abuse # hypertension home medication # constipation will add Dulcolax # DVT prophylaxis apixaban # code status do not resuscitate Subjective Date/time seen: 09/14/22 14:24 Interval history: patient reports constipation and rectal pain which is very bad. Shortness of breath on exertion. Reports she feels a little better in the terms. Still on 7 L oxygen via nasal cannula. Discussed hospice with the patient as her goal is to feel stronger and stay home with family. She was last sent to a nursing facility but had to come right back. She has been recurrently admitted over the past few months. Twice in July thrice in June Review of Systems Review of Systems: All systems reviewed & are unremarkable except as noted in HPI and below Exam Narrative: General: Moderately ill-appearing female in the semi-Carrillo position in bed. not in acute distress HEENT: PERRL, EOMI. Sclera anicteric. Tacky mucous membranes. Neck: Supple. No JVD. Respiratory: Mildly tachypneic, appears to be at her baseline. Lung sounds are diminished throughout with coarse crackles at the bases and some scattered rhonchi which improved with cough. Cardiovascular: Regular rate and rhythm with S1-S2. Soft systolic murmur at the upper sternal border. Gastrointestinal: Abdomen is soft, nontender, and nondistended with positive bowel sounds. Skin: Cool and clammy. Some sweat on the forehead. Extremities: No cyanosis, clubbing, or edema. Radial and pedal pulses intact. Neurological: Alert. Cranial nerves 2-12 are grossly intact. No gross focal deficits to casual conversation. Psychiatric: Pleasant and cooperative. Appropriate mood and affect. Objective Data Vital Signs Vital Signs: Vital Signs - 24 hr 09/13/22 17:20 09/13/22 17:31 09/13/22 16:00 Temperature Pulse Rate 87 88 88 Respiratory Rate 20 20 Blood Pressure Pulse Oximetry Oxygen Delivery Oxygen Flow Rate 09/13/22 20:52 09/13/22 21:12 09/13/22 20:50 Temperature Pulse Rate 91 90 Respiratory Rate 20 Blood Pressure Pulse Oximetry 92 Oxygen Delivery High Flow Nasal Cannula Oxygen Flow Rate 7 09/13/22 21:05 09/13/22 22:00 09/13/22 22:10 Temperature 97.6 F Pulse Rate 91 83 91 Respiratory Rate 20 18 Blood Pressure 118/55 L Pulse Oximetry 94 Oxygen Delivery Oxygen Flow Rate 09/13/22 23:29 09/13/22 23:29 09/14/22 00:00 Tem
[2022-09-14] MEDS: MELATONIN 5 MG TABLET PO (21:45)
[2022-09-14] MEDS: MONTELUKAST SODIUM 10 MG TABLET PO (21:45)
[2022-09-14] MEDS: REMDESIVIR 100 MG/NS 250 ML 100 MG/250 ML BAG 250 MG IVPB (21:49)
[2022-09-15] VITALS (26 sets, daily range): BP systolic 132–141; BP diastolic 59–66; PULSE 68–93; RESP 18–26; TEMP 36.1–36.3; O2SAT 82–100
[2022-09-15] MEDS: IPRATROPIUM BR 0.02% INH SOLN 0.5 MG/2.5 ML VIAL INHALATION ×6 (01:00→20:55)
[2022-09-15] MEDS: ALBUTEROL SULFATE NEB 2.5 MG/3 ML INH INHALATION ×6 (01:00→20:55)
[2022-09-15] MEDS: LEVOTHYROXINE SODIUM 25 MCG TABLET PO (06:08)
[2022-09-15] MEDS: HYDROcodone/acetaminophen (*CRX) 5-325 MG TABLET 1 TAB PO ×2 (06:08→15:13)
--- NOTE | 2022-09-15 06:53 | PC.NURSE ---
Continues on 7L high flow, LOZANO, SOB when turned. repositioned or HOB lowered. SR 1st degree AVB stool decreased during shift, cream to butt as ordered. Expressd concern about the plan of care- mentioned the dr talked about hospice care yesterday. Listened to pt, gave suggestions and offered emotional support. Informed pt that care coordination will assist on Friday with the process if that is what she chooses
[2022-09-15 07:31] LABS: Basophils Percent Auto 0.2 % (0.2-1.2); Eosinophils Percent Auto 0.1 % (0-4.4); Hematocrit 30.6 % (37.0-47.0); Immature Granulocyte Absolute 0.13 K/mm3 (0.00-0.031); Immature Granulocyte Percent A 1.1 % (0-0.5); Lymphocytes Absolute Auto 1.16 K/mm3 (0.9-3.2); Lymphocytes Percent Auto 10.2 % (18.3-44.2); Mean Corpuscular HGB Conc 29.4 g/dl (32-36); Mean Corpuscular Hemoglobin 26.9 pg (26-34); Mean Corpuscular Volume 91.3 fl (80-100); Mean Platelet Volume 9.6 fl (7.4-10.4); Monocytes Absolute Auto 0.7 K/mm3 (0.1-0.6); Monocytes Percent Auto 6.1 % (2.6-8.5); Neutrophils Absolute Auto 9.3 K/mm3 (1.3-6.7); Neutrophils Percent Auto 82.3 % (45.5-73.1); Platelet Count Result 274 k/mm3 (150-375); Red Blood Count 3.35 M/mm3 (4.2-5.4); Red Cell Distribution Width 17.7 % (11.5-14.5); White Blood Count 11.3 K/mm3 (4.5-10.0)
[2022-09-15 07:57] LABS: Alanine Aminotransferase 20 U/L (6-35); Albumin Level 3.1 g/dL (3.5-5.1); Alkaline Phosphatase 80 U/L (38-126); Anion Gap 3 mmol/L (8-16); Aspartate Amino Transferase 23 U/L (14-36); Bilirubin,Total 0.4 mg/dL (0.2-1.3); Blood Urea Nitrogen 25 mg/dL (7-17); Calcium 8.5 mg/dL (8.4-10.2); Carbon Dioxide 38 mmol/L (22-30); Chloride 96 mmol/L (98-107); Estimated CRCL calculation 42 ml/min; Estimated Glomerular Filt Rate > 60; Glucose 83 mg/dL (65-110); Magnesium 2.1 mg/dL (1.6-2.3); Potassium 4.1 mmol/L (3.4-5.0); Sodium 137 mmol/L (137-145)
[2022-09-15 08:04] LABS: INR 1.6; Prothrombin Time 18.7 Seconds (11.1-14.7)
[2022-09-15] MEDS: FOLIC ACID 1 MG TABLET PO (08:41)
[2022-09-15] MEDS: OPTI-GEN TAB 1 TABLET PO (08:41)
[2022-09-15] MEDS: LORazepam (*CRX) 1 MG TABLET PO ×2 (08:41→17:01)
[2022-09-15] MEDS: oxyBUTYnin CHLORIDE XL 5 MG TAB.ER.24 15 MG PO (08:41)
[2022-09-15] MEDS: OLMESARTAN MEDOXOMIL 20 MG TABLET PO (08:41)
[2022-09-15] MEDS: CHOLECALCIFEROL 1,000 UNITS TABLET 2000 UNITS PO (08:41)
[2022-09-15] MEDS: ACIDOPHILUS/BULGARICUS CHEWABLE TABLET 2 TABLET PO (08:42)
[2022-09-15] MEDS: TIZANIDINE HCL 2 MG TABLET PO ×3 (08:42→22:06)
[2022-09-15] MEDS: CYANOCOBALAMIN 1,000 MCG TABLET 1000 MCG PO (08:42)
[2022-09-15] MEDS: FLECAINIDE ACETATE 100 MG TABLET PO ×2 (08:42→21:59)
[2022-09-15] MEDS: APIXABAN 5 MG TABLET PO ×2 (08:42→21:58)
[2022-09-15] MEDS: DONEPEZIL HCL 10 MG TABLET PO (08:42)
[2022-09-15] MEDS: MEMANTINE 5 MG TABLET PO ×2 (08:42→21:59)
[2022-09-15] MEDS: PANTOPRAZOLE 40 MG TABLET PO ×2 (08:42→17:01)
[2022-09-15] MEDS: ASPIRIN 81 MG CHEWABLE TABLET PO (08:42)
[2022-09-15] MEDS: FUROSEMIDE 20 MG TABLET PO (08:43)
[2022-09-15] MEDS: PARoxetine 20 MG TABLET PO ×2 (08:43→21:59)
[2022-09-15] MEDS: NYSTATIN 100,000 UNITS/ML SUSP 5 ML ORAL.SUSP PO ×4 (08:43→21:58)
[2022-09-15] MEDS: AZITHROMYCIN 250 MG TABLET 500 MG PO (08:43)
[2022-09-15] MEDS: amLODIPine BESYLATE 5 MG TABLET PO (08:43)
[2022-09-15] MEDS: guaiFENesin/DEXTROMETHORPHAN 10 ML UDC PO ×3 (08:43→21:56)
[2022-09-15] MEDS: cefTRIAXone 1 GM VIAL IVPB (08:43)
[2022-09-15 11:57] LABS: Platelet Estimate Adequate (Adequate)
[2022-09-15 11:59] LABS: Anisocytosis 1+ (NORMAL); Hypochromasia 1+ (NORMAL); Schistocytes 1+ (NORMAL)
--- NOTE | 2022-09-15 14:19 | PM.IMPN ---
Progress Note: A&P Assessment and Plan (1) COVID-19: Code(s): U07.1 - COVID-19 Status: Acute (2) Chronic respiratory failure with hypoxia, on home oxygen therapy: Code(s): J96.11 - Chronic respiratory failure with hypoxia; Z99.81 - Dependence on supplemental oxygen Status: Acute (3) Chronic obstructive pulmonary disease: Code(s): J44.9 - Chronic obstructive pulmonary disease, unspecified Status: Acute (4) Chronic kidney disease: Code(s): N18.9 - Chronic kidney disease, unspecified Status: Acute (5) Hypertension: Code(s): I10 - Essential (primary) hypertension Status: Acute (6) Paroxysmal atrial flutter: Code(s): I48.92 - Unspecified atrial flutter Status: Acute (7) Chronic anticoagulation: Code(s): 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 # acute COVID infection started on remdesivir and Decadron continue bronchodilators # acute on chronic respiratory. ABG 7.45/39/57/26. On home oxygen 4 L supplemental prior to admission. pulmonary consultation. CTA was performed for elevated D-dimer which came back negative. on and off recurrent admission for the same. discussed Hospice agreeable. Hospice discussion in process. Breathing status same with intermittent worsening. Will add AVAPS as needed # COPD with severe emphysema # paroxysmal atrial fibrillation on flecainide and Eliquis is to be continued # history of pulmonary nodule # history of tobacco abuse # hypertension home medication # constipation will add Dulcolax # DVT prophylaxis apixaban # code status do not resuscitate Discussed with Jevon yip over the phone Subjective Date/time seen: 09/15/22 14:19 Interval history: Patient had a rough morning with shortness of breath unable to cough hypoxia. Was given breathing treatment as needed which finally settled her down. Discussed with Jevon over the phone which her POA. Discussed with the patient as well regarding hospice care. They would like to discuss with hospice in the morning tomorrow Review of Systems Review of Systems: All systems reviewed & are unremarkable except as noted in HPI and below Exam Narrative: General: Moderately ill-appearing female in the semi-Carrillo position in bed. not in acute distress HEENT: PERRL, EOMI. Sclera anicteric. Tacky mucous membranes. Neck: Supple. No JVD. Respiratory: Mildly tachypneic, appears to be at her baseline. Lung sounds are diminished throughout with coarse crackles at the bases and some scattered rhonchi which improved with cough. Cardiovascular: Regular rate and rhythm with S1-S2. Soft systolic murmur at the upper sternal border. Gastrointestinal: Abdomen is soft, nontender, and nondistended with positive bowel sounds. Skin: Cool and clammy. Some sweat on the forehead. Extremities: No cyanosis, clubbing, or edema. Radial and pedal pulses intact. Neurological: Alert. Cranial nerves 2-12 are grossly intact. No gross focal deficits to casual conversation. Psychiatric: Pleasant and cooperative. Appropriate mood and affect. Objective Data Vital Signs Vital Signs: Vital Signs - 24 hr 09/14/22 16:17 09/14/22 16:32 09/14/22 16:00 Temperature Pulse Rate 87 90 84 Respiratory Rate 20 20 Blood Pressure Pulse Oximetry Oxygen Delivery Oxygen Flow Rate 09/14/22 21:22 09/14/22 21:22 09/14/22 21:34 Temperature Pulse Rate 84 88 Respiratory Rate 20 20 Blood Pressure Pulse Oximetry 94 Oxygen Delivery High Flow Nasal Cannula Oxygen Flow Rate 7 09/14/22 21:32 09/14/22 22:49 09/14/22 20:00 Temperature 97.4 F L Pulse Rate 76 72 83 Respiratory Rate 18 Blood Pressure 108/60 Pulse Oximetry 92 Oxygen Delivery Oxygen Flow Rate 09/15/22 00:00 09/15/22 04:00 09/15/22 05:10
--- NOTE | 2022-09-15 14:52 | PCRCNOTE ---
PER DR CARDENAS RT STARTED NIV WITH AVAPS. PT STATED THIS WOULD MAKE HER MORE COMFORTABLE DUE TO BECOMING TIRED OUT FROM WORKING HARD TO GET A BREATH.
[2022-09-15] MEDS: BENZONATATE 100 MG CAPSULE 200 MG PO (15:13)
[2022-09-15] MEDS: REMDESIVIR 100 MG/NS 250 ML 100 MG/250 ML BAG 250 MG IVPB (21:57)
[2022-09-15] MEDS: MELATONIN 5 MG TABLET PO (22:05)
[2022-09-15] MEDS: MONTELUKAST SODIUM 10 MG TABLET PO (22:06)
[2022-09-16] VITALS (24 sets, daily range): BP systolic 123–139; BP diastolic 63–72; PULSE 68–85; RESP 14–26; TEMP 36.1–36.6; O2SAT 94–100
[2022-09-16] MEDS: IPRATROPIUM BR 0.02% INH SOLN 0.5 MG/2.5 ML VIAL INHALATION ×7 (00:22→23:48)
[2022-09-16] MEDS: ALBUTEROL SULFATE NEB 2.5 MG/3 ML INH INHALATION ×8 (00:25→23:48)
[2022-09-16] MEDS: LEVOTHYROXINE SODIUM 25 MCG TABLET PO (05:59)
[2022-09-16] MEDS: HYDROcodone/acetaminophen (*CRX) 5-325 MG TABLET 1 TAB PO (05:59)
[2022-09-16 06:44] LABS: Basophils Percent Auto 0.2 % (0.2-1.2); Eosinophils Percent Auto 0.1 % (0-4.4); Hematocrit 31.3 % (37.0-47.0); Hemoglobin 9.4 g/dL (12.0-15.0); Immature Granulocyte Absolute 0.25 K/mm3 (0.00-0.031); Immature Granulocyte Percent A 1.7 % (0-0.5); Lymphocytes Absolute Auto 1.24 K/mm3 (0.9-3.2); Lymphocytes Percent Auto 8.5 % (18.3-44.2); Mean Corpuscular Volume 89.9 fl (80-100); Mean Platelet Volume 9.4 fl (7.4-10.4); Monocytes Absolute Auto 0.8 K/mm3 (0.1-0.6); Monocytes Percent Auto 5.3 % (2.6-8.5); Neutrophils Absolute Auto 12.3 K/mm3 (1.3-6.7); Neutrophils Percent Auto 84.2 % (45.5-73.1); Platelet Count Result 297 k/mm3 (150-375); Red Blood Count 3.48 M/mm3 (4.2-5.4); Red Cell Distribution Width 17.9 % (11.5-14.5); White Blood Count 14.6 K/mm3 (4.5-10.0)
[2022-09-16 06:58] LABS: Alanine Aminotransferase 31 U/L (6-35); Albumin Level 3.3 g/dL (3.5-5.1); Alkaline Phosphatase 94 U/L (38-126); Aspartate Amino Transferase 35 U/L (14-36); Bilirubin,Total 0.4 mg/dL (0.2-1.3); Blood Urea Nitrogen 29 mg/dL (7-17); Calcium 8.6 mg/dL (8.4-10.2); Carbon Dioxide > 40 mmol/L (22-30); Chloride 95 mmol/L (98-107); Estimated CRCL calculation 37 ml/min; Estimated Glomerular Filt Rate > 60; Glucose 96 mg/dL (65-110); Magnesium 2.1 mg/dL (1.6-2.3); Potassium 4.4 mmol/L (3.4-5.0); Sodium 136 mmol/L (137-145)
--- NOTE | 2022-09-16 07:59 | PC.NURSE ---
Received pt on bipap, soon after took off, applied 7L HF o2 Occasionally desat HOB elevated Labored breathing with talking. RT reapplied cpap with some convincing to do so. Emotional support given. 1.5 hours later pt removed bipap , stated she didn't know why. Refused to reapply. Early am, pt noted to desat to 60's. Bipap reapplied and o2 sats gradually improved. Dr. Steen made aware of situation. Informed Dr. Steen that care coordination to see pt today about d/c on hospice. If pt to remain in hospital today , to be transferred while on continuous bipap. Pt informed of severity of situation with adequate oxygenation. Pt requested to call her son at 0730, this nurse called son Jevon, informed him of need for continuous bipap. Notified charge nurse that son wants to be allowed to see pt ( pt with COVID) Day shift RN to follow pt. Report given
[2022-09-16] MEDS: ASPIRIN 81 MG CHEWABLE TABLET PO (09:20)
[2022-09-16] MEDS: ACIDOPHILUS/BULGARICUS CHEWABLE TABLET 2 TABLET PO (09:22)
[2022-09-16] MEDS: amLODIPine BESYLATE 5 MG TABLET PO (09:23)
[2022-09-16] MEDS: APIXABAN 5 MG TABLET PO (09:23)
[2022-09-16] MEDS: BENZONATATE 100 MG CAPSULE 200 MG PO (09:24)
[2022-09-16] MEDS: CHOLECALCIFEROL 1,000 UNITS TABLET 2000 UNITS PO (09:26)
[2022-09-16] MEDS: CYANOCOBALAMIN 1,000 MCG TABLET 1000 MCG PO (09:26)
[2022-09-16] MEDS: DONEPEZIL HCL 10 MG TABLET PO (09:27)
[2022-09-16] MEDS: SENNA/DOCUSATE SODIUM TABLET 1 TAB PO (09:27)
[2022-09-16] MEDS: FLECAINIDE ACETATE 100 MG TABLET PO ×2 (09:28→21:20)
[2022-09-16] MEDS: FOLIC ACID 1 MG TABLET PO (09:28)
[2022-09-16] MEDS: MEMANTINE 5 MG TABLET PO ×2 (09:28→21:18)
[2022-09-16] MEDS: FUROSEMIDE 20 MG TABLET PO (09:28)
[2022-09-16] MEDS: OLMESARTAN MEDOXOMIL 20 MG TABLET PO (09:29)
[2022-09-16] MEDS: oxyBUTYnin CHLORIDE XL 5 MG TAB.ER.24 15 MG PO (09:29)
[2022-09-16] MEDS: NYSTATIN 100,000 UNITS/ML SUSP 5 ML ORAL.SUSP PO ×2 (09:29→21:19)
[2022-09-16] MEDS: OPTI-GEN TAB 1 TABLET PO (09:29)
[2022-09-16] MEDS: PANTOPRAZOLE 40 MG TABLET PO (09:30)
[2022-09-16] MEDS: PARoxetine 20 MG TABLET PO ×2 (09:30→21:24)
[2022-09-16] MEDS: polyethylene glycoL 3350 17 GM POWD.PACK PO (09:31)
[2022-09-16] MEDS: BISACODYL 5 MG TABLET EC PO (09:41)
[2022-09-16] MEDS: LORazepam (*CRX) 1 MG TABLET PO ×2 (09:41→21:17)
--- NOTE | 2022-09-16 10:23 | PCPTNOTE ---
The patient treatment was not able to be completed at this time due to Patient's change in medical condition. Will plan to continue treatment per plan of care.
[2022-09-16 12:00] LABS: Alanine Aminotransferase 32 U/L (6-35); Aspartate Amino Transferase 33 U/L (14-36)
--- NOTE | 2022-09-16 13:36 | PM.PNPUL ---
Progress Note: A&P Assessment and Plan (1) COVID-19: Code(s): U07.1 - COVID-19 Status: Acute Assessment and Plan: Patient tested positive for COVID-19 on 09/11/22 and started on remdesivir, dexamethasone on 09/11/22. Empirically started on ceftriaxone and azithromycin (s/p 4 days), deteriorated on 09/15 requiring NIV and baricitinib 4 mg started 09/16. Remdesivir for 10 days unless she should completely recover and tolerate her baseline oxygen requirements (6-8 L) with rest, ambulation and while sleeping. - Dexamethasone 6 mg IV X 10 days - Continuous pulse oximetry - Avoid any fluid overload. - empiric azithromycin and ceftriaxone for CAP (cultures negative and DC after 4 days). -baricitinib 4 mg PO Q day Keep saturations 90-94% with nasal cannula up to 15 L if needed; if fails then Airvo high flow nasal cannula, if fails then NIV with AVAPS. She is DNR. (2) Chronic respiratory failure with hypoxia: Code(s): J96.11 - Chronic respiratory failure with hypoxia Status: Acute Assessment and Plan: Patient has severe COPD and was discharged from the hospital on 09/06/2022 requiring 7 L nasal cannula oxygen. Prior to that hospitalization she was on 2 L nasal cannula. Currently she is on 6 L NC. Etiology of hypoxic respiratory failure is likely COVID pneumonia and COPD. In addition the patient has a PFO by echo with bubble study on 09/02/2022. This is described as a very mild right to left shunt with the bubble study with Valsalva only. I will check a D-dimer and if this is positive I will perform a CT angiogram of the chest to exclude a PE which would be an Eliquis failure. if the D-dimer is negative I will perform a CT scan of the chest without contrast to assess infiltrates. 09/11 12:30 7 L NC, sats 92%. 09/11 16:45 7 L NC, sasts 99% 09/12 07:15 6 L NC, sats 92% 09/12 15:00 6 L NC, sats 96% 09/13 17:00 7 L, sats 92% 09/14 08:00 7 L NC, sats 94% 09/15 07:45 6 L NC, sats 95% 09/15 14:30 required NIV for work of breathing, 60% sats 100% 09/16 patient states she has trouble breathing when she takes the noninvasive ventilator off. Currently she is A VATS with a rate of 20, tidal volume 500, EPAP 5, minimal inspiratory pressure 6, maximal inspiratory pressure 25, inspiratory time 0.85 seconds, rise of 1 which is our fastest and 60% FiO2. Keep saturations are 90-94% with nasal cannula up to 15 L if needed, if fails then Airvo high flow nasal cannula, if fails then NIV with AVAPS. She is DNR. Discussed with Dr. Mack. (3) Chronic obstructive pulmonary disease: Code(s): J44.9 - Chronic obstructive pulmonary disease, unspecified Status: Acute Assessment and Plan: GOLD grade 3 group E COPD, (57 PY quit 2018),? last PFTs on 11/15/2016 with an FEV1 of 37% predicted,? alpha 1 level 135 (normal) on 08/31/2022 with phenotype pending, CT scan of the chest in our system from 11/30/2015 demonstrates severe panlobular emphysema all lung whitehead, severe chronic hypoxemic respiratory failure on 6-8 L nasal cannula with rest, ambulation and sleep, dyspnea on exertion at 20 ft. Maintained on trelegy inhaler. Currently the patient has no active wheezing. She is on dexamethasone 6 mg IV for her covert pneumonia. I will change her albuterol nebulizers to 2.5 mg nebulized q.4 hours, change her ipratropium to 0.5 mg nebulized Q 4 hours and continue budesonide 0.5 mg b.i.d.. I will discontinue all other inhalers at this time. ABG on admission on 7 L nasal cannula 7., there is no evidence of hypercarbic respiratory failure. Of note on her prior admissions, she has had evidence of hypercarbic respiratory failure and she has tolerated noninvasive ventilator with the AVAPS mode and adjusted settings to comfort resulting in a rate of 20, tidal volume 500, EPAP 5, minimal inspirat
--- NOTE | 2022-09-16 14:29 | PCOTNOTE ---
Attempted to see patient this pm, however per RN patient is on continuous bi-pap and unable to come off at this time.
--- NOTE | 2022-09-16 15:35 | PM.IMPN ---
Progress Note: A&P Assessment and Plan (1) COVID-19: Code(s): U07.1 - COVID-19 Status: Acute (2) Chronic respiratory failure with hypoxia, on home oxygen therapy: Code(s): J96.11 - Chronic respiratory failure with hypoxia; Z99.81 - Dependence on supplemental oxygen Status: Acute (3) Chronic obstructive pulmonary disease: Code(s): J44.9 - Chronic obstructive pulmonary disease, unspecified Status: Acute (4) Chronic kidney disease: Code(s): N18.9 - Chronic kidney disease, unspecified Status: Acute (5) Hypertension: Code(s): I10 - Essential (primary) hypertension Status: Acute (6) Paroxysmal atrial flutter: Code(s): I48.92 - Unspecified atrial flutter Status: Acute (7) Chronic anticoagulation: Code(s): Z79.01 - oysterman (current) use of anticoagulants Status: Acute Plan The patient presented to the emergency department from [facility] for evaluation of shortness of breath. # acute COVID infection started on remdesivir and Decadron continue bronchodilators # acute on chronic respiratory. ABG 7.45/39/57/26. On home oxygen 4 L supplemental prior to admission. pulmonary consultation. CTA was performed for elevated D-dimer which came back negative. on and off recurrent admission for the same. discussed Hospice agreeable. Hospice discussion in process. Breathing status same with intermittent worsening. Added on aVAPS as needed. Consider baricitinib as discussed with Pulmonary # COPD with severe emphysema # paroxysmal atrial fibrillation on flecainide and Eliquis is to be continued # history of pulmonary nodule # history of tobacco abuse # hypertension home medication # constipation will add Dulcolax # DVT prophylaxis apixaban # code status do not resuscitate Discussed with Jevon yip and Dr. Crawford Subjective Date/time seen: 09/16/22 15:35 Interval history: Used the AVAPS yesterday in the evening. Feeling okay today. On AVAPS again this morning. Discussed with Pulmonary. Cough on and off. Discussed with son Review of Systems Review of Systems: All systems reviewed & are unremarkable except as noted in HPI and below Exam Narrative: General: Moderately ill-appearing female in the semi-Carrillo position in bed. not in acute distress on AVAPS HEENT: PERRL, EOMI. Sclera anicteric. Tacky mucous membranes. Neck: Supple. No JVD. Respiratory: Mildly tachypneic, appears to be at her baseline. Lung sounds are diminished throughout with coarse crackles at the bases and some scattered rhonchi which improved with cough. Cardiovascular: Regular rate and rhythm with S1-S2. Soft systolic murmur at the upper sternal border. Gastrointestinal: Abdomen is soft, nontender, and nondistended with positive bowel sounds. Skin: Cool and clammy. Some sweat on the forehead. Extremities: No cyanosis, clubbing, or edema. Radial and pedal pulses intact. Neurological: Alert. Cranial nerves 2-12 are grossly intact. No gross focal deficits to casual conversation. Psychiatric: Pleasant and cooperative. Appropriate mood and affect. Objective Data Vital Signs Vital Signs: Vital Signs - 24 hr 09/15/22 16:02 09/15/22 16:02 09/15/22 16:00 Temperature Pulse Rate 80 80 82 Respiratory Rate 22 H 22 H Blood Pressure Pulse Oximetry 100 Oxygen Delivery Fraction of Inspired Oxygen 09/15/22 20:56 09/15/22 21:20 09/15/22 21:59 Temperature 97.2 F L Pulse Rate 84 84 93 Respiratory Rate 24 H 20 Blood Pressure 132/66 Pulse Oximetry 97 Oxygen Delivery Fraction of Inspired Oxygen 09/15/22 22:14 09/15/22 22:18 09/15/22 20:00 Temperature Pulse Rate 84 86 Respiratory Rate 26 H Blood Pressure Pulse Oximetry 100 100 Oxygen Delivery BiPAP Fraction of Inspired Oxygen 60 09/16/22 00:26 09/16/22 00:39 09/16/22 00:00 Temperature Pulse Rate 80 83 68 Respiratory Rate 22 H 22 H Blood Pressure
--- NOTE | 2022-09-16 15:41 | PM.IMPN ---
Subjective Date/time seen: 09/16/22 15:41 Review of Systems Review of Systems: The [address] [place] [address]?Journal Club?keeps you up to date with the latest research that affects your practice. Read this week?s journal club article,??[email or web address], You Should Still Wear a [email or web address]. Check out our past?Journal [email or web address]. All systems reviewed & are unremarkable except as noted in HPI and below Constitutional: Constitutional: Reports fatigue and Reports weakness Neurologic: Reports weakness Endocrine: Endocrine: Reports fatigue Objective Data Vital Signs Vital Signs: Vital Signs - 24 hr 09/15/22 16:02 09/15/22 16:02 09/15/22 16:00 Temperature Pulse Rate 80 80 82 Respiratory Rate 22 H 22 H Blood Pressure Pulse Oximetry 100 Oxygen Delivery Fraction of Inspired Oxygen 09/15/22 20:56 09/15/22 21:20 09/15/22 21:59 Temperature 97.2 F L Pulse Rate 84 84 93 Respiratory Rate 24 H 20 Blood Pressure 132/66 Pulse Oximetry 97 Oxygen Delivery Fraction of Inspired Oxygen 09/15/22 22:14 09/15/22 22:18 09/15/22 20:00 Temperature Pulse Rate 84 86 Respiratory Rate 26 H Blood Pressure Pulse Oximetry 100 100 Oxygen Delivery BiPAP Fraction of Inspired Oxygen 60 09/16/22 00:26 09/16/22 00:39 09/16/22 00:00 Temperature Pulse Rate 80 83 68 Respiratory Rate 22 H 22 H Blood Pressure Pulse Oximetry Oxygen Delivery Fraction of Inspired Oxygen 09/16/22 04:00 09/16/22 05:12 09/16/22 06:22 Temperature 97.7 F Pulse Rate 71 76 80 Respiratory Rate 18 26 H Blood Pressure 139/66 138/72 Pulse Oximetry 99 94 Oxygen Delivery Fraction of Inspired Oxygen 09/16/22 08:35 09/16/22 08:43 09/16/22 08:43 Temperature Pulse Rate 80 Respiratory Rate 24 H 24 H Blood Pressure Pulse Oximetry 99 99 Oxygen Delivery BiPAP Fraction of Inspired Oxygen 60 09/16/22 09:28 09/16/22 08:00 09/16/22 08:00 Temperature Pulse Rate 80 80 81 Respiratory Rate 24 H Blood Pressure Pulse Oximetry 99 Oxygen Delivery BiPAP Fraction of Inspired Oxygen 60 09/16/22 12:00 09/16/22 13:11 Temperature Pulse Rate 82 85 Respiratory Rate 22 H Blood Pressure Pulse Oximetry 97 Oxygen Delivery Fraction of Inspired Oxygen Intake/Output Intake/Output: Intake & Output 09/13/22 09/14/22 09/15/22 09/16/22 23:59 23:59 23:59 23:59 Intake Total 1320 2120 2410 580 Output Total 9739 0571 5454 1300 [place] -1680 -205 -690 -720 Meds/Results Medications: Active Medications Generic Name Dose Route Start Last Admin Trade Name Freq PRN Reason Stop Dose Admin Acetaminophen 650 mg 09/11/22 14:27 09/14/22 06:43 Acetaminophen 325 Mg Tablet PO 650 mg Q4H PRN Administration Mild Pain (1-3) or Fever Hydrocodone Bitart/Acetaminophen 1 tab 09/11/22 14:27 09/16/22 05:59 Hydrocodone/Acetaminophen (*Crx) 5-325 Mg Tablet PO 1 tab Q4H PRN Administration Pain Rated 4-6 Albuterol 2.5 mg 09/12/22 16:00 09/16/22 13:11 Albuterol Sulfate Neb 2.5 Mg/3 Ml Inh INHALATION 2.5 mg Q4HRT CHAUNCEY Administration Albuterol 2.5 mg 09/15/22 11:17 Albuterol Sulfate Neb 2.5 Mg/3 Ml Inh INHALATION Q4HRT PRN Shortness Of Breath Amlodipine Besylate 5 mg 09/12/22 09:00 09/16/22 09:23 Amlodipine Besylate 5 Mg Tablet PO 5 mg DAILY CHAUNCEY Administration Apixaban 5 mg 09/12/22 09:00 09/16/22 09:23 Apixaban 5 Mg Tablet PO 5 mg Q12HR CHAUNCEY Administration Aspirin 81 mg 09/12/22 08:00 09/16/22 09:20 Aspirin 81 Mg Chewable Tablet PO 81 mg DAILY@0800 [facility] Administration Baricitinib 4 mg 09/16/22 12:00 Baricitinib 2 Mg Tablet PO DAILY@11 [facility] Benzonatate 200 mg 09/15/22 11:20 09/16/22 09:24 B
[2022-09-16] MEDS: REMDESIVIR 100 MG/NS 250 ML 100 MG/250 ML BAG 250 MG IVPB (21:17)
[2022-09-16] MEDS: MELATONIN 5 MG TABLET PO (21:23)
[2022-09-17] VITALS (18 sets, daily range): BP systolic 140–150; BP diastolic 56–70; PULSE 69–104; RESP 14–28; TEMP 35.9–36.3; O2SAT 95–100
[2022-09-17] MEDS: ALBUTEROL SULFATE NEB 2.5 MG/3 ML INH INHALATION ×4 (04:04→16:25)
[2022-09-17] MEDS: IPRATROPIUM BR 0.02% INH SOLN 0.5 MG/2.5 ML VIAL INHALATION ×4 (04:04→16:25)
[2022-09-17] MEDS: LEVOTHYROXINE SODIUM 25 MCG TABLET PO (06:31)
[2022-09-17 06:34] LABS: Basophils Percent Auto 0.1 % (0.2-1.2); Eosinophils Percent Auto 0.1 % (0-4.4); Hematocrit 31.3 % (37.0-47.0); Hemoglobin 9.2 g/dL (12.0-15.0); Immature Granulocyte Absolute 0.31 K/mm3 (0.00-0.031); Immature Granulocyte Percent A 2.3 % (0-0.5); Mean Corpuscular HGB Conc 29.4 g/dl (32-36); Mean Corpuscular Hemoglobin 27.5 pg (26-34); Mean Corpuscular Volume 93.4 fl (80-100); Monocytes Absolute Auto 0.9 K/mm3 (0.1-0.6); Monocytes Percent Auto 6.7 % (2.6-8.5); Neutrophils Absolute Auto 10.9 K/mm3 (1.3-6.7); Neutrophils Percent Auto 81.8 % (45.5-73.1); Platelet Count Result 330 k/mm3 (150-375); Red Blood Count 3.35 M/mm3 (4.2-5.4); Red Cell Distribution Width 18.5 % (11.5-14.5); White Blood Count 13.4 K/mm3 (4.5-10.0)
[2022-09-17 06:46] LABS: Alanine Aminotransferase 30 U/L (6-35); Aspartate Amino Transferase 33 U/L (14-36); Estimated CRCL calculation 48 ml/min; Estimated Glomerular Filt Rate > 60
[2022-09-17 06:56] LABS: INR 1.4; Prothrombin Time 16.6 Seconds (11.1-14.7)
--- NOTE | 2022-09-17 08:40 | PM.PNPUL ---
Progress Note: A&P Assessment and Plan (1) COVID-19: Code(s): U07.1 - COVID-19 Status: Acute Assessment and Plan: Patient tested positive for COVID-19 on 09/11/22 and started on remdesivir, dexamethasone on 09/11/22. Empirically started on ceftriaxone and azithromycin (s/p 4 days), deteriorated on 09/15 requiring NIV and baricitinib 4 mg started 09/16. Remdesivir for 10 days unless she should completely recover and tolerate her baseline oxygen requirements (6-8 L) with rest, ambulation and while sleeping. - Dexamethasone 6 mg IV X 10 days - Continuous pulse oximetry - Avoid any fluid overload. - empiric azithromycin and ceftriaxone for CAP (cultures negative and DC after 4 days). -baricitinib 4 mg PO Q day Keep saturations 90-94% with nasal cannula up to 15 L if needed; if fails then Airvo high flow nasal cannula, if fails then NIV with AVAPS. She is DNR. _ 09/17 patient has remained on noninvasive ventilator continuously. She remains on AVAPS 60% with saturations 100%. She tells me she is ready to go home to be more comfortable and be with her family. Would discharge on these pulmonary medications Dexamethasone 6 mg PO to finish 10 days (3 more days needed) Trelegy 100-60 2.5-25 at 1 puff q.day albuterol inhaler 2 puffs q.4 hours p.r.n. shortness of breath or wheezing Albuterol 2.5 mg nebulized q.4 hours p.r.n. shortness of breath or wheezing guaifenesin 1200 mg p.o. b.i.d. montelukast 10 mg p.o. q.day oxygen per hospice team to maintain saturations greater than 88%. Previously she was on 8-10 L at home. Patient can call the Pulmonary Clinic as an outpatient if needed. I gave her our business card. (2) Chronic respiratory failure with hypoxia: Code(s): J96.11 - Chronic respiratory failure with hypoxia Status: Acute Assessment and Plan: Patient has severe COPD and was discharged from the hospital on 09/06/2022 requiring 7 L nasal cannula oxygen. Prior to that hospitalization she was on 2 L nasal cannula. Currently she is on 6 L NC. Etiology of hypoxic respiratory failure is likely COVID pneumonia and COPD. In addition the patient has a PFO by echo with bubble study on 09/02/2022. This is described as a very mild right to left shunt with the bubble study with Valsalva only. I will check a D-dimer and if this is positive I will perform a CT angiogram of the chest to exclude a PE which would be an Eliquis failure. if the D-dimer is negative I will perform a CT scan of the chest without contrast to assess infiltrates. 09/11 12:30 7 L NC, sats 92%. 09/11 16:45 7 L NC, sasts 99% 09/12 07:15 6 L NC, sats 92% 09/12 15:00 6 L NC, sats 96% 09/13 17:00 7 L, sats 92% 09/14 08:00 7 L NC, sats 94% 09/15 07:45 6 L NC, sats 95% 09/15 14:30 required NIV for work of breathing, 60% sats 100% 09/16 patient states she has trouble breathing when she takes the noninvasive ventilator off. Currently she is A VATS with a rate of 20, tidal volume 500, EPAP 5, minimal inspiratory pressure 6, maximal inspiratory pressure 25, inspiratory time 0.85 seconds, rise of 1 which is our fastest and 60% FiO2. 09/17 To go home on hospice. patient has remained on noninvasive ventilator continuously. She remains on AVAPS 60% with saturations 100%. (3) Chronic obstructive pulmonary disease: Code(s): J44.9 - Chronic obstructive pulmonary disease, unspecified Status: Acute Assessment and Plan: GOLD grade 3 group E COPD, (57 PY quit 2018),? last PFTs on 11/15/2016 with an FEV1 of 37% predicted,? alpha 1 level 135 (normal) on 08/31/2022 with phenotype pending, CT scan of the chest in our system from 11/30/2015 demonstrates severe panlobular emphysema all lung whitehead, severe chronic hypoxemic respiratory failure on 6-8 L nasal cannula with rest, ambulation and sleep, dyspnea on exertion at 2
[2022-09-17] MEDS: FUROSEMIDE 20 MG TABLET PO (10:09)
[2022-09-17] MEDS: oxyBUTYnin CHLORIDE XL 5 MG TAB.ER.24 15 MG PO (10:10)
[2022-09-17] MEDS: CYANOCOBALAMIN 1,000 MCG TABLET 1000 MCG PO (10:10)
[2022-09-17] MEDS: OPTI-GEN TAB 1 TABLET PO (10:10)
[2022-09-17] MEDS: APIXABAN 5 MG TABLET PO (10:11)
[2022-09-17] MEDS: amLODIPine BESYLATE 5 MG TABLET PO (10:11)
[2022-09-17] MEDS: MEMANTINE 5 MG TABLET PO (10:11)
[2022-09-17] MEDS: BENZONATATE 100 MG CAPSULE 200 MG PO ×2 (10:12→13:12)
[2022-09-17] MEDS: SENNA/DOCUSATE SODIUM TABLET 1 TAB PO ×2 (10:13→17:53)
[2022-09-17] MEDS: PANTOPRAZOLE 40 MG TABLET PO ×2 (10:14→17:52)
[2022-09-17] MEDS: DONEPEZIL HCL 10 MG TABLET PO (10:14)
[2022-09-17] MEDS: BARICITINIB 2 MG TABLET 4 MG PO (10:15)
[2022-09-17] MEDS: OLMESARTAN MEDOXOMIL 20 MG TABLET PO (10:17)
[2022-09-17] MEDS: ASPIRIN 81 MG CHEWABLE TABLET PO (10:18)
[2022-09-17] MEDS: ACIDOPHILUS/BULGARICUS CHEWABLE TABLET 2 TABLET PO (10:18)
[2022-09-17] MEDS: BISACODYL 5 MG TABLET EC PO (10:18)
[2022-09-17] MEDS: FLECAINIDE ACETATE 100 MG TABLET PO (10:19)
[2022-09-17] MEDS: CHOLECALCIFEROL 1,000 UNITS TABLET 2000 UNITS PO (10:19)
[2022-09-17] MEDS: FOLIC ACID 1 MG TABLET PO (10:19)
[2022-09-17] MEDS: NYSTATIN 100,000 UNITS/ML SUSP 5 ML ORAL.SUSP PO ×3 (10:20→17:51)
[2022-09-17] MEDS: PARoxetine 20 MG TABLET PO (10:21)
[2022-09-17] MEDS: LORazepam (*CRX) 1 MG TABLET PO ×2 (10:24→17:52)
--- NOTE | 2022-09-17 11:57 | PCOTNOTE ---
Attempted to see patient this pm for OT treatment, however per RN patient is on continuous bi-pap and unable to come off at this time.
--- NOTE | 2022-09-17 19:23 | PC.NURSE ---
Called and spoke with Dr. Mack via telephone @ [phone] about [facility] orders. Specifically reviewed & clarified medications with MD - see Physician's Orders and Progress Notes sheet in chart. Additionally discontinue Remdesivir, Dexamethasone Sodium, & Baricitinib per MD. I called and spoke with Pharmacist (Anthony) about medication orders that were received via telephone by Dr. Mack. Pharmacist stated to write medications on order sheet and fax.
--- NOTE | 2022-09-17 21:38 | PM.DS ---
DS: Admitting Diagnosis Discharge Date 09/17/2022 Admitting Diagnosis shortness of breath DS: Discharge Diagnosis Discharge Diagnosis (1) COVID-19: Code(s): U07.1 - COVID-19 Status: Acute (2) Chronic respiratory failure with hypoxia, on home oxygen therapy: Code(s): J96.11 - Chronic respiratory failure with hypoxia; Z99.81 - Dependence on supplemental oxygen Status: Acute (3) Chronic obstructive pulmonary disease: Code(s): J44.9 - Chronic obstructive pulmonary disease, unspecified Status: Acute (4) Chronic kidney disease: Code(s): N18.9 - Chronic kidney disease, unspecified Status: Acute (5) Hypertension: Code(s): I10 - Essential (primary) hypertension Status: Acute (6) Paroxysmal atrial flutter: Code(s): I48.92 - Unspecified atrial flutter Status: Acute (7) Chronic anticoagulation: Code(s): Z79.01 - retirement (current) use of anticoagulants Status: Acute DS: Summary Hospital Course Hospital Course: The patient presented to the emergency department from [facility] for evaluation of shortness of breath. # acute COVID infection started on remdesivir and Decadron continue bronchodilators. Also added baricitinib as per Pulmonary # acute on chronic respiratory.? ABG 7.45/39/57/26.? On home oxygen 4 L supplemental prior to admission. ? pulmonary consultation.? CTA was performed for elevated D-dimer which came back negative. on and off recurrent admission for the same.? Required AVAPS and remained dependent on it. I Discussed Hospice agreeable. And arranged for her to go to home hospice however patient's family was not able to get home and with her breathing status she was transition to inpatient hospice here. # COPD with severe emphysema # paroxysmal atrial fibrillation on flecainide and Eliquis is to be continued # history of pulmonary nodule # history of tobacco abuse # hypertension home medication # constipation will add Dulcolax # DVT prophylaxis apixaban # code status do not resuscitate Time Spent with Patient Time attestation: Total time spent providing and/or coordinating discharge services: 35 minutes Exam Narrative: General:?Moderately ill-appearing female in the semi-Carrillo position in bed.? not in acute distress on AVAPS HEENT:??PERRL, EOMI. Sclera anicteric. Tacky mucous membranes. Neck:??Supple. No JVD. Respiratory:?Mildly tachypneic, appears to be at her baseline. Lung sounds are diminished throughout with coarse crackles at the bases and some scattered rhonchi which improved with cough. Cardiovascular:??Regular rate and rhythm with S1-S2. Soft systolic murmur at the upper sternal border. Gastrointestinal:??Abdomen is soft, nontender, and nondistended with positive bowel sounds. Skin:?Cool and clammy. Some sweat on the forehead. Extremities:??No cyanosis, clubbing, or edema. Radial and pedal pulses intact. Neurological:??Alert.? Cranial nerves 2-12 are grossly intact. No gross focal deficits to casual conversation. Psychiatric:??Pleasant and cooperative.? Appropriate mood and affect. DS: Data Imaging Radiologist's impression: ITS Impressions Chest X-Ray 09/11/22 13:12 Impression: Stable COPD and/or severe chronic interstitial disease. No definite acute abnormality. Chest CTA 09/12/22 20:59 IMPRESSION: No evidence of pulmonary embolism Chest X-Ray 09/13/22 06:47 Impression: Diffuse chronic appearing interstitial disease in the lungs, unchanged. Venous Doppler Study 09/13/22 18:55 IMPRESSION: No evidence of deep venous thrombosis of the upper extremities Venous Doppler Study 09/13/22 19:05 IMPRESSION: No evidence of deep venous thrombosis of the lower extremities Discharge Plan Discharge Attending physician on discharge: Spencer Mack Consulting providers: Manuelito Crawford ; Montserrat Rush ; Katherine Alvarez ; Kendrick Paula ; Matty Shah
== END 2022-09-17 18:40 | disposition hospice, inpatient (51) | DRG 177 ==
LOC: ANHED 12:58 → ANH3MEDSUR 15:59
PROVIDERS: Internal Medicine Pulmonary Disease; Physician Assistant; Admitting Provider Chiropractor; Emergency Provider Emergency Medicine; PCP Internal Medicine; Visit Provider Internal Medicine
DX: U07.1 COVID-19 (principal); J12.82 Pneumonia due to coronavirus disease 2019; J96.21 Acute and chronic respiratory failure with hypoxia; Z99.81 Dependence on supplemental oxygen; N18.9 Chronic kidney disease, unspecified; I12.9 Hypertensive chronic kidney disease with stage 1 through stage 4 chronic kidney disease, or unspecified chronic kidney disease; Z79.01 Long term (current) use of anticoagulants; J43.9 Emphysema, unspecified; I48.0 Paroxysmal atrial fibrillation; K59.00 Constipation, unspecified; Z66 Do not resuscitate; E03.9 Hypothyroidism, unspecified; Z87.891 Personal history of nicotine dependence; Z79.899 Other long term (current) drug therapy
CPT/HCPCS: 36415; 36600; 71045; 71275; 80053; 81001; 82375; 82565; 82728; 82805; 83050; 83605; 83615; 83735; 83880; 84450; 84460; 85025; 85027; 85380; 85610; 86140; 87086; 87088; 87106; 87636; 93005; 93970; 94002; 94003; 94640; 96365; 96372; 96374; 96375; 96376; 97162; 97165; 99285; A9270; G0378; J0248; J0696; J1100; J1940; Q9967

== ENCOUNTER 2022-09-17 18:41 | HOS | payer OTHER, MEDICARE, SELFPAY ==
[2022-09-17 19:30] VITALS: BP 121/61; PULSE 91; RESP 20; TEMP 36; O2SAT 100
[2022-09-17 20:00] VITALS: PULSE 91; RESP 20; O2SAT 100
[2022-09-17 20:30] VITALS: PULSE 77; RESP 25; O2SAT 97
--- NOTE | 2022-09-17 21:38 | PM.DS ---
DS: Admitting Diagnosis Discharge Date 09/17/2022 Admitting Diagnosis shortness of breath DS: Summary Time Spent with Patient Time attestation: Total time spent providing and/or coordinating discharge services: Discharge Plan Discharge Discharge Medications: No Action mecobalamin (vitamin B12) 1,000 mcg tablet,disintegrating 1,000 mcg sublingual DAILY Rx Instructions: place tablet under tongue and allow to dissolve for at least30 secs before swallowing amlodipine 5 mg tablet 5 mg PO DAILY Rx Instructions: TAKE 1 TABLET BY MOUTH DAILY donepezil 10 mg tablet 10 mg PO DAILY Rx Instructions: TAKE 1 TABLET BY MOUTH EVERY DAY folic acid 1 mg tablet 1 mg PO DAILY Rx Instructions: TAKE 1 TABLET BY MOUTH DAILY olmesartan 20 mg tablet 20 mg PO DAILY Rx Instructions: TAKE 1 TABLET BY MOUTH DAILY memantine 5 mg tablet 5 mg PO BID Rx Instructions: TAKE 1 TABLET BY MOUTH TWICE DAILY flecainide 100 mg Tablet 100 mg PO Q12HR 30 Days Qty: 60 0RF nystatin 100,000 unit/mL Suspension 5 ml PO QID Qty: 100 0RF albuterol sulfate 2.5 mg /3 mL (0.083 %) Solution For Nebulization 2.5 mg inhalation Q6HRT PRN (Reason: Shortness Of Breath) Qty: 75 0RF polyethylene glycol 3350 [Miralax] 17 gram Powder In Packet 17 g PO QAM Qty: 30 0RF sennosides-docusate sodium [Senokot-S] 8.6-50 mg Tablet 1 tab PO BID Qty: 30 0RF budesonide [Pulmicort] 0.5 mg/2 mL Suspension For Nebulization 0.5 mg inhalation Q12HRT Qty: 30 0RF ipratropium bromide 0.02 % Solution 0.5 mg inhalation Q6HRT PRN (Reason: Shortness Of Breath) Qty: 75 0RF guaifenesin [Mucus Relief ER] 600 mg Tablet Extended Release 12hr 1,200 mg PO Q12HR Qty: 30 0RF omeprazole 20 mg capsule,delayed release(DR/EC) 40 mg PO BID lorazepam 1 mg tablet 1 mg PO BID Eliquis 5 mg Tablet 5 mg PO Q12HR 30 Days Qty: 60 0RF oxybutynin chloride 15 mg tablet extended release 24hr 15 mg PO DAILY Qty: 30 6RF Lactobacillus acidophilus Capsule 100 mg PO DAILY albuterol sulfate 0.63 mg/3 mL Solution For Nebulization 0.63 mg INHALATION QID aspirin 81 mg Tablet,Chewable 81 mg PO DAILY ceftriaxone 1 gram Recon Soln 1 g IM DAILY Rx Instructions: until 09/15 cholecalciferol (vitamin D3) 25 mcg (1,000 unit) Capsule 50 mcg PO DAILY azithromycin 500 mg Tablet 500 mg PO DAILY Rx Instructions: until 09/15 Healthy Eyes 300 mcg-200 mg-27 mg-2 mg Tablet 1 tablet PO DAILY Rx Instructions: administer after a meal levothyroxine 25 mcg tablet 25 mcg PO DAILY furosemide 20 mg tablet 20 mg PO DAILY methylprednisolone [Medrol] 4 mg Tablet 4 mg PO 1700 Rx Instructions: start 09/11 thru 09/13 methylprednisolone [Medrol] 4 mg Tablet 4 mg PO DAILY Rx Instructions: starts 09/12 thru 09/16 methylprednisolone [Medrol] 4 mg Tablet 4 mg PO HS Rx Instructions: starts 09/13 thru 09/15 methylprednisolone [Medrol] 4 mg Tablet 4 mg PO 1200 Rx Instructions: start 09/11 thru 09/14 methylprednisolone [Medrol] 4 mg Tablet 8 mg PO DAILY Rx Instructions: start and end 09/11 methylprednisolone [Medrol] 4 mg Tablet 8 mg PO HS Rx Instructions: 09/11 thru 09/12 melatonin 5 mg Tablet 5 mg PO HS paroxetine HCl 20 mg tablet 20 mg PO BID Trelegy Ellipta 100-62.5-25 mcg blister with device 1 inh INHALATION DAILY hydrocodone-acetaminophen 5-325 mg Tablet 1 tablet PO Q4H PRN (Reason: Pain Rated 4-6) Qty: 30 0RF montelukast 10 mg tablet 10 mg PO QHS Qty: 90 1RF tizanidine 2 mg capsule 2 mg PO TID PRN (Reason: muscle spasticity) Qty: 30 0RF Date of admission: 09/17/22 18:41 Primary Care Provider: Jf Wade Admitting Provider: Spencer Mack Attending physician on admission: Spencer Mack
[2022-09-17] MEDS: NYSTATIN 100,000 UNITS/ML SUSP 5 ML ORAL.SUSP PO (22:12)
[2022-09-17] MEDS: MEMANTINE 5 MG TABLET PO (22:12)
[2022-09-17] MEDS: MONTELUKAST SODIUM 10 MG TABLET PO (22:12)
[2022-09-17] MEDS: FLECAINIDE ACETATE 100 MG TABLET PO (22:13)
[2022-09-17] MEDS: MELATONIN 5 MG TABLET PO (22:13)
[2022-09-17] MEDS: PARoxetine 20 MG TABLET PO (22:13)
[2022-09-17] MEDS: APIXABAN 5 MG TABLET PO (22:13)
[2022-09-17] MEDS: HYDROcodone/acetaminophen (*CRX) 5-325 MG TABLET 1 TAB PO (22:14)
[2022-09-18] VITALS (11 sets, daily range): BP systolic 125–144; BP diastolic 56–70; PULSE 74–96; RESP 18–27; TEMP 36.4; O2SAT 94–98
[2022-09-18] MEDS: IPRATROPIUM BR 0.02% INH SOLN 0.5 MG/2.5 ML VIAL INHALATION ×5 (00:30→15:46)
[2022-09-18] MEDS: ALBUTEROL SULFATE NEB 2.5 MG/3 ML INH INHALATION ×5 (00:30→15:46)
[2022-09-18] MEDS: LEVOTHYROXINE SODIUM 25 MCG TABLET PO (06:15)
[2022-09-18] MEDS: amLODIPine BESYLATE 5 MG TABLET PO (09:21)
[2022-09-18] MEDS: OLMESARTAN MEDOXOMIL 20 MG TABLET PO (09:21)
[2022-09-18] MEDS: FLECAINIDE ACETATE 100 MG TABLET PO (09:21)
[2022-09-18] MEDS: APIXABAN 5 MG TABLET PO (09:21)
[2022-09-18] MEDS: MEMANTINE 5 MG TABLET PO (09:21)
[2022-09-18] MEDS: LORazepam (*CRX) 1 MG TABLET PO (09:21)
[2022-09-18] MEDS: ASPIRIN 81 MG CHEWABLE TABLET PO (09:22)
[2022-09-18] MEDS: NYSTATIN 100,000 UNITS/ML SUSP 5 ML ORAL.SUSP PO (09:22)
[2022-09-18] MEDS: PANTOPRAZOLE 40 MG TABLET PO (09:23)
[2022-09-18] MEDS: DONEPEZIL HCL 10 MG TABLET PO (09:23)
[2022-09-18] MEDS: FUROSEMIDE 20 MG TABLET PO (09:23)
[2022-09-18] MEDS: SENNA/DOCUSATE SODIUM TABLET 1 TAB PO (09:24)
[2022-09-18] MEDS: PARoxetine 20 MG TABLET PO (09:24)
--- NOTE | 2022-09-18 13:05 | PM.SD2 ---
Same Day Admit/Disch: HPI History of Present Illness Chief complaint: COPD/Emphysema Narrative: Date of service: 09/18/22 Jenny Lucas is a 77 year old female with a history of atrial flutter on chronic anticoagulation, COPD, chronic respiratory failure on 4 L supplemental oxygen, pulmonary nodules, and tobacco abuse known to the hospitalist service with several recent admissions recently admitted from 09/12/22-09/17/22 for COVID-19 and chronic respiratory failure. Patient was evaluated by Pulmonology that admission. Given her progressive decline and increased oxygen demand, patient and family discussed hospice with prior provider which was arranged with [facility]. Patient was admitted to the hospitalist service and then discharged to home hospice on 09/18/22. All equipment and medication was delivered to patients home via [facility]. [facility] Past Medical History Medical History Adenomatous colon polyp Anxiety and depression Arthritis Chronic anemia Chronic anticoagulation Chronic kidney disease Chronic obstructive pulmonary disease 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 Chronic respiratory failure with hypoxia, on home oxygen therapy On 4 liters nasal cannula. Cognitive dysfunction Dyslipidemia Gastroesophageal reflux disease Hearing loss Hypertension Hypothyroidism Iron deficiency anemia Kidney stones Lung nodule Multiple pulmonary nodules determined by computed tomography of lung Paroxysmal atrial flutter Patent foramen ovale Personal history of COVID-19 Pre-diabetes Tobacco abuse Surgical History Surgical History History of bilateral cataract extraction History of cardiac catheterization History of colonoscopy with polypectomy History of cystoscopy History of lithotripsy History of lung biopsy (02/2020) Left lung nodule-fibrous tissue with chronic inflammation and granulomatous. History of tubal ligation Family History Family History Other Breast cancer Social History Social History Social History: . Lives in [place]. Son lives with her. Retired from [employer]. Surrogate medical decision maker: Jevon Lucas, phi. Code status: Full code Smoking packs per day: 1 Smoking cigarettes per day: 20.0 Years smoked: 50 Smoking pack-years: 50.00 Smoking status: Former smoker Tobacco type: cigarettes Alcohol intake: never Drinks per week: 0 Substance use: never Substance use type: does not use Lack of Transportation: No Lack of Food: Never True Current Housing: I Have Housing Concerned About Future Housing: No Difficulty Paying Gas/Electric Bills: No Difficulty Paying for Meds: No Currently Unemployed: No Education: Don't Know Difficulty w/ Childcare or Family Care: No Spiritual care concerns: No Same Day Admit/Disch: Med Pre-admit Medications Home Medications Medication Instructions Recorded Confirmed Type amlodipine 5 mg tablet 5 mg PO DAILY 06/25/22 09/11/22 History donepezil 10 mg tablet 10 mg PO DAILY 06/25/22 09/11/22 History folic acid 1 mg tablet 1 mg PO DAILY 06/25/22 09/11/22 History memantine 5 mg tablet 5 mg PO BID 06/25/22 09/11/22 History olmesartan 20 mg tablet 20 mg PO DAILY 06/25/22 09/11/22 History montelukast 10 mg tablet 10 mg PO QHS #90 tabs 07/04/22 09/11/22 Rx flecainide 100 mg tablet 100 mg PO Q12HR 1 month #60 tabs 07/06/22 09/11/22 Rx mecobalamin (vitamin B12) 1,000 1,000 mcg sublingual DAILY 07/29/22 09/11/22 History mcg disintegrating tablet,sublingual lorazepam 1 mg tablet 1 mg PO BID 08/14/22 09/11/22 History omeprazole 20 mg capsule,delayed 40 mg PO BID 08/14/22 09/11/22 History release apixaban 5 mg tablet (Eliquis) 5 mg PO Q12HR 1 month #60 tabs 08/19/22 09/11/22 Rx oxybutynin chl
[2022-09-18] MEDS: ACETAMINOPHEN 325 MG TABLET 650 MG PO (14:56)
== END 2022-09-18 16:30 | disposition home or self-care (01) | DRG 177 ==
PROVIDERS: Admitting Provider Internal Medicine; PCP Internal Medicine; Visit Provider Physician Assistant
DX: U07.1 COVID-19 (principal); J96.21 Acute and chronic respiratory failure with hypoxia; J96.22 Acute and chronic respiratory failure with hypercapnia; I48.92 Unspecified atrial flutter; J43.9 Emphysema, unspecified; R91.8 Other nonspecific abnormal finding of lung field; F41.8 Other specified anxiety disorders; M19.90 Unspecified osteoarthritis, unspecified site; K21.9 Gastro-esophageal reflux disease without esophagitis; E78.5 Hyperlipidemia, unspecified; I12.9 Hypertensive chronic kidney disease with stage 1 through stage 4 chronic kidney disease, or unspecified chronic kidney disease; N18.9 Chronic kidney disease, unspecified; E03.9 Hypothyroidism, unspecified; R73.03 Prediabetes; D50.9 Iron deficiency anemia, unspecified; Z79.01 Long term (current) use of anticoagulants; Z99.81 Dependence on supplemental oxygen; Z98.42 Cataract extraction status, left eye; Z98.41 Cataract extraction status, right eye; Z87.891 Personal history of nicotine dependence
CPT/HCPCS: 94002; 94640; A9270